=== PATIENT | female | born 1995 | race Caucasian/White ===

== ENCOUNTER 2024-07-27 10:43 | Emergency (ER) | payer OTHER, SELFPAY ==
[2024-07-27 10:53] VITALS: BP 129/71; PULSE 96; RESP 16; TEMP 37.1; O2SAT 100
[2024-07-27 11:09] LABS: EDUAAPPEAR Clear; EDUABILI Negative (Negative); EDUABLOOD Negative (Negative); EDUACOLOR1 Yellow; EDUAGLUCOSE Negative (Negative); EDUAKETONE Negative (Negative); EDUALEUKO Trace (Negative); EDUANITRATE Negative (Negative); EDUAPROTEIN 1+ (Negative); EDUASPGRAVITY 1.025; EDUAUROBILI 0.2
--- NOTE | 2024-07-27 11:26 | ED.GENADULT ---
HPI - General Adult General Chief complaint: Urogenital-Female Stated complaint: Pain/Abdominal Pain Source: patient Mode of arrival: ambulatory Limitations: no limitations History of Present Illness HPI narrative: Patient presents for evaluation of left-sided abdominal pain. Symptom onset last night. She indicates her dog jumped and hit her in the left side of her abdomen. She immediately experienced pain in that area. Since that time she continues to have intermittent discomfort. Pain is now radiating into the left flank. She is currently , approximately 26 weeks gestation. She is under the care of BERNADINE Wood. She states she is considered high risk during this , which is her first . She is having serial ultrasounds every 2-4 weeks. She denies any vaginal bleeding, discharge or urinary symptoms. Related Data Home Medications ?Medication ?Instructions ?Recorded ?Confirmed ?Last Taken ?Type calcium carbonate (Tums Ultra) 400 mg PO DAILY 05/10/24 06/09/24 Unknown History docosahexaenoic acid 200 mg mg PO 05/10/24 06/09/24 Unknown History capsule ( DHA) Allergies Allergy/AdvReac Type Severity Reaction Status Date / Time latex Allergy Intermediate Rash Verified 07/04/24 15:45 miconazole Allergy Intermediate Other Verified 07/04/24 15:45 Review of Systems Review of Systems: CONSTITUTIONAL: Denies fever, chills, or sweats. EYES: Denies visual changes, redness, or discharge. ENT: Denies rhinorrhea, congestion, sore throat, or otalgia. CARDIOVASCULAR: Denies chest pain, palpitations, or edema. RESPIRATORY: Denies cough or dyspnea. GASTROINTESTINAL: Reports left sided abdominal pain which radiates in the left flank. Denies any nausea, vomiting, or diarrhea. GENITOURINARY: Denies dysuria or hematuria. SKIN: Denies rash or itching. MUSCULOSKELETAL: Denies back pain, joint pain, or myalgia. NEUROLOGIC: Denies headache, numbness, dizziness, or weakness. PSYCHIATRIC: Denies anxiety or depression. [facility] Past Medical History Medical History Pelvic pain Allergies Surgical History Surgical History No pertinent past surgical history Family History Family History Mother Asthma Father Asthma Grandparent Diabetes mellitus Thyroid disorder maternal grandmother Alcoholism paternal grandfather Depression maternal and paternal grandfather/grandmother Social History Social History (Reviewed 07/27/24 @ 11:30 by Slim Merchant [facility], ) Smoking status: Never smoker Tobacco type: cigarettes Second hand tobacco smoke exposure: No Alcohol intake: never Substance use: never Substance use type: does not use Do You Feel Safe in your Home?: Yes Lack of Transportation: No Lack of Food: Never True Current Housing: I Have Housing Concerned About Future Housing: No Difficulty Paying Gas/Electric Bills: No Difficulty Paying for Meds: No Currently Unemployed: No Education: Master's Degree or Higher Difficulty w/ Childcare or Family Care: No Living arrangements: with family Additional living arrangements comments: Occupation/Education: 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 HEAD: Normocephalic, atraumatic. EYES: PERRLA and EOMI. ENT: Nares clear, no rhinorrhea or epistaxis. Mucous membranes moist. Oropharynx without tonsillar hypertrophy exudate or other lesions. Bilateral TMs pearly malone nonbulging NECK: Supple. No adenopathy or masses. No carotid bruits or JVD CHEST: Clear to auscultation. No respiratory distress. No wheezes rales or rhonchi HEART: Regular rate and rhythm. No murmur heard. Normal peripheral pulses. ABDOMEN: Soft, nondistended, normal active bowel sounds. Right side of the abdomen is tender to palpation and reproduces pain in left side of the abdomen when palpated on the right EXTREMITIES: Normal range of motion. No edema. SKIN: Warm, dry, no rash. NEURO: No focal deficits. Alert and oriented x3. PSYCH: Normal mood and affect. Course Course Emergency Course: This is a 29-year-old female who presented for evaluation of abdominal pain during after her dog bumped into her abdomen last night. She indicates she is considered high risk during this . Thankfully she is not experiencing vaginal bleeding. We discussed sending her to the ER for monitoring. She is agreeable with this plan. [facility] is her facility of choice. I contacted [facility] and spoke with Dr Shirley, who accepted pt for transfer there. Patient transferred via private vehicle Level of Care: Express Care Visit Vital Signs Vital signs: Vital Signs Temperature 37.1 C 07/27/24 10:53 Pulse Rate 96 07/27/24 10:53 Respiratory Rate 16 07/27/24 10:53 Blood Pressure 129/71 07/27/24 10:53 Pulse Oximetry 100 07/27/24 10:53 Oxygen Delivery Room Air 07/27/24 10:53 Temperature 37.1 C 07/27/24 10:53 Pulse Rate 96 07/27/24 10:53 Respiratory Rate 16 07/27/24 10:53 Blood Pressure 129/71 07/27/24 10:53 Pulse Oximetry 100 07/27/24 10:53 Oxygen Delivery Room Air 07/27/24 10:53 Medical Decision Making Vital Signs Vital Signs: Vital Signs Temperature 37.1 C 07/27/24 10:53 Pulse Rate 96 07/27/24 10:53 Respiratory Rate 16 07/27/24 10:53 Blood Pressure 129/71 07/27/24 10:53 Pulse Oximetry 100 07/27/24 10:53 Oxygen Delivery Room Air 07/27/24 10:53 Temperature 37.1 C 07/27/24 10:53 Pulse Rate 96 07/27/24 10:53 Respiratory Rate 16 07/27/24 10:53 Blood Pressure 129/71 07/27/24 10:53 Pulse Oximetry 100 07/27/24 10:53 Oxygen Delivery Room Air 07/27/24 10:53 Lab Data Labs: Lab Results 07/27/24 Range/Units 11:05 POC Urine Color Yellow POC Urine Clarity Clear POC Urine pH 7.0 POC Ur Specif [place] 1.025 POC Urine Protein 1+ (Negative) POC Ur Glucose (UA) Negative (Negative) POC Urine Ketones Negative (Negative) POC Urine Blood Negative (Negative) POC Urine Nitrite Negative (Negative) POC Urine Bilirubin Negative (Negative) POC Urine Urobilinogen 0.2 POC U Leukocyte Esteras Trace (Negative) Discharge Plan Discharge Clinical Impression: Abdominal pain during , UTI (urinary tract infection) Patient Disposition: Acute Care Hospital Condition: Stable Instructions: Abdominal Pain in (ED), Urinary Tract Infection in (ED) Patient Language: Greek Prescriptions: New cephalexin 500 mg capsule 500 mg PO Q12H Qty: 14 0RF No Action DHA 200 mg capsule PO calcium carbonate [Tums Ultra] 400 mg calcium (1,000 mg) tablet,chewable 400 mg PO DAILY Follow-up/Referrals: Tracy Perdomo MD [Physician] - Time of Disposition: 11:20
--- OUTSIDE RECORDS SUMMARY | 2024-08-03 05:42 | XMS_ITS | Referral Summary ---
Author Organization [facility] Address [address] [place] [address] Care Team Providers Care Country Manager Name Role Phone Rigo Mar MD Primary Care Provider [phone] Source Comments [facility],non-owned Affiliates and Associated Physician Practices is amultiple site organization consisting of ambulatory clinics and hospital sitesin [place], [place], [place] and [place]. This disclosure is being madepursuant to the Care Everywhere program and may not contain all information available regarding this patient. Last updated 18.[facility] Encounters Date Type Department Care Team Description 07/04/2024 7:30 AM CLINICAL ADMISSIONS MANAGER - 07/04/2024 11:59 PM CLINICAL ADMISSIONS MANAGER Hospital Encounter [facility] [address] [place] [address] Rosa Maria Carcamo MD Discharge Disposition: Home or Self Care 06/06/2024 8:04 AM CLINICAL ADMISSIONS MANAGER - 06/06/2024 11:59 PM CLINICAL ADMISSIONS MANAGER Hospital Encounter [facility] [address] [place] [address] Maame Stevenson MD Discharge Disposition: Home or Self Care 06/06/2024 8:03 AM CLINICAL ADMISSIONS MANAGER Hospital Encounter [facility] [address] [place] [address] Maame Stevenson MD Guinn, Debra A, MD Discharge Disposition: Home or Self Care from Last 3 Months Allergies Active Allergy Reactions Criticality Noted Date Comments Latex Rash Medium 05/30/2024 Miconazole Other Medium 05/30/2024 Unknown if intolerance, side effect or allergy. Medications Be aware that medications may not be up to date on this document. Always verify current medications with the patient. 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 06/09/2024 Estimated Date of Delivery Comme nts Yes 10/29/2024 Based on last me nstrual period of 01/23/2024 Social History Tobacco Use Types Packs/Day Years Used Date Smoking Tobacco: Never Smokeless Tobacco: Never Tobacco Cessation:Counseling Given: Not Answered Alcohol Use Standard Drinks/Week Comments Never 0 (1 standard drink = 0.6 oz pur e alcohol) Estimated Date of Delivery Comme nts Yes 10/29/2024 Based on last me nstrual period of 01/23/2024 Sex and Gender Information Value Date Recorded Sex Assigned at Not on file Gender Identity Not on file Sexual Orientation Not on file Last Filed Vital Signs Vital Sign Reading Time Taken Comments Blood Pressure 116/57 06/06/2024 8:08 AM CLINICAL ADMISSIONS MANAGER Pulse 86 06/06/2024 8:08 AM CLINICAL ADMISSIONS MANAGER Temperature 37.5 ??C (99.5 ??F) 03/29/2024 9:10 AM CD T Respiratory Rate - - Oxygen Saturation - - Inhaled Oxygen Concentration - - Weight 63 kg (138 lb 12.8 oz) 06/06/2024 8:08 AM CLINICAL ADMISSIONS MANAGER Height 167.6 cm (5' 6 ) 03/29/2024 9:10 AM CDT Body Mass Index 22.4 03/29/2024 9:10 AM CDT Plan of Treatment Upcoming Encounters Date Type Department Care Team (Late st Contact Info) Description 08/08/2024 3:15 PM CLINICAL ADMISSIONS MANAGER Hospital Encounter [facility] [address] [place] [address] 01/09/2025 3:00 PM CDT Office Visit [facility] - PUBLIC AID ELIGIBILITY ASSISTANT [address] [place] [address] Yolanda Kimbrough MD [address] [address] Procedures Procedure Name Priority Date/Time Associated Diagnosis Comments SONOGRAM - COMPLETE Routine 07/04/2024 7:40 AM CLINICAL ADMISSIONS MANAGER 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) Encounter for follow-up ultrasound of anatomy (HCC) 22 weeks gestation of (HCC) Abnormal chromosomal and genetic finding on screening mother Encounter for ultrasound to assess growth (HCC) SONOGRAM - COMPLETE Routine 06/06/2024 8:08 AM CLINICAL ADMISSIONS MANAGER Abnormal chromosomal and genetic finding on screening mother 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 Linked Results Indication ======== Anatomy Survey, Positive genetic testing for microcephaly and cystinuria (FOB not tested yet), Pt has a pelvic floor anomaly History ====== OB History ? 1. Para 0 Lab Tests Test ? Date ? Result NIPT ? Low risk, female Maternal Assessment Physical Exam ??Height 168 cm, 5 ft 6 in. Weight 65 kg, 143 lb. Initial weight 62 kg, 136 lb. BMI 23.08 kg/m?. Initial BMI 21.95 kg/m?. Weight gain 3 kg, 7 lb Method ====== Transabdominal ultrasound. View: Good view ========= Price . Number of fetuses: 1 Dating ====== ? Date ?Details ? Gest. age ? ALLYN LMP ?01/23/2024 ? 23 w + 2 d ?10/29/2024 Stated ALLYN ? 23 w + 2 d ?10/29/2024 U/S ?07/04/2024 ? based upon AC, BPD, Femur, HC ? 22 w + 3 d ?11/04/2024 Assigned dating based on the LMP, selected on 06/06/2024 ? 23 w + 2 d ?10/29/2024 General Evaluation Cardiac activity present. FHR 129 bpm. Presentation: breech Placenta: Placental site: anterior Amniotic fluid: Amount of AF: normal Biometry BPD ?52.3 ?mm ?21w 6d ??6% ?Hadlock HC ? 199.8 ?? mm ?22w 1d ??5% ?Hadlock AC ? 175.6 ?? mm ?22w 3d ??18% ? Hadlock Femur ?40.5 ?mm ?23w 1d ??32% ? Hadlock Humerus ?38.2 ?mm ?23w 4d ??45% ? Margarita HC / AC ?1.14 Weight Calculation: EFW ?523 ? g ? 17% ? Hadlock EFW (lb,oz) ?1 lb 2 ??oz EFW by ? Hadlock ([id number]) Head / Face / Neck Biometry: Cephalic index ? 0.73 ?5% ?Nicolaides appropriate Growth Overview Exam date ?GA ?BPD (mm) ?HC (mm) AC (mm) FL (mm) HL (mm) EFW (g) 06/06/2024 ? 19w 2d ??42.5 ?32% ? 157.7 ?? 16% ? 134.3 ?? 32% ? 27.8 ?17% ? 28.7 ?52% ? 254 ? 18% 07/04/2024 ?23w 2d ??52.3 ?6% ?199.8 ?? 5% ?175.6 ?? 18% ? 40.5 ?32% ? 38.2 ?45% ? 523 ? 17% Anatomy The following structures appear normal: Face ? Profile. Heart / Thorax 4-chamber view. LVOT view. 3-vessel view. Great vessels. ? Right lung. Left lung. Abdomen ?Cord insertion. Stomach. Kidneys. Bladder. Extremities / Skeleton Feet. sex: female. Impression ========= Single, live, intrauterine at 23w 2d size appears appropriate. The head size is small, but not microcephalic. Amniotic fluid volume: normal No major malformations were seen within the limitations of ultrasound Follow-up ======== Follow up ultrasound in 4 weeks for growth assessment is recommended Coding ====== Procedures ? 47636: US Preg Uterus Follow Up [facility] Design[employer] Material PACS Anatomical Region Laterality Modality Other 07/04/2024 7:40 AM CLINICAL ADMISSIONS MANAGER Tracy Perdomo MD [facility] ORDERABLES from Last 3 Months Care Teams Country Manager Relationship Specialty Start Date End Date Rigo Mar MD [address] [address] PCP - General Family Medicine 03/24/24
--- OUTSIDE RECORDS SUMMARY | 2024-08-03 05:42 | XMS_ITS | Clinical Summary ---
Author Organization [facility] Address [address] [place] [address] Care Team Providers Care Corporate Sales Trainer Name Role Phone Rigo Mar MD Primary Care Provider [phone] Source Comments [facility],non-owned Affiliates and Associated Physician Practices is amultiple site organization consisting of ambulatory clinics and hospital sitesin [place], [place], [place] and [place]. This disclosure is being madepursuant to the Care Everywhere program and may not contain all information available regarding this patient. Last updated 18.[facility] [employer] Allergies Active Allergy Reactions Criticality Noted Date [...] on last me nstrual period of 01/23/2024 Encounters Date Type Department Care Team Description 07/04/2024 7:30 AM VARNISH MIXER - 07/04/2024 11:59 PM VARNISH MIXER Hospital Encounter [facility] [address] [place] [address] Head, Rosa Maria Leger MD Discharge Disposition: Home or Self Care 06/06/2024 8:04 AM VARNISH MIXER - 06/06/2024 11:59 PM VARNISH MIXER Hospital Encounter [facility] [address] [place] [address] Maame Stevenson MD Discharge Disposition: Home or Self Care 06/06/2024 8:03 AM VARNISH MIXER Hospital Encounter [facility] [address] [place] [address] Maame Stevenson MD Guinn, Debra A, MD Discharge Disposition: Home or Self Care from Last 3 Months Family History Medical History Relation Name Comments Osteoporosis Father Autoimmune Disease Maternal Grandfather M yasthenia gravis (MG) Diabetes; unknown type Maternal Grandfather Cancer - Colon Maternal Uncle Relation Name Status Comments Father Maternal Grandfather Maternal Uncle Other 1 Fetus - In Utero Other 2 Maurice Alive Other 3 Alive Other 4 Alive Other 5 Alive Other 6 Alive Sister Alive Renal disorder Social History Tobacco Use Types Packs/Day Years [...] Comments Blood Pressure 116/57 06/06/2024 8:08 AM VARNISH MIXER Pulse 86 06/06/2024 8:08 AM VARNISH MIXER Temperature 37.5 ??C (99.5 ??F) 03/29/2024 9:10 AM CD T Respiratory Rate - - Oxygen Saturation - - Inhaled Oxygen Concentration - - Weight 63 kg (138 lb 12.8 oz) 06/06/2024 8:08 AM VARNISH MIXER Height 167.6 cm (5' 6 ) 03/29/2024 9:10 AM CDT Body Mass Index 22.4 03/29/2024 9:10 AM CDT Plan of Treatment Upcoming Encounters Date Type Department Care Team (Late st Contact Info) Description 08/08/2024 3:15 PM VARNISH MIXER Hospital Encounter [facility] [address] [place] [address] 01/09/2025 3:00 PM CDT Office Visit [facility] - RADIATION CONTROL HEALTH PHYSICIST [address] [place] [address] Yolanda Kimbrough MD [address] [facility] [address] [place] [address] Health Maintenance Due Date Last Done Comments PAP SMEAR 1997 HIV SCREENING 2012 HEPATITIS C SCREENING 05/09/2015 DTAP/TDAP/TD VACCINES (1 - Tdap) 2016 HEPATITIS B VACCINE (1 of 3 - 19+ 3-dose series) 2016 COVID-19 VACCINE (2023-2 5 season) 2024 08/07/2021, 02/23/2021, 01/26/2021 INFLUENZA VACCINE (#1) 2024 OB-ONE HOUR GLUCOSE 07/23/2024 DEPRESSION SCREENING 07/27/2024 OB-TDAP CURRENT 07/30/2024 OB-RHOGAM INJECTION 08/06/2024 ZOSTER VACCINE (1 of 2) 2047 HIB VACCINE Aged Out No longer eligi ble based on patient's age to complete this topic HPV VACCINE Aged Out No longer eligi ble based on patient's age to complete this topic MENINGOCOCCAL VACCINE Aged Out No vernon andrei eligible based on patient's age to complete this topic PNEUMOCOCCAL VACCINE Aged Out No long er eligible based on patient's age to complete this topic Respiratory Syncytial Virus (RSV) Vaccine Pt: or over 60 yrs (No Doses Required) Completed Procedures Procedure Name Priority Date/Time Associated Diagnosis Comments SONOGRAM - COMPLETE Routine 07/04/2024 7:40 AM VARNISH MIXER 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) Encounter for follow-up ultrasound of anatomy (HCC) 22 weeks gestation of (HCC) Abnormal chromosomal and genetic finding on screening mother Encounter for ultrasound to assess growth (HCC) SONOGRAM - COMPLETE Routine 06/06/2024 8:08 AM VARNISH MIXER Abnormal chromosomal and genetic finding on screening mother 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 Hadlock ([id number]) Head / Face / Neck Biometry: Cephalic [...] assessment is recommended Coding ====== Procedures ? 62180: US Preg Uterus Follow Up [facility] PACS Anatomical Region Laterality Modality Other 07/04/2024 7:40 AM VARNISH MIXER Tracy Perdomo MD [facility] ORDERABLES from Last 3 Months Care Teams Corporate Sales Trainer Relationship Specialty Start Date End Date Rigo Mar MD [address] [address] PCP - General Family Medicine 03/24/24
--- OUTSIDE RECORDS SUMMARY | 2024-08-03 05:43 | XMS_ITS | Encounter Summary ---
Author Organization [facility] Address [facility] [place] [address] Care Team Providers Care Plywood Layup Line Back Feeder Name Role Phone Rigo Mar MD Primary Care Provider [phone] Encounter Details Date Type Department Care Team (Latest Contact Info) Description 03/29/2024 Travel Social History Tobacco Use Types Packs/Day Years Used Date Smoking Tobacco: Never Smokeless Tobacco: Never Alcohol Use Standard Drinks/Week Comments Never 0 (1 standard drink = 0.6 oz pur e alcohol) Estimated Date of Delivery Comme nts Yes 10/29/2024 Based on last me nstrual period of 01/23/2024 Sex and Gender Information Value Date Recorded Sex Assigned at Not on file Gender Identity Not on file Sexual Orientation Not on file documented as of this encounter Plan of Treatment Upcoming Encounters Date Type Department Care Team (Late st Contact Info) Description 08/08/2024 3:15 PM INSTRUMENT PANEL ASSEMBLER Hospital Encounter [facility] [place] [address] 01/09/2025 3:00 PM CDT Office Visit [facility] - PHARMACEUTICAL PLANT OPERATOR [address] [place] [address] Yolanda Kimbrough MD [address] [address] documented as of this encounter Visit Diagnoses Not on filedocumented in this encounter Care Teams Plywood Layup Line Back Feeder Relationship Specialty Start Date End Date Rigo Mar MD [address] [address] PCP - General Family Medicine 03/24/24 documented as of this encounter
--- OUTSIDE RECORDS SUMMARY | 2024-08-03 05:43 | XMS_ITS | Encounter Summary ---
Author Organization [facility] Address [address] [place], [place] [address] [address] Care Team Providers Care Electric Organ Checker Name Role Phone Rigo Mar MD Primary Care Provider [phone] Reason for Visit * Reason Comments Vulvar Pain * Consult, Test & Treat (Routine) - Authorized Specialty Diagnoses / Procedures Referred By Contac t Referred To Contact Obstetrics and Gynecology Rigo Mar MD [address] [place] [phone] Yolanda Kimbrough MD [address] [facility] [address] [place] [address] Referral ID Status Reason Start Date Expiration Date V isits Requested Visits Authorized [id number] Authorized 03/24/2024 03/23/2025 [id number] Encounter Details Date Type Department Care Team (Late st Contact Info) Description 03/29/2024 8:50 AM CDT Office Visit [facility] - HYPERBARIC TECHNICIAN [address], [facility] [address] [place] [address] Yolanda Kimbrough MD [address] [facility] [address] [place] [address] Vulvar vestibulitis (Primary Dx); History of vaginitis Social History Tobacco Use Types Packs/Day Years [...] on file documented as of this encounter Last Filed Vital Signs Vital Sign Reading Time Taken Comments Blood Pressure 124/80 03/29/2024 9:10 AM CDT Pulse - - Temperature 37.5 ??C (99.5 ??F) 03/29/2024 9:10 AM CD T Respiratory Rate - - Oxygen Saturation - - Inhaled Oxygen Concentration - - Weight 59 kg (130 lb) 03/29/2024 9:10 AM CDT Height 167.6 cm (5' 6 ) 03/29/2024 9:10 AM CDT Body Mass Index 20.98 03/29/2024 9:10 AM CDT documented in this encounter Patient Instructions * Patient Instructions* Yolanda Kimbrough MD - 03/29/2024 8:53 AM CDT Follow the Vulvar Care Guidelines Free and clear laundry detergent No liquid fabric softeners, white vinegar is a natural fabric softener and can be use in the both whites and dark washes No dryer sheets, may use wool dryer balls Switch toilet paper to anything that is not ultra-soft or ultra-strong Dove sensitive skin bar soap, make sure you wash in between the labial folds. vegetable shortening/Cold press coconut oil/EVOO twice daily to the vestibule, at bedtime also use on all external vulvar tissues To have Bacterial vaginosis you need a vaginal pH of 5 or above. 4.5 and below are normal levels and you can not have BV with this pH. 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 Medication(s): See list Medical History: Past Medical History: Diagnosis Date GERD (gastroesophageal reflux disease) Surgical History: Past Surgical History: Procedure Laterality Date NEGATIVE SURGICAL HISTORY Review of Systems: Constitutional: Fever, Chills, Sweats, and Fatigue Eyes: Negative Ears, nose, mouth, throat, and face: Ear drainage, Nasal congestion, Sore mouth, and Sore throat Respiratory: Cough and Pleurisy Cardiovascular: Negative Gastrointestinal: Reflux, Nausea, and Change in bowel habits Genitourinary:Dysuria and Nocturia Integument/breast: Negative Hematologic/lymphatic: Negative Musculoskeletal: Negative Neurological: Negative Behavioral/Psych: Negative Endocrine: Negative Allergic/mmunologic: Negative Chief Complaint: About 5 years ago began having lots of vaginal, vulvar pain. Gets burning and itching and even pain down her legs. Has never been able to use tampons. Has been told she has had recurrent BV and given Flagyl, Metrogel and then gets yeast and given fluconazole. Was also tried on topical testosterone but this broke her out. Does have chemical sensitivities. [place] is painful. Patient is currently 9 weeks . Symptoms: (0=None; 10=Severe) Dyspareunia: Entry:4 Deep Pain:2 Burning after intercourse:6 until rinses off Vaginal discharge: 0 Vulvar burnin-8 Vulvar itchin-4 Clitoral pain: 0 Vulvar pain: 0 Urinary symptoms: 0 Duration of symptom(s): 6 years Association with any major life or gynecological event/illness? N o Previous diagnoses: no Previous biopsies: No Previous treatment(s): topical estrogen and testosterone, nystatin/triamcinolone ointment, fluconazole, Flagyl Current treatment(s): none Symptoms prevent activities? Yes sexual History of STI: No Partner with symptoms of irritation, itching, burning or discharge? No Hormone therapy or OCP use? no Psychosocial aspects: Fear of having to live with chronic pain? No Loss of previously satisfying sex life? Yes Relationship problems with partner? No Isolation due to private nature of problem?No Able to discuss the problem with family members or friends? Yes Fear of possible cancer? No Emotional, stephen, frustrated and/or angry? Yes Fear of haivng a disease that you may give to others? No Antidepressant/antianxiolytic use? No Instruction Vulvar Care Guidelines Vulvar Examination: See Photo Documentation/annotated image-if photo taken, verbal consent obtained External tissues red with increase in smegma in inner labial folds Some inflammation below clitoris Vestibule tender with scores of 6-8/10 pH: pH Vaginal Date Value Ref Range Status 03/29/2024 4.0 Final Wt mount results: pH Wet Prep Date/Time Value Ref Range Status 03/29/2024 10:13 AM 4.0 Final Yeast Wet Prep Date/Time Value Ref Range Status 03/29/2024 10:13 AM neg Final Trichomonas Wet Prep Date/Time Value Ref Range Status 03/29/2024 10:13 AM None Final Bacteria Wet Prep Date/Time Value Ref Range Status 03/29/2024 10:13 AM neg Final Whiff Test Date/Time Value Ref Range Status 03/29/2024 10:13 AM neg Final SAVANAH Prep: SAVANAH Prep Date Value Ref Range Status 03/29/2024 No Final Cultures: yeast Biopsy: Not done Impression/Plan: Vestibulodynia Implement Vulvar Care Guidelines vegetable shortening/Cold press coconut oil /EVOO twice daily Discussed that since she is can not use the oral neuropathics at this time Encouraged a vaginal delivery 2. History of vaginitis Check yeast culture Reviewed that she does not have BV, has normal pH, negative whiff test and negative wet mount. Informed that a vagina pH of 4.5 or below does not support a BV diagnosis. If this yeast culture is negative, then when she gets symptoms again to self swab and drop off at [facility]. 3. ? Early vulvar dystrophy May need biopsy after 3. F/U in 4 months Time - The total face to face encounter time was 45 minutes. A significant portion (>50%) time was spent face to face in counseling the patient about the Vulvar Care Guidelines, vestibulodynia, history of vaginitis, vulvar dystrophy and discussing the treatment plan as outlined in instructions. Her questions were answered to her satisfaction. Written instructions were provided. The patients medications, allergies, medical history, surgical history, family history, and social history were reviewed and changes are amended directly in the appropriate areas of the electronic medical record and electronically signed. I also spent 15 minutes of time on the day of the visit preparing to see the patient and completingthe visit documentation, including some or all of the following: ? obtaining and/or reviewing separately obtained history (as available from electronic record, careeverywhere, provided records from the patient if available) ? counseling and educating the patient/family/caregiver ? ordering medications, tests, or procedures as needed ? referring and communicating with other health health care coordinator via faxed communication ? documenting clinical information in the electronic health record ? independently interpreting results and communicating results to the patient/family/caregiver as needed ? care coordination as needed Total time 60 minutes New: 30 min (65425) 45 min (02692) 60 min (20658) Established 20 min (33892) 30 min (73113) 40 min (64148)' documented in this encounter Plan of Treatment Upcoming Encounters Date Type Department Care Team (Late st Contact Info) Description 08/08/2024 3:15 PM ALTERATION WORKER Hospital Encounter [facility] Maternal & Care [address] [place], [place] [id number] 01/09/2025 3:00 PM CDT Office Visit [facility] - HYPERBARIC TECHNICIAN [address] [place] [address] [address] [place] [address] Yolanda Kimbrough MD [address] [facility] [address] [place] [address] Scheduled Orders Name Type Priority Associated Diagnoses Orde r Schedule CULTURE YEAST WITH DIRECT FLUORESCENT SAVANAH Microbiology Routine History of vaginitis 1 Occurrences starting 03/29/2024 until 04/28/2025 documented as of this encounter Procedures Procedure Name Priority Date/Time Associated Diagnosis Comments PH FLUID - POCT (AMB) [facility] Routine 03/29/2024 10:13 AM CDT Vulvar vestibulitis WET PREP - POINT OF CARE (AMB) [facility] Routine 03/29/2024 10:13 AM CDT Vulvar vestibulitis FUNGUS SAVANAH - POINT OF CARE (AMB) [facility] Routine 03/29/2024 10:13 AM CDT Vulvar vestibulitis CULTURE YEAST WITH DIRECT FLUORESCENT SAVANAH Routine 03/29/2024 9:43 AM CDT Vulvar vestibulitis documented in this encounter Results * WET PREP - POINT OF CARE (AMB) [facility] (03/29/2024 10:13 AM CDT) pH Wet Prep 4.[address] [facility] [address] Yeast Wet Prep neg [facility] RE [address] Trichomonas Wet Prep None [facility] [address] Bacteria Wet Prep neg [facility] [address] Whiff Test neg [facility] [address] BODY FLUID SPECIMEN / Unknown 03/29/2024 10:13 AM CDT Yolanda Kimbrough MD LAB - POINT OF CAR E ORDERABLES Performing Organization Address City/[facility]/ZIP Co de Phone Number [facility] [address] [place] [address], [facility] [phone] * PH FLUID - POCT (AMB) [facility] (03/29/2024 10:13 AM CDT) pH Vaginal 4.0 [facility] [address] Fluid VAGINAL SWAB / Unknown 03/29/2024 10:13 AM CDT Yolanda Kimbrough MD LAB - POINT OF CAR E ORDERABLES Performing Organization Address City/[facility]/ZIP Co de Phone Number [facility] [address] [place] [address], [facility] [phone] * FUNGUS SAVANAH - POINT OF CARE (AMB) [facility] (03/29/2024 10:13 AM CDT) SAVANAH Prep No [facility] [address] Fluid BODY FLUID SPECIMEN / Unknown 03/29/2024 10:13 AM CDT Yolanda Kimbrough MD LAB - POINT OF CAR E ORDERABLES [facility] [address] [place] [address], [facility] [phone] * CULTURE YEAST WITH DIRECT FLUORESCENT SAVANAH (03/29/2024 9:43 AM CDT) [facility] Comment: ??CULTURE, YEAST, W/DIRECT FLUORESCENT SAVANAH ?Micro Number: ?[id number] ??Test Status: ? Final ??Specimen Source: ?? Genital ??Specimen Quality: ??Adequate ??Smear: ? No yeast seen ??Result: ?No yeast isolated Test Performed at: [employer] ??[id number] KWASI PATTERSON MD Microbiology SPECIMEN FROM GENITAL SYSTEM / Unknown 03/29/2024 9:43 AM CDT 03/30/2024 4:40 AM CDT Yolanda Kimbrough MD LAB - MICROBIOLOGY ORDERABLES Dr. 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
--- OUTSIDE RECORDS SUMMARY | 2024-08-03 05:43 | XMS_ITS | Patient Health Summary ---
Author Organization [facility] [employer] Address [address] [place] [address] Care Team Providers Care Canvas Cutter Machine Name Role Phone Rigo Mar MD Primary Care Provider [phone] Note from [facility] [place],non-owned Affiliates and Associated Physician Practices is amultiple site organization consisting of ambulatory clinics and hospital sitesin [place], [place], [place] and [place]. This disclosure is being madepursuant to the Care Everywhere program and may not contain all information available regarding this patient. Last updated 18.[facility] [employer] Allergies * Latex(Rash) -Medium Criticality * Miconazole(Other) -Medium Criticality Medications Be aware that medications may not be up to date on this document. Always verify current medications with the patient. 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 06/09/2024 Social History Tobacco Use Types Packs/Day Years [...] Comments Blood Pressure 116/57 06/06/2024 8:08 AM BIOPHYSICS PROFESSOR Pulse 86 06/06/2024 8:08 AM BIOPHYSICS PROFESSOR Temperature 37.5 ??C (99.5 ??F) 03/29/2024 9:10 AM CD T Respiratory Rate - - Oxygen Saturation - - Inhaled Oxygen Concentration - - Weight 63 kg (138 lb 12.8 oz) 06/06/2024 8:08 AM BIOPHYSICS PROFESSOR Height 167.6 cm (5' 6 ) 03/29/2024 9:10 AM CDT Body Mass Index 22.4 03/29/2024 9:10 AM CDT Procedures * SONOGRAM - COMPLETE(Performed 07/04/2024) 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), Autosomal recessive cystinuria (HCC),Encounter for follow-up ultrasound of anatomy ([facility]), 22 weeks gestation of ([facility]), Abnormal chromosomal and genetic finding on screening mother, Encounter for ultrasound to assess growth ([facility]) * SONOGRAM - COMPLETE(Performed 06/06/2024) Performed for Abnormal chromosomal and genetic finding on screening mother, Autosomal recessive primary microcephaly (HCC), Autosomal recessive cystinuria (HCC), 19 weeks gestation of ([facility]), Encounter for anatomic survey ([facility]) * WET PREP - POINT OF CARE (AMB) [facility](Performed 03/29/2024) Performed for Vulvar vestibulitis * PH FLUID - POCT (AMB) [facility](Performed 03/29/2024) Performed for Vulvar vestibulitis * FUNGUS SAVANAH - POINT OF CARE (AMB) [facility](Performed 03/29/2024) Performed for Vulvar vestibulitis * CULTURE YEAST WITH DIRECT FLUORESCENT SAVANAH(Performed 03/29/2024) Performed for Vulvar vestibulitis Results * SONOGRAM - COMPLETE (07/04/2024 7:40 AM BIOPHYSICS PROFESSOR) Only the most recent of2 resultswithin the [...] lb 2 ??oz EFW by ? Hadlock ([id number]) Head / Face / Neck Biometry: Cephalic [...] assessment is recommended Coding ====== Procedures ? 13736: US Preg Uterus Follow Up Free & Clear PACS Anatomical Region Laterality Modality Other 07/04/2024 7:40 AM BIOPHYSICS PROFESSOR Tracy Perdomo MD [facility] ORDERABLES * PH FLUID - POCT (AMB) [facility] (03/29/2024 10:13 AM CDT) pH Vaginal 4.0 [facility] [address] Fluid VAGINAL SWAB / Unknown 03/29/2024 10:13 AM CDT Yolanda Kimbrough MD LAB - POINT OF CAR E ORDERABLES Performing Organization Address [facility] Co de Phone Number [facility] [address], [facility] [phone] * WET PREP - POINT OF CARE [...] OF CAR E ORDERABLES Performing Organization Address [facility] Co de Phone Number [facility] [address] [place] [address], [facility] [phone] * FUNGUS SAVANAH - POINT OF CARE (AMB) [facility] (03/29/2024 10:13 AM CDT) SAVANAH Prep No [facility] [address] Fluid BODY FLUID SPECIMEN / Unknown 03/29/2024 10:13 AM CDT Yolanda Kimbrough MD LAB - POINT OF CAR E ORDERABLES Performing Organization Address [facility] Co de Phone Number [facility] [address] [place] [address], [facility] [phone] * CULTURE YEAST WITH DIRECT FLUORESCENT SAVANAH (03/29/2024 9:43 AM CDT) Smear [facility] Comment: ??CULTURE, YEAST, W/DIRECT FLUORESCENT SAVANAH ?Micro Number: ?[id number] ??Test Status: ? Final ??Specimen Source: ?? Genital ??Specimen Quality: ??Adequate ??Smear: ? No yeast seen ??Result: ?No yeast isolated Test Performed at: [email or web address] ??[id number] KWASI PATTERSON MD Microbiology SPECIMEN FROM GENITAL SYSTEM / Unknown 03/29/2024 9:43 AM CDT 03/30/2024 4:40 AM CDT Yolanda Kimbrough MD LAB - MICROBIOLOGY ORDERABLES [address] [address] Care Teams Canvas Cutter Machine Relationship Specialty Start Date End Date Rigo Mar MD [address] [address] PCP - General Family Medicine 03/24/24
--- OUTSIDE RECORDS SUMMARY | 2024-08-03 05:43 | XMS_ITS | Encounter Summary ---
Author Organization [facility] Address [address] [place], [place] [address] [address] Care Team Providers Care Hammer Smith Name Role Phone Rigo Mar MD Primary Care Provider [phone] Reason for Visit * Reason Onset Date Comments Med Question 04/20/2024 Encounter Details Date Type Department Care Team (Late st Contact Info) Description 04/20/2024 Telephone [facility] - REMOTE SENSING SCIENTIST [address] [place] [address] Yolanda Kimbrough MD [address] [facility] [address] [place] [address] Med Question Social History Tobacco Use Types Packs/Day Years [...] on file documented as of this encounter Miscellaneous Notes * Telephone Encounter - Yolanda Kimbrough MD - 04/21/2024 8:17 AM CDT Talked wit Fatou the PT. Reviewed Mami's diagnosis of vestibulodynia. I agree with her that further PT is not indicated at this time. * Telephone Encounter - Getachew Pepe RN - 04/20/2024 1:09 PM CDT Per Fatou, PT: Pt has been seen for pelvic pain for past year. Hasn't been able to help her with her pelvic pain -most consistently for last 3 months. Fatou was the one who suggested Mami see Dr Padilla. Wonders if Dr Padilla was able to find anything when she was seen? Fatou concerned PT isn't helpingher. Was hoping Dr Padilla could give her some insight or suggest anything further. Fatou has had discussions w/ the OB who ordered PT. OB thinks her issues are caused by ongoing BV. OB has also sent Mami to a sex therapist. Advised: Dr Padilla is a vaginal vulvar specialist, not pelvic pain. Will send her your question and see if she has any insight. No PT reports in chart. * Telephone Encounter - Dede Treviño - 04/20/2024 12:05 PM CDT Fatou Physical Therapist with the [facility] is calling regarding this PT. She has been seeing this PT for a while and is wondering what the PT's treatment plan is and what her next steps maybe. C/B [phone] documented in this encounter Plan of Treatment Upcoming Encounters Date Type Department Care Team (Late st Contact Info) Description 08/08/2024 3:15 PM MENTAL HEALTH NURSE PRACTITIONER Hospital Encounter [facility] Maternal & Care [address] [place] [address] 01/09/2025 3:00 PM CDT Office Visit [facility] - REMOTE SENSING SCIENTIST [address] [place] [phone] Yolanda Kimbrough MD [address] [address] documented as of this encounter Visit Diagnoses Not on filedocumented in this encounter Care Teams Hammer Smith Relationship Specialty Start Date End Date Rigo Mar MD [address] [phone] PCP - General Family Medicine 03/24/24 documented as of this encounter
--- OUTSIDE RECORDS SUMMARY | 2024-08-03 05:43 | XMS_ITS | Encounter Summary ---
Author Organization [facility] Address [address] [place], [place] [address] [address] Care Team Providers Care Marketing Outreach Coordinator Name Role Phone Rigo Mar MD Primary Care Provider [phone] Encounter Details Date Type Department Care Team (Latest Contact Info) Description 06/06/2024 8:04 AM MANUFACTURERS SERVICE REPRESENTATIVE - 06/06/2024 11:59 PM MANUFACTURERS SERVICE REPRESENTATIVE Hospital Encounter [facility] [address] [place], [place] [id number] Maame Stevenson MD 10[address] [facility] 4TH [place] [address] Discharge Disposition: Home or Self Care Social History Tobacco Use Types Packs/Day Years [...] on file documented as of this encounter Progress Notes * Tiesha Morrison GC - 06/06/2024 11:59 PM CST Images from the original note were not included. GENETICS CONSULTATION NOTE [facility]: [place] PATIENT: Mami Call DATE OF : 1995 DATE SEEN: 06/06/2024 SEEN BY: Tiesha Morrison MS, [facility] - Genetic Counselor Today's visit was conducted virtually. The patient has given verbal consent to have today's visit conducted virtually and understands the risks, benefits and alternatives associated with telemedicine. Patient location: Hospital This encounter was performed using: audio and video PATIENT PROFILE: Ms. Call is , 29-year-old. She was accompanied by her partner and fatherof the Maurice. A total of 40 minutes was spent counseling this couple. CURRENT : Ms. 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 FAMILY HISTORY: Family history is unremarkable. There is no reported family history of defects, cognitive disability or recurrent loss. IMPRESSION: Ms. Call received carrier screening ordered through her OB. 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 We reviewed that both conditions follow autosomal recessive inheritance patterns. She was educated on the fact that being a carrier does not mean an individual will be affected by Cystinuria Type I or Primary AR Microcephaly. We also reviewed the natural history of both disorders, autosomal recessive inheritance patterns, as well as carrier frequency in regards to her reproductive partner's potential carrier status. His risk to be a carrier for Cystinuria Type 1 is 1 in 50. We also reviewed current risk for Cystinuria Type I without partner testing, which is 1 in 200. We discussed that were unable to determine carrier frequency for Primary AR Microcephaly due to the incredibly low incidence in the general population. We reviewed possible genetic carrier testing options for him should they choose to pursue it, which would involve single gene testing for the two previously mentionedgenes of concern. Both Ms. Call and the FOB expressed their desire to move forward with carrier testing for the FOB. The two genes of interest are not on our routine carrier screening panel, therefore we will research the best next option for Maurice. We will follow up by phone to discuss lab selection, sample collection, and billing. PLAN: Following our discussion, the FOB and patient both agreed to pursue genetic carrier screening for the two genes Ms. Call was found to be a carrier for. The two genes of interest are not on our routine carrier screening panel, therefore we will research the best next option for Maurice. We will follow up by phone to discuss lab selection, sample collection, and billing. FOLLOW UP: Maurice Corea's 2 Gene Panel: KIF14 and SLC3A1; gene sequencing with deletion and duplication analysis: RESULTS: Negative (No clinically significant sequence or copy-number variants were identified inthe submitted specimen.) Results were disclosed via phone on 07/21/24. Tiesha Morrison MS, [facility] Lead Genetic Counselor [facility] cc: Tracy Perdomo MD FACTURERS SERVICE REPRESENTATIVE documented in this encounter Plan of Treatment Upcoming Encounters Date Type Department Care Team (Late st Contact Info) Description 08/08/2024 3:15 PM MANUFACTURERS SERVICE REPRESENTATIVE Hospital Encounter [facility] [address] [place] [address] 01/09/2025 3:00 PM CDT Office Visit [facility] - HEALTH PROMOTION EDUCATOR [address] [facility] [address] [place] [address] Yolanda Kmibrough MD 1031 [facility] [address] [place] [address] documented as of this encounter Visit Diagnoses Not on filedocumented in this encounter Care Teams Marketing Outreach Coordinator Relationship Specialty Start Date End Date Rigo Mar MD [address] [facility] 3 [place] [address] PCP - General Family Medicine 03/24/24 documented as of this encounter
--- OUTSIDE RECORDS SUMMARY | 2024-08-03 05:43 | XMS_ITS | Encounter Summary ---
Author Organization [facility] Address [facility] [place] [address] Care Team Providers Care Small Business Sales Representative Name Role Phone Unavailable Primary Care Provider Unavailabl e Encounter Details Date Type Department Care Team (Latest Contact Info) Description 12/18/2023 Travel Social History Tobacco Use Types Packs/Day Years Used Date Smoking Tobacco: Never Assessed Sex and Gender Information Value Date Recorded Sex Assigned at Not on file Gender Identity Not on file Sexual Orientation Not on file documented as of this encounter Plan of Treatment Upcoming Encounters Date Type Department Care Team (Late st Contact Info) Description 08/08/2024 3:15 PM PEOPLESOFT HCM DEVELOPER Hospital Encounter [facility] [address] [place], [place] [id number] 01/09/2025 3:00 PM CDT Office Visit [facility] - WEB PRESSMAN [address] [facility] [address] [place] [address] Yolanda Kimbrough MD [address] [address] documented as of this encounter Visit Diagnoses Not on filedocumented in this encounter
--- OUTSIDE RECORDS SUMMARY | 2024-08-03 05:43 | XMS_ITS | Encounter Summary ---
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 gestation of (HCC) Encounter for anatomic survey (HCC) Procedures SONOGRAM - COMPLETE Bar Acuña MD [address] [facility] [address] [place] [address] Referral ID Status Reason Start Date Expiration Date Visits Re quested Visits Authorized [id number] Open 05/30/2024 05/30/2025 1 1 S ASSISTANT DISPLAYS * (Routine) - Open Specialty Diagnoses / Procedures Referred By Contac bong Referred To Contact Diagnoses Abnormal chromosomal and genetic finding on screening mother 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 gestation of (HCC) Encounter for anatomic survey (HCC) Procedures SONOGRAM - COMPLETE Bar Acuña MD [address] [facility] [address] [place] [address] Referral ID Status Reason Start Date Expiration Date Visits Re quested Visits Authorized [id number] Open 05/30/2024 05/30/2025 1 1 S ASSISTANT DISPLAYS Reason for Visit * Reason Comments Ultrasound Genetic Counseling Encounter Details Date Type Department Care Team (Latest Contact Info) Description 06/06/2024 8:03 AM SALES ASSISTANT DISPLAYS Hospital Encounter [facility] [address] [place] [address] Maame Stevenson MD 1031 [facility] 4TH [place] [phone] Isa Hill MD [address] [facility] [address] [place] [address] Discharge Disposition: Home or Self Care Social [...] as of this encounter Progress Notes * Susan Barbour RN - 06/06/2024 8:09 AM CST Patient here with significant other, Maurice Corea today for anatomy ultrasound and genetic counseling visit. Denies cramping, contractions, leakage of fluid, vaginal bleeding. Denies RUQ pain, visual changes and headaches. Patient reports positive movement. Susan Barbour RN 06/06/2024 8:11 AM S ASSISTANT DISPLAYS documented in this encounter Plan of Treatment Upcoming Encounters Date Type Department Care Team (Late st Contact Info) Description 08/08/2024 3:15 PM SALES ASSISTANT DISPLAYS Hospital Encounter [facility] [address] [place] [address] 01/09/2025 3:00 PM CDT Office Visit [facility] - PRINCIPAL ACCOUNT CLERK [address] [facility] [address] [place] [address] Yolanda Kimbrough MD [address] [facility] [address] [place] [address] documented as of this encounter Procedures Procedure Name Priority Date/Time Associated Diagnosis Comments SONOGRAM - COMPLETE Routine 06/06/2024 8:08 AM SALES ASSISTANT DISPLAYS Abnormal chromosomal and genetic finding on screening mother 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 1. Para 0 Lab Tests Test ? Date ? Result NIPT ? Low risk, female Maternal Assessment Physical Exam ??Height 168 cm, 5 ft 6 in. Weight 63 kg, 138 lb. Initial weight 62 kg, 136 lb. BMI 22.27 kg/m?. Initial BMI 21.95 kg/m?. Weight gain 1 kg, 2 lb Method ====== Transabdominal and transvaginal ultrasound examination ========= Price . Number of fetuses: 1 Dating ====== ? Date ?Details ? Gest. age ? ALLYN LMP ?01/23/2024 ? 19 w + 2 d ?10/29/2024 U/S ?06/06/2024 ?based upon AC, BPD, Femur, HC ? 18 w + 5 d ?11/02/2024 Assigned dating based on the LMP, selected on 06/06/2024 ? 19 w + 2 d ?10/29/2024 General Evaluation Cardiac activity present. FHR 141 bpm. Presentation: cephalic Placenta: Placental site: posterior Umbilical cord: Cord vessels: 3 vessel cord. Insertion site: normal insertion Amniotic fluid: Amount of AF: appears normal. MVP 3.4 cm Biometry BPD ?42.5 ?mm ?18w 6d ??32% ? Hadlock HC ? 157.7 ?? mm ?18w 5d ??16% ? Hadlock Cerebellum tr ?20.4 ?mm ?86% ? [place] Nuchal fold ?3.6 ? mm AC ? 134.3 ?? mm ?18w 6d ??32% ? Hadlock Femur ?27.8 ?mm ?18w 4d ??17% ? Hadlock Humerus ?28.7 ?mm ?19w 2d ??52% ? Margarita HC / AC ?1.17 ?49% ? Hadlock Weight Calculation: EFW ?254 ? g ? 18% ? Hadlock EFW (lb,oz) ?0 lb 9 ??oz EFW by ? Hadlock (ICO-OJ-DS-FL) Head / Face / Neck Biometry: Cephalic index ? 0.76 ?21% ? Nicolaides [employer] Operator ? 6.3 ? mm CM ? 3.0 ? mm ?4% ?Nicolaides appropriate Growth Overview Exam date ?GA ?BPD (mm) ?HC (mm) AC (mm) FL (mm) HL (mm) EFW (g) 06/06/2024 ? 19w 2d ??42.5 ?32% ? 157.7 ?? 16% ? 134.3 ?? 32% ? 27.8 ?17% ? 28.7 ?52% ? 254 ? 18% Anatomy The following structures appear normal: Head / Neck ?Cranium. Lateral ventricles. Choroid plexus. Midline falx. Cavum septi pellucidi. Cerebellum. Cisterna magna. Thalami. ? Nuchal fold. Face ? Lips. Nose. Nasal bone. Orbits. Heart / Thorax RVOT view. 6-joiwkm-hyifhwe view. Situs. Aortic arch view. Bicaval view. Ductal arch view. ? Diaphragm. Abdomen ?Stomach. Kidneys. Bladder. Bowel. Genitals. Spine ?Cervical spine. Thoracic spine. Lumbar spine. Sacral spine. Extremities / Skeleton Arms. Hands. Legs. The following structures could not be adequately visualized: Face ? Profile. Heart / Thorax 4-chamber view. LVOT view. 3-vessel view. Great vessels. ? Right lung. Left lung. Abdomen ?Cord insertion. Extremities / Skeleton Feet. sex: female. Maternal Structures Cervix ? reassuring ? Approach - Transvaginal: Cervical length 4.40 cm Right Ovary ?Appears normal Left Ovary ? Appears normal Impression ========= Single live intrauterine at 19w 2d in cephalic presentation The ALLYN is 10/29/2024 size appears appropriate The amniotic fluid volume: normal Transvaginal cervical length appears reassuring measuring 4.4 cm No major malformations were seen within the limitations of ultrasound Genetic counseling to follow ultrasound today MFM: there are no stigmata of microcephaly on today's US. Will follow with monthly growth scans. cystinuria can be suggested by hyperechoic structures including colon and kidneys. There are no concerns on today's US. Will continue to follow. Genetics consultation being performed today. Follow-up ======== Follow up ultrasound in 4 weeks for growth and to complete anatomic survey and q 4 weeks to evaluate growth and further evaluation. Coding ====== Procedures ? 91652: US Preg Uterus Detailed ? 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
--- OUTSIDE RECORDS SUMMARY | 2024-08-03 05:43 | XMS_ITS | Encounter Summary ---
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) Encounter for follow-up ultrasound of anatomy (HCC) 22 weeks gestation of (HCC) Abnormal chromosomal and genetic finding on screening mother Encounter for ultrasound to assess growth (HCC) Procedures SONOGRAM - COMPLETE Tracy Perdomo MD [address] [place] [address] Referral ID Status Reason Start Date Expiration Date Visits Re quested Visits Authorized [id number] Open 06/20/2024 06/20/2025 1 1 ESS CONTROL SUPERVISOR * (Routine) - Open Specialty Diagnoses / Procedures Referred By Nino woody Referred To Contact Diagnoses 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) Encounter for follow-up ultrasound of anatomy (HCC) 22 weeks gestation of (HCC) Abnormal chromosomal and genetic finding on screening mother Encounter for ultrasound to assess growth (HCC) Procedures SONOGRAM - COMPLETE Tracy Perdomo MD [address] [place] [address] Referral ID Status Reason Start Date Expiration Date Visits Re quested Visits Authorized [id number] Open 06/20/2024 06/20/2025 1 1 ESS CONTROL SUPERVISOR Reason for Visit * Reason Comments Ultrasound Encounter Details Date Type Department Care Team (Latest Contact Info) Description 07/04/2024 7:30 AM PROCESS CONTROL SUPERVISOR - 07/04/2024 11:59 PM PROCESS CONTROL SUPERVISOR Hospital Encounter [facility] [address] [place] [address] Head, Rosa Maria Leger MD [address] [facility] [address] [place] [address] Discharge Disposition: Home or Self [...] st Contact Info) Description 08/08/2024 3:15 PM PROCESS CONTROL SUPERVISOR Hospital Encounter [facility] [address] [place] [address] 01/09/2025 3:00 PM CDT Office Visit [facility] - BENDER HELPER [address] [facility] [address] [place] [phone] Yolanda Kimbrough MD [address] [facility] [address] [place] [address] documented as of this encounter Procedures Procedure Name Priority Date/Time Associated Diagnosis Comments SONOGRAM - COMPLETE Routine 07/04/2024 7:40 AM PROCESS CONTROL SUPERVISOR 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 Hadlock ([id number]-EG-MX-[id number]) Head / Face / Neck Biometry: Cephalic [...] assessment is recommended Coding ====== Procedures ? 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
--- OUTSIDE RECORDS SUMMARY | 2024-08-03 05:46 | XMS_ITS | Continuity of Care Document ---
Author Organization [facility], [facility] ([place] Address [address] [place] [address] Care Team Providers Care Stud Driver Name Role Phone SASHA ARREOLA Primary Care Provider SHARONA MCKEON Cement Or Concrete Finishing Supervisor Assessment Encounter Date Assessment Date Assessment LastModified by Organization Details LastModified Time 06/28/2024 06/28/2024 1. Burning mouth syndrome 2. TMJ Detailed discussion was had with patient regarding today's clinical findings. Physical exam today was relatively unremarkable. Patient does have mild tenderness to palpation over bilateral TMJs. Patient seems to be following a successful course with conservative treatment, so encouraged her to continue with conservative management and avoiding products that irritate her burning mouth syndrome. For her TMJ recommend she talk with her dentist for possible mouthguard, but also encouraged conservative treatment. TMJ handout was provided and reviewed in detail. Recommend we follow as needed as patient seems to be improving. Patient verbalizes understanding and is agreeable to today's plan. She is welcome to contact the office anytime for any further questions or concerns. miguel angel Not available 06/28/2024 17:12:23 Plan of Treatment Reminders Order Date Submit Date Provider Last Modified By Organization Details Last Modified Time Details Appointments None record ed. Lab None record ed. Referral None record ed. Procedures None record ed. Surgeries None record ed. Imaging None record ed. Medication Orders None record ed. Patient TargetsNo targets recorded. Patient InstructionsNo instructions recorded. Reason for Referral None Reported. Results Created Date Observation Date Name Description Value Unit Range Abnormal Flag Note LastModifiedBy Organization Detail LastModifiedTime 03/24/20 24 03/24/2024 US, obste tric, 1st trime ster, singl e gesta tion [facility] [address] [place] [id number] [place] [address] [phone] Name: Mami Rodriguez [id number] Exam Date: 2023 Age: 28 Physic ernesto: MD Henry, Marilyn oh : 1994 Examin ation: US OB UNDER 14 WKS, SINGLE INDICA TION: First trimes ter ultras ound for dating and viabil ity. Last menstr ual period stated per patien t is 024. This provid es a clinic al age of 8 weeks 5 days and an EDC of 10/30/19 25. A transa bdomin al ultras ound is perfor med demons tratin g a single viable intrau terine pregna ncy. A pole and yolk sac are identi fied. cardia c activi ty is confir med at 161 bpm. Ortley- rump length measur es 1.61 cm, consis tent with 8 weeks, 0 days. This gives an estima wilbert date of confin ement of 025 based on today' s ultras ound. This is consis tent with last menstr ual period dating based on ACOG guidel yashira. There is a small subcho rionic hemorr roque noted in the lower uterin e segmen t measur ing 1.47 cm. No active bleedi ng is visual ized. The uterus is normal in shape and config uratio n. It is anteve rted in positi on. Cul-de -sac is unrema rkable . The right ovary measur es 3.21 x 2.29 x 2.39 cm and contai ns a small corpus luteum cyst. The left ovary measur es 2.48 x 2.19 x 1.37 cm. Dopple r confir ms good blood flow within both ovarie s. Impres nasrin: 1. Single viable intrau terine gestat ion at 8 weeks 5 days . 2. Final estima wilbert date of confin ement based on last menstr ual period is 10/30/19 25. Electr onical ly signed in Dale cribe by: MARILYN MCKEON MD on:02/25 5:00 PM cc: Page PAGE 1 of CARONG ES 1 INTERFACE Sc Only - Sc Radiology [address] [place] [address], [id number], 03/24/2024 18:02:52 Result Notes None recorded. Problems Name Problem SNOMED Code Status Onset Date Resolution Date Notes Provider Name and Address Organization Details Recorded Time Normal in primigrav [place] 715132746333 103 [facility] 2023 [facility] 4 10:54:40 41261409 Active 2023 [facility] [place] [facility] 4 10:53:49 Normal in primigrav osmani 492189644179 103 Active 2023 [facility] 4 10:54:40 Maternal exposure to radiation 515179699 Active 2023 Lives by substatio n and exposed to radiation MFM appointme nt pending Kim Lacy [facility] 4 10:59:18 Maternal exposure to radiation 085400155 Active 2023 Lives by substatio n and exposed to radiation MFM appointme nt pending Kim Lacy [facility] 4 10:59:18 Bacterial vaginosis 041524980 Active 2023 Soha Sanches [facility] 4 15:04:55 Gestation period, 12 weeks 56561173 Active 2023 [facility] 4 14:20:44 Scalding pain on urination 81081652 Active 2023 [facility] 4 11:24:54 Burning mouth syndrome 066523303 Active 2023 AUTUMN MORA PA-C [address] [place], [address] , [facility] 4 17:01:22 Temporoma ndibular joint disorder 93177086 Active 2023 AUTUMN MORA PA-C [address] [place] [address], [address], [facility] 4 17:01:44 Gynecolog ic examinati on Active 2023 Kim Mckeonnison [facility] 4 10:41:31 Pruritus of vagina 71868891 Active 2023 [facility] 4 15:36:59 Vulvar vestibuli tis 55221738 Active 2023 Sharona Mckeon MD [address] [place] [address], [address], [facility] 4 16:13:03 Vaginal irritatio n 804622386 Active 2023 Soha Sanches [facility] 4 16:13:53 Vaginal discharge 800748776 Active 2023 Lauren Sanders [facility] 4 16:56:25 Pain in pelvis 26131829 Active 2023 Fatou L Gonzales-Mat on, DPT [address] [place] [address], [address], [facility] 4 16:57:24 Pelvic floor dysfuncti on 129043888 Active 2023 Fatou L Gonzales-Mat on, DPT [address] [place] [address], [address], [facility] 4 16:57:29 Problem Notes None recorded. Procedures Surgical History Date Name Laterality Status Provider Name and Address Organization Details Recorded Time 12/30/2021 Date of Last Pap Smear completed Soha Sanches [facility] 12/10/2023 15:37:17 Imaging Results None recorded. Procedure Notes None recorded. Medical Equipment None Reported. Allergies Allergen ID Allergen Name Allergen Category Reaction Reaction Severity Criticality Documentation Date Start Date Code Code System Note Provider Name and Address Organization Details Recorded Time [id number] 4369667n3 2824e latex gloves medicatio n Not available Not available Not available 08/26/20232019 88698 UNK Not Available Not Available Not Available [id number] 196702613 1856844g5 2824e miconazol e medicatio n Not available Not available Not available 08/26/20232019 6932 RxNorm Not Available Not Available Not Available Medications Name Sig Start Date Stop Date Status Note LastModified by Organization Details LastModified Time fluconazole 150 mg tablet 12/09 completed Not Available Not Available Not Available metronidazo le 500 mg tablet Take one tablet twice a day as directed. 06/28 completed Not Available Not Available Not Available B Complex 03/24 completed Not Available Not Available Not Available active Not Available Not Avai lable Not Available lidocaine 5 % topical ointment APPLY TO AFFECTED AREA(S) BY TOPICAL ROUTE 1-4 TIMES DAILY NEEDED 03/24 completed Not Available Not Available Not Available Vitals Date Recorded Body height Body mass index (BMI) Body weight Body temperature Heart rate Systolic blood pressure Diastolic blood pressure Provider Name and Address Organization Details Last Updated DateTime 167.64 cm 22.9 kg/m2 23722.1 2 g 97.7 [degF] 90 /min 145 mm[Hg] 69 mm[Hg] Nakesha Scales [facility] 16:31:37 Social History Question Answer Notes LastModified by Organizat ion Details LastModified Time Tobacco Smoking Status Never Smoker Not Available Health Note 03/21/2024 10:22:35 Do You Have An Advance Directive? No [email or web address] Information not available 03/21/2024 What Is Your Level Of Alcohol Consumption? None [email or web address] Information not available 03/21/2024 What Is Your Level Of Caffeine Consumption? Occasional [email or web address] Information not available 03/21/2024 Are You Currently Employed? 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 Less Than 1 Time Per Week [email or web address] Information not available 03/21/2024 Do You Have A Medical Power Of Candy Maker Helper? No [email or web address] Information not available 03/21/2024 What Was The Date Of Your Most Recent Tobacco Screening? 03/24/2024 [email or web address] Information not available 03/21/2024 What Is Your Relationship Status? [email or web address] Information not available 03/21/2024 Are You Sexually Active? Yes [email or web address] Information not available 12/10/2023 Do You Use Any Illicit Or Recreational Drugs? No [email or web address] Information not available 03/21/2024 Sex: Unknown Functional Status Question Answer Note LastModified by Organizat ion Details LastModified Time What is your exercise level? Occasional [email or web address] Information not available 03/21/2024 Mental Status None recorded. Family History Relationship Description Onset Age of this Age Resolved Age Notes LastModified by Organization Details LastModified Time Mother Asthma [email or web address] Not availabl e 12/09/2023 10:48:03 Mother Seizure disorder [email or web address] Not available 11/24 10:49:03 Father Asthma [email or web address] Not availabl e 12/09/2023 10:48:03 Father Arthritis [email or web address] Not available 03/21/2024 10:22:34 Unspecified Relation CVA - cerebrovascu lar accident due to cerebral artery occlusion grandm other on unspec ified side [email or web address] Not available 12/09/2023 10:48:32 Unspecified Relation Diabetes mellitus grandf ather unspec ified side [email or web address] Not available 12/09/2023 10:49:32 Maternal Grandfather Myasthenia gravis [email or web address] Not available 15:38:11 Maternal Grandfather Diabetes mellitus [email or web address] Not available 2023 10:22:34 Paternal Grandfather Hypertensive disorder [email or web address] Not available 2023 10:22:34 Maternal Grandmother Disorder of thyroid gland [email or web address] Not available 2023 10:22:34 Notes:Maternal Grandfather h as diabetes Maternal Grandfather has myasthenia gravis Medical History Condition Response Coronary Artery Disease N Growth Hormone Deficiency (Pituitary Dwa rfism) N Hyperthyroidism N Blood Transfusion N MRSA N Emphysema N Depression N COPD N Pneumonia N Peripheral Arterial Disease N Prostate Problems N TIA N Paralysis N Anxiety Disorder N Obesity N Polyps N Infertility N Flat Foot N Acid Reflux (GERD) N Stroke N Varicosities N Neck Injury N Other Sleep Disorders N Rheumatoid Arthritis N Fibromyalgia N Kidney Disease N Pituitary Disorder N Enuresis N Brain Tumors N Acne N Carpel Tunnel N Eating Disorder N Skin Problems N Constipation N Meningitis N Brain Injury N Art (IVF or FET) N Undescended Testicle N Cerebral Palsy N Tuberculosis N Myocardial Infarction N Asthma N Amputation N Peripheral Vascular Disease N Trauma/Violence N Jaundice N Vertigo N Sleep Disorder N Pulmonary Embolism N Hematologic Disease N Thyroid Disease N Colon Cancer N Drug/Latex Allergies/Reactions N Glaucoma N Lung Disease N Defects or Inherited Disease N Pacemaker N Spine/Back Problems N Anesthesia Complications N Orthopedic Problems N Orthotics N Serious Illness or Injuries N Congenital Anomalies N History of abnormal pap N Endometriosis N Liver Disease N HIV N Parkinson's Disease N Thyroid Problems N GI Problems N Anemia N Transplant N Multiple Sclerosis N Colon Polyps N Heart Attack (FL) N Psychiatric Illness N Diabetes N Hypospadia N Cardiomyopathy N Pulmonary (TB, Asthma) N Heart Murmur N Congestive Heart Failure (CHF) N Inflammatory Bowel Disease N Valvular Heart Disease N Hyperlipidemia N Abuse/Domestic Violence N Lupus N Epilepsy/Seizures N Reflux/GERD N Depression/ depression N Aneurysm N Heart Disease N Pre-Eclampsia N Other N Gout N High Blood Pressure N Atrial Fibrillation N Kidney Stones N Enlarged Prostate N Head Trauma/Injury N Dermatologic Disorders N Congenital Heart Disease N Gestational Diabetes N Spine Problems N Obstructive Sleep Apnea N Muscle, Joint, or Bone Problems N Autoimmune disease N Vision or Eye Problems N Arthritis N Blood Clot N Cancer N Neurologic/Epilepsy N Crohn's Disease N Leg or Foot Ulcers N Aortic Aneurysm N Arrhythmia N Short Stature N Headaches N Heart Problems N Scoliosis N Migraines N Kidney or Bladder Problems N Type 1 Diabetes Mellitus N Joint Pain N Encephalitis N Neck Pain N PTSD N Urinary Problems N Ulcers N Hepatitis/Liver Disease N Bleeding Disorder N AIDS/HIV N Allergic Rhinitis N Back Problems N Atrial Flutter N Seizures N Thyroid Disorder N GERD/Reflux N Neuropathy N Restless leg syndrome N Thrombophilias N Stabismus N Breast Cancer N Hernia N Ostomy N Hypothyroidism N Breast Problem N Vascular Disease N Hematologic disorders N History of STI N Genitourinary Disease N Deep Vein Thrombosis N Polycystic ovary syndrome N Varicose Veins N Spasticity N Developmental Problems N Carotid Disease N History of Blood Thinners N Alcohol Overuse/Alcohol Abuse N High Cholesterol N Meniers N Valvular Abnormalities N Organ Transplant N Attention-deficit Hyperactivity Disorder N Sickle Cell Trait N Falls N Osteoporosis/Osteopenia N Back Pain N Chronic Ulcerative Colitis N Neurological Problems N Ovarian Cancer N Anticoagulation therapy N Alzheimer? s N Eczema N Diverticulitis N Dementia N Ankylosing Spondylitis N Sleep Apnea N Mental Problems N Warfarin Management N Osteoporosis N Gynecological History Statement/Question Response Abnormal Pap N Frequency of Cycle (Q days) 27 Date of LMP 01/23/2024 Sexually Active? Y Menses Monthly N HPV Vaccine N Date of Last Pap Smear 12/30/2021 Current Control Method LMP Definite Hormone Replacement Therapy N Obstetrics History GPAL:G 1 P 0 0 0 0 Immunizations Vaccine Type Date Status Note Provider Nam e and Address Organization Details Recorded Time HPV9 9 completed Kim Lacy [facility] 03/23/2024 10:54:24 HPV9 9 completed Kim Lacy [facility] 03/23/2024 10:54:24 COVID-19, mRNA, LNP-S, PF, 30 mcg/0.3 mL dose 2 completed Kim Baronon [facility] 03/23/2024 10:54:24 COVID-19, mRNA, LNP-S, PF, 30 mcg/0.3 mL dose 1 completed Kim Baronon [facility] 03/23/2024 10:54:24 COVID-19, mRNA, LNP-S, PF, 30 mcg/0.3 mL dose 1 completed Kim Mckeonnison [facility] 03/23/2024 10:54:24 Tdap 5 completed Kim Lacy [facility] 03/23/2024 10:54:24 varicella 8 completed Kim Lacy [facility] 03/23/2024 10:54:24 HPV, quadrivalent 6 completed Kim Lacy [facility] 03/23/2024 10:54:24 Hep B, adolescent or pediatric 8 [facility]24 10:54:24 Hep B, adolescent or pediatric 8 [facility] 03/23/2024 10:54:24 meningococcal MCV4P 5 completed Kim montanez, [facility] 03/23/2024 10:54:24 Past Encounters Encounter ID Performer Location Encounter Start Date Encounter Closed Date Diagnosis/Indication Diagnosis SNOMED-CT Code Diagnosis ICD10 Code Diagnosis Note [id number] Fatou dawn, DPT [address] [facility] ([place]) [address] [place] [address] 06/15/2024 11:54:35 06/15/2024 12:56:03 Pain in pelvis 89817038 R10.2 Pelvic jewel or dysfunction 091394448 M62.9 [id number] Talita Brooks MD [facility] [address] [place] [address] 06/28/2024 16:16:58 06/28/2024 17:02:43 Burning mouth syndrome 320221059 K14.6 Temporoman dibular joint disorder 36545986 M26.609 Health Concerns Section Related Observation LastModified by Organization Detai ls LastModified Time None Recorded Concern Status LastModified by Organization Details LastModified Time None Recorded Payers Encounter Date Sequence Insurance Name Policy Number Policy Anaya Covered Member ID Anaya Member ID Guarantor Name 06/28/2024 1 [employer] ([facility] [id number] Mami Milligan [id number] Mami Call Notes Date Note Type Note Provider Name and Address Organization Details Recorded Time 06/28/2024 text/html Mami is a 29-year-old female presenting to the ENT clinic today for 1 year follow-up of burning mouth syndrome and TMJ disorder. She was last seen by ENT 05/28/2023 by Quita Rider PA-C for the same issues and was recommended to continue with good oral hygiene routine and toothpaste products without sodium lauryl sulfate and continue with conservative management for her TMJ disorder. Today she reports she is doing well since last visit and has no new concerns. She reports she is doing much better since switching her toothpaste and states she has been brushing her teeth less and that has also helped. She also reports she does not use any commercial mouth rinses. She reports she follows regularly with her dentist and they are not worried about her oral hygiene routine. She does report her jaw still pops and clicks, but it is overall not worse. She also reports occasional discomfort in her jaw bilaterally, but she denies any lockjaw or difficulty eating. She denies any frequent sore throat, dysphagia, odynophagia, or hoarseness. She denies any fever, chills, fatigue, weakness, recent illness. AUTUMN MORA PA-C [address] [place] [address], [phone], [facility] 06/28/2024 17:12:55 OBGyn Episode Ob Episode Information Episode Created Date Number of Fetuses Patient Bloodtype Patient rh Status Prepregnancy Weight lbs Domestic Partner Domestic Partner Phone Father Name Preschool Assistant Status 03/24/20 24 1 A Positive Maurice Root [id number] Maurice Root OPEN Fetus Data First Name Last Name Admitted to NICU Weight (g) Sex Living Outcome Pediatric Complications Fetus ID Race Codes Race Delivery Type [id number] Problems Problem Notes Problem Name Start Date End Date Resolution Snomed Code Not e Normal in primigravida 03/24/2024 649488055190372 Maternal exposure to radiation 03/24/2024 383573751 [facility] Calculation Initial Junior Date Initial Exam Date Initial Exam Provider Initial Ultrasound Date Last Menstrual Period Date Ultra Sound Weeks Gestation 10/29/2024 03/24/2024 [email or web address] 03/24/2024 01/23/2024 8 Eighteen To Twenty Week Junior Update Ultra Sound Date Fundal Height At Umbil Quickening Date Ultra Sound Latest Weeks Gestation Final Junior Confirmed By Final Junior Confirmed Date Final Junior Date Ultra Sound Latest Days Gestation 0 03/24/2024 10/30/19 25 0 Pre-yesenia Flowsheet Flowsheet Date 03/24/2024 Morgan Score Blood Edema Fundus Height Fundus Units Glucose Ketones Leukocytes Nitrite Labor Signs Protein Cervic Dilation Cervic Effacement Cervic Station none Type Weight in lbs Pre/Post Dialysis Refused Weight 131.166355022555 BP Diastolic BP Location Tested BP Systolic BP Type 64 120 Fetus Heart Rate Present A 161 Present Fetus Movement A Yes Comments VISIT #1. New OB intake. Sin gle live IUP. HIV consent obtained. EPDS administered with a score of 8. Patient declines any vaginal bleeding or pelvic pain. She did have one episode of spotting at 6 weeks GA. Ultrasound today shows small subchorionic hemorrhage noted at GUDELIA 1.47cm. She [place] and is concerned with radiation exposure. [facility] to [facility] for this and genetic counseling. She is concerned about OB care due to her living 2 hours away. She does not want to transfer care and is wanting to discuss options. (Kim Lacy, LISA)New OB intake and exam performed. Discussed plan of care. She is going to establish with an OB in the [place]. Unsure about the risks of the substation. Can check with [facility] to see if they have any information. Flowsheet Date 04/20/2024 Morgan Score Blood Edema Fundus Height Fundus Units Glucose Ketones Leukocytes Nitrite Labor Signs Protein Cervic Dilation Cervic Effacement Cervic Station none none neg Type Weight in lbs Pre/Post Dialysis Refused 135.119778523551 BP Diastolic BP Location Tested BP Systolic BP Type 72 120 Fetus Heart Rate Present A 156 Fetus Movement Comments Visit #2Patient denies leaki ng of fluid and bleedingPatient states she is really fatigued and is having nausea.She wants to complete genetics even though not covered with insurance. She is having bunring with urination and UA will be obtained and sent to the lab. NABILA GONZALEZ.PAtient has called insurance and desires to have the Genome and Inheritest 500+ drawn today. Possible UTI - CCUA today.Has not yet established with provider in [place]. Flowsheet Date 04/20/2024 Morgan Score Blood Edema Fundus Height Fundus Units Glucose Ketones Leukocytes Nitrite Labor Signs Protein Cervic Dilation Cervic Effacement Cervic Station Type Weight in lbs Pre/Post Dialysis Refused BP Diastolic BP Location Tested BP Systolic BP Type Fetus Heart Rate Present Fetus Movement Comments Flowsheet Date 06/15/2024 Morgan Score Blood Edema Fundus Height Fundus Units Glucose Ketones Leukocytes Nitrite Labor Signs Protein Cervic Dilation Cervic Effacement Cervic Station Type Weight in lbs Pre/Post Dialysis Refused BP Diastolic BP Location Tested BP Systolic BP Type Fetus Heart Rate Present Fetus Movement Comments Flowsheet Date 06/28/2024 Morgan Score Blood Edema Fundus Height Fundus Units Glucose Ketones Leukocytes Nitrite Labor Signs Protein Cervic Dilation Cervic Effacement Cervic Station Type Weight in lbs Pre/Post Dialysis Refused Weight 142.627867894834 BP Diastolic BP Location Tested BP Systolic BP Type 69 R wrist 145 sitting Fetus Heart Rate Present Fetus Movement Comments Menstrual History Last Menstrual Date Menses Monthly On Bcp Conception Prior Menses Frequency Hcg Plus Date Menarche Onset Age 0601/23/2024 true false 29 Genetic Screening And Infection History Question Response Note Patient's Age Will Be 35 Years Or Older At Estim ated Date of Delivery false Thalassemia (Indonesian, Wolof, Mediterranean, Or Background): MCV < 80 false Neural Tube Defect (Meningomyelocele, Spina Bifi da, Or Anencephaly) false Congenital Heart Defect false Down Syndrome false Harley-Sachs (eg, Adventist, Cajun, Amharic-Griggs) f alse Lenka Disease false Sickle Cell Disease Or Trait () false Hemophilia Or Other Blood Disorders false Muscular Dystrophy false Cystic Fibrosis false Melissa's Chorea false Intellectual Disability/Autism false If Yes, Was Person Tested For Fragile X? false Other Inherited Genetic Or Chromosomal Disorder false Maternal Metabolic Disorder (eg, Type 1 Diabetes , PKU) false Patient Or Baby's Father Had A Child With Defects Not Listed Above false Recurrent Loss, Or A Stillbirth false Medications (including Suppl ements, Vitamins, Herbs, OTC Drugs), Illicit/Recreational Drugs, Alcohol false If Yes, Agent(s) And Strength/Dosage false Any Other Genetic History false Live With Someone With TB Or Exposed To TB false Patient Or Partner Has History Of Genital Herpes false Rash Or Viral Illness Since Last Menstrual Perio d false History Of STD, Gonorrhea, Chlamydia, HPV, Syphi lis false Other Infection History false Prior GBS-infected child false History of HIV false History of Hepatitis false Hemoglobinopathy Or Carrier false Other Structural Defect false Recent Travel History Outside of Country false Autism false Developmental Delay false Plans and Education First Trimester Discussed Date Discussion Item Discussion Note Discuss ed By 03/24/2024 Avoidance of saunas or hot tubs [email or web address] 03/24/2024 Screening for aneuploidy dde 03/24/2024 Intimate partner violence dd [email or web address] 03/24/2024 HIV and other routine tests 03/24/2024 Weight gain counseling [email or web address] 03/24/2024 Environmental/work hazards d [email or web address] 03/24/2024 Illicit/recreational drugs d 03/24/2024 Indications for ultrasonography [email or web address] 03/24/2024 Travel [email or web address] 03/24/2024 Tobacco/smoking cess ation counseling (ask, advise, assess, assist, and arrange) [id number] 03/24/2024 nvkiojwum89 03/24/2024 Use of any medicatio ns (including supplements, vitamins, herbs, or OTC drugs) cbpiztnxu41 03/24/2024 Seat belt use qleuuhgmz98 03/24/2024 Risk factors identif ied by history 03/24/2024 Anticipated course of care lyhahnmud24 03/24/2024 Sexual activity mmogzpifn87 03/24/2024 Dental care jmhmsufum33 03/24/2024 Nutrition counseling ; special diet; dietary precautions (mercury, listeriosis) dfmkjeyaf95 03/24/2024 Toxoplasmosis precautions (cats/raw meat) ikshodlyz94 03/24/2024 Exercise nmuriuxik26 03/24/2024 Teratogens lntsslamb96 03/24/2024 Alcohol rfstnuhnn79 03/24/2024 Childbirth classes/hospital facilities Second Trimester Discussed Date Discussion Item Discussion Note Discuss ed By Third Trimester Discussed Date Discussion Item Discussion Note Discuss ed By Delivery Information Delivery Date Delivery Type Labor Anesthesia Weeks Gestation Incision Type Labor Labor Length Hrs Delivered By Post Complications Tubal Sterilization Discharge Date Comments Discharge Information Feeding Method Contraceptive Method Maternal HG B and HCT Levels
--- OUTSIDE RECORDS SUMMARY | 2024-08-03 05:46 | XMS_ITS | Continuity of Care Document ---
Author Organization [facility], [address] PT ([place]) Address [address] [place] [address] Care Team Providers Care Cbx Operator Name Role Phone RIGO MAR Primary Care Provider SHARONA MCKEON Learning Specialist Assessment Encounter Date Assessment Date Assessment LastModified by Organization Details LastModified Time 06/15/2024 06/15/2024 Upon reassessment this date, patient exhibits deficits with lateral hip stability, deep core activation, and overall functional mobility. PT provided patient with exercises to address lateral hip stability where patient has lacking manual muscle test scoring. PT also provided patient with exercises to work on core stability as patient is having more low back pain with progressing. PT provided patient with education on different supporters and tools to use to decrease pain and improve stability during . Considering patient's continued deficits with deep core activation, lateral hip stability, and ever-changing circumstances of , patient would continue to benefit from skilled physical therapy to further address patient deficits, prepare patient for , and reach patient goals. Plan: Patient will return to PFPT 1 time every 3 to 4 weeks for the next 5 months (5 more visits) to improve patient deficits, improve outcomes, and improve functional mobility throughout . Short Term Goals: To Be Met in 6 Visits: 1. Patient will complete 5 BMs/week with minimal straining to improve patient's bowel function and QOL. Met 2. Patient will void 5-7x/day with 1-3 leakage episodes per day with mild urgency complaints to improve patient's bladder function and QOL. Met 3. Patient will be able to complete single-leg squat with 50% decrease in knee adduction bilaterally to improve the patient's stability during single-leg activities. Met 4. Patient will complete squats with proper pelvic floor, core, and diaphragmatic breath coordination to improve urinary and bowel control during functional movements. Progressing 5.patient will improve hip abduction strength from 4/5-4+/5 bilaterally to improve pelvic girdle muscle balance ? Longterm Goals: To Be Met in 12 Visits: 1. Patient will complete 7 BMs/week with no straining to improve patient's bowel function and QOL. Met 2. Patient will void 5-7x/day with 0-1 leakage episodes per day and no heightened urinary urgency to improve bladder function and QOL not met 3. Patient will reduce knee adduction with single-leg squat by 75% to improve the patient's stability during single-leg activities. Progressing 4. Patient will complete jump squats with proper pelvic floor, core, and diaphragmatic breath coordination to improve urinary and bowel control during functional movements. Progressing 5. Patient will report 1/10 pain with sexual penetration to improve patient's ability to complete sexual activity without discomfort or pain. Progressing 6.patient will improve hip abduction strength from 4/5 to 5/5 bilaterally to improve pelvic girdle muscle balance ? dn komcwo42 Not available 06/15/2024 12:55:33 Plan of Treatment Reminders Order Date Submit [...] 1st trime ster, singl [place] [address] Teleph erd [phone] Name: Mami Rodriguez [id number] Exam Date: 2023 Age: 28 Physic ernesto: [...] ty is confir med at 161 bpm. [place]- rump length measur es 1.61 cm, consis [...] 5:00 PM cc: Page PAGE 1 of NUMPAG ES 1 INTERFACE Sc Only - Sc Radiology [address] [place] [address], [id number], 03/24/2024 18:02:52 Result Notes None recorded. Problems Name Problem SNOMED Code Status Onset Date Resolution Date Notes Provider Name and Address Organization Details Recorded Time Normal in primigrav osmani 975744656198 103 [facility] 10:54:40 17719557 Active 2023 [facility] 4 10:53:49 Normal in primigrav osmani 978782123289 103 Active 2023 [facility] 4 10:54:40 Maternal exposure to radiation 441071287 Active 2023 Lives by substatio n and exposed to radiation [facility] appoint[facility] 4 10:59:18 Maternal exposure to radiation 049431171 Active 2023 Lives by substatio n and exposed to radiation [facility] nt [facility] 10:59:18 Bacterial vaginosis 569702397 Active 2023 [facility] 4 15:04:55 Gestation period, 12 weeks 04508993 Active 2023 [facility] 4 14:20:44 Scalding pain on urination 72643824 Active 2023 [facility] 4 11:24:54 Burning mouth syndrome 146964763 Active 2023 AUTUMN MORA PA-C [address] [place] [address], [phone], [facility] 4 17:01:22 Temporoma ndibular joint disorder 22549739 Active 2023 AUTUMN MORA PA-C [address] [place] [address], [address], [facility] 4 17:01:44 Gynecolog ic examinati on Active 2023 [facility] 4 10:41:31 Pruritus of vagina 86021842 Active 2023 Soha Myron null, [facility] 4 15:36:59 Vulvar vestibuli tis 22503815 Active 2023 Sharona Mckeon MD [address] [place] [address], [address], [facility] 4 16:13:03 Vaginal irritatio n 397677522 Active 2023 Soha Sanches null, [facility] 4 16:13:53 Vaginal discharge 460794032 Active 2023 Lauren Garciaham null, [facility] 4 16:56:25 Pain in pelvis 13988752 Active 2023 Sabrina Isbell on, DPT [address] [place] [address], [address], [facility] 4 16:57:24 Pelvic floor dysfuncti on 984535729 Active 2023 Sabrina Isbell on, DPT [address] [place] [address], [phone], [facility] 4 16:57:29 Problem Notes Documentation Provider Name and Address Organization Details Recorded Time [facility] ? [address] [address]ZYGXLDI, Lydia J (id #[id number], : 1995) Date: 4RE: Mami Call, : 1995, PT ID #[id number] Zamora DO was seen in our office today 06/15/2024, and a copy of that evaluation is enclosed. Thank you for allowing us to participate in the care of your patient. Please contact us with any questions. Sincerely, Electronically Signed by: SABRINA CANCINO DPT Encounter Reason/DateNone recorded 06/15/2024 - 11:00AM - [address] 2[address] PT ([place]) Assessment/PlanUpon reassessment this date, patient exhibits deficits with lateral hip stability, deep core activation, and overall functional mobility. PT provided patient with exercises to address lateral hip stability where patient has lacking manual muscle test scoring. PT also provided patient with exercises to work on core stability as patient is having more low back pain with progressing. PT provided patient with education on different supporters and tools to use to decrease pain and improve stability during . Considering patient's continued deficits with deep core activation, lateral hip stability, and ever-changing circumstances of , patient would continue to benefit from skilled physical therapy to further address patient deficits, prepare patient for , and reach patient goals. Plan: Patient will return to PFPT 1 time every 3 to 4 weeks for the next 5 months (5 more visits) to improve patient deficits, improve outcomes, and improve functional mobility throughout . Short Term Goals:To Be Met in 6 Visits:1. Patient will complete 5 BMs/week with minimal straining to improve patient's bowel function and QOL. Met2. Patient will void 5-7x/day with 1-3 leakage episodes per day with mild urgency complaints to improve patient's bladder function and QOL. Met3. Patient will be able to complete single-leg squat with 50% decrease in knee adduction bilaterally to improve the patient's stability during single-leg activities. Met4. Patient will complete squats with proper pelvic floor, core, and diaphragmatic breath coordination to improve urinary and bowel control during functional movements. Progressing5.patient will improve hip abduction strength from 4/5-4+/5 bilaterally to improve pelvic girdle muscle balance?Longterm Goals:To Be Met in 12 Visits:1. Patient will complete 7 BMs/week with no straining to improve patient's bowel function and QOL. Met2. Patient will void 5-7x/day with 0-1 leakage episodes per day and no heightened urinary urgency to improve bladder function and QOL not met3. Patient will reduce knee adduction with single-leg squat by 75% to improve the patient's stability during single-leg activities. Progressing4. Patient will complete jump squats with proper pelvic floor, core, and diaphragmatic breath coordination to improve urinary and bowel control during functional movements. Progressing5. Patient will report 1/10 pain with sexual penetration to improve patient's ability to complete sexual activity without discomfort or pain. Progressing6.patient will improve hip abduction strength from 4/5 to 5/5 bilaterally to improve pelvic girdle muscle balance?dn 1. Pain in wronnoB82.2: Pelvic and perineal pain 2. Pelvic floor jekauclbiqjA51.9: Disorder of muscle, unspecified Return to Office AUTUMN MORA PA-C for Established Patient 15.EST at [facility] ([place]) on 06/20/2024 at 01:45 PM Sabrina Cancino DPT for PT Return Visit 60.EST at [address] 2[address] PT ([place]) on 07/14/2024 at 11:00 AM Rigo Mar, DO [address] [place] [address], [phone], [facility] 06/15/2024 13:59:51 Procedures Surgical History Date Name Laterality Status Provider Name and Address Organization Details Recorded Time 12/30/2021 Date of Last Pap Smear completed Soha Sanches [facility] 12/10/2023 15:37:17 Imaging Results None recorded. Procedure Notes None recorded. Medical Equipment None Reported. Allergies Allergen ID Allergen Name Allergen Category Reaction Reaction Severity Criticality Documentation Date Start Date Code Code System Note Provider Name and Address Organization Details Recorded Time [id number] 4354366y6 2824e latex gloves medicatio n Not available Not available Not available 08/26/20232019 55112 UNK Not Available Not Available Not Available [id number] 5613060a0 2824e miconazol e medicatio n Not available [...] Not Available Not Available Not Available Vitals None Recorded Social History Question Answer Notes LastModified by [...] not available 03/21/2024 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 Less Than 1 Time Per Week [email or web address] Information not available 03/21/2024 Do You Have A Medical Power Of Artificial Fly Tier? No [email or web address] Information not available 03/21/2024 What Was The Date Of Your Most Recent Tobacco Screening? 03/24/2024 [email or web address] Information not available 03/21/2024 What Is Your Relationship Status? [email or web address] Information not available 03/21/2024 Are You Sexually Active? Yes [email or web address] Information not available 12/10/2023 Do You Use [...] by Organization Details LastModified Time Mother Asthma [id number] Not availabl e 12/09/2023 10:48:03 Mother Seizure disorder rzfuvtezi28 Not available 11/24 10:49:03 Father Asthma ikbizqgab48 Not availabl e 12/09/2023 10:48:03 Father Arthritis [email or web address] Not available 03/21/2024 10:22:34 Unspecified Relation CVA - cerebrovascu lar accident due to cerebral artery occlusion grandm other on unspec ified side [email or web address] Not available 12/09/2023 10:48:32 Unspecified Relation Diabetes mellitus grandf ather unspec ified side [email or web address] Not available 12/09/2023 10:49:32 Maternal Grandfather Myasthenia gravis [email or web address] Not available 15:38:11 Maternal Grandfather Diabetes mellitus [...] Blood Transfusion N MRSA N Emphysema N COPD N Depression N Pneumonia N Peripheral Arterial Disease N Prostate Problems N TIA N Paralysis N Anxiety Disorder N Obesity N Infertility N Polyps N Acid Reflux (GERD) N Flat Foot N Varicosities N Stroke N Neck Injury N Other Sleep Disorders [...] Sclerosis N Colon Polyps N Heart Attack ([place]) N Psychiatric Illness N Diabetes N Hypospadia [...] therapy N Alzheimer? s N Eczema N Dementia N Diverticulitis N Ankylosing Spondylitis N Sleep Apnea N [...] Recorded Time HPV9 9 completed Kim Lacy [facility] 03/23/2024 10:54:24 HPV9 9 completed Kim Lacy [facility] 03/23/2024 10:54:24 COVID-19, mRNA, LNP-S, PF, 30 mcg/0.3 mL dose 2 [facility]2024 10:54:24 COVID-19, mRNA, LNP-S, PF, 30 mcg/0.3 mL dose 1 completed Kim Mckeonnison null, [facility] 03/23/2024 10:54:24 COVID-19, mRNA, LNP-S, PF, 30 mcg/0.3 mL dose 1 completed Kim Bambi null, [facility] 03/23/2024 10:54:24 Tdap 5 completed Kim [place] null, [facility] 03/23/2024 10:54:24 varicella 8 completed [facility] [place] [facility] 03/23/2024 10:54:24 HPV, quadrivalent 6 completed Kim [place] [facility] 03/23/2024 10:54:24 Hep B, adolescent or pediatric 8 completed Kim Bambi [facility] 03/23/2024 10:54:24 Hep B, adolescent or pediatric 8 completed Kim Bambi [facility], [facility] 03/23/2024 10:54:24 meningococcal MCV4P 5 completed Kim [place] [facility] 03/23/2024 10:54:24 Past Encounters Encounter ID Performer Location Encounter Start Date Encounter Closed Date Diagnosis/Indication Diagnosis SNOMED-CT Code Diagnosis ICD10 Code Diagnosis Note [id number] Sabrina dawn, [place] [address] ([place]) [address] [place] [phone] 06/15/2024 11:54:35 06/15/2024 12:56:03 Pain in pelvis 74345187 R10.2 Pelvic jewel or dysfunction 853594469 M62.9 Health Concerns Section Related Observation LastModified by Organization Detai ls LastModified Time None Recorded Concern Status LastModified by Organization Details LastModified Time None Recorded Payers Encounter Date Sequence Insurance Name Policy Number Policy Anaya Covered Member ID Anaya Member ID Guarantor Name 06/15/2024 1 [employer] ([facility] [id number] Mami Call [id number] Mami Call Notes Date Note Type Note Provider Name and Address Organization Details Recorded Time 06/15/2024 text/html Referred by ANA BREWER to Christian_Sabrina Valid 03/02/2024 - 06/30/2024 20 visits approved 15 visits left Patient reports she had intravaginal US done and she had pain, but it was not super bad. She reports she has had a little bit of sciatica in her L side. She reports external tissues still flare. She reports she has not had sex has much with being so nauseous. Was having trouble emptying her bladder. She reports she does not know if she was constipated or what. She reports hemorrhoids have improved. She reports she is feeling much better. She reports she feels like she is not letting it consume her every. Sabrina Cancino, DPT [address] [place] [address], [phone], [place] [facility] 06/15/2024 12:55:54 OBGyn Episode Ob Episode Information Episode Created Date Number of Fetuses Patient Bloodtype Patient rh Status Prepregnancy Weight lbs Domestic Partner Domestic Partner Phone Father Name Assembler Wire Mesh Gate Status 03/24/20 24 1 A Positive Maurice Root [id number] Maurice Root OPEN Fetus Data First Name Last Name Admitted to NICU Weight (g) Sex Living Outcome Pediatric Complications Fetus ID Race Codes Race Delivery Type [id number] Problems Problem Notes Problem Name Start Date End Date Resolution Snomed Code Not e Normal in primigravida 03/24/2024 [id number] Maternal exposure to radiation 03/24/2024 686111506 [facility] Junior Calculation Initial Junior Date [...] Date Ultra Sound Latest Days Gestation 0 [id number] 03/24/2024 10/30/19 25 0 Pre- Flowsheet Flowsheet Date 03/24/2024 Morgan Score Blood Edema Fundus Height Fundus Units Glucose Ketones Leukocytes Nitrite Labor Signs Protein Cervic Dilation Cervic Effacement Cervic Station none Type Weight in lbs Pre/Post Dialysis Refused Weight 131.696366061867 BP Diastolic BP Location Tested BP Systolic [...] with radiation exposure. She was referred to [facility] for this and genetic counseling. She is concerned about OB care due to her living 2 hours away. She does not want to transfer care and is wanting to discuss options. (Kim Lacy, LISA)New OB intake and exam performed. Discussed plan of care. She is going to establish with an OB in the [place] area. Unsure about the risks of the substation. Can check with [facility] to see if they have any information. Flowsheet Date 04/20/2024 Morgan Score Blood Edema Fundus Height Fundus Units Glucose Ketones Leukocytes Nitrite Labor Signs Protein Cervic Dilation Cervic Effacement Cervic Station none none neg Type Weight in lbs Pre/Post Dialysis Refused 135.024382929785 BP Diastolic BP Location Tested BP Systolic [...] today.Has not yet established with provider in [place]. Flowsheet Date 04/20/2024 Morgan Score Blood Edema [...] Weight in lbs Pre/Post Dialysis Refused Weight 142.540424074975 BP Diastolic BP Location Tested BP Systolic [...] Estim ated Date of Delivery false Thalassemia (Serbian, Egyptian, Mediterranean, Or Background): MCV < 80 false Neural Tube Defect (Meningomyelocele, Spina Bifi da, Or Anencephaly) false Congenital Heart Defect false Down Syndrome false Harley-Sachs (eg, Restorationism, Cajun, Micronesian-Portuguese) f alse Lenka Disease false Sickle Cell Disease Or Trait () false Hemophilia Or Other Blood Disorders false Muscular Dystrophy false Cystic Fibrosis false [place]'s Chorea false Intellectual Disability/Autism false If Yes, [...] 03/24/2024 Avoidance of saunas or hot tubs vlrbxzkbi64 03/24/2024 Screening for aneuploidy dde wsyzin65 03/24/2024 Intimate partner violence dd 03/24/2024 HIV and other routine tests tnwkyiiys46 03/24/2024 Weight gain counseling ddenn ison16 03/24/2024 Environmental/work hazards d oqrheqst72 03/24/2024 Illicit/recreational drugs d 03/24/2024 Indications for ultrasonography xjxchwtyn22 03/24/2024 Travel npimgkmtx85 03/24/2024 Tobacco/smoking cess ation counseling (ask, advise, assess, assist, and arrange) buewhpptm77 03/24/2024 caekmbutz89 03/24/2024 Use of any medicatio ns (including supplements, vitamins, herbs, or OTC drugs) azbgisqjp96 03/24/2024 Seat belt use wmfzwdurc71 03/24/2024 Risk factors identif ied by history czicymnyz75 03/24/2024 Anticipated course of care laeqdcfmu84 03/24/2024 Sexual activity xvounotam61 03/24/2024 Dental care ruavacwpv01 03/24/2024 Nutrition counseling ; special diet; dietary precautions (mercury, listeriosis) gjtxubkvs68 03/24/2024 Toxoplasmosis precautions (cats/raw meat) iaaqyaydu80 03/24/2024 Exercise swmpvtilk88 03/24/2024 Teratogens thdvaewac00 03/24/2024 Alcohol fvbptkvai17 03/24/2024 Childbirth classes/hospital facilities lxowxhnsp60 Second Trimester Discussed Date Discussion Item Discussion [...]
--- OUTSIDE RECORDS SUMMARY | 2024-08-03 05:46 | XMS_ITS | Data Portability ---
Author Organization [facility], [address] [place] [address] [place] ([place]) Address [address] [address] Care Team Providers Care Retail Receiving Clerk Name Role Phone RIGO MAR Primary Care Provider SHARONA MCKEON Director [employer] Assessment Encounter Date Assessment Date Assessment LastModified by Organization Details LastModified Time 04/20/2024 04/20/2024 Patient continues to struggle with severe vulvar pain. Trying to determine if pain is dermatological, vestibular Nuha that is congenital, or vestibular delay other that is caused by pelvic floor muscle tension. It is appearing that pelvic floor muscle tension is not the main garbage collector driver for patient's symptoms at this time. Plan to follow-up with patient in 1 month to see if continuation of home exercise program is helpful for her pain and determine a plan for further follow-up with vulvar specialist. Short Term Goals: To Be Met in [...] urinary and bowel control during functional movements. Not met ? Care Home Goals: To Be Met in 12 Visits: [...] single-leg activities. Met 4. Patient will complete jump squats with proper pelvic floor, core, and diaphragmatic breath coordination to improve urinary and bowel control during functional movements. Not met 5. Patient will report 1/10 pain with sexual penetration to improve patient's ability to complete sexual activity without discomfort or pain. ? dn [email or web address] Not available 04/20/2024 13:08:02 06/15/2024 06/15/2024 Upon reassessment this date, patient [...] to improve pelvic girdle muscle balance ? Loan Specialist Goals: To Be Met in 12 Visits: [...] improve pelvic girdle muscle balance ? dn [email or web address] Not available 06/15/2024 12:55:33 06/28/2024 06/28/2024 1. Burning mouth syndrome 2. [...] Details Last Modified Time Details Appointments None recorded. Lab urinalysis, dipstick 2023 024 [facility] [address], [address] [place] [address], [place], [id number], 11:40:39 urinalysis complete, reflex culture 2023 024 [facility], [address] [place] [address], [id number], 4 14:47:12 genetic screen, unspecified specimen 2023 024 [facility], [address] [place] [address], [id number], 4 10:22:13 CT + NG DNA, PCR, unspecified specimen 2023 024 [facility], [address] [place] [address], [id number], 4 09:14:28 obstetric screen + HIV, serum or blood 2023 024 [facility], [address] [place] [address], [id number], 4 15:00:03 hepatitis C Ab, serum 2023 024 [facility], [address] [place] [address], 79580, 4 15:46:09 culture + sensitivity , urine 2023 [email or web address] [facility], [address] [place] [address], [id number], 4 09:32:45 wet mount, vaginal 2023 024 [facility], [address] [place] [address], 75597, 4 14:17:30 Referral None recorded. Procedures None recorded. Surgeries None recorded. Imaging None recorded. Medication Orders None recorded. Patient TargetsNo targets recorded. Patient InstructionsNo instructions recorded. Reason for Referral None Reported. Results Created Date Observation Date Name Description Value Unit Range Abnormal Flag Note LastModifiedBy Organization Detail LastModifiedTime 03/24/20 24 03/24/2024 wet mount elaine wet prep Not Available [facility] [address] [place] [address], [id number], 03/24/2024 13:04:04 03/24/20 24 03/24/2024 wet mount , vagin al yeast NONE SEEN none seen Not Available [facility] [address] [place] [address], [id number], 03/24/2024 13:04:04 03/24/20 24 03/24/2024 wet mount , vagin al WBC FEW none seen abnormal Not Available [facility] [address] [place] [address], [id number], 03/24/2024 13:04:04 03/24/20 24 03/24/2024 wet mount , vagin al clue cells POSITI VE negati ve abnormal Clue Cell Inter preta tion: Posit ryan Resul t = >20% Clue Cells Seen Negat ryan Resul t = <20% Clue Cells Seen Not Available [facility] [address] [place] [address], [id number], 03/24/2024 13:04:04 03/24/20 24 03/24/2024 wet mount , vagin al trichomonas NONE SEEN none seen Not Available [facility] [address] [place] [address], [id number], 03/24/2024 13:04:04 03/24/20 24 03/24/2024 wet mount , elaine al source VAG Not Available [facility] [address] [place] [address], [id number], 03/24/2024 13:04:04 03/24/20 24 03/24/2024 hepat itis C Ab, serum hepatitis C Ab NONREA CTIVE nonrea ctive Not Available [facility] [address] [place] [address], [id number], 03/24/2024 15:46:09 03/24/20 24 03/25/2024 CT + NG DNA, PCR, unspe cifie d speci men GC/CT/TV DNA probe Not Available [facility] [address] [place] [address], [id number], 03/25/2024 09:14:28 03/24/20 24 03/25/2024 CT + NG DNA, PCR, unspe cifie d speci men GC-DNA probe NEGATI VE negati ve Not Available [facility] [address] [place] [address], [id number], 03/25/2024 09:14:28 03/24/20 24 03/25/2024 CT + NG DNA, PCR, unspe cifie d speci men chlamydia-DN A probe NEGATI VE negati ve This is a PCR assay that detec ts DNA from Chlam ydia trach omati s, Neiss eria gonor rhoea e, and Trich omona s vagin melissa. A posit ryan resul t does not neces saril y indic ate the prese nce of viabl e organ isms and there fore can not be used to asses s thera peuti c succe ss. This assay is only appro bob for femal e vagin al and male and femal e urine speci mens. This assay shoul d not be used for evalu ation of suspe cted sexua l abuse or for medic o-leg al indic ation s. Not Available [facility] [address] [place] [address], [id number], 03/25/2024 09:14:28 03/24/20 24 03/25/2024 CT + NG DNA, PCR, unspe cifie d speci men trichomonas NEGATI VE negati ve Not Available [facility] [address] [place] [address], 71214, 03/25/2024 09:14:28 03/24/20 24 03/24/2024 obste tric scree n + HIV, serum or blood rubella virus IgG Ab 82.1 IU/mL <5 IU/mL = Absen ce of immun ity 5 - <10 IU/mL = Equiv ocal >10 IU/mL = Presu med immun e Not Available [facility] [address] [place] [address], [id number], 03/25/2024 10:38:47 03/24/20 24 03/24/2024 obste tric scree n + HIV, serum or blood hepatitis B surface Ag NONREA CTIVE nonrea ctive Not Available [facility] [address] [place] [address], 40629, 03/25/2024 10:38:47 03/24/20 24 03/24/2024 obste tric scree n + HIV, serum or blood WBC 9.2 K/uL 3.8-11 .2 Not Available [facility] [address] [place] [address], [id number], 03/25/2024 10:38:47 03/24/20 24 03/24/2024 obste tric scree n + HIV, serum or blood RBC 4.77 M/uL 3.92-5 .10 Not Available [facility] [address] [place] [address], 64125, 03/25/2024 10:38:47 03/24/20 24 03/24/2024 obste tric scree n + HIV, serum or blood HGB 13.9 g/dL 11.8-1 5.3 Not Available [facility] [address] [place] [address], 15145, 03/25/2024 10:38:47 03/24/20 24 03/24/2024 obste tric scree n + HIV, serum or blood HCT 41.6 % 36.5-4 4.8 Not Available [facility] [address] [place] [address], 88231, 03/25/2024 10:38:47 03/24/20 24 03/24/2024 obste tric scree n + HIV, serum or blood MCV 87.2 fL 80.0-9 9.0 Not Available [facility] [address] [place] [address], 55755, 03/25/2024 10:38:47 03/24/20 24 03/24/2024 obste tric scree n + HIV, serum or blood MCH 29.1 pg 25.5-3 3.6 Not Available [facility] [address] [place] [address], 21241, 03/25/2024 10:38:47 03/24/20 24 03/24/2024 obste tric scree n + HIV, serum or blood MCHC 33.4 g/dL 32.0-3 6.0 Not Available [facility] [address] [place] [address], 23889, 03/25/2024 10:38:47 03/24/20 24 03/24/2024 obste tric scree n + HIV, serum or blood RDW-SD 45.3 fL 35.1 - 46.3 Not Available [facility] [address] [place] [address], 69298, 03/25/2024 10:38:47 03/24/20 24 03/24/2024 obste tric scree n + HIV, serum or blood plt 231 K/uL 130-40 0 Not Available [facility] [address] [place] [address], 01228, 03/25/2024 10:38:47 03/24/20 24 03/24/2024 obste tric scree n + HIV, serum or blood MPV 9.8 fL 9.3-12 .8 Not Available [facility] [address] [place] [address], 85567, 03/25/2024 10:38:47 03/24/20 24 03/24/2024 obste tric scree n + HIV, serum or blood HIV Ag/Ab 1-2 combo NONREA CTIVE nonrea ctive Not Available [facility] [address] [place] [address], 24296, 03/25/2024 10:38:47 03/24/20 24 03/25/2024 obste tric scree n + HIV, serum or blood OB panel plus HIV 1-2 cmb Not Available [facility] [address] [place] [address], 73045, 03/25/2024 10:38:47 03/24/20 24 03/25/2024 obste tric scree n + HIV, serum or blood ABO group A Not Available [facility] [address] [place] [address], 32571, 03/25/2024 10:38:47 03/24/20 24 03/25/2024 obste tric scree n + HIV, serum or blood Rh factor POSITI VE Pleas e note: Prior recor ds for this patie nt's ABO / Rh type are not avail able for addit ional verif icati on. Not Available [facility] [address] [place] [address], 90238, 03/25/2024 10:38:47 03/24/20 24 03/25/2024 obste tric scree n + HIV, serum or blood Ab screen NEGATI VE negati ve Not Available [facility] [address] [place] [address], [id number], 03/25/2024 10:38:47 03/24/20 24 03/25/2024 obste tric scree n + HIV, serum or blood RPR with reflex NONREA CTIVE nonrea ctive Not Available [facility] [address] [place] [address], 60253, 03/25/2024 10:38:47 03/24/20 24 03/24/2024 obste tric scree n + HIV, serum or blood rubella virus IgG Ab 82.1 IU/mL <5 IU/mL = Absen ce of immun ity 5 - <10 IU/mL = Equiv ocal >10 IU/mL = Presu med immun e Not Available [facility] [address] [place] [address], 32624, 03/25/2024 07:41:57 03/24/20 24 03/24/2024 obste tric scree n + HIV, serum or blood hepatitis B surface Ag Nonrea ctive nonrea ctive Not Available [facility] [address] [place] [address], 22064, 03/25/2024 07:41:57 03/24/20 24 03/24/2024 obste tric scree n + HIV, serum or blood WBC 9.2 K/uL 3.8-11 .2 Not Available [facility] [address] [place] [address], 95190, 03/25/2024 07:41:57 03/24/20 24 03/24/2024 obste tric scree n + HIV, serum or blood RBC 4.77 M/uL 3.92-5 .10 Not Available [facility] [address] [place] [address], 33076, 03/25/2024 07:41:57 03/24/20 24 03/24/2024 obste tric scree n + HIV, serum or blood HGB 13.9 g/dL 11.8-1 5.3 Not Available [facility] [address] [place] [address], 05814, 03/25/2024 07:41:57 03/24/20 24 03/24/2024 obste tric scree n + HIV, serum or blood HCT 41.6 % 36.5-4 4.8 Not Available [facility] [address] [place] [address], 27935, 03/25/2024 07:41:57 03/24/20 24 03/24/2024 obste tric scree n + HIV, serum or blood MCV 87.2 fL 80.0-9 9.0 Not Available [facility] [address] [place] [address], 49955, 03/25/2024 07:41:57 03/24/20 24 03/24/2024 obste tric scree n + HIV, serum or blood MCH 29.1 pg 25.5-3 3.6 Not Available [facility] [address] [place] [address], 18359, 03/25/2024 07:41:57 03/24/20 24 03/24/2024 obste tric scree n + HIV, serum or blood MCHC 33.4 g/dL 32.0-3 6.0 Not Available [facility] [address] [place] [address], 70155, 03/25/2024 07:41:57 03/24/20 24 03/24/2024 obste tric scree n + HIV, serum or blood RDW-SD 45.3 fL 35.1 - 46.3 Not Available [facility] [address] [place] [address], 73968, 03/25/2024 07:41:57 03/24/20 24 03/24/2024 obste tric scree n + HIV, serum or blood plt 231 K/uL 130-40 0 Not Available [facility] [address] [place] [address], 17130, 03/25/2024 07:41:57 03/24/20 24 03/24/2024 obste tric scree n + HIV, serum or blood MPV 9.8 fL 9.3-12 .8 Not Available [facility] [address] [place] [address], 50622, 03/25/2024 07:41:57 03/24/20 24 03/24/2024 obste tric scree n + HIV, serum or blood HIV Ag/Ab 1-2 combo Nonrea ctive nonrea ctive Not Available [facility] [address] [place] [address], 69905, 03/25/2024 07:41:57 03/24/20 24 03/25/2024 obste tric scree n + HIV, serum or blood OB panel plus HIV 1-2 cmb Not Available [facility] [address] [place] [address], 24772, 03/25/2024 07:41:57 03/24/20 24 03/25/2024 obste tric scree n + HIV, serum or blood ABO group PENDIN G Not Available [facility] [address] [place] [address], 49921, 03/25/2024 07:41:57 03/24/20 24 03/25/2024 obste tric scree n + HIV, serum or blood Rh factor PENDIN G Not Available [facility] [address] [place] [address], 88062, 03/25/2024 07:41:57 03/24/20 24 03/25/2024 obste tric scree n + HIV, serum or blood Ab screen PENDIN G Not Available [facility] [address] [place] [address], 50913, 03/25/2024 07:41:57 03/24/20 24 03/25/2024 obste tric scree n + HIV, serum or blood RPR with reflex Nonrea ctive nonrea ctive Not Available [facility] [address] [place] [address], 32432, 03/25/2024 07:41:57 03/24/20 24 03/24/2024 obste tric scree n + HIV, serum or blood OB panel plus HIV 1-2 cmb Not Available [facility] [address] [place] [address], 04015, 03/24/2024 15:36:46 03/24/20 24 03/24/2024 obste tric scree n + HIV, serum or blood ABO group PENDIN G Not Available [facility] [address] [place] [address], 71705, 03/24/2024 15:36:46 03/24/20 24 03/24/2024 obste tric scree n + HIV, serum or blood Rh factor PENDIN G Not Available [facility] [address] [place] [address], 60052, 03/24/2024 15:36:46 03/24/20 24 03/24/2024 obste tric scree n + HIV, serum or blood Ab screen PENDIN G Not Available [facility] [address] [place] [address], 70478, 03/24/2024 15:36:46 03/24/20 24 03/24/2024 obste tric scree n + HIV, serum or blood rubella virus IgG Ab 82.1 IU/mL <5 IU/mL = Absen ce of immun ity 5 - <10 IU/mL = Equiv ocal >10 IU/mL = Presu med immun e Not Available [facility] [address] [place] [address], 12346, 03/24/2024 15:36:46 03/24/20 24 03/24/2024 obste tric scree n + HIV, serum or blood hepatitis B surface Ag Nonrea ctive nonrea ctive Not Available [facility] [address] [place] [address], 66557, 03/24/2024 15:36:46 03/24/20 24 03/24/2024 obste tric scree n + HIV, serum or blood RPR with reflex PENDIN G Not Available [facility] [address] [place] [address], 58564, 03/24/2024 15:36:46 03/24/20 24 03/24/2024 obste tric scree n + HIV, serum or blood WBC 9.2 K/uL 3.8-11 .2 Not Available [facility] [address] [place] [address], 05134, 03/24/2024 15:36:46 03/24/20 24 03/24/2024 obste tric scree n + HIV, serum or blood RBC 4.77 M/uL 3.92-5 .10 Not Available [facility] [address] [place] [address], 64314, 03/24/2024 15:36:46 03/24/20 24 03/24/2024 obste tric scree n + HIV, serum or blood HGB 13.9 g/dL 11.8-1 5.3 Not Available [facility] [address] [place] [address], 04858, 03/24/2024 15:36:46 03/24/20 24 03/24/2024 obste tric scree n + HIV, serum or blood HCT 41.6 % 36.5-4 4.8 Not Available [facility] [address] [place] [address], 25524, 03/24/2024 15:36:46 03/24/20 24 03/24/2024 obste tric scree n + HIV, serum or blood MCV 87.2 fL 80.0-9 9.0 Not Available [facility] [address] [place] [address], 53712, 03/24/2024 15:36:46 03/24/20 24 03/24/2024 obste tric scree n + HIV, serum or blood MCH 29.1 pg 25.5-3 3.6 Not Available [facility] [address] [place] [address], 62572, 03/24/2024 15:36:46 03/24/20 24 03/24/2024 obste tric scree n + HIV, serum or blood MCHC 33.4 g/dL 32.0-3 6.0 Not Available [facility] [address] [place] [address], 83250, 03/24/2024 15:36:46 03/24/20 24 03/24/2024 obste tric scree n + HIV, serum or blood RDW-SD 45.3 fL 35.1 - 46.3 Not Available [facility] [address] [place] [address], 40884, 03/24/2024 15:36:46 03/24/20 24 03/24/2024 obste tric scree n + HIV, serum or blood plt 231 K/uL 130-40 0 Not Available [facility] [address] [place] [address], 55729, 03/24/2024 15:36:46 03/24/20 24 03/24/2024 obste tric scree n + HIV, serum or blood MPV 9.8 fL 9.3-12 .8 Not Available [facility] [address] [place] [address], 67826, 03/24/2024 15:36:46 03/24/20 24 03/24/2024 obste tric scree n + HIV, serum or blood HIV Ag/Ab 1-2 combo Nonrea ctive nonrea ctive Not Available [facility] [address] [place] [address], 04350, 03/24/2024 15:36:46 03/24/20 24 03/24/2024 obste tric scree n + HIV, serum or blood OB panel plus HIV 1-2 cmb Not Available [facility] [address] [place] [address], 61659, 03/24/2024 15:24:26 03/24/20 24 03/24/2024 obste tric scree n + HIV, serum or blood ABO group PENDIN G Not Available [facility] [address] [place] [address], 38464, 03/24/2024 15:24:26 03/24/20 24 03/24/2024 obste tric scree n + HIV, serum or blood Rh factor PENDIN G Not Available [facility] [address] [place] [address], 33133, 03/24/2024 15:24:26 03/24/20 24 03/24/2024 obste tric scree n + HIV, serum or blood Ab screen PENDIN G Not Available [facility] [address] [place] [address], 29186, 03/24/2024 15:24:26 03/24/20 24 03/24/2024 obste tric scree n + HIV, serum or blood rubella virus IgG Ab 82.1 IU/mL <5 IU/mL = Absen ce of immun ity 5 - <10 IU/mL = Equiv ocal >10 IU/mL = Presu med immun e Not Available [facility] [address] [place] [address], 87334, 03/24/2024 15:24:26 03/24/20 24 03/24/2024 obste tric scree n + HIV, serum or blood hepatitis B surface Ag Nonrea ctive nonrea ctive Not Available [facility] [address] [place] [address], 82175, 03/24/2024 15:24:26 03/24/20 24 03/24/2024 obste tric scree n + HIV, serum or blood RPR with reflex PENDIN G Not Available [facility] [address] [place] [address], 67984, 03/24/2024 15:24:26 03/24/20 24 03/24/2024 obste tric scree n + HIV, serum or blood WBC 9.2 K/uL 3.8-11 .2 Not Available [facility] [address] [place] [address], 93535, 03/24/2024 15:24:26 03/24/20 24 03/24/2024 obste tric scree n + HIV, serum or blood RBC 4.77 M/uL 3.92-5 .10 Not Available [facility] [address] [place] [address], 76290, 03/24/2024 15:24:26 03/24/20 24 03/24/2024 obste tric scree n + HIV, serum or blood HGB 13.9 g/dL 11.8-1 5.3 Not Available [facility] [address] [place] [address], 50071, 03/24/2024 15:24:26 03/24/20 24 03/24/2024 obste tric scree n + HIV, serum or blood HCT 41.6 % 36.5-4 4.8 Not Available [facility] [address] [place] [address], 41668, 03/24/2024 15:24:26 03/24/20 24 03/24/2024 obste tric scree n + HIV, serum or blood MCV 87.2 fL 80.0-9 9.0 Not Available [facility] [address] [place] [address], 43192, 03/24/2024 15:24:26 03/24/20 24 03/24/2024 obste tric scree n + HIV, serum or blood MCH 29.1 pg 25.5-3 3.6 Not Available [facility] [address] [place] [address], 95933, 03/24/2024 15:24:26 03/24/20 24 03/24/2024 obste tric scree n + HIV, serum or blood MCHC 33.4 g/dL 32.0-3 6.0 Not Available [facility] [address] [place] [address], 45615, 03/24/2024 15:24:26 03/24/20 24 03/24/2024 obste tric scree n + HIV, serum or blood RDW-SD 45.3 fL 35.1 - 46.3 Not Available [facility] [address] [place] [address], 11427, 03/24/2024 15:24:26 03/24/20 24 03/24/2024 obste tric scree n + HIV, serum or blood plt 231 K/uL 130-40 0 Not Available [facility] [address] [place] [address], 45457, 03/24/2024 15:24:26 03/24/20 24 03/24/2024 obste tric scree n + HIV, serum or blood MPV 9.8 fL 9.3-12 .8 Not Available [facility] [address] [place] [address], 71781, 03/24/2024 15:24:26 03/24/20 24 03/24/2024 obste tric scree n + HIV, serum or blood HIV Ag/Ab 1-2 combo PENDIN G Not Available [facility] [address] [place] [address], 66098, 03/24/2024 15:24:26 03/24/20 24 03/24/2024 obste tric scree n + HIV, serum or blood OB panel plus HIV 1-2 cmb Not Available [facility] [address] [place] [address], 70331, 03/24/2024 15:18:01 03/24/20 24 03/24/2024 obste tric scree n + HIV, serum or blood ABO group PENDIN G Not Available [facility] [address] [place] [address], 86416, 03/24/2024 15:18:01 03/24/20 24 03/24/2024 obste tric scree n + HIV, serum or blood Rh factor PENDIN G Not Available [facility] [address] [place] [address], 85507, 03/24/2024 15:18:01 03/24/20 24 03/24/2024 obste tric scree n + HIV, serum or blood Ab screen PENDIN G Not Available [facility] [address] [place] [address], 22613, 03/24/2024 15:18:01 03/24/20 24 03/24/2024 obste tric scree n + HIV, serum or blood rubella virus IgG Ab 82.1 IU/mL <5 IU/mL = Absen ce of immun ity 5 - <10 IU/mL = Equiv ocal >10 IU/mL = Presu med immun e Not Available [facility] [address] [place] [address], 40189, 03/24/2024 15:18:01 03/24/20 24 03/24/2024 obste tric scree n + HIV, serum or blood hepatitis B surface Ag PENDIN G Not Available [facility] [address] [place] [address], 77950, 03/24/2024 15:18:01 03/24/20 24 03/24/2024 obste tric scree n + HIV, serum or blood RPR with reflex PENDIN G Not Available [facility] [address] [place] [address], 39636, 03/24/2024 15:18:01 03/24/20 24 03/24/2024 obste tric scree n + HIV, serum or blood WBC 9.2 K/uL 3.8-11 .2 Not Available [facility] [address] [place] [address], 18268, 03/24/2024 15:18:01 03/24/20 24 03/24/2024 obste tric scree n + HIV, serum or blood RBC 4.77 M/uL 3.92-5 .10 Not Available [facility] [address] [place] [address], 44005, 03/24/2024 15:18:01 03/24/20 24 03/24/2024 obste tric scree n + HIV, serum or blood HGB 13.9 g/dL 11.8-1 5.3 Not Available [facility] [address] [place] [address], 53335, 03/24/2024 15:18:01 03/24/20 24 03/24/2024 obste tric scree n + HIV, serum or blood HCT 41.6 % 36.5-4 4.8 Not Available [facility] [address] [place] [address], 17784, 03/24/2024 15:18:01 03/24/20 24 03/24/2024 obste tric scree n + HIV, serum or blood MCV 87.2 fL 80.0-9 9.0 Not Available [facility] [address] [place] [address], 38465, 03/24/2024 15:18:01 03/24/20 24 03/24/2024 obste tric scree n + HIV, serum or blood MCH 29.1 pg 25.5-3 3.6 Not Available [facility] [address] [place] [address], 35505, 03/24/2024 15:18:01 03/24/20 24 03/24/2024 obste tric scree n + HIV, serum or blood MCHC 33.4 g/dL 32.0-3 6.0 Not Available [facility] [address] [place] [address], 43442, 03/24/2024 15:18:01 03/24/20 24 03/24/2024 obste tric scree n + HIV, serum or blood RDW-SD 45.3 fL 35.1 - 46.3 Not Available [facility] [address] [place] [address], 32397, 03/24/2024 15:18:01 03/24/20 24 03/24/2024 obste tric scree n + HIV, serum or blood plt 231 K/uL 130-40 0 Not Available [facility] [address] [place] [address], 61390, 03/24/2024 15:18:01 03/24/20 24 03/24/2024 obste tric scree n + HIV, serum or blood MPV 9.8 fL 9.3-12 .8 Not Available [facility] [address] [place] [address], 22453, 03/24/2024 15:18:01 03/24/20 24 03/24/2024 obste tric scree n + HIV, serum or blood HIV Ag/Ab 1-2 combo PENDIN G Not Available [facility] [address] [place] [address], [id number], 03/24/2024 15:18:01 03/24/20 24 03/24/2024 obste tric scree n + HIV, serum or blood OB panel plus HIV 1-2 cmb Not Available [facility] [address] [place] [address], [id number], 03/24/2024 15:00:03 03/24/20 24 03/24/2024 obste tric scree n + HIV, serum or blood ABO group PENDIN G Not Available Ri Only - S c [facility] [address] [place] [address], [id number], 03/24/2024 15:00:03 03/24/20 24 03/24/2024 obste tric scree n + HIV, serum or blood Rh factor PENDIN G Not Available [facility] Only [facility] [address] [place] [address], [id number], 03/24/2024 15:00:03 03/24/20 24 03/24/2024 obste tric scree n + HIV, serum or blood Ab screen PENDIN G Not Available [facility] Only [facility] [address] [place] [address], [id number], 03/24/2024 15:00:03 03/24/20 24 03/24/2024 obste tric scree n + HIV, serum or blood rubella virus IgG Ab PENDIN G Not Available [facility] Only [facility] [address] [place] [address], [id number], 03/24/2024 15:00:03 03/24/20 24 03/24/2024 obste tric scree n + HIV, serum or blood hepatitis B surface Ag PENDIN G Not Available Ri Only - c [facility] [address] [place] [address], [id number], 03/24/2024 15:00:03 03/24/20 24 03/24/2024 obste tric scree n + HIV, serum or blood RPR with reflex PENDIN G Not Available [facility] Only [facility] [address] [place] [address], [id number], 03/24/2024 15:00:03 03/24/20 24 03/24/2024 obste tric scree n + HIV, serum or blood WBC 9.2 K/uL 3.8-11 .2 Not Available [facility] Only - [facility] [address] [place] [address], [id number], 03/24/2024 15:00:03 03/24/20 24 03/24/2024 obste tric scree n + HIV, serum or blood RBC 4.77 M/uL 3.92-5 .10 Not Available [facility] Only - [facility] [address] [place] [address], [id number], 03/24/2024 15:00:03 03/24/20 24 03/24/2024 obste tric scree n + HIV, serum or blood HGB 13.9 g/dL 11.8-1 5.3 Not Available [facility] Only - [facility] [address] [place] [address], [id number], 03/24/2024 15:00:03 03/24/20 24 03/24/2024 obste tric scree n + HIV, serum or blood HCT 41.6 % 36.5-4 4.8 Not Available [facility] [address] [place] [address], [id number], 03/24/2024 15:00:03 03/24/20 24 03/24/2024 obste tric scree n + HIV, serum or blood MCV 87.2 fL 80.0-9 9.0 Not Available [facility] - [facility] [address] [place] [address], [id number], 03/24/2024 15:00:03 03/24/20 24 03/24/2024 obste tric scree n + HIV, serum or blood MCH 29.1 pg 25.5-3 3.6 Not Available [facility] - [facility] [address] [place] [address], [id number], 03/24/2024 15:00:03 03/24/20 24 03/24/2024 obste tric scree n + HIV, serum or blood MCHC 33.4 g/dL 32.0-3 6.0 Not Available [facility] - [facility] [address] [place] [address], [id number], 03/24/2024 15:00:03 03/24/20 24 03/24/2024 obste tric scree n + HIV, serum or blood RDW-SD 45.3 fL 35.1 - 46.3 Not Available [facility] Only - [facility] [address] [place] [address], 43615, 03/24/2024 15:00:03 03/24/20 24 03/24/2024 obste tric scree n + HIV, serum or blood plt 231 K/uL 130-40 0 Not Available [facility] - [facility] [address] [place] [address], [id number], 03/24/2024 15:00:03 03/24/20 24 03/24/2024 obste tric scree n + HIV, serum or blood MPV 9.8 fL 9.3-12 .8 Not Available [facility] - [facility] [address] [place] [address], [id number], 03/24/2024 15:00:03 03/24/20 24 03/24/2024 obste tric scree n + HIV, serum or blood HIV Ag/Ab 1-2 combo PENDIN G Not Available [facility] Only [facility] [address] [place] [address], [id number], 03/24/2024 15:00:03 04/20/20 24 04/20/2024 urina lysis compl ete, refle x cultu re urinalysis w/reflex cult LOW LEVEL S OF HEMOG LOBIN IN ABSEN CE OF HEMAT URIA MAY NOT BE CLINI ANGELICA SIGNI PHIL T. Not Available [facility] Only - [facility] [address] [place] [address], [id number], 04/20/2024 14:47:12 04/20/20 24 04/20/2024 urina lysis compl ete, refle x cultu re color YELLOW Not Available [facility] Only - [facility] [address] [place] [address], [id number], 04/20/2024 14:47:12 04/20/20 24 04/20/2024 urina lysis compl ete, refle x cultu re clarity CLEAR Not Available [facility] [address] [place] [address], [id number], 04/20/2024 14:47:12 04/20/20 24 04/20/2024 urina lysis compl ete, refle x cultu re pH 5.5 5.0-7. 5 Not Available [facility] - [facility] [address] [place] [address], 88413, 04/20/2024 14:47:12 04/20/20 24 04/20/2024 urina lysis compl ete, refle x cultu re specific gravity 1.027 1.000- 1.030 Not Available [facility] - [facility] [address] [place] [address], 31515, 04/20/2024 14:47:12 04/20/20 24 04/20/2024 urina lysis compl ete, refle x cultu re blood NEGATI VE negati ve Not Available [facility] [address] [place] [address], 18190, 04/20/2024 14:47:12 04/20/20 24 04/20/2024 urina lysis compl ete, refle x cultu re bilirubin NEGATI VE negati ve Not Available [facility] [address] [place] [address], [id number], 04/20/2024 14:47:12 04/20/20 24 04/20/2024 urina lysis compl ete, refle x cultu re urobilinogen 0.2 0.2-1. 0 Not Available [facility] [address] [place] [address], 68330, 04/20/2024 14:47:12 04/20/20 24 04/20/2024 urina lysis compl ete, refle x cultu re ketone TRACE negati ve abnormal Not Available [facility] [address] [place] [address], 39631, 04/20/2024 14:47:12 04/20/20 24 04/20/2024 urina lysis compl ete, refle x cultu re glucose NEGATI VE negati ve Not Available [facility] [address] [place] [address], 83540, 04/20/2024 14:47:12 04/20/20 24 04/20/2024 urina lysis compl ete, refle x cultu re protein TRACE negati ve abnormal Not Available [facility] [address] [place] [address], 78743, 04/20/2024 14:47:12 04/20/20 24 04/20/2024 urina lysis compl ete, refle x cultu re nitrite NEGATI VE negati ve Not Available [facility] [address] [place] [address], 78818, 04/20/2024 14:47:12 04/20/20 24 04/20/2024 urina lysis compl ete, refle x cultu re leukocytes NEGATI VE negati ve Not Available [facility] [address] [place] [address], 90975, 04/20/2024 14:47:12 04/20/20 24 04/20/2024 urina lysis compl ete, refle x cultu re RBC 0-2 0-2/hp f Not Available [facility] - [facility] [address] [place] [address], 64891, 04/20/2024 14:47:12 04/20/20 24 04/20/2024 urina lysis compl ete, refle x cultu re WBC 0-5 0-5/hp f Not Available [facility] [address] [place] [address], 83827, 04/20/2024 14:47:12 04/20/20 24 04/20/2024 urina lysis compl ete, refle x cultu re squamous epithelial 3-5 0-10/h pf Not Available [facility] - [facility] [address] [place] [address], 01387, 04/20/2024 14:47:12 04/20/20 24 04/20/2024 urina lysis compl ete, refle x cultu re bacteria NONE SEEN none Not Available [facility] Only - [facility] [address] [place] [address], 34892, 04/20/2024 14:47:12 04/20/20 24 04/20/2024 urina lysis compl ete, refle x cultu re hyaline cast 0-2 0-2/lp f Not Available [facility] [address] [place] [address], 08399, 04/20/2024 14:47:12 04/20/20 24 04/29/2024 nancy ic scree n, unspe cifie d speci men CF/sma panel Not Available Ri On ly - [facility] [address] [place] [address], 16365, 04/29/2024 10:48:47 04/20/2004/29/2024 nancy ic scree n, unspe cifie d speci men results * Speci men colle cted and sent out for testi ng by [facility]. Resul ts will flow into the elect lul fuchsr danelle and the provi dioni will recei ve a 'Revi ew Docum ent' task at that time. Not Available [facility] Only - [facility] [address] [place] [address], [id number], 04/29/2024 10:48:47 04/20/20 24 04/20/2024 urina lysis , dipst ick Protein Negati ve Not Available [address] [facility] (Ri) [address] [place] [address], [id number], 04/20/2024 11:18:28 04/20/20 24 04/20/2024 urina lysis , dipst ick Glucose Negati ve Not Available [address] [facility] [facility] (Ri) [address] [place] [address], [id number], 04/20/2024 11:18:28 03/24/20 24 03/24/2024 US, obste tric, 1st trime ster, singl e gesta tion [facility] [address] [place] [address] Teleph one [phone] Name: Mami Rodriguez [id number] Exam Date: 2023 Age: 28 Physic ernesto: MD Henry, Marilyn oh : 1994 Examin ation: US OB UNDER 14 WKS, SINGLE INDICA TION: First trimes ter ultras ound for dating and viabil ity. Last menstr ual period stated per augusto t is 024. This provid es a clinic al age of 8 weeks 5 days and an EDC of 10/30/19 25. A transa bdomin al ultras ound is perfor med demons tratin g a single viable intrau terine pregna ncy. A pole and yolk sac are identi fied. cardia c activi ty is confir med at 161 bpm. [place]- rump length measur es 1.61 cm, consis [...] Sc Only - [facility] [address] [place] [address], [id number], 03/24/2024 18:02:52 Result Notes None recorded. Problems Name Problem SNOMED Code Status Onset Date Resolution Date Notes Provider Name and Address Organization Details Recorded Time Normal in primigrav laramie 559925477806 103 Active 2023 Kim montanez, [facility] 4 10:54:40 36538820 Active 2023 Kim montanez, [facility] 4 10:53:49 Normal in primigrav osmani 698538591841 103 Active 2023 Kim montanez, [facility] 4 10:54:40 Maternal exposure to radiation 101424103 Active 2023 Lives by substatio n and exposed to radiation MFM appointme nt pending Kim Lacy [facility] 4 10:59:18 Maternal exposure to radiation 036059371 Active 2023 Lives by substatio n and exposed to radiation MFM appointme nt pending Kim Lacy [facility] 4 10:59:18 Bacterial vaginosis 812077856 [facility] 2023 [facility] 15:04:55 Gestation period, 12 weeks 54223363 Active 2023 [facility] 4 14:20:44 Scalding pain on urination 91314381 Active 2023 Soha Sanches [facility] 4 11:24:54 Burning mouth syndrome 378597225 Active 2023 AUTUMN MORA PA-C [address] [place] [address], [phone], [facility] 4 17:01:22 Temporoma ndibular joint disorder 24145818 Active 2023 AUTUMN MORA PA-C [address] [place] [address], [address], [facility] 4 17:01:44 Gynecolog ic examinati on Active 2023 Kim Lacy [facility] 4 10:41:31 Pruritus of vagina 45977898 Active 2023 Soha Sanches [facility] 4 15:36:59 Vulvar vestibuli tis 50714821 Active 2023 Sharona Mckeon MD [address] [place] [address], 92092[address], [facility] 4 16:13:03 Vaginal irritatio n 199229318 Active 2023 Soha montanez, [facility] 4 16:13:53 Vaginal discharge 251319673 Active 2023 Lauren Sanders null, [facility] 4 16:56:25 Pain in pelvis 11995044 Active 2023 Sabrina Medrano Gonzales-Mat on, DPT [address], [place], [address], [facility] 4 16:57:24 Pelvic floor dysfuncti on 351180648 Active 2023 Sabrina Medrano Gonzales-Mat on, DPT [address], [place], [address], [facility] 4 16:57:29 Problem Notes Documentation Provider Name and Address Organization Details Recorded Time [facility] ? [address] [place] [address] ? [place] [address] Mami Call 28yo F ? 1995 ? #[id number] __RESTYLEDFOOTER__ 03/24/2024 Jonny Mar DO, I would like to thank you for referring Mami Call to our practice on 03/24/2024. I have enclosed a copy of the office evaluation for your records. Once again, thank you for allowing me to participate in the care of this patient. Sincerely,Electronically Signed by: SHARONA MCKEON MD Encounter Reason/Date New OB, ultrasound 03/24/2024 - 10:00AM - [facility] [place])ProblemsReviewed Problems Maternal exposure to radiation - Onset: 03/24/2024 - [place] and exposed to radiation MFM appointment pending Vaginal irritation - Onset: 12/10/2023 Vaginal discharge - Onset: 12/22/2023 Pain in pelvis - Onset: 02/17/2024 Vulvar vestibulitis - Onset: 12/10/2023 Pruritus of vagina - Onset: 12/10/2023 Normal in primigravida - Onset: 03/24/2024 Pelvic floor dysfunction - Onset: 02/17/2024 - Onset: 03/24/2024 Gynecologic examination - Onset: 12/09/2023 Allergies Reviewed Allergies LATEX GLOVES MICONAZOLE No Known Drug Allergy (InActive) OnsetDate: 10/21/2006; Medications Reviewed Medications NameDate Source Cgjoozad51/29/24?entered Kim Lacy Family HistoryReviewed Family History Mother - Asthma ? ? ? - Seizure disorder Father - Asthma ? ? ? - Arthritis Unspecified Relation - CVA - cerebrovascular accident due to cerebral artery occlusion - grandmother on unspecified side ? ? ? - Diabetes mellitus - grandfather unspecified side Maternal Grandfather - Myasthenia gravis ? ? ? - Diabetes mellitus Paternal Grandfather - Hypertensive disorder Maternal Grandmother - Disorder of thyroid gland Maternal Grandfather has diabetes Maternal Grandfather has myasthenia gravis Social HistoryReviewed Social History Substance UseDo you or have you ever smoked tobacco?: Never a smokerWhat is your level of alcohol consumption?: NoneDo you use any illicit or recreational drugs?: NoWhat is your level of caffeine consumption?: OccasionalWhat was the date of your most recent tobacco screening?: 4Do you or have you ever smoked tobacco?: Never smokerDiet and ExerciseHow many times per week do you exercise?: Less than 1 time per weekMarriage and SexualityWhat is your relationship status?: MarriedEducation and OccupationAre you currently employed?: YesWhat 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?: 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 DirectiveDo you have a medical power of environmental attorney?: NoAlcohol use, Last Assessed: 09 Jan 2022 3:31PM Type: Chronic Last Edited: 10 Jan 2022 9:17AM ICD9 Code: V49.89 Last Reviewed Date: 20220110 SnomedCode: 928434 ICD10 Code: Z78.9 LastAssessedBy: STACI WOLFF Caffeine use, Last Assessed: 09 Jan 2022 3:31PM Type: Chronic Last Edited: 10 Jan 2022 9:17AM ICD9 Code: V49.89 Last Reviewed Date: 20220110 SnomedCode: [id number] ICD10 Code: Z78.9 LastAssessedBy: STACI WOLFF Currently attends college, Last Assessed: 29 Nov 2019 9:09AM Type: Chronic Identified By: BALJINDER ([facility])CHIQUITA Last Edited: 29 Nov 2019 9:10AM Last Reviewed Date: 20191129 SnomedCode: [id number] LastAssessedBy: BALJINDER ([facility])CHIQUITA ([facility]) 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, Last Assessed: 29 Nov 2019 9:10AM Type: Chronic Identified By: BALJINDER ([facility])CHIQUITA Last Edited: 29 Nov 2019 9:10AM Last Reviewed Date: 20191129 SnomedCode: [id number] LastAssessedBy: BALJINDER ([facility])CHIQUITA ([facility]) History of Exercises occasionally: Denied, Last Assessed: 09 Jan 2022 3:31PM Type: Chronic Identified By: BALJINDER ([facility])CHIQUITA Last Edited: 09 Jan 2022 3:31PM ICD9 Code: V49.89 Last Reviewed Date: 20220109 SnomedCode: [id number] Category: History of ICD10 Code: Z78.9 LastAssessedBy: STACI WOLFF Never a smoker, Last Assessed: 31 May 2020 9:35AM Type: Chronic Last Edited: 31 May 2020 9:36AM Last Reviewed Date: 20200531 SnomedCode: [id number] LastAssessedBy: DIMAS SONI Surgical HistoryReviewed Surgical History Additional HistoryNone recordedHistory of Present IllnessVISIT #1. New OB intake. Single live IUP. HIV consent obtained. EPDS administered with a score of 5. Patient declines any vaginal bleeding or pelvic pain. She did have one episode of spotting at 6 weeks GA. Ultrasound today shows small subchorionic hemorrhage noted at GUDELIA 1.47cm. [place] and is concerned with radiation exposure. She was referred to [facility] for this and genetic counseling. She is concerned about OB care due to her living 2 hours away. She does not want to transfer care and is wanting to discuss options. (Kim Lacy RN)Review of SystemsROS as noted in the HPIPhysical ExamConstitutional:General Appearance: healthy-appearing, well-nourished, and well-developed. Psychiatric:Orientation: to person, place, time. Mood and Affect: normal mood and affect and active and alert. Skin:Appearance: no rashes or lesions. Neck:Neck: supple, trachea midline, no masses, full range of motion, and nontender lymph nodes. Thyroid: no enlargement or nodules and non-tender. Lungs:Respiratory Effort: no intercostal retractions or accessory muscle usage. Auscultation: no wheezing, rales/crackles, or rhonchi and clear to auscultation. Cardiovascular:Auscultation: RRR and no murmur. Peripheral Vascular: no varicosities, LLE edema, RLE edema, or calf tenderness. Abdomen:Auscultation/Inspection/P alpation: no tenderness, masses, or CVA tenderness and soft, non-distended, and normal bowel sounds. Hernia: none palpated. Breast:Inspection/Palpation: no tenderness, skin changes, abnormal secretions, or distinct masses and nipple appearance normal. Female Genitalia:Vulva: no evidence of infection or trauma and no masses or lesions. Vagina: no erythema or vesicles or ulcers andtendernessandabnormal vaginal discharge;PAtient with vaginismis and tenderness. Exam limited due to tenderness. Cervix: no discharge or cervical motion tenderness and grossly normal. Uterus: midline, mobile, and non-tender;8wk gravid. Bladder/Urethra: no urethral discharge or mass and normal meatus and nondistended bladder. Adnexa/Parametria: no adnexal tenderness or ovarian mass.Procedure DocumentationNone recordedAssessment/Plan1. Normal in primigravida-Normal IUP at 1tq1cUvug of care reviewed.Patient will be transferring care. Will continue follow up until she gets established Additional diagnosis detail: Encounter for supervision of normal first in first lpxmmgnkgU23.01: Encounter for supervision of normal first , first trimester GC/CT/TV DNA PROBE (SC ONLY) OB PANEL WITH HIV (SC ONLY) HEPATITIS C AB (SC ONLY) URINE CULTURE AND SENSI ([facility] ONLY) WET PREP ([facility] ONLY) Return to Office [facility] for Lab.[place] at [facility] ([place] on 03/24/2024 at 12:01 PM Sabrina Cancino DPT for PT Return Visit 60.EST at [facility] ([place] on 04/12/2024 at 03:30 PM Sharona Mckeon MD for OB Check 15.EST at [facility] [place] on 04/21/2024 at 12:45 PM Talita Brooks MD for Established Patient 15.EST at [facility] [place] on 06/15/2024 at 11:00 AM Sharona Mckeon MD for Annual Well Woman Visit 15.EST at [facility] [place] on 12/15/2024 at 01:15 PM Rigo Mar DO [facility], [address], [facility] 03/24/2024 18:55:06 [facility] ? [address] [address]EZGMTFP, Lydia J (id #[id number], : 1995) Date: 4RE: Mami Call, : 1995, PT ID #[id number] Mar DO, Mami Call was seen in our office today 06/15/2024, and a copy of that evaluation is enclosed. Thank you for allowing us to participate in the care of your patient. Please contact us with any questions. Sincerely, Electronically Signed by: SABRINA CANCINO DPT Encounter Reason/DateNone recorded 06/15/2024 - 11:00AM - [facility] ([place]) Assessment/PlanUpon reassessment this date, patient exhibits deficits [...] 4/5-4+/5 bilaterally to improve pelvic girdle muscle balance?Loan Specialist Goals:To Be Met in 12 Visits:1. Patient [...] pelvic girdle muscle balance?dn 1. Pain in wcgrsbR94.2: Pelvic and perineal pain 2. Pelvic floor bwmwkcitzbwX42.9: Disorder of muscle, unspecified Return to Office AUTUMN MORA PA-C for Established Patient 15.EST at [facility] [place] on 06/20/2024 at 01:45 PM Sabrina Cancino DPT for PT Return Visit 60.EST at [facility] [place] on 07/14/2024 at 11:00 AM Rigo Mar, DO [address] [place] [address], [phone], [facility] 06/15/2024 13:59:51 Procedures Surgical History Date Name Laterality Status Provider Name and Address Organization Details Recorded Time 12/30/2021 Date of Last Pap Smear completed Soha Myron [facility] 12/10/2023 15:37:17 Imaging Results Imaging Date Name Status LastModified by Organiz ation Details LastModified Time 03/24/2024 US, obstetric, 1st trimester, single gestation completed INTERFACE [facility] [address] [place] [address], [address], 03/24/2024 18:02:52 Procedure Notes None recorded. Medical Equipment None Reported. Allergies Allergen ID Allergen Name Allergen Category Reaction Reaction Severity Criticality Documentation Date Start Date Code Code System Note Provider Name and Address Organization Details Recorded Time [id number] 5503030e1 2824e latex gloves medicatio n Not available Not available Not available 08/26/20232019 62909 UNK Not Available Not Available Not Available [id number] 2824e miconazol e medicatio n Not available [...] height Body mass index (BMI) Body weight Systolic blood pressure Diastolic blood pressure Provider Name and Address Organization Details Last Updated DateTime 03/24/2024 167.64 cm 21.3 kg/m2 52908.47 g 120 mm[Hg] 64 mm[Hg] Kim Lacy [facility] 11:30:51 Date Recorded Body weight Systolic blood pressure Diastolic blood pressure Provider Name and Address Organization Details Last Updated DateTime 04/20/2024 68910.6884 24 g 120 mm[Hg] 72 mm[Hg] Soha Sanches [facility] 04/20/2024 11:17:25 Date Recorded Body height Body mass index (BMI) Body weight Body temperature Heart rate Systolic blood pressure Diastolic blood pressure Provider Name and Address Organization Details Last Updated DateTime 167.64 cm 22.9 kg/m2 99028.1 2 g 97.7 [degF] 90 /min 145 mm[Hg] 69 mm[Hg] Terry Trujillo [facility] 16:31:37 Social History Question Answer Notes LastModified by Shahab P. 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 Less Than 1 Time Per Week [email or web address] Information not available 03/21/2024 Do You Have A Medical Power Of Plate Washer? No [email or web address] Information not available 03/21/2024 What Was The Date Of Your Most Recent Tobacco Screening? 03/24/2024 [email or web address] Information not available 03/21/2024 What Is Your Relationship Status? [email or web address] Information not available 03/21/2024 Are You Sexually Active? Yes [email or web address] Information not available 12/10/2023 Do You Use Any Illicit Or Recreational Drugs? No [email or web address] Information not available 03/21/2024 Sex: Unknown Functional Status Question Answer Note LastModified by Shahab P. Tabatabai, Brokerizat ion Details LastModified Time What is your exercise level? Occasional [email or web address] Information not available 03/21/2024 Mental Status None recorded. Family History Relationship Description Onset Age of this Age Resolved Age Notes LastModified by Organization Details LastModified Time Mother Asthma [email or web address] Not availabl e 12/09/2023 10:48:03 Mother Seizure disorder [email or web address] Not available 11/24 10:49:03 Father Asthma [email or web address] Not availabl e 12/09/2023 10:48:03 Father Arthritis [email or web address] Not available 03/21/2024 10:22:34 Unspecified Relation CVA - cerebrovascu lar accident due to cerebral artery occlusion grandm other on unspec ified side Not available 12/09/2023 10:48:32 Unspecified Relation Diabetes mellitus grandf ather unspec ified side Not available 12/09/2023 10:49:32 Maternal Grandfather Myasthenia gravis [email or web address] Not available 15:38:11 Maternal Grandfather Diabetes mellitus [email or web address] Not available 2023 10:22:34 Paternal Grandfather Hypertensive disorder [email or web address] Not available 2023 10:22:34 Maternal Grandmother Disorder of thyroid gland [email or web address] Not available 2023 10:22:34 Notes:Maternal Grandfather h as diabetes Maternal Grandfather has myasthenia gravis Medical History Condition Response Coronary Artery Disease N Growth Hormone Deficiency (Pituitary Dwa rfism) N Hyperthyroidism N MRSA N Blood Transfusion N Emphysema N Depression N COPD N Pneumonia N Peripheral Arterial Disease N Prostate Problems N TIA N Paralysis N Anxiety Disorder N Obesity N Polyps N Infertility N Flat Foot N Acid Reflux (GERD) N Varicosities N Stroke N Neck Injury N Other Sleep Disorders N Rheumatoid Arthritis N Fibromyalgia N Kidney Disease N Pituitary Disorder N Enuresis N Brain Tumors N Acne N Carpel Tunnel N Skin Problems N Eating Disorder N Meningitis N Constipation N Brain Injury N Art (IVF or FET) N Undescended Testicle N Tuberculosis N Cerebral Palsy N Myocardial Infarction N Asthma N Amputation N Trauma/Violence N Peripheral Vascular Disease N Jaundice N Vertigo N Sleep Disorder N Pulmonary Embolism N Hematologic Disease N Thyroid Disease N Colon Cancer N Drug/Latex Allergies/Reactions N Lung Disease N Glaucoma N Defects or Inherited Disease N Pacemaker N Spine/Back Problems N Orthopedic Problems N Anesthesia Complications N Orthotics N Serious Illness or Injuries N Congenital Anomalies N History of abnormal pap N Endometriosis N Liver Disease N HIV N Parkinson's Disease N Thyroid Problems N GI Problems N Transplant N Anemia N Multiple Sclerosis N Colon Polyps N Heart Attack ([place]) N Psychiatric Illness N Hypospadia N Diabetes N Pulmonary (TB, Asthma) N Cardiomyopathy N Heart Murmur N Inflammatory Bowel Disease N Congestive Heart Failure (CHF) N Valvular Heart Disease N Hyperlipidemia N [...] Recorded Time HPV9 9 completed Kim Lacy [facility] 03/23/2024 10:54:24 HPV9 9 completed Kim [place] null, [facility] 03/23/2024 10:54:24 COVID-19, mRNA, LNP-S, PF, 30 mcg/0.3 mL dose 2 completed Kim Bambi null, [facility] 03/23/2024 10:54:24 COVID-19, mRNA, LNP-S, PF, 30 mcg/0.3 mL dose 1 completed Kim Bambi null, [facility] 03/23/2024 10:54:24 COVID-19, mRNA, LNP-S, PF, 30 mcg/0.3 mL dose 1 completed Kim [place] null, [facility] 03/23/2024 10:54:24 Tdap 5 completed Kim [place] null, [facility] 03/23/2024 10:54:24 varicella 8 completed Kim Bambi null, [facility] 03/23/2024 10:54:24 HPV, quadrivalent 6 completed Kim Bambi null, [facility] 03/23/2024 10:54:24 Hep B, adolescent or pediatric 8 completed Kim Bambi [facility] 03/23/2024 10:54:24 Hep B, adolescent or pediatric 8 completed Kim Bambi null, [facility] 03/23/2024 10:54:24 meningococcal MCV4P 5 [facility] [place] [facility] 10:54:24 Past Encounters Encounter ID Performer Location Encounter Start Date Encounter Closed Date Diagnosis/Indication Diagnosis SNOMED-CT Code Diagnosis ICD10 Code Diagnosis Note [id number] Sharona Mckeon MD [address] [place] [address] ([place] [address] [place] [address],[address] [place] [address] 12/10/2023 15:24:43 12/10/2023 16:24:22 Gynecologic examination 29587406 Z01.419 --Annual OPTIMIZATION MANAGER exam performed. --Family and personal medical history and risk factors reviewed with patient. --ACOG Pap guidelines reviewed. -- Breast care: Clinical breast exam performed. Discussion of self breast awareness. Annual screening recommenda tions reviewed. -- Diet and exercise were encouraged to obtain and maintain healthy weight. -- Importance of colon cancer screening counseled. -- Contracept ion: TTC -- Sexually transmitte d infection screening declines. -- Partners and prevention sheet provided. -- The patient was encouraged to continue care with her primary care provider for the management of general medical comorbidit ies and other health maintenanc e screening. -- Breast and ovarian cancer syndrome screening questionna lian: up to date Vulvar vestibulitis 3083 3006 N94.810 Patient has been having some success with pelvic floor therapy. Still having pain with insertion at the vulva. Findings of vestibulit is on exam. Patient requests referral to vulvar specialist in [place]. Will send to Dr. Padilla. Prescripti on for lidocaine ointment also provided to be used prior to intercours e. Instructio ns provided. Vaginal irritation 75208 6004 N89.8 [id number] Sharona Mckeon MD [address] [facility] ([place]) [address] [place] [address] 12/22/2023 16:44:31 12/22/2023 18:53:42 Vaginal discharge 127332423 N89.8 [id number] Sabrina dawn, DPT [address] [facility] ([place]) [address] [place] [address],[address] [place] [address] 02/17/2024 15:59:30 02/17/2024 16:58:00 Pain in pelvis 93731814 R10.2 Pelvic jewel or dysfunction 780690563 M62.9 [id number] Sabrina dawn, DPT [address] [facility] ([place]) [address] [place] [address] 02/24/2024 14:55:33 02/24/2024 16:02:16 Pain in pelvis 52001839 R10.2 Pelvic jewel or dysfunction 787663328 M62.9 [id number] Sabrina Isbello n, DPT [address] [facility] ([place]) [address] [place] [address] 03/02/2024 15:59:13 03/02/2024 16:55:35 Pain in pelvis 83810783 R10.2 Pelvic jewel or dysfunction 293638546 M62.9 [id number] Sabrina Isbello n, DPT [address] [facility] [facility] ([place]) [address] [place] [address] 03/16/2024 14:56:21 03/16/2024 16:06:24 Pain in pelvis 38273977 R10.2 Pelvic jewel or dysfunction 902662799 M62.9 [id number] Sharona Mckeon MD [address] [facility] ([place] [address] [place] [address] 03/24/2024 10:20:59 03/24/2024 14:19:25 Normal in primigravida [id number] 57913 Z34.01 Normal IUP at 2ub5rJaki of care reviewed.P atient will be transferri ng care. Will continue follow up until she gets establishe d Additional diagnosis detail: Encounter for supervisio n of normal first in first trimester [id number] Soha Sanches [facility] ([place]) [address] [place] [address] 04/20/2024 10:55:54 04/20/2024 12:35:28 Gestation period, 12 weeks 12476202 Z3A.12 Additional diagnosis detail: 12 weeks gestation of Normal pre gnancy in primigravida 5768855205 83112 Z34.01 Normal IUP at 7ki0aKkgv of care reviewed.P atient will be transferri ng care. Will continue follow up until she gets establishe d Additional diagnosis detail: Encounter for supervisio n of normal first in first trimester Maternal e xposure to radiation 294108456 Z84.89 screening 2437 59486 Z36.89 Additional diagnosis detail: Encounter for other specified screening Scalding p ain on urination 18627125 R30.0 Additional diagnosis detail: Burning with urination [id number] Sabrina Isbello n, DPT [address] [facility] [facility] ([place]) [address] [place] [address] 04/20/2024 11:53:03 04/20/2024 13:08:26 Pain in pelvis 41810054 R10.2 Pelvic jewel or dysfunction 061347054 M62.9 [id number] Sabrina Ruiz n, DPT [address] [facility] [facility] ([place]) [address] [place] [address] 06/15/2024 11:54:35 06/15/2024 12:56:03 Pain in pelvis 55102005 R10.2 Pelvic jewel or dysfunction 559304159 M62.9 [id number] Talita Brooks MD [facility] ([place]) [address] [place] [address] 06/28/2024 16:16:58 06/28/2024 17:02:43 Burning mouth syndrome 924009865 K14.6 Temporoman dibular joint disorder 19040463 M26.609 Health Concerns Section Related Observation LastModified by Organization Detai ls LastModified Time None Recorded Concern Status LastModified by Organization Details LastModified Time None Recorded Advance Directives Directive N: Payers Encounter Date Sequence Insurance Name Policy Number Policy Anaya Covered Member ID Anaya Member ID Guarantor Name 03/24/2024 1 [employer] [place] [id number] Mami J Cernich [id number] Mami J Cernich 04/20/2024 1 [employer] [place] Mami J Cernich [id number] Mami J Cernich 04/20/2024 1 [employer] [place] [id number] Mami J Cernich [id number] Mmai J Cernich 06/15/2024 1 [employer] [place] [id number] Mami J Cernich [id number] Mami J Cernich 06/28/2024 1 [employer] [place] [id number] Mami J Cernich [id number] Mami J Cernich Notes Date Note Type Note Provider Name and Address Organization Details Recorded Time 03/24/2024 text/html VISIT #1. New OB intake. Single live IUP. HIV consent obtained. EPDS administered with a score of 5. Patient declines any vaginal bleeding or pelvic pain. She did have one episode of spotting at 6 weeks GA. Ultrasound today shows small subchorionic hemorrhage noted at GUDELIA 1.47cm. [place] and is concerned with radiation exposure. She was referred to [facility] for this and genetic counseling. She is concerned about OB care due to her living 2 hours away. She does not want to transfer care and is wanting to discuss options. (Kim Lacy, LISA) Sharona Mckeon MD [facility] [place] [address], [phone], [facility] 03/24/2024 14:17:21 04/20/2024 text/html Visit #2 Patient denies leaking of fluid and bleeding Patient states she is really fatigued and is having nausea. She wants to complete MAT 21 with gender (even though not approved through insurance) and CF/SMA. She is having burning with urination and a UA will be sent to the lab. Sharona Mckeon MD [facility] [place] [address], [phone], [facility] 04/20/2024 11:28:41 04/20/2024 text/html Patient reports she has been wearing bands to help with nausea. She reports fatigue is bad.She reports she is being tested for a UTI. She reports her tendons in the front of her hips are flared up some. She reports she is doing some of the stuff for ab strengthening. She reports she has not had sex. She reports she feels bad all the time and it hurts [place] the doctor [place] - she said that sometimes hospitals and clinics are limited in testing for BV. She reports she tested positive for BV about 4 weeks ago. She reports the doctor could possible be prescribing her meds for BV and she did not have BV. She reports she does not even think she has had BV this entire time. She reports she is following up [place] Dr[place] Padilla [place]. 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 She reports they cannot treat until baby is born either. She reports she has not had issues with bowel movements, she reports she has had issues with some abdominal pain when doing core exercises.She has had burning with urination, she reports flare ups are less frequent though. She reports being tested for UTI.She reports sex is still painful just the same. She reports Dr. Padilla told her that her nerves are flared up and should not be having pain. Sabrina Cancino DPT [address] [place] [address], [phone], [facility] 04/20/2024 13:08:19 06/15/2024 text/html Referred by ANA BREWER to [...] letting it consume her every. Sabrina Cancino, [place] [address] [place] [address], [phone], [facility] 06/15/2024 12:55:54 06/28/2024 text/html Mami is a 29-year-old female [...] recent illness. AUTUMN MORA PA-C [address] [place] [address], [phone], [facility] 06/28/2024 17:12:55 OBGyn Episode Ob Episode Information Episode Created Date Number of Fetuses Patient Bloodtype Patient rh Status Prepregnancy Weight lbs Domestic Partner Domestic Partner Phone Father Name Castables Worker Status 03/24/20 24 1 A Positive Maurice Root [id number] Maurice Root OPEN Fetus Data First Name Last Name Admitted to NICU Weight (g) Sex Living Outcome Pediatric Complications Fetus ID Race Codes Race Delivery Type [id number] Problems Problem Notes Problem Name Start Date End Date Resolution Snomed Code Not e Normal in primigravida 03/24/2024 [id number] Maternal exposure to radiation 03/24/2024 528611096 [facility] [place] [facility] [facility] Calculation Initial Junior [...] Date Ultra Sound Latest Days Gestation 0 [id number] 03/24/2024 10/30/19 25 0 Pre-yesenia Flowsheet Flowsheet Date 03/24/2024 Morgan Score Blood Edema Fundus Height Fundus Units Glucose Ketones Leukocytes Nitrite Labor Signs Protein Cervic Dilation Cervic Effacement Cervic Station none Type Weight in lbs Pre/Post Dialysis Refused Weight 131.968259150098 BP Diastolic BP Location Tested BP Systolic [...] with radiation exposure. She was referred to [facility] for this and genetic counseling. She is concerned about OB care due to her living 2 hours away. She does not want to transfer care and is wanting to discuss options. (Kim Lacy, LISA)New OB intake and exam performed. Discussed plan of care. [place] Unsure about the risks of the substation. Can check with [facility] to see if they have any information. Flowsheet Date 04/20/2024 Morgan Score Blood Edema Fundus Height Fundus Units Glucose Ketones Leukocytes Nitrite Labor Signs Protein Cervic Dilation Cervic Effacement Cervic Station none none neg Type Weight in lbs Pre/Post Dialysis Refused 135.603466235747 BP Diastolic BP Location Tested BP Systolic [...] today.Has not yet established with provider in [place]. Flowsheet Date 04/20/2024 Morgan Score Blood Edema [...] Weight in lbs Pre/Post Dialysis Refused Weight 142.889171386770 BP Diastolic BP Location Tested BP Systolic [...] Estim ated Date of Delivery false Thalassemia (Irish, Kuwaiti, Mediterranean, Or Background): MCV < 80 false Neural Tube Defect (Meningomyelocele, Spina Bifi da, Or Anencephaly) false Congenital Heart Defect false Down Syndrome false Harley-Sachs (eg, Orthodoxy, Cajun, Estonian-Maldivian) f alse Lenka Disease false Sickle Cell Disease Or Trait () false Hemophilia Or Other Blood Disorders false Muscular Dystrophy false Cystic Fibrosis false Wichita's Chorea false Intellectual Disability/Autism false If Yes, [...] 03/24/2024 Avoidance of saunas or hot tubs [id number] 03/24/2024 Screening for aneuploidy dde lrzodq99 03/24/2024 Intimate partner violence dd nqogdii05 03/24/2024 HIV and other routine tests tqvuwqacv56 03/24/2024 Weight gain counseling ddenn ison16 03/24/2024 Environmental/work hazards d hdtaglsw45 03/24/2024 Illicit/recreational drugs d znhbttom75 03/24/2024 Indications for ultrasonography 03/24/2024 Travel tydwfvzhp01 03/24/2024 Tobacco/smoking cess ation counseling (ask, advise, assess, assist, and arrange) czurjiirb40 03/24/2024 cucfsqlgp42 03/24/2024 Use of any medicatio ns (including supplements, vitamins, herbs, or OTC drugs) bkoifztzv42 03/24/2024 Seat belt use btdojiarj30 03/24/2024 Risk factors identif ied by history hlwllpfzu77 03/24/2024 Anticipated course of care povnnjggw71 03/24/2024 Sexual activity rjdbutuew32 03/24/2024 Dental care rkkkewyiq95 03/24/2024 Nutrition counseling ; special diet; dietary precautions (mercury, listeriosis) lbsakcnof27 03/24/2024 Toxoplasmosis precautions (cats/raw meat) pjixnetlg98 03/24/2024 Exercise mwhelclpt49 03/24/2024 Teratogens gcuuujobq19 03/24/2024 Alcohol mvqmdazwh46 03/24/2024 Childbirth classes/hospital facilities Second Trimester Discussed [...]
== END 2024-07-27 11:15 | disposition short-term general hospital (02) ==
PROVIDERS: Emergency Provider Nurse Practitioner
DX: O26.892 Other specified pregnancy related conditions, second trimester (principal); R10.9 Unspecified abdominal pain; O23.92 Unspecified genitourinary tract infection in pregnancy, second trimester; N39.0 Urinary tract infection, site not specified; Z3A.26 26 weeks gestation of pregnancy
CPT/HCPCS: 81003; 87086; 99213; G0463

== ENCOUNTER 2024-07-27 12:45 | Observation (INO) | payer OTHER, SELFPAY ==
--- NOTE | 2024-07-27 11:52 | OBADM ---
This patient, Mami Call, admitted to the OB room OB Post 116 for observation. Patient/family oriented to hospital policies and general routines including ID bracelet, bed and alarms, visiting hours, pain management, procedures, bathroom and other care routines, personal items, smoking policy, room service/diet, and visiting hours. Patient/Family are encouraged to report perceived risks to care and to ask questions if they do not understand what they are told or what they should do.
[2024-07-27 12:15] VITALS: BMI 23.3
[2024-07-27 13:20] LABS: Add Urine Microscopic? YES; Appearance Urine Clear (Clear); Bacteria Urine None Seen /hpf; Bilirubin Urine Negative (Negative); Blood Urine Negative (Negative); Color Urine Yellow (Yellow); Glucose Urine UA Negative (Negative); Ketones Urine Negative (Negative); Leukocyte Esterase Ur Negative LEU/UL (Negative); Nitrate Urine Negative (Negative); Non Pathogenic Casts 0-2; Protein Urine Trace mg/dL (Negative); RBC Urine 0-2 /hpf (0-2); Specific Grav Ur 1.019 (1.001-1.035); Squamous Epithelial Cell Urine Few /hpf (Few); Urobilinogen Urine 0.2 mg/dL (<2.0); WBC Urine 0-5 /hpf (0-3); pH Urine 6.5 (5.0-9.0)
[2024-07-27] MEDS: ACETAMINOPHEN 500 MG TABLET 1000 MG PO (14:14)
[2024-07-27 14:52] VITALS: TEMP 36.6
[2024-07-27] MEDS: TERBUTALINE SULFATE 1 MG/ML VIAL 0.25 MG SUB-Q (17:04)
[2024-07-27 17:32] LABS: Fetal Fibronectin Negative
--- NOTE | 2024-07-28 08:18 | PM.OBTRLD ---
OB - Triage/Final Diagnosis Visit Information Comments/Additional reasons for admission: I have assessed the risk for this patient, Mami Call, and determined that she would benefit from observation care. Evaluation Laboratory results: Laboratory Tests 07/27/24 07/27/24 13:01 16:51 Urine Color Yellow Urine Appearance Clear Urine pH 6.5 Ur Specific [place] 1.019 Urine Protein Trace Urine Glucose (UA) Negative Urine Ketones Negative Ur Blood (Man) Negative Urine Nitrate Negative Urine Bilirubin Negative Urine Urobilinogen 0.2 Ur Leukocyte Esterase Negative Urine RBC 0-2 Urine WBC 0-5 Ur Squamous Epith Cells Few Urine Bacteria None seen Urine Casts 0-2 Fibronectin Negative Vital signs: Vital Signs - 24 hr 07/27/24 12:15 07/27/24 14:52 Temperature 97.8 F Oxygen Delivery Room Air Final Diagnosis (1) Abdominal pain affecting : Code(s): O26.899 - Other specified related conditions, unspecified trimester; R10.9 - Unspecified abdominal pain Status: Acute
== END 2024-07-27 18:00 | disposition home or self-care (01) ==
PROVIDERS: Admitting Provider Obstetrics & Gynecology; Visit Provider Obstetrics & Gynecology
DX: O26.892 Other specified pregnancy related conditions, second trimester (principal); R10.9 Unspecified abdominal pain; Z3A.26 26 weeks gestation of pregnancy
CPT/HCPCS: 81001; 82731; 87086; 96372; A9270; G0378; G0379; J3105

== ENCOUNTER 2024-07-28 12:54 | Observation (INO) | payer OTHER, SELFPAY ==
[2024-07-28] VITALS (24 sets, daily range): BP systolic 110–137; BP diastolic 56–71; PULSE 82–109; O2SAT 99–100
--- NOTE | ~2024-07-28 | US_ITS ---
EXAMINATION: US OB limited DATE: 07/28/2024 15:31 POOL ATTENDANT INDICATION: Evaluate cervical length TECHNIQUE: Real-time transabdominal obstetric ultrasound. FINDINGS: There is a single intrauterine gestation in vertex presentation. The placenta is primarily anterior and low-lying (on the submitted images), measuring between 3-4 cm from the internal cervical os. The cervix measures 3.9 cm in length. cardiac activity and movement is noted with a heart rate of 148 beats per minute. Amniotic fluid index measures 17.4 cm (normal range is 9.7 to 22.3 cm). IMPRESSION: Single intrauterine gestation in vertex presentation with a low-lying placenta. Requested parameters are as detailed above. Reviewed, dictated and finalized at location A. ATTENDANT
--- NOTE | 2024-07-28 13:03 | OBADM ---
This patient, Mami Call, admitted to the OB room OB Post 112 for observation. Patient/family oriented to hospital policies and general routines including ID bracelet, bed and alarms, visiting hours, pain management, procedures, bathroom and other care routines, personal items, smoking policy, room service/diet, and visiting hours. Patient/Family are encouraged to report perceived risks to care and to ask questions if they do not understand what they are told or what they should do.
[2024-07-28] MEDS: NIFEdipine 10 MG CAPSULE PO (15:38)
== END 2024-07-28 16:32 | disposition home or self-care (01) ==
LOC: ANHOBPP 13:00
PROVIDERS: Admitting Provider Obstetrics & Gynecology; Visit Provider Obstetrics & Gynecology
DX: O26.892 Other specified pregnancy related conditions, second trimester (principal); R10.9 Unspecified abdominal pain; Z3A.26 26 weeks gestation of pregnancy
CPT/HCPCS: 76815; A9270; G0378; G0379

== ENCOUNTER 2024-09-18 16:20 | Observation (INO) | payer OTHER, SELFPAY ==
--- NOTE | 2024-09-18 16:20 | OBADM ---
This patient, Mami Corea, admitted to the OB room OB Post 117 for observation. Patient/family oriented to hospital policies and general routines including ID bracelet, bed and alarms, visiting hours, pain management, procedures, bathroom and other care routines, personal items, smoking policy, room service/diet, and visiting hours. Patient/Family are encouraged to report perceived risks to care and to ask questions if they do not understand what they are told or what they should do.
--- OUTSIDE RECORDS SUMMARY | 2024-09-18 16:29 | XMS_ITS | Referral Summary ---
Author Organization [facility] Address [address] [place] [address] Care Team Providers Care Enchilada Maker Name Role Phone Rigo Mar MD Primary Care Provider [phone] [facility],non-[place] Affiliates and Associated Physician Practices is amultiple site organization consisting of ambulatory clinics and hospital sitesin [place], [place], [place] and [place]. This disclosure is being madepursuant to the Care Everywhere program and may not contain all information available regarding this patient. Last updated 18.[facility] Encounters Date Type Department Care Team Description 09/05/2024 1:00 PM POWER TRUCK DRIVER - 09/05/2024 11:59 PM POWER TRUCK DRIVER Hospital Encounter [facility] [address] [place], [place] [phone] Rosa Maria Carcamo MD Discharge Disposition: Home or Self Care 08/08/2024 3:15 PM POWER TRUCK DRIVER - 08/08/2024 11:59 PM POWER TRUCK DRIVER Hospital Encounter [facility] [address] [place] [phone] Ara Royal MD [employer] Discharge Disposition: Home or Self Care 07/04/2024 7:30 AM POWER TRUCK DRIVER - 07/04/2024 11:59 PM POWER TRUCK DRIVER Hospital Encounter [facility] [address] [place] [phone] Rosa Maria Carcamo MD Discharge Disposition: Home [...] Comments Blood Pressure 116/57 06/06/2024 8:08 AM POWER TRUCK DRIVER Pulse 86 06/06/2024 8:08 AM POWER TRUCK DRIVER Temperature 37.5 C (99.5 F) 03/29/2024 9:10 AM CDT Respiratory Rate - - Oxygen Saturation - - Inhaled Oxygen Concentration - - Weight 63 kg (138 lb 12.8 oz) 06/06/2024 8:08 AM POWER TRUCK DRIVER Height 167.6 cm (5' 6 ) 03/29/2024 9:10 AM CDT Body Mass Index 22.4 03/29/2024 9:10 AM CDT Plan of Treatment Upcoming Encounters Date Type Department Care Team (Late st Contact Info) Description 10/03/2024 8:[address] 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) Abnormal chromosomal and genetic finding on screening mother Encounter for ultrasound to assess growth (HCC) 32 weeks gestation of (HCC) SONOGRAM - COMPLETE Routine 08/08/2024 3:22 PM POWER TRUCK DRIVER 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) Abnormal chromosomal and genetic finding on screening mother Encounter for ultrasound to assess growth (HCC) 27 weeks gestation of (HCC) SONOGRAM - COMPLETE Routine 07/04/2024 7:40 AM POWER TRUCK DRIVER 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 Linked Results Indication ======== Anatomy Survey, Positive genetic testing for microcephaly and cystinuria (FOB's genetic testing was negative), Pt has a pelvic floor anomaly History ====== OB History 1. Para 0 Lab Tests Test Date Result NIPT Low risk, female Maternal Assessment Physical Exam Height 168 cm, 5 ft 6 in. Weight 71 kg, 156 lb. Initial weight 62 kg, 136 lb. BMI 25.18 kg/m . Initial BMI 21.95 kg/m . Weight gain 9 kg, 20 lb Method ====== Transabdominal ultrasound. View: Sufficient ========= Price . Number of fetuses: 1 Dating ====== Date Details Gest. age ALLYN LMP 01/23/2024 32 w + 2 d 10/29/2024 Stated ALLNY 32 w + 2 d 10/29/2024 U/S 09/05/2024 based upon AC, BPD, Femur, HC 32 w + 2 d 10/29/2024 Assigned dating based on the LMP, selected on 06/06/2024 32 w + 2 d 10/29/2024 General Evaluation Cardiac activity present. FHR 128 bpm. Presentation: cephalic Placenta: Placental site: anterior Amniotic fluid: Amount of AF: normal. MVP 7.0 cm. TAMMY 18.7 cm. Q1 3.4 cm, Q2 5.2 cm, Q3 7.0 cm, Q4 3.1 cm Biometry BPD 81.1 mm 32w 4d 51% Hadlock HC 299.1 mm 33w 1d 34% Hadlock AC 275.1 mm 31w 4d 28% Hadlock Femur 61.3 mm 31w 6d 25% Hadlock Humerus 52.9 mm 30w 6d 16% Margarita HC / AC 1.09 Weight Calculation: EFW 1,859 g 28% Hadlock EFW (lb,oz) 4 lb 2 oz EFW by Hadlock ([id number]-IC-TP-FL) appropriate Growth Overview Exam date GA BPD (mm) HC (mm) AC (mm) FL (mm) HL (mm) EFW (g) 06/06/2024 19w 2d 42.5 32% 157.7 16% 134.3 32% 27.8 17% 28.7 52% 254 18% 07/04/2024 23w 2d 52.3 6% 199.8 5% 175.6 18% 40.5 32% 38.2 45% 523 17% 08/08/2024 28w 2d 67.3 9% 252.4 5% 233.4 25% 53.6 38% 46.9 25% 1138 24% 09/05/2024 32w 2d 81.1 51% 299.1 34% 275.1 28% 61.3 25% 52.9 16% 1859 28% Anatomy The following structures appear normal: Abdomen Stomach. Kidneys. Bladder. sex: female. Impression ========= Single, live, intrauterine at 32w 2d size is appropriate Amniotic fluid volume: normal No major malformations were seen within the limits of ultrasound Follow-up ======== Follow up ultrasound in 4 weeks for serial growth assessment is recommended Coding ====== Procedures 50922: US Preg Uterus Follow Up [facility] Twist PACS Anatomical Region Laterality Modality Other 09/05/2024 1:03 PM POWER TRUCK DRIVER Tracy Perdomo MD [facility] ORDERABLES from Last 3 Months Care Teams Enchilada Maker Relationship Specialty Start Date End Date Rigo Mar MD [address] [phone] PCP - General Family Medicine 03/24/24
--- OUTSIDE RECORDS SUMMARY | 2024-09-18 16:29 | XMS_ITS | Clinical Summary ---
Author Organization [facility] Address [address] [place] [address] Care Team Providers Care Shutdown Planner Name Role Phone Riog Mar MD Primary Care Provider [phone] Source Comments [facility],non-owned Affiliates and Associated Physician Practices is amultiple site organization consisting of ambulatory clinics and hospital sitesin [place], [place]. This disclosure is being madepursuant to the Care Everywhere program and may not contain all information available regarding this patient. Last updated 18.[facility] Allergies Active Allergy Reactions Criticality Noted Date [...] Department Care Team Description 09/05/2024 1:00 PM CHANNEL DEVELOPMENT MANAGER - 09/05/2024 11:59 PM CHANNEL DEVELOPMENT MANAGER Hospital Encounter [facility] [address] [place] [id number] Head, Rosa Maria Leger MD Discharge Disposition: Home or Self Care 08/08/2024 3:15 PM CHANNEL DEVELOPMENT MANAGER - 08/08/2024 11:59 PM CHANNEL DEVELOPMENT MANAGER Hospital Encounter [facility] [address] [place] [address] Ara Royal MD [employer] Discharge Disposition: Home or Self Care 07/04/2024 7:30 AM CHANNEL DEVELOPMENT MANAGER - 07/04/2024 11:59 PM CHANNEL DEVELOPMENT MANAGER Hospital Encounter [facility] [address] [place] [address] Head, Rosa Maria Leger MD Discharge Disposition: [...] Comments Blood Pressure 116/57 06/06/2024 8:08 AM CHANNEL DEVELOPMENT MANAGER Pulse 86 06/06/2024 8:08 AM CHANNEL DEVELOPMENT MANAGER Temperature 37.5 C (99.5 F) 03/29/2024 9:10 AM CDT Respiratory Rate - - Oxygen Saturation - - Inhaled Oxygen Concentration - - Weight 63 kg (138 lb 12.8 oz) 06/06/2024 8:08 AM CHANNEL DEVELOPMENT MANAGER Height 167.6 cm (5' 6 ) 03/29/2024 9:10 AM CDT Body Mass Index 22.4 03/29/2024 9:10 AM CDT Plan of Treatment Upcoming Encounters Date Type Department Care Team (Late st Contact Info) Description 10/03/2024 8:15 AM CDT Appointment [facility] [address] [place] [id number] 01/09/2025 3:00 PM CDT Office Visit [facility] - [employer] [address] [place] [address] Yolanda Kimbrough MD [address] [facility] [address] [place] [address] Health Maintenance Due Date Last Done Comments PAP SMEAR 1997 HIV SCREENING 2012 HEPATITIS C SCREENING 05/09/2015 DTAP/TDAP/TD VACCINES (1 - Tdap) 2016 HEPATITIS B VACCINE (1 of 3 - 19+ 3-dose series) 2016 COVID-19 VACCINE (4 - 2023-2 5 season) 2024 08/07/2021, 02/23/2021, 01/26/2021 INFLUENZA VACCINE (#1) 2024 OB-ONE HOUR GLUCOSE 07/23/2024 DEPRESSION SCREENING 07/27/2024 OB-TDAP CURRENT 07/30/2024 OB-RHOGAM INJECTION 08/06/2024 OB-GROUP B STREP SCREEN 09/24/2024 ZOSTER VACCINE (1 of 2) 2047 HIB VACCINE Aged Out No longer eligi ble based on patient's age to complete this topic HPV VACCINE Aged Out No longer eligi ble based on patient's age to complete this topic MENINGOCOCCAL (Group B) VACCINE Aged Out No longer eligible b ased on patient's age to complete this topic [...] SONOGRAM - COMPLETE Routine 09/05/2024 1:03 PM CHANNEL DEVELOPMENT MANAGER 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) Abnormal chromosomal and genetic finding on screening mother Encounter for ultrasound to assess growth (HCC) 32 weeks gestation of (HCC) SONOGRAM - COMPLETE Routine 08/08/2024 3:22 PM CHANNEL DEVELOPMENT MANAGER 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) Abnormal chromosomal and genetic finding on screening mother Encounter for ultrasound to assess growth (HCC) 27 weeks gestation of (HCC) SONOGRAM - COMPLETE Routine 07/04/2024 7:40 AM CHANNEL DEVELOPMENT MANAGER 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) Encounter for follow-up ultrasound of anatomy (HCC) 22 weeks gestation of (HCC) Abnormal chromosomal and genetic finding on screening mother Encounter for ultrasound to assess growth (HCC) from Last 3 Months Results * SONOGRAM - COMPLETE (09/05/2024 1:03 PM CHANNEL DEVELOPMENT MANAGER) Only the most recent of3 resultswithin the [...] 32 w + 2 d 10/29/2024 Stated ALLYN 32 w + 2 d 10/29/2024 U/S [...] 4 lb 2 oz EFW by [facility]lock ([id number]) appropriate Growth Overview Exam date GA BPD [...] growth assessment is recommended Coding ====== Procedures 94335: [place] Preg Uterus Follow Up [place] [facility] Anatomical Region Laterality Modality Other 09/05/2024 1:03 PM CHANNEL DEVELOPMENT MANAGER Tracy Perdomo MD [facility] ORDERABLES from Last 3 Months Care Teams Shutdown Planner Relationship Specialty Start Date End Date Rigo Mar MD [address] [address] PCP - General Family Medicine 03/24/24
--- OUTSIDE RECORDS SUMMARY | 2024-09-18 16:30 | XMS_ITS | Data Portability ---
Author Organization [facility], [address] [place] [address] [place]rology ([place]) Address [address] [address] Care Team Providers Care Chinese Instructor Name Role Phone RIGO MAR Primary Care Provider [phone] SHARONA MCKEON Scada Technician Assessment Encounter Date Assessment Date Assessment LastModified by Organization Details LastModified Time 04/20/2024 04/20/2024 Patient continues to struggle with severe vulvar pain. Trying to determine if pain is dermatological, vestibular Nuha that is congenital, or vestibular delay other that is caused by pelvic floor muscle tension. It is appearing that pelvic floor muscle tension is not the main route cdl driver for patient's symptoms at this time. [...] bowel control during functional movements. Not met Shank Archer Goals: To Be Met in 12 Visits: [...] complete sexual activity without discomfort or pain. dn Not available 04/20/2024 13:08:02 06/15/2024 06/15/2024 Upon [...] bilaterally to improve pelvic girdle muscle balance Assisted Goals: To Be Met in 12 Visits: [...] bilaterally to improve pelvic girdle muscle balance dn [email or web address] Not available 06/15/2024 12:55:33 06/28/2024 06/28/2024 1. [...] None recorded. Lab urinalysis, dipstick 2023 024 [facility] [address], [place], [address], 11:40:39 urinalysis complete, reflex culture 2023 024 [facility], [facility] [address], [address], 09/25/202 4 14:47:12 genetic screen, unspecified specimen 2023 024 [facility] Only - [facility], [address] [place] [address], [id number], 4 10:22:13 CT + NG DNA, PCR, unspecified specimen 2023 024 [facility] Only - [facility], [address] [place] [address], 11036, 4 09:14:28 obstetric screen + HIV, serum or blood 2023 024 [facility] - [facility], [address] [place] [address], [id number], 4 15:00:03 hepatitis C Ab, serum 2023 [facility] Only - [facility], [address] [place] [address], [id number], 4 15:46:09 culture + sensitivity , urine 2023 [email or web address] [facility] - [facility], [address] [place] [address], [id number], 4 09:32:45 wet mount, vaginal 2023 024 [facility] Only - [facility], [address] [place] [address], [id number], 4 14:17:30 Referral None recorded. Procedures None recorded. Surgeries None recorded. Imaging None recorded. Medication Orders None recorded. Patient TargetsNo targets recorded. Patient InstructionsNo instructions recorded. Reason for Referral None Reported. Results Created Date Observation Date Name Description Value Unit Range Abnormal Flag Note LastModifiedBy Organization Detail LastModifiedTime 03/24/20 24 03/24/2024 wet mount elaine wet prep Not Available [facility] [address] [place] [address], [id number], 03/24/2024 13:04:04 03/24/20 24 03/24/2024 wet mount , vagin al yeast NONE SEEN none seen Not Available [facility] [address] [place] [address], [id number], 03/24/2024 13:04:04 03/24/20 24 03/24/2024 wet mount , vagin al WBC FEW none seen abnormal Not Available [facility] [address] [place] [address], [id number], 03/24/2024 13:04:04 03/24/20 24 03/24/2024 wet mount , vagin al clue cells POSITI VE negati ve abnormal Clue Cell Inter preta tion: Posit ryan Resul t = >20% Clue Cells Seen Negat ryan Resul t = <20% Clue Cells Seen Not Available [facility] [address] [place] [address], [id number], 03/24/2024 13:04:04 03/24/20 24 03/24/2024 wet mount , vagin al trichomonas NONE SEEN none seen Not Available [facility] [address] [place] [address], [id number], 03/24/2024 13:04:04 03/24/20 24 03/24/2024 wet mount , vagin al source VAG Not Available [facility] [address] [place] [address], [id number], 03/24/2024 13:04:04 03/24/20 24 03/24/2024 hepat itis C Ab, serum hepatitis C Ab NONREA CTIVE nonrea ctive Not Available [facility] [address] [place] [address], [id number], 03/24/2024 15:46:09 03/24/20 24 03/25/2024 CT + NG DNA, PCR, unspe cifie d speci men GC/CT/TV DNA probe Not Available [facility] [address] [place] [address], [id number], 03/25/2024 09:14:28 03/24/20 24 03/25/2024 CT + NG DNA, PCR, unspe cifie d speci men GC-DNA probe NEGATI VE negati ve Not Available [facility] [address] [place] [address], [id number], 03/25/2024 09:14:28 03/24/20 24 03/25/2024 CT + [...] o-leg al indic ation s. Not Available [facility] [address] [place] [address], [id number], 03/25/2024 09:14:28 03/24/20 24 03/25/2024 CT + NG DNA, PCR, unspe cifie d speci men trichomonas NEGATI VE negati ve Not Available [facility] [address] [place] [address], [id number], 03/25/2024 09:14:28 03/24/20 24 03/24/2024 obste tric scree n + HIV, serum or blood rubella virus IgG Ab 82.1 IU/mL <5 IU/mL = Absen ce of immun ity 5 - <10 IU/mL = Equiv ocal >10 IU/mL = Presu med immun e Not Available [facility] [address] [place] [address], [id number], 03/25/2024 10:38:47 03/24/20 24 03/24/2024 obste tric scree n + HIV, serum or blood hepatitis B surface Ag NONREA CTIVE nonrea ctive Not Available [facility] [address] [place] [address], [id number], 03/25/2024 10:38:47 03/24/20 24 03/24/2024 obste tric scree n + HIV, serum or blood WBC 9.2 K/uL 3.8-11 .2 Not Available [facility] [address] [place] [address], 49435, 03/25/2024 10:38:47 03/24/20 24 03/24/2024 obste tric scree n + HIV, serum or blood RBC 4.77 M/uL 3.92-5 .10 Not Available [facility] [address] [place] [address], 12623, 03/25/2024 10:38:47 03/24/20 24 03/24/2024 obste tric scree n + HIV, serum or blood HGB 13.9 g/dL 11.8-1 5.3 Not Available [facility] [address] [place] [address], [id number], 03/25/2024 10:38:47 03/24/20 24 03/24/2024 obste tric scree n + HIV, serum or blood HCT 41.6 % 36.5-4 4.8 Not Available [facility] [address] [place] [address], 63277, 03/25/2024 10:38:47 03/24/20 24 03/24/2024 obste tric scree n + HIV, serum or blood MCV 87.2 fL 80.0-9 9.0 Not Available [facility] [address] [place] [address], 16415, 03/25/2024 10:38:47 03/24/20 24 03/24/2024 obste tric scree n + HIV, serum or blood MCH 29.1 pg 25.5-3 3.6 Not Available [facility] [address] [place] [address], 53154, 03/25/2024 10:38:47 03/24/20 24 03/24/2024 obste tric scree n + HIV, serum or blood MCHC 33.4 g/dL 32.0-3 6.0 Not Available [facility] [address] [place] [address], 43104, 03/25/2024 10:38:47 03/24/20 24 03/24/2024 obste tric scree n + HIV, serum or blood RDW-SD 45.3 fL 35.1 - 46.3 Not Available [facility] [address] [place] [address], 63274, 03/25/2024 10:38:47 03/24/20 24 03/24/2024 obste tric scree n + HIV, serum or blood plt 231 K/uL 130-40 0 Not Available [facility] [address] [place] [address], 49041, 03/25/2024 10:38:47 03/24/20 24 03/24/2024 obste tric scree n + HIV, serum or blood MPV 9.8 fL 9.3-12 .8 Not Available [facility] [address] [place] [address], 67803, 03/25/2024 10:38:47 03/24/20 24 03/24/2024 obste tric scree n + HIV, serum or blood HIV Ag/Ab 1-2 combo NONREA CTIVE nonrea ctive Not Available [facility] [address] [place] [address], 21647, 03/25/2024 10:38:47 03/24/20 24 03/25/2024 obste tric scree n + HIV, serum or blood OB panel plus HIV 1-2 cmb Not Available [facility] [address] [place] [address], 85603, 03/25/2024 10:38:47 03/24/20 24 03/25/2024 obste tric scree n + HIV, serum or blood ABO group A Not Available [facility] [address] [place] [address], 52417, 03/25/2024 10:38:47 03/24/20 24 03/25/2024 obste tric scree n + HIV, serum or blood Rh factor POSITI VE Pleas e note: Prior recor ds for this patie nt's ABO / Rh type are not avail able for addit ional verif icati on. Not Available [facility] [address] [place] [address], 69145, 03/25/2024 10:38:47 03/24/20 24 03/25/2024 obste tric scree n + HIV, serum or blood Ab screen NEGATI VE negati ve Not Available [facility] [address] [place] [address], [id number], 03/25/2024 10:38:47 03/24/20 24 03/25/2024 obste tric scree n + HIV, serum or blood RPR with reflex NONREA CTIVE nonrea ctive Not Available [facility] [address] [place] [address], 55187, 03/25/2024 10:38:47 03/24/20 24 03/24/2024 obste tric scree n + HIV, serum or blood rubella virus IgG Ab 82.1 IU/mL <5 IU/mL = Absen ce of immun ity 5 - <10 IU/mL = Equiv ocal >10 IU/mL = Presu med immun e Not Available [facility] [address] [place] [address], 72519, 03/25/2024 07:41:57 03/24/20 24 03/24/2024 obste tric scree n + HIV, serum or blood hepatitis B surface Ag Nonrea ctive nonrea ctive Not Available [facility] [address] [place] [address], 47686, 03/25/2024 07:41:57 03/24/20 24 03/24/2024 obste tric scree n + HIV, serum or blood WBC 9.2 K/uL 3.8-11 .2 Not Available [facility] [address] [place] [address], 44826, 03/25/2024 07:41:57 03/24/20 24 03/24/2024 obste tric scree n + HIV, serum or blood RBC 4.77 M/uL 3.92-5 .10 Not Available [facility] [address] [place] [address], 79801, 03/25/2024 07:41:57 03/24/20 24 03/24/2024 obste tric scree n + HIV, serum or blood HGB 13.9 g/dL 11.8-1 5.3 Not Available [facility] [address] [place] [address], 72643, 03/25/2024 07:41:57 03/24/20 24 03/24/2024 obste tric scree n + HIV, serum or blood HCT 41.6 % 36.5-4 4.8 Not Available [facility] [address] [place] [address], 87030, 03/25/2024 07:41:57 03/24/20 24 03/24/2024 obste tric scree n + HIV, serum or blood MCV 87.2 fL 80.0-9 9.0 Not Available [facility] [address] [place] [address], 24791, 03/25/2024 07:41:57 03/24/20 24 03/24/2024 obste tric scree n + HIV, serum or blood MCH 29.1 pg 25.5-3 3.6 Not Available [facility] [address] [place] [address], 34557, 03/25/2024 07:41:57 03/24/20 24 03/24/2024 obste tric scree n + HIV, serum or blood MCHC 33.4 g/dL 32.0-3 6.0 Not Available [facility] [address] [place] [address], 54645, 03/25/2024 07:41:57 03/24/20 24 03/24/2024 obste tric scree n + HIV, serum or blood RDW-SD 45.3 fL 35.1 - 46.3 Not Available [facility] [address] [place] [address], 79020, 03/25/2024 07:41:57 03/24/20 24 03/24/2024 obste tric scree n + HIV, serum or blood plt 231 K/uL 130-40 0 Not Available [facility] [address] [place] [address], 60547, 03/25/2024 07:41:57 03/24/20 24 03/24/2024 obste tric scree n + HIV, serum or blood MPV 9.8 fL 9.3-12 .8 Not Available [facility] [address] [place] [address], 08865, 03/25/2024 07:41:57 03/24/20 24 03/24/2024 obste tric scree n + HIV, serum or blood HIV Ag/Ab 1-2 combo Nonrea ctive nonrea ctive Not Available [facility] [address] [place] [address], 75908, 03/25/2024 07:41:57 03/24/20 24 03/25/2024 obste tric scree n + HIV, serum or blood OB panel plus HIV 1-2 cmb Not Available [facility] [address] [place] [address], 74471, 03/25/2024 07:41:57 03/24/20 24 03/25/2024 obste tric scree n + HIV, serum or blood ABO group PENDIN G Not Available [facility] [address] [place] [address], 56915, 03/25/2024 07:41:57 03/24/20 24 03/25/2024 obste tric scree n + HIV, serum or blood Rh factor PENDIN G Not Available [facility] [address] [place] [address], 22774, 03/25/2024 07:41:57 03/24/20 24 03/25/2024 obste tric scree n + HIV, serum or blood Ab screen PENDIN G Not Available [facility] - [facility] [address] [place] [address], 60181, 03/25/2024 07:41:57 03/24/20 24 03/25/2024 obste tric scree n + HIV, serum or blood RPR with reflex Nonrea ctive nonrea ctive Not Available [facility] [address] [place] [address], 86993, 03/25/2024 07:41:57 03/24/20 24 03/24/2024 obste tric scree n + HIV, serum or blood OB panel plus HIV 1-2 cmb Not Available [facility] [address] [place] [address], 18786, 03/24/2024 15:36:46 03/24/20 24 03/24/2024 obste tric scree n + HIV, serum or blood ABO group PENDIN G Not Available [facility] - [facility] [address] [place] [address], 06193, 03/24/2024 15:36:46 03/24/20 24 03/24/2024 obste tric scree n + HIV, serum or blood Rh factor PENDIN G Not Available [facility] [address] [place] [address], 38481, 03/24/2024 15:36:46 03/24/20 24 03/24/2024 obste tric scree n + HIV, serum or blood Ab screen PENDIN G Not Available [facility] [address] [place] [address], 41407, 03/24/2024 15:36:46 03/24/20 24 03/24/2024 obste tric scree n + HIV, serum or blood rubella virus IgG Ab 82.1 IU/mL <5 IU/mL = Absen ce of immun ity 5 - <10 IU/mL = Equiv ocal >10 IU/mL = Presu med immun e Not Available [facility] [address] [place] [address], 76545, 03/24/2024 15:36:46 03/24/20 24 03/24/2024 obste tric scree n + HIV, serum or blood hepatitis B surface Ag Nonrea ctive nonrea ctive Not Available [facility] [address] [place] [address], 77752, 03/24/2024 15:36:46 03/24/20 24 03/24/2024 obste tric scree n + HIV, serum or blood RPR with reflex PENDIN G Not Available [facility] [address] [place] [address], 14941, 03/24/2024 15:36:46 03/24/20 24 03/24/2024 obste tric scree n + HIV, serum or blood WBC 9.2 K/uL 3.8-11 .2 Not Available [facility] [address] [place] [address], 62188, 03/24/2024 15:36:46 03/24/20 24 03/24/2024 obste tric scree n + HIV, serum or blood RBC 4.77 M/uL 3.92-5 .10 Not Available [facility] [address] [place] [address], 55070, 03/24/2024 15:36:46 03/24/20 24 03/24/2024 obste tric scree n + HIV, serum or blood HGB 13.9 g/dL 11.8-1 5.3 Not Available [facility] [address] [place] [address], 56676, 03/24/2024 15:36:46 03/24/20 24 03/24/2024 obste tric scree n + HIV, serum or blood HCT 41.6 % 36.5-4 4.8 Not Available [facility] [address] [place] [address], 28369, 03/24/2024 15:36:46 03/24/20 24 03/24/2024 obste tric scree n + HIV, serum or blood MCV 87.2 fL 80.0-9 9.0 Not Available [facility] [address] [place] [address], 06623, 03/24/2024 15:36:46 03/24/20 24 03/24/2024 obste tric scree n + HIV, serum or blood MCH 29.1 pg 25.5-3 3.6 Not Available [facility] [address] [place] [address], 89792, 03/24/2024 15:36:46 03/24/20 24 03/24/2024 obste tric scree n + HIV, serum or blood MCHC 33.4 g/dL 32.0-3 6.0 Not Available [facility] [address] [place] [address], 61819, 03/24/2024 15:36:46 03/24/20 24 03/24/2024 obste tric scree n + HIV, serum or blood RDW-SD 45.3 fL 35.1 - 46.3 Not Available [facility] [address] [place] [address], 04646, 03/24/2024 15:36:46 03/24/20 24 03/24/2024 obste tric scree n + HIV, serum or blood plt 231 K/uL 130-40 0 Not Available [facility] [address] [place] [address], 12541, 03/24/2024 15:36:46 03/24/20 24 03/24/2024 obste tric scree n + HIV, serum or blood MPV 9.8 fL 9.3-12 .8 Not Available [facility] [address] [place] [address], 08739, 03/24/2024 15:36:46 03/24/20 24 03/24/2024 obste tric scree n + HIV, serum or blood HIV Ag/Ab 1-2 combo Nonrea ctive nonrea ctive Not Available [facility] [address] [place] [address], 64876, 03/24/2024 15:36:46 03/24/20 24 03/24/2024 obste tric scree n + HIV, serum or blood OB panel plus HIV 1-2 cmb Not Available [facility] [address] [place] [address], 27245, 03/24/2024 15:24:26 03/24/20 24 03/24/2024 obste tric scree n + HIV, serum or blood ABO group PENDIN G Not Available [facility] [address] [place] [address], 63291, 03/24/2024 15:24:26 03/24/20 24 03/24/2024 obste tric scree n + HIV, serum or blood Rh factor PENDIN G Not Available [facility] [address] [place] [address], 05228, 03/24/2024 15:24:26 03/24/20 24 03/24/2024 obste tric scree n + HIV, serum or blood Ab screen PENDIN G Not Available [facility] [address] [place] [address], 11586, 03/24/2024 15:24:26 03/24/20 24 03/24/2024 obste tric scree n + HIV, serum or blood rubella virus IgG Ab 82.1 IU/mL <5 IU/mL = Absen ce of immun ity 5 - <10 IU/mL = Equiv ocal >10 IU/mL = Presu med immun e Not Available [facility] [address] [place] [address], 78360, 03/24/2024 15:24:26 03/24/20 24 03/24/2024 obste tric scree n + HIV, serum or blood hepatitis B surface Ag Nonrea ctive nonrea ctive Not Available [facility] [address] [place] [address], 15803, 03/24/2024 15:24:26 03/24/20 24 03/24/2024 obste tric scree n + HIV, serum or blood RPR with reflex PENDIN G Not Available [facility] [address] [place] [address], 88890, 03/24/2024 15:24:26 03/24/20 24 03/24/2024 obste tric scree n + HIV, serum or blood WBC 9.2 K/uL 3.8-11 .2 Not Available [facility] [address] [place] [address], 11233, 03/24/2024 15:24:26 03/24/20 24 03/24/2024 obste tric scree n + HIV, serum or blood RBC 4.77 M/uL 3.92-5 .10 Not Available [facility] [address] [place] [address], 37867, 03/24/2024 15:24:26 03/24/20 24 03/24/2024 obste tric scree n + HIV, serum or blood HGB 13.9 g/dL 11.8-1 5.3 Not Available [facility] [address] [place] [address], 31630, 03/24/2024 15:24:26 03/24/20 24 03/24/2024 obste tric scree n + HIV, serum or blood HCT 41.6 % 36.5-4 4.8 Not Available [facility] [address] [place] [address], 47133, 03/24/2024 15:24:26 03/24/20 24 03/24/2024 obste tric scree n + HIV, serum or blood MCV 87.2 fL 80.0-9 9.0 Not Available [facility] [address] [place] [address], 92643, 03/24/2024 15:24:26 03/24/20 24 03/24/2024 obste tric scree n + HIV, serum or blood MCH 29.1 pg 25.5-3 3.6 Not Available [facility] [address] [place] [address], 72289, 03/24/2024 15:24:26 03/24/20 24 03/24/2024 obste tric scree n + HIV, serum or blood MCHC 33.4 g/dL 32.0-3 6.0 Not Available [facility] [address] [place] [address], 52613, 03/24/2024 15:24:26 03/24/20 24 03/24/2024 obste tric scree n + HIV, serum or blood RDW-SD 45.3 fL 35.1 - 46.3 Not Available [facility] [address] [place] [address], 89452, 03/24/2024 15:24:26 03/24/20 24 03/24/2024 obste tric scree n + HIV, serum or blood plt 231 K/uL 130-40 0 Not Available [facility] [address] [place] [address], 77334, 03/24/2024 15:24:26 03/24/20 24 03/24/2024 obste tric scree n + HIV, serum or blood MPV 9.8 fL 9.3-12 .8 Not Available [facility] [address] [place] [address], 50300, 03/24/2024 15:24:26 03/24/20 24 03/24/2024 obste tric scree n + HIV, serum or blood HIV Ag/Ab 1-2 combo PENDIN G Not Available [facility] [address] [place] [address], 76288, 03/24/2024 15:24:26 03/24/20 24 03/24/2024 obste tric scree n + HIV, serum or blood OB panel plus HIV 1-2 cmb Not Available [facility] [address] [place] [address], 06101, 03/24/2024 15:18:01 03/24/20 24 03/24/2024 obste tric scree n + HIV, serum or blood ABO group PENDIN G Not Available [facility] [address] [place] [address], 15916, 03/24/2024 15:18:01 03/24/20 24 03/24/2024 obste tric scree n + HIV, serum or blood Rh factor PENDIN G Not Available [facility] [address] [place] [address], 71884, 03/24/2024 15:18:01 03/24/20 24 03/24/2024 obste tric scree n + HIV, serum or blood Ab screen PENDIN G Not Available [facility] [address] [place] [address], [id number], 03/24/2024 15:18:01 03/24/20 24 03/24/2024 obste tric scree n + HIV, serum or blood rubella virus IgG Ab 82.1 IU/mL <5 IU/mL = Absen ce of immun ity 5 - <10 IU/mL = Equiv ocal >10 IU/mL = Presu med immun e Not Available [facility] [address] [place] [address], 06302, 03/24/2024 15:18:01 03/24/20 24 03/24/2024 obste tric scree n + HIV, serum or blood hepatitis B surface Ag PENDIN G Not Available [facility] - [facility] [address] [place] [address], 30609, 03/24/2024 15:18:01 03/24/20 24 03/24/2024 obste tric scree n + HIV, serum or blood RPR with reflex PENDIN G Not Available [facility] - [facility] [address] [place] [address], 69242, 03/24/2024 15:18:01 03/24/20 24 03/24/2024 obste tric scree n + HIV, serum or blood WBC 9.2 K/uL 3.8-11 .2 Not Available [facility] [address] [place] [address], 78644, 03/24/2024 15:18:01 03/24/20 24 03/24/2024 obste tric scree n + HIV, serum or blood RBC 4.77 M/uL 3.92-5 .10 Not Available [facility] [address] [place] [address], [id number], 03/24/2024 15:18:01 03/24/20 24 03/24/2024 obste tric scree n + HIV, serum or blood HGB 13.9 g/dL 11.8-1 5.3 Not Available [facility] [address] [place] [address], 75461, 03/24/2024 15:18:01 03/24/20 24 03/24/2024 obste tric scree n + HIV, serum or blood HCT 41.6 % 36.5-4 4.8 Not Available [facility] [address] [place] [address], 76940, 03/24/2024 15:18:01 03/24/20 24 03/24/2024 obste tric scree n + HIV, serum or blood MCV 87.2 fL 80.0-9 9.0 Not Available [facility] [address] [place] [address], 10805, 03/24/2024 15:18:01 03/24/20 24 03/24/2024 obste tric scree n + HIV, serum or blood MCH 29.1 pg 25.5-3 3.6 Not Available [facility] [address] [place] [address], 98026, 03/24/2024 15:18:01 03/24/20 24 03/24/2024 obste tric scree n + HIV, serum or blood MCHC 33.4 g/dL 32.0-3 6.0 Not Available [facility] [address] [place] [address], 11788, 03/24/2024 15:18:01 03/24/20 24 03/24/2024 obste tric scree n + HIV, serum or blood RDW-SD 45.3 fL 35.1 - 46.3 Not Available [facility] [address] [place] [address], [id number], 03/24/2024 15:18:01 03/24/20 24 03/24/2024 obste tric scree n + HIV, serum or blood plt 231 K/uL 130-40 0 Not Available [facility] [address] [place] [address], 99297, 03/24/2024 15:18:01 03/24/20 24 03/24/2024 obste tric scree n + HIV, serum or blood MPV 9.8 fL 9.3-12 .8 Not Available [facility] [address] [place] [address], 36586, 03/24/2024 15:18:01 03/24/20 24 03/24/2024 obste tric scree n + HIV, serum or blood HIV Ag/Ab 1-2 combo PENDIN G Not Available [facility] [address] [place] [address], 10040, 03/24/2024 15:18:01 03/24/20 24 03/24/2024 obste tric scree n + HIV, serum or blood OB panel plus HIV 1-2 cmb Not Available [facility] [address] [place] [address], 47070, 03/24/2024 15:00:03 03/24/20 24 03/24/2024 obste tric scree n + HIV, serum or blood ABO group PENDIN G Not Available [facility] [address] [place] [address], 46866, 03/24/2024 15:00:03 03/24/20 24 03/24/2024 obste tric scree n + HIV, serum or blood Rh factor PENDIN G Not Available [facility] [address] [place] [address], [id number], 03/24/2024 15:00:03 03/24/20 24 03/24/2024 obste tric scree n + HIV, serum or blood Ab screen PENDIN G Not Available [facility] [address] [place] [address], [id number], 03/24/2024 15:00:03 03/24/20 24 03/24/2024 obste tric scree n + HIV, serum or blood rubella virus IgG Ab PENDIN G Not Available [facility] [address] [place] [address], [id number], 03/24/2024 15:00:03 03/24/20 24 03/24/2024 obste tric scree n + HIV, serum or blood hepatitis B surface Ag PENDIN G Not Available [facility] [address] [place] [address], [id number], 03/24/2024 15:00:03 03/24/20 24 03/24/2024 obste tric scree n + HIV, serum or blood RPR with reflex PENDIN G Not Available [facility] [address] [place] [address], [id number], 03/24/2024 15:00:03 03/24/20 24 03/24/2024 obste tric scree n + HIV, serum or blood WBC 9.2 K/uL 3.8-11 .2 Not Available [facility] [address] [place] [address], [id number], 03/24/2024 15:00:03 03/24/20 24 03/24/2024 obste tric scree n + HIV, serum or blood RBC 4.77 M/uL 3.92-5 .10 Not Available [facility] [address] [place] [address], [id number], 03/24/2024 15:00:03 03/24/20 24 03/24/2024 obste tric scree n + HIV, serum or blood HGB 13.9 g/dL 11.8-1 5.3 Not Available [facility] [address] [place] [address], [id number], 03/24/2024 15:00:03 03/24/20 24 03/24/2024 obste tric scree n + HIV, serum or blood HCT 41.6 % 36.5-4 4.8 Not Available [facility] [address] [place] [address], [id number], 03/24/2024 15:00:03 03/24/20 24 03/24/2024 obste tric scree n + HIV, serum or blood MCV 87.2 fL 80.0-9 9.0 Not Available [facility] [address] [place] [address], [id number], 03/24/2024 15:00:03 03/24/20 24 03/24/2024 obste tric scree n + HIV, serum or blood MCH 29.1 pg 25.5-3 3.6 Not Available [facility] [address] [place] [address], [id number], 03/24/2024 15:00:03 03/24/20 24 03/24/2024 obste tric scree n + HIV, serum or blood MCHC 33.4 g/dL 32.0-3 6.0 Not Available [facility] [address] [place] [address], [id number], 03/24/2024 15:00:03 03/24/20 24 03/24/2024 obste tric scree n + HIV, serum or blood RDW-SD 45.3 fL 35.1 - 46.3 Not Available [facility] [address] [place] [address], [id number], 03/24/2024 15:00:03 03/24/20 24 03/24/2024 obste tric scree n + HIV, serum or blood plt 231 K/uL 130-40 0 Not Available [facility] [address] [place] [address], 12493, 03/24/2024 15:00:03 03/24/20 24 03/24/2024 obste tric scree n + HIV, serum or blood MPV 9.8 fL 9.3-12 .8 Not Available [facility] [address] [place] [address], [id number], 03/24/2024 15:00:03 03/24/20 24 03/24/2024 obste tric scree n + HIV, serum or blood HIV Ag/Ab 1-2 combo PENDIN G Not Available [facility] [address] [place] [address], [id number], 03/24/2024 15:00:03 04/20/20 24 04/20/2024 urina lysis compl ete, refle x cultu re urinalysis w/reflex cult LOW LEVEL S OF HEMOG LOBIN IN ABSEN CE OF HEMAT URIA MAY NOT BE CLINI ANGELICA GABRIEL [place] Not Available [facility] [address] [place] [address], [id number], 04/20/2024 14:47:12 04/20/20 24 04/20/2024 urina lysis compl ete, refle x cultu re color YELLOW Not Available [facility] [address] [place] [address], [id number], 04/20/2024 14:47:12 04/20/20 24 04/20/2024 urina lysis compl ete, refle x cultu re clarity CLEAR Not Available [facility] [address] [place] [address], 70587, 04/20/2024 14:47:12 04/20/20 24 04/20/2024 urina lysis compl ete, refle x cultu re pH 5.5 5.0-7. 5 Not Available [facility] [address] [place] [address], 65789, 04/20/2024 14:47:12 04/20/20 24 04/20/2024 urina lysis compl ete, refle x cultu re specific gravity 1.027 1.000- 1.030 Not Available [facility] [address] [place] [address], 51481, 04/20/2024 14:47:12 04/20/20 24 04/20/2024 urina lysis compl ete, refle x cultu re blood NEGATI VE negati ve Not Available [facility] [address] [place] [address], 44089, 04/20/2024 14:47:12 04/20/20 24 04/20/2024 urina lysis compl ete, refle x cultu re bilirubin NEGATI VE negati ve Not Available [facility] [address] [place] [address], 24774, 04/20/2024 14:47:12 04/20/20 24 04/20/2024 urina lysis compl ete, refle x cultu re urobilinogen 0.2 0.2-1. 0 Not Available [facility] [address] [place] [address], 11779, 04/20/2024 14:47:12 04/20/20 24 04/20/2024 urina lysis compl ete, refle x cultu re ketone TRACE negati ve abnormal Not Available [facility] [address] [place] [address], 64990, 04/20/2024 14:47:12 04/20/20 24 04/20/2024 urina lysis compl ete, refle x cultu re glucose NEGATI VE negati ve Not Available [facility] [address] [place] [address], 13188, 04/20/2024 14:47:12 04/20/20 24 04/20/2024 urina lysis compl ete, refle x cultu re protein TRACE negati ve abnormal Not Available [facility] [address] [place] [address], 30439, 04/20/2024 14:47:12 04/20/20 24 04/20/2024 urina lysis compl ete, refle x cultu re nitrite NEGATI VE negati ve Not Available [facility] [address] [place] [address], 28103, 04/20/2024 14:47:12 04/20/20 24 04/20/2024 urina lysis compl ete, refle x cultu re leukocytes NEGATI VE negati ve Not Available [facility] [address] [place] [address], 57833, 04/20/2024 14:47:12 04/20/20 24 04/20/2024 urina lysis compl ete, refle x cultu re RBC 0-2 0-2/hp f Not Available [facility] [address] [place] [address], 50388, 04/20/2024 14:47:12 04/20/20 24 04/20/2024 urina lysis compl ete, refle x cultu re WBC 0-5 0-5/hp f Not Available [facility] [address] [place] [address], 24469, 04/20/2024 14:47:12 04/20/20 24 04/20/2024 urina lysis compl ete, refle x cultu re squamous epithelial 3-5 0-10/h pf Not Available [facility] [address] [place] [address], 94229, 04/20/2024 14:47:12 04/20/20 24 04/20/2024 urina lysis compl ete, refle x cultu re bacteria NONE SEEN none Not Available [facility] [address] [place] [address], 35665, 04/20/2024 14:47:12 04/20/20 24 04/20/2024 urina lysis compl ete, refle x cultu re hyaline cast 0-2 0-2/lp f Not Available [facility] [address] [place] [address], 41930, 04/20/2024 14:47:12 04/20/20 24 04/29/2024 nancy ic scree n, unspe cifie d speci men CF/sma panel Not Available [facility] [address] [place] [address], 28567, 04/29/2024 10:48:47 04/20/2004/29/2024 nancy ic scree n, unspe cifie d speci men results * Speci men colle cted and sent out for testi ng by [facility]. Resul ts will flow into the elect ronic recor d and the provi dioni will recei ve a 'Revi ew Docum ent' task at that time. Not Available [facility] [address] [place] [address], 96981, 04/29/2024 10:48:47 04/20/20 24 04/20/2024 urina lysis , dipst ick Protein Negati ve Not Available [address] ([place]) [address], [address], 04/20/2024 11:18:28 04/20/20 24 04/20/2024 urina lysis , dipst ick Glucose Negati ve Not Available [address] ([place]) [address] [place] [address], [address], 04/20/2024 11:18:28 03/24/20 24 03/24/2024 US, obste tric, 1st trime ster, singl e gesta tion [facility] [address] [place] [address] Teleph one [phone] Name: Mami Rodriguez [id number] Exam Date: 2023 Age: 28 Physic ernesto: [...] ty is confir med at 161 bpm. Hilger- rump length measur es 1.61 cm, consis [...] 5:00 PM cc: Page PAGE 1 of NUMBANNER ES 1 INTERFACE [facility] - [facility] [address] [place], [address], 03/24/2024 18:02:52 Result Notes None recorded. Problems Name Problem SNOMED Code Status Onset Date Resolution Date Notes Provider Name and Address Organization Details Recorded Time Normal in primigrav parker 451263388208 103 [facility] 10:54:40 10892787 Active 2023 [facility] 10:53:49 Normal in primigrav osmani 767676946269 103 Active 2023 [facility] 10:54:40 Maternal exposure to radiation 947238102 Active 2023 Lives by substatio n and exposed to radiation [facility] 10:59:18 Maternal exposure to radiation 734107119 Active 2023 Lives by substatio n and exposed to radiation [facility] appointme nt pending [facility] 4 10:59:18 Bacterial vaginosis 252245304 Active 2023 [facility] 15:04:55 Gestation period, 12 weeks 75052484 Active 2023 [facility] 14:20:44 Scalding pain on urination 32023943 Active 2023 Soha Sanches [facility] 4 11:24:54 Burning mouth syndrome 657644357 Active 2023 AUTUMN MORA PA-C [address] , [place], [address], [facility] 4 17:01:22 Temporoma ndibular joint disorder 71423508 Active 2023 AUTUMN MORA PA-C [address] , [place], [address], [facility] 4 17:01:44 Gynecolog ic examinati on Active 2023 [facility] 4 10:41:31 Pruritus of vagina 22120070 Active 2023 Sohacatracho Sanches [facility] 4 15:36:59 Vulvar vestibuli tis 81638992 Active 2023 Sharona Mckeon MD [address] , [place], [address], [facility] 4 16:13:03 Vaginal irritatio n 877512722 Active 2023 Soha Sanches [facility] 4 16:13:53 Vaginal discharge 850232640 Active 2023 Lauren Sanders null, [facility] 4 16:56:25 Pain in pelvis 15280544 Active 2023 Sabrina Gonzales-Mat on, DPT [address] [place] [address], [address], [facility] 4 16:57:24 Pelvic floor dysfuncti on 990185248 Active 2023 Sabrina Gonzales-Mat on, DPT [address] [place] [address], [address], [facility] 4 16:57:29 Problem Notes Documentation Provider Name and Address Organization Details Recorded Time [address] [address] Mami Call 28yo F 1995 #[id number] __RESTYLEDFOOTER__ 03/24/2024 Jonny Mar DO, I would like to thank you for referring Mami Call to our practice on 03/24/2024. I have enclosed a copy of the office evaluation for your records. Once again, thank you for allowing me to participate in the care of this patient. Sincerely,Electronically Signed by: SHARONA MCKEON MD Encounter Reason/Date New OB, ultrasound 03/24/2024 - 10:00AM - [facility] ([place])ProblemsReviewed Problems Maternal exposure to radiation - Onset: [...] OnsetDate: 10/21/2006; Medications Reviewed Medications NameDate Source Gvnmspoc10/29/24 entered Kim Lacy Family HistoryReviewed Family History Mother - Asthma - Seizure disorder Father - Asthma - Arthritis Unspecified Relation - CVA - cerebrovascular accident due to cerebral artery occlusion - grandmother on unspecified side - Diabetes mellitus - grandfather unspecified side Maternal Grandfather - Myasthenia gravis - Diabetes mellitus Paternal Grandfather - Hypertensive [...] DirectiveDo you have a medical power of tax attorney?: NoAlcohol use, Last Assessed: 09 Jan 2022 3:31PM Type: Chronic Last Edited: 10 Jan 2022 9:17AM ICD9 Code: V49.89 Last Reviewed Date: 20220110 SnomedCode: 128363 ICD10 Code: Z78.9 LastAssessedBy: STACI WOLFF Caffeine use, Last Assessed: 09 Jan 2022 3:31PM Type: Chronic Last Edited: 10 Jan 2022 9:17AM ICD9 Code: V49.89 Last Reviewed Date: 20220110 SnomedCode: [id number] ICD10 Code: Z78.9 LastAssessedBy: STACI WOLFF Currently attends college, Last Assessed: 29 Nov 2019 9:09AM Type: Chronic Identified By: BALJINDER (FAMILY PRACTICE)CHIQUITA Last Edited: 29 Nov 2019 9:10AM Last Reviewed Date: 20191129 SnomedCode: 300183764 LastAssessedBy: BALJINDER (FAMILY PRACTICE)CHIQUITA (Family Medicine) 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, Last Assessed: 29 Nov 2019 9:10AM Type: Chronic Identified By: BALJINDER (FAMILY PRACTICE)CHIQUITA Last Edited: 29 Nov 2019 9:10AM Last Reviewed Date: 20191129 SnomedCode: [id number] LastAssessedBy: BALJINDER ([facility])CHIQUITA ([facility]) History of Exercises occasionally: Denied, Last Assessed: 09 Jan 2022 3:31PM Type: Chronic Identified By: BALJINDER ([facility])CHIQUITA Last Edited: 09 Jan 2022 3:31PM ICD9 Code: V49.89 Last Reviewed Date: 20220109 SnomedCode: 447151170 Category: History of ICD10 Code: Z78.9 LastAssessedBy: STACI WOLFF Never a smoker, Last Assessed: 31 May 2020 9:35AM Type: Chronic Last Edited: 31 May 2020 9:36AM Last Reviewed Date: 20200531 SnomedCode: 766531171 LastAssessedBy: DIMAS SONI Surgical HistoryReviewed Surgical History [...] with radiation exposure. She was referred to [facility] for this and genetic counseling. She [...] DocumentationNone recordedAssessment/Plan1. Normal in primigravida-Normal IUP at 8lp2xDwdr of care reviewed.Patient will be transferring care. Will continue follow up until she gets established Additional diagnosis detail: Encounter for supervision of normal first in first slzqninivT80.01: Encounter for supervision of normal first , first trimester GC/CT/TV DNA PROBE ([place] ONLY) OB PANEL WITH HIV ([place] ONLY) HEPATITIS C AB ([place] ONLY) URINE CULTURE AND SENSI ([place] ONLY) WET PREP ([place] ONLY) Return to Office [facility] for Lab.[place] at [facility] Lab ([place]) on 03/24/2024 at 12:01 PM Sabrina Cancino DPT for PT Return Visit 60.EST at [address] [facility] ([place]) on 04/12/2024 at 03:30 PM Sharona Mckeon MD for OB Check 15.EST at [facility] ([place]) on 04/21/2024 at 12:45 PM Talita Brooks MD for Established Patient 15.EST at [facility] ([place]) on 06/15/2024 at 11:00 AM Sharona Mckeon MD for Annual Well Woman Visit 15.EST at [facility] ([place]) on 12/15/2024 at 01:15 PM Rigo Mar DO [address] [place] [address], [address], [place] [facility] 03/24/2024 18:55:06 [facility] [address] [address]FIATQZF, Lydia J (id #[id number], : 1995) Date: 4RE: Mami Call, : 1995, PT ID #[id number] Mar DO, Mami Call was seen in [...] bilaterally to improve pelvic girdle muscle balance Shank Archer Goals:To Be Met in 12 Visits:1. Patient [...] bilaterally to improve pelvic girdle muscle balance dn 1. Pain in ftawpkD98.2: Pelvic and perineal pain 2. Pelvic floor ssqqakuzgxtC61.9: Disorder of muscle, unspecified Return to Office AUTUMN MORA PA-C for Established Patient 15.EST at [facility] ([place] on 06/20/2024 at 01:45 PM Sabrina Cancino DPT for PT Return Visit 60.EST at [address] 2[facility] PT ([place]) on 07/14/2024 at 11:00 AM Rigo Mar, [address] [place] [address], [address], [place] [facility] 06/15/2024 13:59:51 Procedures Surgical History Date Name Laterality Status Provider Name and Address Organization Details Recorded Time 12/30/2021 Date of Last Pap Smear completed Soha Sanches [facility] 12/10/2023 15:37:17 Imaging Results Imaging Date Name Status LastModified by Organiz ation Details LastModified Time 03/24/2024 US, obstetric, 1st trimester, single gestation completed INTERFACE [facility] [address] [place] [address], [address], 03/24/2024 18:02:52 Procedure Notes None recorded. Medical Equipment None Reported. Allergies Allergen ID Allergen Name Allergen Category Reaction Reaction Severity Criticality Documentation Date Start Date Code Code System Note Provider Name and Address Organization Details Recorded Time 4079263 latex gloves medicatio n Not available Not available Not available 08/26/20232019 21598 UNK Not Available Not Available Not Available 9168216 miconazol e medicatio n Not available Not [...] Updated DateTime 03/24/2024 167.64 cm 21.3 kg/m2 93748.47 g 120 mm[Hg] 64 mm[Hg] Kim Lacy [facility] 4 11:30:51 Date Recorded Body weight Systolic blood pressure Diastolic blood pressure Provider Name and Address Organization Details Last Updated DateTime 04/20/2024 75427.6884 24 g 120 mm[Hg] 72 mm[Hg] Soha Sanches [facility] 04/20/2024 11:17:25 Date Recorded Body height Body mass index (BMI) Body weight Body temperature Heart rate Systolic blood pressure Diastolic blood pressure Provider Name and Address Organization Details Last Updated DateTime 167.64 cm 22.9 kg/m2 00982.1 2 g 97.7 [degF] 90 /min 145 mm[Hg] 69 mm[Hg] Terry Scales [facility] 16:31:37 Social History Question Answer Notes [...] not available 03/21/2024 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 Less Than 1 Time Per Week [email or web address] Information not available 03/21/2024 Do You Have A Medical Power Of International Recruiter? No [email or web address] Information not available 03/21/2024 What Was The Date Of Your Most Recent Tobacco Screening? 03/24/2024 [email or web address] Information not available 03/21/2024 What Is Your Relationship Status? [email or web address] Information not available 03/21/2024 Are You Sexually Active? Yes Information not available 12/10/2023 Do You Use [...] by Organization Details LastModified Time Mother Asthma [email or web address] Not availabl e 12/09/2023 10:48:03 Mother Seizure disorder [email or web address] Not available 11/24 10:49:03 Father Asthma [email or web address] Not availabl e 12/09/2023 10:48:03 Father Arthritis [email or web address] Not available 03/21/2024 10:22:34 Unspecified Relation CVA - cerebrovascu lar accident due to cerebral artery occlusion grandm other on unspec ified side [email or web address] Not available 12/09/2023 10:48:32 Unspecified Relation Diabetes mellitus grandf ather unspec ified side [email or web address] Not available 12/09/2023 10:49:32 Maternal Grandfather Myasthenia gravis [email or web address] Not available 15:38:11 Maternal Grandfather Diabetes mellitus [...] Sclerosis N Colon Polyps N Heart Attack ([place]) N Psychiatric Illness N Hypospadia N Diabetes [...] N Ovarian Cancer N Anticoagulation therapy N Alzheimer s N Eczema N Diverticulitis N Dementia [...] Details Recorded Time HPV9 9 [facility] 03/[facility]2024 10:54:24 HPV9 9 [facility] 03/23/2024 10:54:24 COVID-19, mRNA, LNP-S, PF, 30 mcg/0.3 mL dose 2 completed [facility] 03/23/2024 10:54:24 COVID-19, mRNA, LNP-S, PF, 30 mcg/0.3 mL dose 1 completed Kim Bambi [facility] 03/23/2024 10:54:24 COVID-19, mRNA, LNP-S, PF, 30 mcg/0.3 mL dose 1 [facility] 03/23/2024 10:54:24 Tdap 5 completed Kim Baronon [facility] 03/23/2024 10:54:24 varicella 8 completed Kim Baronon [facility] 03/23/2024 10:54:24 HPV, quadrivalent 6 completed Kim Baronon [facility] 03/23/2024 10:54:24 Hep B, adolescent or pediatric 8 completed Kim Baronon [facility] 03/23/2024 10:54:24 Hep B, adolescent or pediatric 8 completed Kim Lacy [facility] 03/23/2024 10:54:24 meningococcal MCV4P 5 completed Kim Mckeonnison [facility] 03/23/2024 10:54:24 Past Encounters Encounter ID Performer Location Encounter Start Date Encounter Closed Date Diagnosis/Indication Diagnosis SNOMED-CT Code Diagnosis ICD10 Code Diagnosis Note [id number] Sharona Mckeon MD [address] [place] [address] OBN ([address] [address] 12/10/2023 15:24:43 12/10/2023 16:24:22 Gynecologic examination 60675385 Z01.419 --Annual ACCOUNT SPECIALIST exam performed. --Family and personal medical history [...] Patient requests referral to vulvar specialist in [place]. Will send to Dr. Padilla. Prescripti on for lidocaine ointment also provided to be used prior to intercours e. Instructio ns provided. Vaginal irritation 40371 6004 N89.8 [id number] Sharona Mckeon MD [address] [facility] ([place]) [address] [place] [id number] 12/22/2023 16:44:31 12/22/2023 18:53:42 Vaginal discharge 189191194 N89.8 [id number] Sabrina Gonzales-Markie n, DPT [address] [facility] [facility] ([place]) [address] [place] [id number] 02/17/2024 15:59:30 02/17/2024 16:58:00 Pain in pelvis 81901444 R10.2 Pelvic jewel or dysfunction 856856165 M62.9 [id number] Sabrina Gonzales-Markie n, DPT [address] [facility] [facility] ([place]) [address] [place] [address] 02/24/2024 14:55:33 02/24/2024 16:02:16 Pain in pelvis 49832161 R10.2 Pelvic jewel or dysfunction 482786241 M62.9 [id number] Sabrina Medrano Gonzales-Markie n, DPT [address] [facility] [facility] ([place]) [address] [place] [address] 03/02/2024 15:59:13 03/02/2024 16:55:35 Pain in pelvis 50705175 R10.2 Pelvic jewel or dysfunction 238991753 M62.9 [id number] Sabrina Gonzales-Markie n, DPT [address] [facility] ([place]) [address] [place] [id number] 03/16/2024 14:56:21 03/16/2024 16:06:24 Pain in pelvis 93185282 R10.2 Pelvic jewel or dysfunction 345832578 M62.9 [id number] Sharona Mckeon MD [address] [facility] ([place]) [address] [place] [id number] 03/24/2024 10:20:59 03/24/2024 14:19:25 Normal in primigravida 3814161870 92854 Z34.01 Normal IUP at 0ua3fZwpp of care reviewed.Shira saenz will be transferri care. Will continue follow up until she gets establishe d Additional diagnosis detail: Encounter for supervisio n of normal first in first trimester [id number] Soha Sanches [address] [facility] ([place]) [address] [place] [id number] 04/20/2024 10:55:54 04/20/2024 12:35:28 Gestation period, 12 weeks 91846815 Z3A.12 Additional diagnosis detail: 12 weeks gestation of Normal pre gnancy in primigravida 0290645831 78380 Z34.01 Normal IUP at 4dm9rWxkb of care reviewed.Shira saenz will be transferri care. Will continue follow up until she gets establishe d Additional diagnosis detail: Encounter for supervisio n of normal first in first trimester Maternal e xposure to radiation 211050771 Z84.89 screening 2437 22141 Z36.89 Additional diagnosis detail: Encounter for other specified screening Scalding p ain on urination 29686951 R30.0 Additional diagnosis detail: Burning with urination [id number] Sabrina L Gonzales-Markie n, DPT [address] [facility] ([place]) [address] [place] [id number] 04/20/2024 11:53:03 04/20/2024 13:08:26 Pain in pelvis 92731545 R10.2 Pelvic jewel or dysfunction 043746372 M62.9 [id number] Sabrina L Gonzales-Markie n, DPT [address] PT ([place]) [address] [place] [id number] 06/15/2024 11:54:35 06/15/2024 12:56:03 Pain in pelvis 56297842 R10.2 Pelvic jewel or dysfunction 562260140 M62.9 [id number] Talita Brooks MD [facility] ([place]) [address] [place] [address] 06/28/2024 16:16:58 06/28/2024 17:02:43 Burning mouth syndrome 209425751 K14.6 Temporoman dibular joint disorder 35456775 M26.609 Health Concerns Section Related Observation LastModified by Organization Detai ls LastModified Time None Recorded Concern Status LastModified by Organization Details LastModified Time None Recorded Advance Directives Directive N: Payers Encounter Date Sequence Insurance Name Policy Number Policy Anaya Covered Member ID Anaya Member ID Guarantor Name 03/24/2024 1 [employer] ([facility] [id number] Mami J Cernich [id number] Mami J Cernich 04/20/2024 1 [employer] ([facility] [id number] Mami J Cernich [id number] Mami J Cernich 04/20/2024 1 [employer] ([facility]) [id number] Mami J Cernich [id number] Mami J Cernich 06/15/2024 1 [employer] ([facility] [id number] Mami J Cernich [id number] Mami J Cernich 06/28/2024 1 [employer] ([facility] [id number] Maim J Cernich [id number] Mami J Cernich Notes Date Note Type [...] with radiation exposure. She was referred to [facility] for this and genetic counseling. She is concerned about OB care due to her living 2 hours away. She does not want to transfer care and is wanting to discuss options. (Kim Lacy, LISA) Sharona Mckeon MD [address] [place] [address], [address], [facility] 03/24/2024 14:17:21 04/20/2024 text/html Visit #2 Patient denies leaking of fluid and bleeding Patient states she is really fatigued and is having nausea. She wants to complete MAT 21 with gender (even though not approved through insurance) and CF/SMA. She is having burning with urination and a UA will be sent to the lab. Sharona Mckeon MD [address] [place] [address], [phone], [employer] 04/20/2024 11:28:41 04/20/2024 text/html Patient reports she [...] and should not be having pain. Sabrina Cancino, EAGLE [address] [place] [address], [phone], [employer] 04/20/2024 13:08:19 06/15/2024 text/html Referred by ANA BREWER to [facility] Valid 03/02/2024 - 06/30/2024 20 visits approved [...] her every. Sabrina Cancino, EAGLE [address] [place] [address], [phone], [employer] 06/15/2024 12:55:54 06/28/2024 text/html Mami is a [...] recent illness. AUTUMN MORA PA-C [address] [place] [address], [phone], [facility] 06/28/2024 17:12:55 OBGyn Episode Ob Episode Information Episode Created Date Number of Fetuses Patient Bloodtype Patient rh Status Prepregnancy Weight lbs Domestic Partner Domestic Partner Phone Father Name Campground Caretaker Status 03/24/20 24 1 A Positive Maurice Root [id number] Maurice Root OPEN Fetus Data First Name Last Name Admitted to NICU Weight (g) Sex Living Outcome Pediatric Complications Fetus ID Race Codes Race Delivery Type [id number] Problems Problem Notes Problem Name Start Date End Date Resolution Snomed Code Not e Normal in primigravida 03/24/2024 [id number] Maternal exposure to radiation 03/24/2024 [id number] Lives by substa tion and exposed to radiationMFM appointment pending Junior Calculation Initial Junior Date [...] Date Ultra Sound Latest Days Gestation 0 [email or web address] 03/24/2024 10/30/19 25 0 Pre- Flowsheet Flowsheet Date 03/24/2024 Morgan Score Blood Edema Fundus Height Fundus Units Glucose Ketones Leukocytes Nitrite Labor Signs Protein Cervic Dilation Cervic Effacement Cervic Station none Type Weight in lbs Pre/Post Dialysis Refused Weight 131.497568960974 BP Diastolic BP Location Tested BP Systolic [...] with radiation exposure. She was referred to [facility] for this and genetic counseling. She is concerned about OB care due to her living 2 hours away. She does not want to transfer care and is wanting to discuss options. (Kim Lacy, LISA)New OB intake and exam performed. Discussed plan of care. She is going to establish with an OB in the [place] area. Unsure about the risks of the substation. Can check with [facility] to see if they have any information. Flowsheet Date 04/20/2024 Morgan Score Blood Edema Fundus Height Fundus Units Glucose Ketones Leukocytes Nitrite Labor Signs Protein Cervic Dilation Cervic Effacement Cervic Station none none neg Type Weight in lbs Pre/Post Dialysis Refused 135.263565770096 BP Diastolic BP Location Tested BP Systolic [...] today.Has not yet established with provider in [place]. Flowsheet Date 04/20/2024 Morgan Score Blood Edema [...] Weight in lbs Pre/Post Dialysis Refused Weight 142.604932159006 BP Diastolic BP Location Tested BP Systolic [...] Estim ated Date of Delivery false Thalassemia (Tamazight, Slovak, Mediterranean, Or Background): MCV < 80 false Neural Tube Defect (Meningomyelocele, Spina Bifi da, Or Anencephaly) false Congenital Heart Defect false Down Syndrome false Harley-Sachs (eg, Adventism, Cajun, Yakut-Burmese) f alse Lenka Disease false Sickle Cell Disease Or Trait () false Hemophilia Or Other Blood Disorders false Muscular Dystrophy false Cystic Fibrosis false Mccook's Chorea false Intellectual Disability/Autism false If Yes, [...] 03/24/2024 Avoidance of saunas or hot tubs [id number] 03/24/2024 Screening for aneuploidy dde [id number] 03/24/2024 Intimate partner violence dd [id number] 03/24/2024 HIV and other routine tests [id number] 03/24/2024 Weight gain counseling ddenn ison16 03/24/2024 Environmental/work hazards d [id number] 03/24/2024 Illicit/recreational drugs d [id number] 03/24/2024 Indications for ultrasonography [id number] 03/24/2024 Travel [id number] 03/24/2024 Tobacco/smoking cess ation counseling (ask, advise, assess, assist, and arrange) [id number] 03/24/2024 03/24/2024 Use of any medicatio ns (including supplements, vitamins, herbs, or OTC drugs) 03/24/2024 Seat belt use 03/24/2024 Risk factors identif ied by history 03/24/2024 Anticipated course of care 03/24/2024 Sexual activity 03/24/2024 Dental care 03/24/2024 Nutrition counseling ; special diet; dietary precautions (mercury, listeriosis) 03/24/2024 Toxoplasmosis precautions (cats/raw meat) 03/24/2024 Exercise 03/24/2024 Teratogens 03/24/2024 Alcohol 03/24/2024 Childbirth classes/hospital facilities Second Trimester Discussed [...]
--- OUTSIDE RECORDS SUMMARY | 2024-09-18 16:30 | XMS_ITS | Patient Health Summary ---
Author Organization [facility] [email or web address] Address [address] [place] [address] Care Team Providers Care Research Physicist Name Role Phone Rigo Mar MD Primary Care Provider [phone] Note from [facility],non-owned Affiliates and Associated Physician Practices is amultiple site organization consisting of ambulatory clinics and hospital sitesin [place], [place], [place] and [place]. This disclosure is being madepursuant to the Care Everywhere program and may not contain all information available regarding this patient. Last updated 18.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), Autosomal recessive cystinuria (HCC),Abnormal chromosomal and genetic finding on screening mother, Encounter for ultrasound toassess growth ([facility]), 32 weeks gestation of ([facility]) * SONOGRAM - COMPLETE(Performed 08/08/2024) 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), Autosomal recessive cystinuria (HCC),Abnormal chromosomal and genetic finding on screening mother, Encounter for ultrasound toassess growth ([facility]), 27 weeks gestation of ([facility]) * SONOGRAM - COMPLETE(Performed 07/04/2024) 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), Autosomal recessive cystinuria (HCC),Encounter for follow-up ultrasound of anatomy ([facility]), 22 weeks gestation of ([facility]), Abnormal chromosomal and genetic finding on screening mother, Encounter for ultrasound to assess growth ([facility]) * SONOGRAM - COMPLETE(Performed 06/06/2024) Performed for Abnormal chromosomal and genetic finding on screening mother, Autosomal recessive primary microcephaly (HCC), Autosomal recessive cystinuria (HCC), 19 weeks gestation of ([facility]), Encounter for anatomic survey ([facility]) * WET PREP - POINT OF CARE (AMB) [facility](Performed 03/29/2024) Performed for Vulvar vestibulitis * PH FLUID - POCT (AMB) [facility](Performed 03/29/2024) Performed for Vulvar vestibulitis * FUNGUS SAVANAH - POINT OF CARE (AMB) [facility](Performed 03/29/2024) Performed for Vulvar vestibulitis * CULTURE YEAST WITH DIRECT FLUORESCENT SAVANAH(Performed 03/29/2024) Performed for Vulvar vestibulitis Results * SONOGRAM - COMPLETE (09/05/2024 1:03 PM HEAD OF BUSINESS DEVELOPMENT) Only the most recent of4 resultswithin the time period is included. Linked [...] 4 lb 2 oz EFW by Hadlock ([id number]-[id number]-FL) appropriate Growth Overview Exam date GA BPD [...] growth assessment is recommended Coding ====== Procedures 45633: US Preg Uterus Follow Up . [facility] [employer] PACS Anatomical Region Laterality Modality Other 09/05/2024 1:03 PM HEAD OF BUSINESS DEVELOPMENT Tracy Perdomo MD [facility] ORDERABLES * PH FLUID - POCT (AMB) [facility] (03/29/2024 10:13 AM CDT) pH Vaginal 4.[address] [facility] [address] Fluid VAGINAL SWAB / Unknown 03/29/2024 10:13 AM CDT Yolanda Kimbrough MD LAB - POINT OF CAR E ORDERABLES Performing Organization Address City/[facility]/ZIP Co de Phone Number [facility] [address] [place] [address], [facility] [phone] * WET PREP - POINT OF CARE [...] OF CAR E ORDERABLES Performing Organization Address City/[facility] Co de Phone Number [facility] [address] [place] [address], [facility] [phone] * FUNGUS SAVANAH - POINT OF CARE (AMB) [facility] (03/29/2024 10:13 AM CDT) SAVANAH Prep No [facility] [address] Fluid BODY FLUID SPECIMEN / Unknown 03/29/2024 10:13 AM CDT Yolanda Kimbrough MD LAB - POINT OF CAR E ORDERABLES Performing Organization Address City/[facility]/ZIP Co de Phone Number [facility] [address] [place] [address], [facility] [phone] * CULTURE YEAST WITH DIRECT FLUORESCENT SAVANAH (03/29/2024 9:43 AM CDT) Smear [facility] Comment: CULTURE, YEAST, W/DIRECT FLUORESCENT SAVANAH Micro Number: [id number] Test Status: Final Specimen Source: Genital Specimen Quality: Adequate Smear: No yeast seen Result: No yeast isolated Test Performed at: [facility] [address] [place] [address] KWASI PATTERSON MD Microbiology SPECIMEN FROM GENITAL SYSTEM / Unknown 03/29/2024 9:43 AM CDT 03/30/2024 4:40 AM CDT Yolanda Kimbrough MD LAB - MICROBIOLOGY ORDERABLES Performing Organization Address City/State/[facility] Co de Phone Number [address] [address] Care Teams Research Physicist Relationship Specialty Start Date End Date Rigo Mar MD [address] [phone] PCP - General Family Medicine 03/24/24
[2024-09-18 16:46] VITALS: BP 118/77; PULSE 96
[2024-09-18 17:01] VITALS: BP 106/64; PULSE 86
[2024-09-18 17:13] LABS: Add Urine Microscopic? YES; Appearance Urine Clear (Clear); Bacteria Urine None Seen /hpf; Bilirubin Urine Negative (Negative); Blood Urine Negative (Negative); Color Urine Yellow (Yellow); Glucose Urine UA Negative (Negative); Ketones Urine Trace mg/dL (Negative); Leukocyte Esterase Ur Negative LEU/UL (Negative); Nitrate Urine Negative (Negative); Non Pathogenic Casts 0-2; Protein Urine 1+ mg/dL (Negative); RBC Urine 0-2 /hpf (0-2); Specific Grav Ur 1.026 (1.001-1.035); Squamous Epithelial Cell Urine None Seen /hpf (Few); Urobilinogen Urine 0.2 mg/dL (<2.0); WBC Urine 0-5 /hpf (0-3)
[2024-09-18 17:16] VITALS: BP 103/64; PULSE 86
[2024-09-18 17:31] VITALS: BP 103/62; PULSE 83
[2024-09-18 17:46] VITALS: BP 103/63; PULSE 86
--- NOTE | 2024-09-20 00:42 | PM.OBTRLD ---
OB - Triage/Final Diagnosis Visit Information Comments/Additional reasons for admission: I have assessed the risk for this patient, Mami Corea, and determined that she would benefit from observation care. Evaluation Laboratory results: Laboratory Tests 09/18/24 16:50 Urine Color Yellow Urine Appearance Clear Urine pH 6.0 Ur Specific [place] 1.026 Urine Protein 1+ H Urine Glucose (UA) Negative Urine Ketones Trace H Ur Blood (Man) Negative Urine Nitrate Negative Urine Bilirubin Negative Urine Urobilinogen 0.2 Ur Leukocyte Esterase Negative Urine RBC 0-2 Urine WBC 0-5 Ur Squamous Epith Cells None seen Urine Bacteria None seen Urine Casts 0-2 Final Diagnosis (1) contractions: Code(s): O47.00 - False labor before 37 completed weeks of gestation, unspecified trimester Status: Acute
== END 2024-09-18 18:18 | disposition home or self-care (01) ==
PROVIDERS: Admitting Provider Obstetrics & Gynecology; Visit Provider Obstetrics & Gynecology
DX: O47.03 False labor before 37 completed weeks of gestation, third trimester (principal); Z3A.34 34 weeks gestation of pregnancy
CPT/HCPCS: 81001; G0378; G0379

== ENCOUNTER 2024-10-27 22:40 | Inpatient (IN) | payer OTHER, SELFPAY ==
[2024-10-27] VITALS (19 sets, daily range): BP systolic 101–122; BP diastolic 51–81; PULSE 75–108; O2SAT 97–100; BMI 25.7
--- NOTE | ~2024-10-27 | US_ITS ---
EXAMINATION: US OB BPP wo non-stress DATE: 10/28/2024 8:06 CDT INDICATION: Evaluate amniotic fluid index and biophysical profile. decelerations. TECHNIQUE: Real-time transabdominal obstetric ultrasound. FINDINGS: Ultrasound dated 07/28/2024 There is a single living fetus in vertex presentation. The placenta is anterior without placenta pre via. cardiac activity and movement is noted with a heart rate of 116 beats per minute. Biophysical profile: breathin of 2 movement: 2 of 2 tone: 2 of 2 Amniotic flud pocket: 2 of 2 Total score: 8 of 8 Amniotic fluid index is normal measuring 20.1 cm (normal range for gestational age is 7.2-22.6 cm). IMPRESSION: 1. Single living intrauterine in vertex presentation. 2: Total biophysical profile score of 8/8. 3: Normal TAMMY measures 20.1 cm. Reviewed, dictated and finalized at location A.
--- OUTSIDE RECORDS SUMMARY | 2024-10-27 22:48 | XMS_ITS | Clinical Summary ---
Author Organization [facility] Address [address] [place] [address] Care Team Providers Care Recruitment Manager Name Role Phone Rigo Mar MD Primary Care Provider [phone] Source Comments [facility],non-owned Affiliates and Associated Physician Practices is amultiple site organization consisting of ambulatory clinics and hospital sitesin [place], [place], [place] and [place]. This disclosure is being madepursuant to the Care Everywhere program and may not contain all information available regarding this patient. Last updated 18.[facility] Allergies Active Allergy Reactions Criticality Noted [...] Encounters Date Type Department Care Team Description 10/03/2024 8:15 AM CDT - 10/03/2024 11:59 PM CDT Hospital Encounter [facility] [address] [place] [address] Ankit Scott MD Discharge Disposition: Home or Self Care 09/05/2024 1:00 PM CLEANING ATTENDANT - 09/05/2024 11:59 PM CLEANING ATTENDANT Hospital Encounter [facility] [address] [place] [address] Head, Rosa Maria Leger MD Discharge Disposition: Home or Self Care 08/08/2024 3:15 PM CLEANING ATTENDANT - 08/08/2024 11:59 PM CLEANING ATTENDANT Hospital Encounter [facility] [address] [place] [address] Ara Royal MD DRY MILL WORKER Discharge Disposition: Home or Self Care from [...] Comments Blood Pressure 116/57 06/06/2024 8:08 AM CLEANING ATTENDANT Pulse 86 06/06/2024 8:08 AM CLEANING ATTENDANT Temperature 37.5 C (99.5 F) 03/29/2024 9:10 AM CDT Respiratory Rate - - Oxygen Saturation - - Inhaled Oxygen Concentration - - Weight 63 kg (138 lb 12.8 oz) 06/06/2024 8:08 AM CLEANING ATTENDANT Height 167.6 cm (5' 6 ) 03/29/2024 9:10 AM CDT Body Mass Index 22.4 03/29/2024 9:10 AM CDT Plan of Treatment Health Maintenance Due Date Last Done Comments [...] complete this topic MENINGOCOCCAL (Group B) VACCINE SHARED DECISION-MAKING Aged Out No longer eligible based on patient's age to complete this topic MENINGOCOCCAL GROUPS A/C/Y/W VACCINE Aged Out No longer eligible b ased on patient's age to complete this topic PNEUMOCOCCAL VACCINE Aged Out No long er eligible based on patient's age to complete this topic Respiratory Syncytial Virus (RSV) Vaccine Pt: or over 60 yrs (No Doses Required) Completed Procedures Procedure Name Priority Date/Time Associated Diagnosis Comments SONOGRAM - COMPLETE Routine 10/03/2024 8 :17 AM CDT 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 Abnormal chromosomal and genetic finding on screening mother Encounter for ultrasound to assess growth 32 weeks gestation of SONOGRAM - COMPLETE Routine 09/05/2024 1 :03 PM CLEANING ATTENDANT 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 Linked Results Indication ======== Anatomy Survey, Positive genetic testing for microcephaly and cystinuria (FOB's genetic testing was negative), Pt has a pelvic floor anomaly History ====== OB History 1. Para 0 Lab Tests Test Date Result NIPT Low risk, female Maternal Assessment Physical Exam Height 168 cm, 5 ft 6 in. Weight 73 kg, 160 lb. Initial weight 62 kg, 136 lb. BMI 25.82 kg/m . Initial BMI 21.95 kg/m . Weight gain 11 kg, 24 lb Method ====== Transabdominal ultrasound. View: Sufficient ========= Price . Number of fetuses: 1 Dating ====== Date Details Gest. age ALLYN LMP 01/23/2024 36 w + 2 d 10/29/2024 Stated ALLYN 36 w + 2 d 10/29/2024 U/S 10/03/2024 based upon AC, BPD, Femur, HC 35 w + 4 d 11/03/2024 Assigned dating based on the LMP, selected on 06/06/2024 36 w + 2 d 10/29/2024 General Evaluation Cardiac activity present. FHR 145 bpm. Presentation: breech Placenta: Placental site: anterior Amniotic fluid: Amount of AF: normal. MVP 4.6 cm. TAMMY 14.6 cm. Q1 4.6 cm, Q2 3.7 cm, Q3 2.4 cm, Q4 4.0 cm Biometry BPD 88.8 mm 35w 6d 50% Hadlock HC 324.9 mm 36w 6d 32% Hadlock AC 311.2 mm 35w 0d 26% Hadlock Femur 66.6 mm 34w 2d 7% Hadlock Humerus 59.6 mm 34w 4d 28% Margarita HC / AC 1.04 Weight Calculation: EFW 2,597 g 23% Hadlock EFW (lb,oz) 5 lb 12 oz EFW by Hadlock ([id number]) appropriate Growth Overview Exam date GA BPD [...] 28% 61.3 25% 52.9 16% 1859 28% 10/03/2024 36w 2d 88.8 50% 324.9 32% 311.2 26% 66.6 7% 59.6 28% 2597 23% Anatomy The following structures appear normal: Abdomen Stomach. Kidneys. Bladder. sex: female. Impression ========= Single, live, intrauterine at 36w 2d Fetus is in the BREECH position size is appropriate Amniotic fluid volume: normal No major malformations were seen within the limits of ultrasound Follow-up ======== Follow up as clinically indicated Coding ====== Procedures [id number]: US Preg Uterus Follow Up [facility] [employer] PACS Anatomical Region Laterality Modality Other 10/03/2024 8:17 AM CDT Tracy Perdomo MD [facility] ORDERABLES from Last 3 Months Care Teams Recruitment Manager Relationship Specialty Start Date End Date Rigo Mar MD [address] [phone] PCP - General Family Medicine 03/24/24
--- OUTSIDE RECORDS SUMMARY | 2024-10-27 22:48 | XMS_ITS | Data Portability ---
Author Organization [facility], [address] [place] [address] [place]rology ([place]) Address [address] [address] Care Team Providers Care Director [employer] Name Role Phone RIGO MAR Primary Care Provider SHARONA MCKEON Director Diversity Assessment Encounter Date Assessment Date Assessment LastModified by Organization Details LastModified Time 04/20/2024 04/20/2024 Patient continues to struggle with severe vulvar pain. Trying to determine if pain is dermatological, vestibular Nuha that is congenital, or vestibular delay other that is caused by pelvic floor muscle tension. 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 Plan [...] bowel control during functional movements. Not met Aircraft Riveter Goals: To Be Met in 12 Visits: [...] bilaterally to improve pelvic girdle muscle balance Aircraft Riveter Goals: To Be Met in 12 Visits: [...] to improve pelvic girdle muscle balance [id number] Not available 06/15/2024 12:55:33 06/28/2024 06/28/2024 1. [...] None recorded. Lab urinalysis, dipstick 2023 024 [facility] ([facility]), [address], [place], [address], 11:40:39 urinalysis complete, reflex culture 2023 024 [facility] - [facility] Laboratory, [facility] [address], [id number], 09/25/202 4 14:47:12 genetic screen, unspecified specimen 2023 024 [facility] Only - Ut Laboratory, [address] [place] [address], [id number], 4 10:22:13 CT + NG DNA, PCR, unspecified specimen 2023 024 [facility] Only - Ut Laboratory, [address] [place] [address], [id number], 4 09:14:28 obstetric screen + HIV, serum or blood 2023 024 [facility] Only - Ut Laboratory, [address] [place] [address], [id number], 4 15:00:03 hepatitis C Ab, serum 2023 [facility] Only - Ut Laboratory, [address] [place] [address], [id number], 4 15:46:09 culture + sensitivity , urine 2023 [email or web address] [facility] Only - Ut Laboratory, [address] [place] [address], [id number], 4 09:32:45 wet mount, vaginal 2023 024 [facility] Only - Sc Laboratory, [address] [place] [address], [id number], 4 14:17:30 Referral None recorded. Procedures None recorded. Surgeries None recorded. Imaging None recorded. Medication Orders None recorded. Patient TargetsNo targets recorded. Patient InstructionsNo instructions recorded. Reason for Referral None Reported. Results Created Date Observation Date Name Description Value Unit Range Abnormal Flag Note LastModifiedBy Organization Detail LastModifiedTime 03/24/20 24 03/24/2024 wet mount elaine wet prep Not Available [facility] Only - [facility] [address] [place] [address], [id number], 03/24/2024 13:04:04 03/24/20 24 03/24/2024 wet mount , vagin al yeast NONE SEEN none seen Not Available [facility] Only - [facility] [address] [place] [address], 53914, 03/24/2024 13:04:04 03/24/20 24 03/24/2024 wet mount , vagin al WBC FEW none seen abnormal Not Available [facility] Only - [facility] [address] [place] [address], [id number], 03/24/2024 13:04:04 03/24/20 24 03/24/2024 wet mount , vagin al clue cells POSITI VE negati ve abnormal Clue Cell Inter preta tion: Posit ryan Resul t = >20% Clue Cells Seen Negat ryan Resul t = <20% Clue Cells Seen Not Available [facility] Only - [facility] [address] [place] [address], [id number], 03/24/2024 13:04:04 03/24/20 24 03/24/2024 wet mount , vagin al trichomonas NONE SEEN none seen Not Available [facility] Only - [facility] [address] [place] [address], [id number], 03/24/2024 13:04:04 03/24/20 24 03/24/2024 wet mount , vagin al source VAG Not Available [facility] - [facility] Laboratory [address] [place] [address], [id number], 03/24/2024 13:04:04 03/24/20 24 03/24/2024 hepat itis C Ab, serum hepatitis C Ab NONREA CTIVE nonrea ctive Not Available [facility] Only - [facility] [address] [place] [address], [id number], 03/24/2024 15:46:09 03/24/20 24 03/25/2024 CT + NG DNA, PCR, unspe cifie d speci men GC/CT/TV DNA probe Not Available [facility] [address] [place] [address], [id number], 03/25/2024 09:14:28 03/24/20 24 03/25/2024 CT + NG DNA, PCR, unspe cifie d speci men GC-DNA probe NEGATI VE negati ve Not Available [facility] - [facility] Laboratory [address] [place] [address], [id number], 03/25/2024 09:14:28 03/24/20 24 03/25/2024 CT + [...] o-leg al indic ation s. Not Available [facility] Only - [facility] [address] [place] [address], [id number], 03/25/2024 09:14:28 03/24/20 24 03/25/2024 CT + NG DNA, PCR, unspe cifie d speci men trichomonas NEGATI VE negati ve Not Available [facility] Only - [facility] [address] [place] [address], [id number], 03/25/2024 09:14:28 03/24/20 24 03/24/2024 obste tric scree n + HIV, serum or blood rubella virus IgG Ab 82.1 IU/mL <5 IU/mL = Absen ce of immun ity 5 - <10 IU/mL = Equiv ocal >10 IU/mL = Presu med immun e Not Available [facility] Only - [facility] [address] [place] [address], [id number], 03/25/2024 10:38:47 03/24/20 24 03/24/2024 obste tric scree n + HIV, serum or blood hepatitis B surface Ag NONREA CTIVE nonrea ctive Not Available [facility] Only - [facility] [address] [place] [address], [id number], 03/25/2024 10:38:47 03/24/20 24 03/24/2024 obste tric scree n + HIV, serum or blood WBC 9.2 K/uL 3.8-11 .2 Not Available [facility] Only - [facility] [address] [place] [address], [id number], 03/25/2024 10:38:47 03/24/20 24 03/24/2024 obste tric scree n + HIV, serum or blood RBC 4.77 M/uL 3.92-5 .10 Not Available [facility] Only - [facility] [address] [place] [address], [id number], 03/25/2024 10:38:47 03/24/20 24 03/24/2024 obste tric scree n + HIV, serum or blood HGB 13.9 g/dL 11.8-1 5.3 Not Available [facility] Only - [facility] [address] [place] [address], [id number], 03/25/2024 10:38:47 03/24/20 24 03/24/2024 obste tric scree n + HIV, serum or blood HCT 41.6 % 36.5-4 4.8 Not Available [facility] Only - [facility] [address] [place] [address], [id number], 03/25/2024 10:38:47 03/24/20 24 03/24/2024 obste tric scree n + HIV, serum or blood MCV 87.2 fL 80.0-9 9.0 Not Available [facility] Only - [facility] [address] [place] [address], [id number], 03/25/2024 10:38:47 03/24/20 24 03/24/2024 obste tric scree n + HIV, serum or blood MCH 29.1 pg 25.5-3 3.6 Not Available [facility] Only - [facility] [address] [place] [address], [id number], 03/25/2024 10:38:47 03/24/20 24 03/24/2024 obste tric scree n + HIV, serum or blood MCHC 33.4 g/dL 32.0-3 6.0 Not Available [facility] Only - [facility] [address] [place] [address], [id number], 03/25/2024 10:38:47 03/24/20 24 03/24/2024 obste tric scree n + HIV, serum or blood RDW-SD 45.3 fL 35.1 - 46.3 Not Available [facility] Only - [facility] [address] [place] [address], [id number], 03/25/2024 10:38:47 03/24/20 24 03/24/2024 obste tric scree n + HIV, serum or blood plt 231 K/uL 130-40 0 Not Available [facility] Only - [facility] [address] [place] [address], 83297, 03/25/2024 10:38:47 03/24/20 24 03/24/2024 obste tric scree n + HIV, serum or blood MPV 9.8 fL 9.3-12 .8 Not Available [facility] Only - [facility] [address] [place] [address], [id number], 03/25/2024 10:38:47 03/24/20 24 03/24/2024 obste tric scree n + HIV, serum or blood HIV Ag/Ab 1-2 combo NONREA CTIVE nonrea ctive Not Available [facility] Only - [facility] [address] [place] [address], 84532, 03/25/2024 10:38:47 03/24/20 24 03/25/2024 obste tric scree n + HIV, serum or blood OB panel plus HIV 1-2 cmb Not Available [facility] - [facility] [address] [place] [address], [id number], 03/25/2024 10:38:47 03/24/20 24 03/25/2024 obste tric scree n + HIV, serum or blood ABO group A Not Available [facility] Only - [facility] [address] [place] [address], [id number], 03/25/2024 10:38:47 03/24/20 24 03/25/2024 obste tric scree n + HIV, serum or blood Rh factor POSITI VE Pleas e note: Prior recor ds for this patie nt's ABO / Rh type are not avail able for addit ional verif icati on. Not Available [facility] Only - [facility] [address] [place] [address], [id number], 03/25/2024 10:38:47 03/24/20 24 03/25/2024 obste tric scree n + HIV, serum or blood Ab screen NEGATI VE negati ve Not Available [facility] Only - [facility] [address] [place] [address], [id number], 03/25/2024 10:38:47 03/24/20 24 03/25/2024 obste tric scree n + HIV, serum or blood RPR with reflex NONREA CTIVE nonrea ctive Not Available [facility] Only - [facility] [address] [place] [address], 43618, 03/25/2024 10:38:47 03/24/20 24 03/24/2024 obste tric scree n + HIV, serum or blood rubella virus IgG Ab 82.1 IU/mL <5 IU/mL = Absen ce of immun ity 5 - <10 IU/mL = Equiv ocal >10 IU/mL = Presu med immun e Not Available [facility] Only - [facility] [address] [place] [address], 37032, 03/25/2024 07:41:57 03/24/20 24 03/24/2024 obste tric scree n + HIV, serum or blood hepatitis B surface Ag Nonrea ctive nonrea ctive Not Available [facility] Only - [facility] [address] [place] [address], [id number], 03/25/2024 07:41:57 03/24/20 24 03/24/2024 obste tric scree n + HIV, serum or blood WBC 9.2 K/uL 3.8-11 .2 Not Available [facility] Only - [facility] [address] [place] [address], 25122, 03/25/2024 07:41:57 03/24/20 24 03/24/2024 obste tric scree n + HIV, serum or blood RBC 4.77 M/uL 3.92-5 .10 Not Available [facility] Only - [facility] [address] [place] [address], [id number], 03/25/2024 07:41:57 03/24/20 24 03/24/2024 obste tric scree n + HIV, serum or blood HGB 13.9 g/dL 11.8-1 5.3 Not Available [facility] Only - [facility] [address] [place] [address], [id number], 03/25/2024 07:41:57 03/24/20 24 03/24/2024 obste tric scree n + HIV, serum or blood HCT 41.6 % 36.5-4 4.8 Not Available [facility] Only - [facility] [address] [place] [address], [id number], 03/25/2024 07:41:57 03/24/20 24 03/24/2024 obste tric scree n + HIV, serum or blood MCV 87.2 fL 80.0-9 9.0 Not Available [facility] Only - [facility] [address] [place] [address], 62456, 03/25/2024 07:41:57 03/24/20 24 03/24/2024 obste tric scree n + HIV, serum or blood MCH 29.1 pg 25.5-3 3.6 Not Available [facility] Only - [facility] [address] [place] [address], 27710, 03/25/2024 07:41:57 03/24/20 24 03/24/2024 obste tric scree n + HIV, serum or blood MCHC 33.4 g/dL 32.0-3 6.0 Not Available [facility] Only - [facility] [address] [place] [address], 52883, 03/25/2024 07:41:57 03/24/20 24 03/24/2024 obste tric scree n + HIV, serum or blood RDW-SD 45.3 fL 35.1 - 46.3 Not Available [facility] Only - [facility] [address] [place] [address], 84901, 03/25/2024 07:41:57 03/24/20 24 03/24/2024 obste tric scree n + HIV, serum or blood plt 231 K/uL 130-40 0 Not Available [facility] Only - [facility] [address] [place] [address], [id number], 03/25/2024 07:41:57 03/24/20 24 03/24/2024 obste tric scree n + HIV, serum or blood MPV 9.8 fL 9.3-12 .8 Not Available [facility] Only - [facility] [address] [place] [address], [id number], 03/25/2024 07:41:57 03/24/20 24 03/24/2024 obste tric scree n + HIV, serum or blood HIV Ag/Ab 1-2 combo Nonrea ctive nonrea ctive Not Available [facility] Only - [facility] [address] [place] [address], [id number], 03/25/2024 07:41:57 03/24/20 24 03/25/2024 obste tric scree n + HIV, serum or blood OB panel plus HIV 1-2 cmb Not Available [facility] - [facility] [address] [place] [address], 61665, 03/25/2024 07:41:57 03/24/20 24 03/25/2024 obste tric scree n + HIV, serum or blood ABO group PENDIN G Not Available Ut Only - S c Laboratory [address] [place] [address], [id number], 03/25/2024 07:41:57 03/24/20 24 03/25/2024 obste tric scree n + HIV, serum or blood Rh factor PENDIN G Not Available Ut Only - c Laboratory [address] [place] [address], 72702, 03/25/2024 07:41:57 03/24/20 24 03/25/2024 obste tric scree n + HIV, serum or blood Ab screen PENDIN G Not Available Ut Only - [facility] [address] [place] [address], 11571, 03/25/2024 07:41:57 03/24/20 24 03/25/2024 obste tric scree n + HIV, serum or blood RPR with reflex Nonrea ctive nonrea ctive Not Available [facility] Only - [facility] [address] [place] [address], 71883, 03/25/2024 07:41:57 03/24/20 24 03/24/2024 obste tric scree n + HIV, serum or blood OB panel plus HIV 1-2 cmb Not Available [facility] - [facility] [address] [place] [address], [id number], 03/24/2024 15:36:46 03/24/20 24 03/24/2024 obste tric scree n + HIV, serum or blood ABO group PENDIN G Not Available Ut Only - [facility] [address] [place] [address], [id number], 03/24/2024 15:36:46 03/24/20 24 03/24/2024 obste tric scree n + HIV, serum or blood Rh factor PENDIN G Not Available Ut Only - c Laboratory [address] [place] [address], 84278, 03/24/2024 15:36:46 03/24/20 24 03/24/2024 obste tric scree n + HIV, serum or blood Ab screen PENDIN G Not Available Ut Only - c Laboratory [address] [place] [address], 31831, 03/24/2024 15:36:46 03/24/20 24 03/24/2024 obste tric scree n + HIV, serum or blood rubella virus IgG Ab 82.1 IU/mL <5 IU/mL = Absen ce of immun ity 5 - <10 IU/mL = Equiv ocal >10 IU/mL = Presu med immun e Not Available [facility] Only - [facility] [address] [place] [address], 46966, 03/24/2024 15:36:46 03/24/20 24 03/24/2024 obste tric scree n + HIV, serum or blood hepatitis B surface Ag Nonrea ctive nonrea ctive Not Available [facility] Only - [facility] [address] [place] [address], 52711, 03/24/2024 15:36:46 03/24/20 24 03/24/2024 obste tric scree n + HIV, serum or blood RPR with reflex PENDIN G Not Available Ut Only - c Laboratory [address] [place] [address], 12525, 03/24/2024 15:36:46 03/24/20 24 03/24/2024 obste tric scree n + HIV, serum or blood WBC 9.2 K/uL 3.8-11 .2 Not Available [facility] Only - [facility] [address] [place] [address], 51428, 03/24/2024 15:36:46 03/24/20 24 03/24/2024 obste tric scree n + HIV, serum or blood RBC 4.77 M/uL 3.92-5 .10 Not Available [facility] Only - [facility] [address] [place] [address], 50455, 03/24/2024 15:36:46 03/24/20 24 03/24/2024 obste tric scree n + HIV, serum or blood HGB 13.9 g/dL 11.8-1 5.3 Not Available [facility] Only - [facility] [address] [place] [address], 37626, 03/24/2024 15:36:46 03/24/20 24 03/24/2024 obste tric scree n + HIV, serum or blood HCT 41.6 % 36.5-4 4.8 Not Available [facility] Only - [facility] [address] [place] [address], 60676, 03/24/2024 15:36:46 03/24/20 24 03/24/2024 obste tric scree n + HIV, serum or blood MCV 87.2 fL 80.0-9 9.0 Not Available [facility] Only - [facility] [address] [place] [address], 52592, 03/24/2024 15:36:46 03/24/20 24 03/24/2024 obste tric scree n + HIV, serum or blood MCH 29.1 pg 25.5-3 3.6 Not Available [facility] Only - [facility] [address] [place] [address], 84888, 03/24/2024 15:36:46 03/24/20 24 03/24/2024 obste tric scree n + HIV, serum or blood MCHC 33.4 g/dL 32.0-3 6.0 Not Available [facility] Only - [facility] [address] [place] [address], [id number], 03/24/2024 15:36:46 03/24/20 24 03/24/2024 obste tric scree n + HIV, serum or blood RDW-SD 45.3 fL 35.1 - 46.3 Not Available [facility] Only - [facility] [address] [place] [address], [id number], 03/24/2024 15:36:46 03/24/20 24 03/24/2024 obste tric scree n + HIV, serum or blood plt 231 K/uL 130-40 0 Not Available [facility] Only - [facility] [address] [place] [address], 85800, 03/24/2024 15:36:46 03/24/20 24 03/24/2024 obste tric scree n + HIV, serum or blood MPV 9.8 fL 9.3-12 .8 Not Available [facility] Only - [facility] [address] [place] [address], 23815, 03/24/2024 15:36:46 03/24/20 24 03/24/2024 obste tric scree n + HIV, serum or blood HIV Ag/Ab 1-2 combo Nonrea ctive nonrea ctive Not Available [facility] Only - [facility] [address] [place] [address], 32814, 03/24/2024 15:36:46 03/24/20 24 03/24/2024 obste tric scree n + HIV, serum or blood OB panel plus HIV 1-2 cmb Not Available [facility] - [facility] [address] [place] [address], [id number], 03/24/2024 15:24:26 03/24/20 24 03/24/2024 obste tric scree n + HIV, serum or blood ABO group PENDIN G Not Available Ut Only - [facility] [address] [place] [address], [id number], 03/24/2024 15:24:26 03/24/20 24 03/24/2024 obste tric scree n + HIV, serum or blood Rh factor PENDIN G Not Available [facility] Only - [facility] [address] [place] [address], [id number], 03/24/2024 15:24:26 03/24/20 24 03/24/2024 obste tric scree n + HIV, serum or blood Ab screen PENDIN G Not Available [facility] Only - [facility] [address] [place] [address], [id number], 03/24/2024 15:24:26 03/24/20 24 03/24/2024 obste tric scree n + HIV, serum or blood rubella virus IgG Ab 82.1 IU/mL <5 IU/mL = Absen ce of immun ity 5 - <10 IU/mL = Equiv ocal >10 IU/mL = Presu med immun e Not Available Ut Only - [facility] [address] [place] [address], [id number], 03/24/2024 15:24:26 03/24/20 24 03/24/2024 obste tric scree n + HIV, serum or blood hepatitis B surface Ag Nonrea ctive nonrea ctive Not Available [facility] Only - [facility] [address] [place] [address], [id number], 03/24/2024 15:24:26 03/24/20 24 03/24/2024 obste tric scree n + HIV, serum or blood RPR with reflex PENDIN G Not Available Ut Only - c Laboratory [address] [place] [address], 36876, 03/24/2024 15:24:26 03/24/20 24 03/24/2024 obste tric scree n + HIV, serum or blood WBC 9.2 K/uL 3.8-11 .2 Not Available [facility] Only - [facility] [address] [place] [address], [id number], 03/24/2024 15:24:26 03/24/20 24 03/24/2024 obste tric scree n + HIV, serum or blood RBC 4.77 M/uL 3.92-5 .10 Not Available [facility] Only - [facility] [address] [place] [address], [id number], 03/24/2024 15:24:26 03/24/20 24 03/24/2024 obste tric scree n + HIV, serum or blood HGB 13.9 g/dL 11.8-1 5.3 Not Available [facility] Only - [facility] [address] [place] [address], 12916, 03/24/2024 15:24:26 03/24/20 24 03/24/2024 obste tric scree n + HIV, serum or blood HCT 41.6 % 36.5-4 4.8 Not Available [facility] Only - [facility] [address] [place] [address], [id number], 03/24/2024 15:24:26 03/24/20 24 03/24/2024 obste tric scree n + HIV, serum or blood MCV 87.2 fL 80.0-9 9.0 Not Available [facility] Only - [facility] [address] [place] [address], [id number], 03/24/2024 15:24:26 03/24/20 24 03/24/2024 obste tric scree n + HIV, serum or blood MCH 29.1 pg 25.5-3 3.6 Not Available [facility] Only - [facility] [address] [place] [address], [id number], 03/24/2024 15:24:26 03/24/20 24 03/24/2024 obste tric scree n + HIV, serum or blood MCHC 33.4 g/dL 32.0-3 6.0 Not Available Ut Only - [facility] [address] [place] [address], [id number], 03/24/2024 15:24:26 03/24/20 24 03/24/2024 obste tric scree n + HIV, serum or blood RDW-SD 45.3 fL 35.1 - 46.3 Not Available Ut Only - [facility] [address] [place] [address], [id number], 03/24/2024 15:24:26 03/24/20 24 03/24/2024 obste tric scree n + HIV, serum or blood plt 231 K/uL 130-40 0 Not Available Ut Only - [facility] [address] [place] [address], [id number], 03/24/2024 15:24:26 03/24/20 24 03/24/2024 obste tric scree n + HIV, serum or blood MPV 9.8 fL 9.3-12 .8 Not Available Ut Only - [facility] [address] [place] [address], [id number], 03/24/2024 15:24:26 03/24/20 24 03/24/2024 obste tric scree n + HIV, serum or blood HIV Ag/Ab 1-2 combo PENDIN G Not Available Ut Only - S [facility] Laboratory [address] [place] [address], [id number], 03/24/2024 15:24:26 03/24/20 24 03/24/2024 obste tric scree n + HIV, serum or blood OB panel plus HIV 1-2 cmb Not Available [facility] - [facility] [address] [place] [address], 11049, 03/24/2024 15:18:01 03/24/20 24 03/24/2024 obste tric scree n + HIV, serum or blood ABO group PENDIN G Not Available Ut Only - [facility] [address] [place] [address], [id number], 03/24/2024 15:18:01 03/24/20 24 03/24/2024 obste tric scree n + HIV, serum or blood Rh factor PENDIN G Not Available Ut Only - c Laboratory [address] [place] [address], 95543, 03/24/2024 15:18:01 03/24/20 24 03/24/2024 obste tric scree n + HIV, serum or blood Ab screen PENDIN G Not Available Ut Only - [facility] [address] [place] [address], [id number], 03/24/2024 15:18:01 03/24/20 24 03/24/2024 obste tric scree n + HIV, serum or blood rubella virus IgG Ab 82.1 IU/mL <5 IU/mL = Absen ce of immun ity 5 - <10 IU/mL = Equiv ocal >10 IU/mL = Presu med immun e Not Available Ut Only - [facility] [address] [place] [address], [id number], 03/24/2024 15:18:01 03/24/20 24 03/24/2024 obste tric scree n + HIV, serum or blood hepatitis B surface Ag PENDIN G Not Available Ut Only - [facility] [address] [place] [address], [id number], 03/24/2024 15:18:01 03/24/20 24 03/24/2024 obste tric scree n + HIV, serum or blood RPR with reflex PENDIN G Not Available Ut Only - [facility] [address] [place] [address], [id number], 03/24/2024 15:18:01 03/24/20 24 03/24/2024 obste tric scree n + HIV, serum or blood WBC 9.2 K/uL 3.8-11 .2 Not Available Ut Only - [facility] [address] [place] [address], 19697, 03/24/2024 15:18:01 03/24/20 24 03/24/2024 obste tric scree n + HIV, serum or blood RBC 4.77 M/uL 3.92-5 .10 Not Available Ut Only - [facility] [address] [place] [address], [id number], 03/24/2024 15:18:01 03/24/20 24 03/24/2024 obste tric scree n + HIV, serum or blood HGB 13.9 g/dL 11.8-1 5.3 Not Available Ut Only - [facility] [address] [place] [address], [id number], 03/24/2024 15:18:01 03/24/20 24 03/24/2024 obste tric scree n + HIV, serum or blood HCT 41.6 % 36.5-4 4.8 Not Available Ut Only - [facility] [address] [place] [address], [id number], 03/24/2024 15:18:01 03/24/20 24 03/24/2024 obste tric scree n + HIV, serum or blood MCV 87.2 fL 80.0-9 9.0 Not Available Ut Only - [facility] [address] [place] [address], 76060, 03/24/2024 15:18:01 03/24/20 24 03/24/2024 obste tric scree n + HIV, serum or blood MCH 29.1 pg 25.5-3 3.6 Not Available [facility] Only - [facility] [address] [place] [address], [id number], 03/24/2024 15:18:01 03/24/20 24 03/24/2024 obste tric scree n + HIV, serum or blood MCHC 33.4 g/dL 32.0-3 6.0 Not Available Ut Only - [facility] [address] [place] [address], [id number], 03/24/2024 15:18:01 03/24/20 24 03/24/2024 obste tric scree n + HIV, serum or blood RDW-SD 45.3 fL 35.1 - 46.3 Not Available Ut Only - [facility] [address] [place] [address], [id number], 03/24/2024 15:18:01 03/24/20 24 03/24/2024 obste tric scree n + HIV, serum or blood plt 231 K/uL 130-40 0 Not Available Ut Only - [facility] [address] [place] [address], [id number], 03/24/2024 15:18:01 03/24/20 24 03/24/2024 obste tric scree n + HIV, serum or blood MPV 9.8 fL 9.3-12 .8 Not Available Ut Only - [facility] [address] [place] [address], [id number], 03/24/2024 15:18:01 03/24/20 24 03/24/2024 obste tric scree n + HIV, serum or blood HIV Ag/Ab 1-2 combo PENDIN G Not Available Ut Only - [facility] [address] [place] [address], [id number], 03/24/2024 15:18:01 03/24/20 24 03/24/2024 obste tric scree n + HIV, serum or blood OB panel plus HIV 1-2 cmb Not Available [facility] - [facility] [address] [place] [address], [id number], 03/24/2024 15:00:03 03/24/20 24 03/24/2024 obste tric scree n + HIV, serum or blood ABO group PENDIN G Not Available Ut Only - [facility] [address] [place] [address], 71350, 03/24/2024 15:00:03 03/24/20 24 03/24/2024 obste tric scree n + HIV, serum or blood Rh factor PENDIN G Not Available [facility] [address] [place] [address], [id number], 03/24/2024 15:00:03 03/24/20 24 03/24/2024 obste tric scree n + HIV, serum or blood Ab screen PENDIN G Not Available [facility] [address] [place] [address], [id number], 03/24/2024 15:00:03 03/24/20 24 03/24/2024 obste tric scree n + HIV, serum or blood rubella virus IgG Ab PENDIN G Not Available [facility] [address] [place] [address], [id number], 03/24/2024 15:00:03 03/24/20 24 03/24/2024 obste tric scree n + HIV, serum or blood hepatitis B surface Ag PENDIN G Not Available [facility] [address] [place] [address], [id number], 03/24/2024 15:00:03 03/24/20 24 03/24/2024 obste tric scree n + HIV, serum or blood RPR with reflex PENDIN G Not Available [facility] Only - [facility] [address] [place] [address], [id number], 03/24/2024 15:00:03 03/24/20 24 03/24/2024 obste tric scree n + HIV, serum or blood WBC 9.2 K/uL 3.8-11 .2 Not Available [facility] [address] [place] [address], [id number], 03/24/2024 15:00:03 03/24/20 24 03/24/2024 obste tric scree n + HIV, serum or blood RBC 4.77 M/uL 3.92-5 .10 Not Available [facility] [address] [place] [address], [id number], 03/24/2024 15:00:03 03/24/20 24 03/24/2024 obste tric scree n + HIV, serum or blood HGB 13.9 g/dL 11.8-1 5.3 Not Available [facility] [address] [place] [address], [id number], 03/24/2024 15:00:03 03/24/20 24 03/24/2024 obste tric scree n + HIV, serum or blood HCT 41.6 % 36.5-4 4.8 Not Available [facility] [address] [place] [address], [id number], 03/24/2024 15:00:03 03/24/20 24 03/24/2024 obste tric scree n + HIV, serum or blood MCV 87.2 fL 80.0-9 9.0 Not Available [facility] [address] [place] [address], [id number], 03/24/2024 15:00:03 03/24/20 24 03/24/2024 obste tric scree n + HIV, serum or blood MCH 29.1 pg 25.5-3 3.6 Not Available [facility] [address] [place] [address], [id number], 03/24/2024 15:00:03 03/24/20 24 03/24/2024 obste tric scree n + HIV, serum or blood MCHC 33.4 g/dL 32.0-3 6.0 Not Available [facility] [address] [place] [address], [id number], 03/24/2024 15:00:03 03/24/20 24 03/24/2024 obste tric scree n + HIV, serum or blood RDW-SD 45.3 fL 35.1 - 46.3 Not Available [facility] [address] [place] [address], [id number], 03/24/2024 15:00:03 03/24/20 24 03/24/2024 obste tric scree n + HIV, serum or blood plt 231 K/uL 130-40 0 Not Available [facility] [address] [place] [address], [id number], 03/24/2024 15:00:03 03/24/20 24 03/24/2024 obste tric scree n + HIV, serum or blood MPV 9.8 fL 9.3-12 .8 Not Available [facility] [address] [place] [address], [id number], 03/24/2024 15:00:03 03/24/20 24 03/24/2024 obste tric scree n + HIV, serum or blood HIV Ag/Ab 1-2 combo PENDIN G Not Available [facility] - [facility] [address] [place] [address], [id number], 03/24/2024 15:00:03 04/20/20 24 04/20/2024 urina lysis compl ete, refle x cultu re urinalysis w/reflex cult LOW LEVEL S OF HEMOG LOBIN IN ABSEN CE OF HEMAT URIA MAY NOT BE CLINI ANGELICA GABRIEL [place] Not Available [facility] [address] [place] [address], [id number], 04/20/2024 14:47:12 04/20/20 24 04/20/2024 urina lysis compl ete, refle x cultu re color YELLOW Not Available [facility] [address] [place] [address], [id number], 04/20/2024 14:47:12 04/20/20 24 04/20/2024 urina lysis compl ete, refle x cultu re clarity CLEAR Not Available [facility] [address] [place] [address], [id number], 04/20/2024 14:47:12 04/20/20 24 04/20/2024 urina lysis compl ete, refle x cultu re pH 5.5 5.0-7. 5 Not Available [facility] [address] [place] [address], [id number], 04/20/2024 14:47:12 04/20/20 24 04/20/2024 urina lysis compl ete, refle x cultu re specific gravity 1.027 1.000- 1.030 Not Available [facility] [address] [place] [address], 00488, 04/20/2024 14:47:12 04/20/20 24 04/20/2024 urina lysis compl ete, refle x cultu re blood NEGATI VE negati ve Not Available [facility] [address] [place] [address], 65137, 04/20/2024 14:47:12 04/20/20 24 04/20/2024 urina lysis compl ete, refle x cultu re bilirubin NEGATI VE negati ve Not Available [facility] [address] [place] [address], 81487, 04/20/2024 14:47:12 04/20/20 24 04/20/2024 urina lysis compl ete, refle x cultu re urobilinogen 0.2 0.2-1. 0 Not Available [facility] [address] [place] [address], 61443, 04/20/2024 14:47:12 04/20/20 24 04/20/2024 urina lysis compl ete, refle x cultu re ketone TRACE negati ve abnormal Not Available [facility] [address] [place] [address], 67231, 04/20/2024 14:47:12 04/20/20 24 04/20/2024 urina lysis compl ete, refle x cultu re glucose NEGATI VE negati ve Not Available [facility] [address] [place] [address], 60700, 04/20/2024 14:47:12 04/20/20 24 04/20/2024 urina lysis compl ete, refle x cultu re protein TRACE negati ve abnormal Not Available [facility] [address] [place] [address], 45280, 04/20/2024 14:47:12 04/20/20 24 04/20/2024 urina lysis compl ete, refle x cultu re nitrite NEGATI VE negati ve Not Available [facility] [address] [place] [address], 31817, 04/20/2024 14:47:12 04/20/20 24 04/20/2024 urina lysis compl ete, refle x cultu re leukocytes NEGATI VE negati ve Not Available [facility] [address] [place] [address], 61523, 04/20/2024 14:47:12 04/20/20 24 04/20/2024 urina lysis compl ete, refle x cultu re RBC 0-2 0-2/hp f Not Available [facility] [address] [place] [address], 63191, 04/20/2024 14:47:12 04/20/20 24 04/20/2024 urina lysis compl ete, refle x cultu re WBC 0-5 0-5/hp f Not Available [facility] [address] [place] [address], 04226, 04/20/2024 14:47:12 04/20/20 24 04/20/2024 urina lysis compl ete, refle x cultu re squamous epithelial 3-5 0-10/h pf Not Available [facility] [address] [place] [address], 30373, 04/20/2024 14:47:12 04/20/20 24 04/20/2024 urina lysis compl ete, refle x cultu re bacteria NONE SEEN none Not Available [facility] - S c [facility] [address] [place] [address], 66157, 04/20/2024 14:47:12 04/20/20 24 04/20/2024 urina lysis compl ete, refle x cultu re hyaline cast 0-2 0-2/lp f Not Available [facility] [address] [place] [address], 35794, 04/20/2024 14:47:12 04/20/20 24 04/29/2024 nancy ic scree n, unspe cifie d speci men CF/sma panel Not Available [facility] - [facility] [address] [place] [address], 94005, 04/29/2024 10:48:47 04/20/2004/29/2024 nancy ic scree n, unspe cifie d speci men results * Speci men colle cted and sent out for testi ng by [facility]. Resul ts will flow into the elect ronic recor d and the provi dioni will recei ve a 'Revi ew Docum ent' task at that time. Not Available [facility] - [facility] [address] [place] [address], 08015, 04/29/2024 10:48:47 04/20/20 24 04/20/2024 urina lysis , dipst ick Protein Negati ve Not Available 900 1[address] Obg yn (Ut) [address], [address], 04/20/2024 11:18:28 04/20/20 24 04/20/2024 urina lysis , dipst ick Glucose Negati ve Not Available 900 1[address] Obg yn (Ut) [address] [place] [address], [address], 04/20/2024 11:18:28 03/24/20 24 03/24/2024 US, obste tric, 1st trime ster, singl e gesta tion [facility] [address] [place] [address] Teleph one [phone] Name: Mami Rodriguez [id number] Exam Date: 2023 Age: 28 Physic ernesto: [...] ty is confir med at 161 bpm. [place]- rump length measur es 1.61 cm, consis [...] blood flow within both ovarie s. Impres narsin: 1. Single viable intrau terine gestat ion at 8 weeks 5 days . 2. Final estima wilbert date of confin ement based on last menstr ual period is 10/30/19 25. Electr onical ly signed in Dale cribe by: MARILYN MCKEON MD on:02/25 5:00 PM cc: [facility] INTERFACE Sc Only - [facility] [address] [place], [address], 03/24/2024 18:02:52 Result Notes None recorded. Problems Name Problem SNOMED Code Status Onset Date Resolution Date Notes Provider Name and Address Organization Details Recorded Time Normal in primigrav [place]iamston 473641023126 103 [facility] 2023 [facility] 4 10:54:40 87595674 Active 2023 [facility] 4 10:53:49 Normal in primigrav osmani 370181834845 103 Active 2023 [facility] 4 10:54:40 Maternal exposure to radiation 522657484 Active 2023 Lives by substatio n and exposed to radiation [facility] appointme nt pending [facility] 4 10:59:18 Maternal exposure to radiation 888890206 Active 2023 Lives by substatio n and exposed to radiation [facility] appointme nt pending Kim Lacy [facility] 4 10:59:18 Bacterial vaginosis 437882747 Active 2023 [facility] 4 15:04:55 Gestation period, 12 weeks 19935077 Active 2023 [facility] 14:20:44 Scalding pain on urination 41051800 Active 2023 Soha Sanches [facility] 4 11:24:54 Burning mouth syndrome 448647839 Active 2023 AUTUMN MORA PA-C [address] , [place], [address], [facility] 4 17:01:22 Temporoma ndibular joint disorder 63388836 Active 2023 AUTUMN MORA PA-C [address] , [place], [address], [facility] 4 17:01:44 Gynecolog ic examinati on Active 2023 [facility] 4 10:41:31 Pruritus of vagina 37691061 Active 2023 Sohacatracho Sanches [facility] 4 15:36:59 Vulvar vestibuli tis 99857990 Active 2023 Sharona Mckeon MD [address] , [place], [address], [facility] 4 16:13:03 Vaginal irritatio n 940214003 Active 2023 Soha Sanches [facility] 4 16:13:53 Vaginal discharge 801630854 Active 2023 Lauren Sanders null, [facility] 4 16:56:25 Pain in pelvis 84385368 Active 2023 Sabrina Gonzales-Mat on, DPT [address] [place], [address], [facility] 4 16:57:24 Pelvic floor dysfuncti on 634957148 Active 2023 Sabrina Gonzales-Mat on, DPT [address] [place], [address], [facility] 4 16:57:29 Problem Notes Documentation Provider Name and Address Organization Details Recorded Time Pickup Driver And Gynecologis t Consult Note : [facility] [address] [address] Mami Call 28yo F 1995 #[id number] __RESTYLEDFOOTER__ 03/24/2024 Jonny Mar DO, I would like to thank you for referring Mami Call to our practice on 03/24/2024. I have enclosed a copy of the office evaluation for your records. Once again, thank you for allowing me to participate in the care of this patient. Sincerely,Electronically Signed by: SHARONA MCKEON MD Encounter Reason/Date New OB, ultrasound 03/24/2024 - 10:00AM - 900 [facility] [place] ([place])ProblemsReviewed Problems Maternal exposure to radiation - Onset: 03/24/2024 - [place] and exposed to radiation [facility] appointment pending Vaginal irritation - Onset: 12/10/2023 [...] OnsetDate: 10/21/2006; Medications Reviewed Medications NameDate Source Vcrpntum28/29/24 entered Kim Lacy Family HistoryReviewed Family History [...] DirectiveDo you have a medical power of finance attorney?: NoAlcohol use, Last Assessed: 09 Jan 2022 3:31PM Type: Chronic Last Edited: 10 Jan 2022 9:17AM ICD9 Code: V49.89 Last Reviewed Date: 20220110 SnomedCode: 423008 ICD10 Code: Z78.9 LastAssessedBy: STACI WOLFF Caffeine use, Last Assessed: 09 Jan 2022 3:31PM Type: Chronic Last Edited: 10 Jan 2022 9:17AM ICD9 Code: V49.89 Last Reviewed Date: 20220110 SnomedCode: [id number] ICD10 Code: Z78.9 LastAssessedBy: STACI WOLFF Currently attends college, Last Assessed: 29 Nov 2019 9:09AM Type: Chronic Identified By: BALJINDER (FAMILY PRACTICE)CHIQUITA Last Edited: 29 Nov 2019 9:10AM Last Reviewed Date: 20191129 SnomedCode: 114431195 LastAssessedBy: BALJINDER (FAMILY PRACTICE)CHIQUITA (Family Medicine) 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, Last Assessed: 29 Nov 2019 9:10AM Type: Chronic Identified By: BALJINDER ([facility])CHIQUITA Last Edited: 29 Nov 2019 9:10AM Last Reviewed Date: 20191129 SnomedCode: 078951834 LastAssessedBy: BALJINDER ([facility])CHIQUITA ([facility]) History of Exercises occasionally: Denied, Last Assessed: 09 Jan 2022 3:31PM Type: Chronic Identified By: BALJINDER ([facility])CHIQUITA Last Edited: 09 Jan 2022 3:31PM ICD9 Code: V49.89 Last Reviewed Date: 20220109 SnomedCode: [id number] Category: History of ICD10 Code: Z78.9 LastAssessedBy: STACI WOLFF Never a smoker, Last Assessed: 31 May 2020 9:35AM Type: Chronic Last Edited: 31 May 2020 9:36AM Last Reviewed Date: 20200531 SnomedCode: 992453087 LastAssessedBy: DIMAS SONI Surgical HistoryReviewed Surgical History [...] with radiation exposure. She was referred to [facility] for this and genetic counseling. She [...] DocumentationNone recordedAssessment/Plan1. Normal in primigravida-Normal IUP at 9if3sZbzn of care reviewed.Patient will be transferring care. Will continue follow up until she gets established Additional diagnosis detail: Encounter for supervision of normal first in first quhwizeugS69.01: Encounter for supervision of normal first , first trimester GC/CT/TV DNA PROBE ([place] ONLY) OB PANEL WITH HIV (AK ONLY) HEPATITIS C AB ([place] ONLY) URINE CULTURE AND SENSI ([place] ONLY) WET PREP ([place] ONLY) Return to [facility] for Lab.[place] at 900 1st Lab ([place]) on 03/24/2024 at 12:01 PM Sabrina Cancino DPT for PT Return Visit 60.EST at 800 2nd PT ([place]) on 04/12/2024 at 03:30 PM Sharona Mckeon MD for OB Check 15.EST at 900 1st OBGYN ([place]) on 04/21/2024 at 12:45 PM Talita Brooks MD for Established Patient 15.EST at [facility] 4[facility] [place] ([place] on 06/15/2024 at 11:00 AM Sharona Mckeon MD for Annual Well Woman Visit 15.EST at 900 1st OBGYN ([place]) on 12/15/2024 at 01:15 PM Rosalina Moffett [place], [place] - [facility] 10/05/2024 16:16:08 [facility] [address] [address]TMASPBT, Lydia J (id #[id number], : 1995) Date: 4RE: Mami Call, : 1995, PT ID #[id number] Mar DO, Mami Call was seen in our office today 06/15/2024, and a copy of that evaluation is enclosed. Thank you for allowing us to participate in the care of your patient. Please contact us with any questions. Sincerely, Electronically Signed by: SABRINA CANCINO DPT Encounter Reason/DateNone recorded 06/15/2024 - 11:00AM - 800 2nd PT ([place]) Assessment/PlanUpon reassessment this date, patient exhibits deficits [...] bilaterally to improve pelvic girdle muscle balance Aircraft Riveter Goals:To Be Met in 12 Visits:1. Patient [...] girdle muscle balance dn 1. Pain in cdoxxcP58.2: Pelvic and perineal pain 2. Pelvic floor xmvxckkolsrX29.9: Disorder of muscle, unspecified Return to Office AUTUMN MORA PA-C for Established Patient 15.EST at [facility] 4th ENT ([place]) on 06/20/2024 at 01:45 PM Sabrina Cancino DPT for PT Return Visit 60.EST at 800 2nd PT ([place]) on 07/14/2024 at 11:00 AM Rigo Mar, DO [address] [place] [address], [address], [place] [facility] 06/15/2024 13:59:51 Procedures Surgical History Date Name Laterality Status Provider Name and Address Organization Details Recorded Time 12/30/2021 Date of Last Pap Smear completed Soha Sanches [facility] 12/10/2023 15:37:17 Imaging Results Imaging Date Name Status LastModified by Organiz [facility] Details LastModified Time 03/24/2024 US, obstetric, 1st trimester, single gestation completed INTERFACE [facility] - [facility] [address] [place] [address], [address], 03/24/2024 18:02:52 Procedure Notes None recorded. Medical Equipment None Reported. Allergies Allergen ID Allergen Name Allergen Category Reaction Reaction Severity Criticality Documentation Date Start Date Code Code System Note Provider Name and Address Organization Details Recorded Time 0384723 latex gloves medicatio n Not available Not available Not available 08/26/20232019 90869 UNK Not Available Not Available Not Available 8635106 miconazol e medicatio n Not available Not [...] Updated DateTime 03/24/2024 167.64 cm 21.3 kg/m2 15269.47 g 120 mm[Hg] 64 mm[Hg] Kim Lacy [facility] 4 11:30:51 Date Recorded Body weight Systolic blood pressure Diastolic blood pressure Provider Name and Address Organization Details Last Updated DateTime 04/20/2024 91726.6884 24 g 120 mm[Hg] 72 mm[Hg] Soha Sanches [facility] 04/20/2024 11:17:25 Date Recorded Body height Body mass index (BMI) Body weight Body temperature Heart rate Systolic blood pressure Diastolic blood pressure Provider Name and Address Organization Details Last Updated DateTime 167.64 cm 22.9 kg/m2 88293.1 2 g 97.7 [degF] 90 /min 145 mm[Hg] 69 mm[Hg] Josefinaa Scales [facility] 4 16:31:37 Social History Question Answer Notes LastModified by Organizat Arrively Details LastModified Time Tobacco Smoking Status Never [...] not available 03/21/2024 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 Less Than 1 Time Per Week [email or web address] Information not available 03/21/2024 Do You Have A Medical Power Of Financial Intern? No [email or web address] Information not available 03/21/2024 What [...] Status Question Answer Note LastModified by Organizat [employer] Details LastModified Time What is your exercise level? Occasional [email or web address] Information not available 03/21/2024 Mental Status None recorded. Family History Relationship Description Onset Age of this Age Resolved Age Notes LastModified by Organization Details LastModified Time Mother Asthma [email or web address] Not availabl e 12/09/2023 10:48:03 Mother Seizure disorder [email or web address] Not available 11/24 10:49:03 Father Asthma [email or web address] Not availabl e 12/09/2023 10:48:03 Father Arthritis [email or web address] Not available 03/21/2024 10:22:34 Unspecified Relation CVA - cerebrovascu lar accident due to cerebral artery occlusion grandm other on unspec ified side Not available 12/09/2023 10:48:32 Unspecified Relation Diabetes mellitus grandf ather unspec ified side [email or web address] Not available 12/09/2023 10:49:32 Maternal Grandfather Myasthenia gravis [email or web address] Not available 15:38:11 Maternal Grandfather Diabetes mellitus [...] Sclerosis N Colon Polyps N Heart Attack ([place]) N Psychiatric Illness N Diabetes N Hypospadia [...] therapy N Alzheimer s N Eczema N Dementia N Diverticulitis [...] Recorded Time HPV9 9 completed Kim Lacy [facility] 03/23/2024 10:54:24 HPV9 9 completed Kim Lacy [facility] 03/23/2024 10:54:24 COVID-19, mRNA, LNP-S, PF, 30 mcg/0.3 mL dose 2 [facility] 03/23/2024 10:54:24 COVID-19, mRNA, LNP-S, PF, 30 mcg/0.3 mL dose 1 asad Lacy [facility] 03/23/2024 10:54:24 COVID-19, mRNA, LNP-S, PF, 30 mcg/0.3 mL dose 1 completed Kim Lacy [facility] 03/23/2024 10:54:24 Tdap 5 completed Kim Lacy [facility] 03/23/2024 10:54:24 varicella 8 completed Kim Baronon [facility] 03/23/2024 10:54:24 HPV, quadrivalent 6 completed Kim Baronon [facility] 03/23/2024 10:54:24 Hep B, adolescent or pediatric 8 completed Kim Lacy [facility] 03/23/2024 10:54:24 Hep B, adolescent or pediatric 8 completed Kim Lacy [facility] 03/23/2024 10:54:24 meningococcal MCV4P 5 completed Kim Lacy [facility] 03/23/2024 10:54:24 Past Encounters Encounter ID Performer Location Encounter Start Date Encounter Closed Date Diagnosis/Indication Diagnosis SNOMED-CT Code Diagnosis ICD10 Code Diagnosis Note [id number] Sharona Mckeon MD [address] [place] [address] OBN ([place]) [address] [place] [address] 12/10/2023 15:24:43 12/10/2023 16:24:22 Gynecologic examination 86184902 Z01.419 --Annual IMPLEMENTATION ADVISOR exam performed. --Family and personal medical history [...] Patient requests referral to vulvar specialist in [place]. Will send to Dr. Padilla. Prescripti on for lidocaine ointment also provided to be used prior to intercours e. Instructio ns provided. Vaginal irritation 59009 6004 N89.8 [id number] Sharona Mckeon MD 900 1[facility] OBGYN ([place]) [address] [place] [address] 12/22/2023 16:44:31 12/22/2023 18:53:42 Vaginal discharge 961768164 N89.8 [id number] Sabrina Gonzales-Markie n, DPT 800 2nd PT ([place]) [address] [place] [address] 02/17/2024 15:59:30 02/17/2024 16:58:00 Pain in pelvis 02469832 R10.2 Pelvic jewel or dysfunction 233622869 M62.9 [id number] Sabrina Marcela Gonzales-Markie n, DPT 800 2nd PT ([place]) [address] [place] [address] 02/24/2024 14:55:33 02/24/2024 16:02:16 Pain in pelvis 12388646 R10.2 Pelvic jewel or dysfunction 010172324 M62.9 [id number] Sabrina Medrano Gonzales-Markie n, DPT 800 2nd PT ([place]) [address] [place] [address] 03/02/2024 15:59:13 03/02/2024 16:55:35 Pain in pelvis 75609405 R10.2 Pelvic jewel or dysfunction 016167138 M62.9 [id number] Sabrina Gonzales-Markie n, DPT 800 2nd PT ([place]) [address] [place] [address] 03/16/2024 14:56:21 03/16/2024 16:06:24 Pain in pelvis 24930033 R10.2 Pelvic jewel or dysfunction 310523038 M62.9 [id number] Sharona Mckeon MD 900 1st OBGYN ([place]) [address] [place] [address] 03/24/2024 10:20:59 03/24/2024 14:19:25 Normal in primigravida 7064395870 32376 Z34.01 Normal IUP at 0xi8pRddp of care reviewed.Shira saenz will be transferri care. Will continue follow up until she gets establishe d Additional diagnosis detail: Encounter for supervisio n of normal first in first trimester [id number] Soha Sanches 900 1st OBGYN ([place]) [address] [place] [address] 04/20/2024 10:55:54 04/20/2024 12:35:28 Gestation period, 12 weeks 29349124 Z3A.12 Additional diagnosis detail: 12 weeks gestation of Normal pre gnancy in primigravida 8652784411 16087 Z34.01 Normal IUP at 9hl1qBgme of care reviewed.Shira saenz will be transferri care. Will continue follow up until she gets establishe d Additional diagnosis detail: Encounter for supervisio n of normal first in first trimester Maternal e xposure to radiation 630421158 Z84.89 screening 2437 61813 Z36.89 Additional diagnosis detail: Encounter for other specified screening Scalding p ain on urination 86793839 R30.0 Additional diagnosis detail: Burning with urination [id number] Sabrina Medrano Gonzales-Markie n, DPT 800 2nd PT ([place]) [address] [place] [address] 04/20/2024 11:53:03 04/20/2024 13:08:26 Pain in pelvis 54964941 R10.2 Pelvic jewel or dysfunction 597420271 M62.9 [id number] Sabrina Gonzales-Markie n, DPT 800 2nd PT ([place]) [address] [place] [address] 06/15/2024 11:54:35 06/15/2024 12:56:03 Pain in pelvis 16112420 R10.2 Pelvic jewel or dysfunction 859832049 M62.9 [id number] Talita Brooks MD [facility] 4th ENT ([place]) [address] [facility] [place] [address] 06/28/2024 16:16:58 06/28/2024 17:02:43 Burning mouth syndrome 356585595 K14.6 Temporoman dibular joint disorder 62227710 M26.609 Health Concerns Section Related Observation LastModified by Organization Detai ls LastModified Time None Recorded Concern Status LastModified by Organization Details LastModified Time None Recorded Advance Directives Directive N: Payers Encounter Date Sequence Insurance Name Policy Number Policy Anaya Covered Member ID Anaya Member ID Guarantor Name 03/24/2024 1 [employer] ([facility] [id number] Mami J Cernich [id number] Mami J Cernich 04/20/2024 1 [employer] ([facility] [id number] Mami J Cernich [id number] Mami J Cernich 04/20/2024 1 [employer] ([facility] [id number] Mami J Cernich [id number] Mami J Cernich 06/15/2024 1 [employer] ([facility] [id number] Mami J Cernich [id number] Mami J Cernich 06/28/2024 1 [employer] ([facility] [id number] Mami J Cernich [id number] Mami J Cernich Notes Date Note Type [...] with radiation exposure. She was referred to [facility] for this and genetic counseling. She is concerned about OB care due to her living 2 hours away. She does not want to transfer care and is wanting to discuss options. (Kim Lacy RN) Sharona Mckeon MD [address] [place] [address], [phone], [facility] 03/24/2024 14:17:21 04/20/2024 text/html Visit #2 Patient denies leaking of fluid and bleeding Patient states she is really fatigued and is having nausea. She wants to complete MAT 21 with gender (even though not approved through insurance) and CF/SMA. She is having burning with urination and a UA will be sent to the lab. Sharona Mckeon MD [address] [place] [address], [phone], [facility] 04/20/2024 11:28:41 04/20/2024 text/html Patient [...] and it hurts Saw the doctor in [facility] - she said that sometimes hospitals and [...] should not be having pain. Sabrina Cancino, [place] [address] [place] [address], [phone], [facility] 04/20/2024 13:08:19 06/15/2024 text/html Referred by ANA BREWER to [facility] 03/02/2024 - 06/30/2024 20 visits approved [...] her every. Sabrina Cancino, [place] [address] [place] [address], [phone], [facility] 06/15/2024 12:55:54 06/28/2024 text/html Mami [...] recent illness. AUTUMN MORA PA-C [address] [place] [address], [phone], [place] [facility] 06/28/2024 17:12:55 OBGyn Episode Ob Episode Information Episode Created Date Number of Fetuses Patient Bloodtype Patient rh Status Prepregnancy Weight lbs Domestic Partner Domestic Partner Phone Father Name Director Biostatistics Status 03/24/20 24 1 A Positive Maurice Root [id number] Maurice Root OPEN Fetus Data First Name Last Name Admitted to NICU Weight (g) Sex Living Outcome Pediatric Complications Fetus ID Race Codes Race Delivery Type [id number] Problems Problem Notes Problem Name Start Date End Date Resolution Snomed Code Not e Normal in primigravida 03/24/2024 [id number] Maternal exposure to radiation 03/24/2024 [id number] Lives by substa tion and exposed to [...] Date Ultra Sound Latest Days Gestation 0 [id number] 03/24/2024 10/30/19 25 0 Pre-yesenia Flowsheet Flowsheet Date 03/24/2024 Morgan Score Blood Edema Fundus Height Fundus Units Glucose Ketones Leukocytes Nitrite Labor Signs Protein Cervic Dilation Cervic Effacement Cervic Station none Type Weight in lbs Pre/Post Dialysis Refused Weight [id number] BP Diastolic BP Location Tested BP Systolic [...] with radiation exposure. She was referred to [facility] for this and genetic counseling. She is concerned about OB care due to her living 2 hours away. She does not want to transfer care and is wanting to discuss options. (Kim Lacy, LISA)New OB intake and exam performed. Discussed plan of care. She is going [place] establish with an OB in [place]. Unsure about the risks of the substation. Can check with [facility] to see if they have any information. Flowsheet Date 04/20/2024 Morgan Score Blood Edema Fundus Height Fundus Units Glucose Ketones Leukocytes Nitrite Labor Signs Protein Cervic Dilation Cervic Effacement Cervic Station none none neg Type Weight in lbs Pre/Post Dialysis Refused [id number] BP Diastolic BP Location Tested BP Systolic [...] today.Has not yet established with provider in [place]. Flowsheet Date 04/20/2024 Morgan Score Blood Edema [...] Weight in lbs Pre/Post Dialysis Refused Weight 142.271067147643 BP Diastolic BP Location Tested BP Systolic [...] Estim ated Date of Delivery false Thalassemia (Occitan, Sammarinese, Mediterranean, Or Background): MCV < 80 false Neural Tube Defect (Meningomyelocele, Spina Bifi da, Or Anencephaly) false Congenital Heart Defect false Down Syndrome false Harley-Sachs (eg, Moravian, Cajun, Pashto-[place]) f alse Lenka Disease false Sickle Cell [...] Recent Travel History Outside of Country false Developmental Delay false Autism false Plans and Education First Trimester Discussed Date Discussion Item Discussion Note Discuss ed By 03/24/2024 Avoidance of saunas or hot tubs [id number] 03/24/2024 Screening for aneuploidy dde [id number] 03/24/2024 Intimate partner violence dd [id number] 03/24/2024 HIV and other routine tests [id number] 03/24/2024 Weight gain counseling ddenn [email or web address] 03/24/2024 Environmental/work hazards d [email or web address] 03/24/2024 Illicit/recreational drugs d [id number] 03/24/2024 Indications for ultrasonography [id number] 03/24/2024 Travel [id number] 03/24/2024 Tobacco/smoking cess ation counseling (ask, advise, assess, assist, and arrange) 03/24/2024 [id number] 03/24/2024 Use of any medicatio ns (including [...]
--- NOTE | 2024-10-27 23:01 | OBADM ---
This patient, Mami Corea, admitted to the OB room Labor/Delivery/Recovery 106 for observation. Patient/family oriented to hospital policies and general routines including ID bracelet, bed and alarms, visiting hours, pain management, procedures, bathroom and other care routines, personal items, smoking policy, room service/diet, and visiting hours. Patient/Family are encouraged to report perceived risks to care and to ask questions if they do not understand what they are told or what they should do.
[2024-10-28] VITALS (314 sets, daily range): BP systolic 89–137; BP diastolic 43–85; PULSE 62–132; RESP 18; TEMP 36.5–37.1; O2SAT 96–100
[2024-10-28 09:16] LABS: Basophils Percent Auto 0.3 % (0.2-1.2); Eosinophils Absolute Auto 0.1 K/mm3 (0-0.3); Hematocrit 38.1 % (37.0-47.0); Hemoglobin 12.4 g/dL (12.0-15.0); Immature Granulocyte Absolute 0.08 K/mm3 (0.00-0.031); Immature Granulocyte Percent A 0.8 % (0-0.5); Lymphocytes Absolute Auto 1.56 K/mm3 (0.9-3.2); Lymphocytes Percent Auto 15.7 % (18.3-44.2); Mean Corpuscular HGB Conc 32.5 g/dl (32-36); Mean Corpuscular Hemoglobin 30.5 pg (26-34); Mean Corpuscular Volume 93.8 fl (80-100); Mean Platelet Volume 10.6 fl (7.4-10.4); Neutrophils Absolute Auto 7.2 K/mm3 (1.3-6.7); Neutrophils Percent Auto 72.2 % (45.5-73.1); Platelet Count Result 181 k/mm3 (150-375); Red Blood Count 4.06 M/mm3 (4.2-5.4); Red Cell Distribution Width 13.1 % (11.5-14.5); White Blood Count 9.9 K/mm3 (4.5-10.0)
--- NOTE | 2024-10-28 09:19 | PM.IMHP ---
H&P: HPI History of Present Illness Date/Time: 10/28/24 09:19 Chief Complaint: vaginal discharge Narrative: Mami is a 29yo @ 39.6wks who presented overnight due to concerns for leakage of fluid. ROM+ was performed twice and were negative. On heart rate tracing, occasional late deceleration/variable were noted. She was kept overnight for monitoring, and occasional decelerations have continued; but overall reassuring with good variability. US showed TAMMY 20, cephalic, BPP 8/8-- but due to gestational age, decelerations, we recommend delivery Her is complicated by: - Carrier for microcephaly; mfm referral to possibly test ( has tested negative)/anatomy US - Significant vulvar/vaginal issues; recurrent BV, possible lichen - Vulvodynia; seeing pelvic floor PT - BREECH --> CEPHALIC at 38wks Review of Systems Constitutional: Constitutional: Denies chills, Denies fever(s) and Denies headache(s) Eyes: Eyes: Denies change in vision ENT: Denies headache(s) Cardiovascular: Cardiovascular: Denies chest pain and Denies dyspnea Respiratory: Respiratory: Denies dyspnea Genitourinary: Genitourinary: Denies abnormal vaginal bleeding and Denies vaginal discharge Neurologic: Denies headache(s) Psychiatric: Psychiatric: Denies anxiety and Denies depression PMFSH Past Medical History Medical History Pelvic pain Allergies Surgical History Surgical History No pertinent past surgical history Family History Family History Mother Asthma Polymyalgia rheumatica Father Asthma Grandparent Diabetes mellitus Alcoholism paternal grandfather Depression maternal and paternal grandfather/grandmother Thyroid disorder maternal grandmother Myasthenia gravis Social History Social History (Updated 10/25/24 @ 15:05 by Omar Matute MA) Smoking status: Never smoker Second hand tobacco smoke exposure: No Alcohol intake: never Substance use: never Substance use type: does not use Do You Feel Safe in your Home?: Yes Lack of Transportation: No Lack of Food: Never True Current Housing: I Have Housing Concerned About Future Housing: No Difficulty Paying Gas/Electric Bills: No Difficulty Paying for Meds: No Currently Unemployed: No Education: Master's Degree or Higher Difficulty w/ Childcare or Family Care: No Living arrangements: with family Additional living arrangements comments: Occupation/Education: occupation 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 Gender identity (if verbalized by the patient): Female Sexual Orientation (if Verbalized by the Patient): Straight or Heterosexual Spiritual care concerns: No Meds Home Medications and Allergies Home Medications ?Medication ?Instructions ?Recorded ?Confirmed ?Type calcium carbonate (Tums Ultra) 400 mg PO DAILY 05/10/24 10/27/24 History docosahexaenoic acid 200 mg See Rx Instructions .Route .COMPLEX 05/10/24 10/27/24 History capsule ( DHA) Allergies Allergy/AdvReac Type Severity Reaction Status Date / Time latex Allergy Intermediate Rash Verified 10/27/24 23:23 miconazole Allergy Intermediate Other Verified 10/27/24 23:23 Vital Signs Vital Signs - 24 hr 10/27/24 22:53 10/27/24 22:55 10/27/24 22:58 Temperature Pulse Rate 108 H Blood Pressure 122/81 Pulse Oximetry 100 100 Oxygen Delivery 10/27/24 23:00 10/27/24 23:01 10/27/24 23:03 Temperature Pulse Rate 102 H Blood Pressure 110/71 Pulse Oximetry 98 Oxygen Delivery Room Air 10/27/24 23:08 10/27/24 23:13 10/27/24 23:15 Temperature Pulse Rate 85 Blood Pressure 107/64 Pulse Oximetry 98 98 Oxygen Delivery 10/27/24 23:18 10/27/24 23:23 10/27/24 23:28 Temperature Pulse Rate Blood Pressure Pulse Oximetry 98 99 97 Oxygen Delivery 10/27/24 23:30 10/27/24 23:33 10/27/24 23:38 Temperature Pulse Rate 79 Blood Pressure 107/57 L Pulse Oximetry 98 99 Oxygen Delivery 10/27/24 23:43 10/27/24 23:45 10/27/24 23:48 Temperature Pulse Rate 77 Blood Pressure 101/51 L Pulse Oximetry 98 98 Oxygen Delivery 10/27/24 23:53 10/27/24 23:58 10/28/24 00:00 Temperature Pulse Rate 71 Blood Pressure 93/45 L Pulse Oximetry 98 98 Oxygen Delivery 10/28/24 00:03 10/28/24 00:08 10/28/24 00:13 Temperature Pulse Rate Blood Pressure Pulse Oximetry 98 98 98 Oxygen Delivery 10/28/24 00:15 10/28/24 00:18 10/28/24 00:23 Temperature Pulse Rate 88 Blood Pressure 102/59 L Pulse Oximetry 98 99 Oxygen Delivery 10/28/24 00:28 10/28/24 00:30 10/28/24 00:33 Temperature Pulse Rate 70 Blood Pressure 102/51 L Pulse Oximetry 98 99 Oxygen Delivery 10/28/24 00:38 10/28/24 00:43 10/28/24 00:45 Temperature Pulse Rate 78 Blood Pressure 107/60 Pulse Oximetry 98 99 Oxygen Delivery 10/28/24 00:48 10/28/24 00:53 10/28/24 00:58 Temperature Pulse Rate Blood Pressure Pulse Oximetry 100 100 99 Oxygen Delivery 10/28/24 01:00 10/28/24 01:03 10/28/24 01:08 Temperature Pulse Rate 72 Blood Pressure 100/53 L Pulse Oximetry 99 98 Oxygen Delivery 10/28/24 01:13 10/28/24 01:15 10/28/24 01:18 Temperature Pulse Rate 76 Blood Pressure 100/54 L Pulse Oximetry 98 98 Oxygen Delivery 10/28/24 01:23 10/28/24 01:28 10/28/24 01:30 Temperature Pulse Rate 74 Blood Pressure 110/68 Pulse Oximetry 98 99 Oxygen Delivery 10/28/24 01:33 10/28/24 01:38 10/28/24 01:43 Temperature Pulse Rate Blood Pressure Pulse Oximetry 97 97 97 Oxygen Delivery 10/28/24 01:45 10/28/24 01:48 10/28/24 01:53 Temperature Pulse Rate 83 Blood Pressure 109/58 L Pulse Oximetry 98 97 Oxygen Delivery 10/28/24 01:58 10/28/24 02:00 10/28/24 02:03 Temperature Pulse Rate 73 Blood Pressure 115/69 Pulse Oximetry 98 99 Oxygen Delivery 10/28/24 02:08 10/28/24 02:13 10/28/24 02:15 Temperature Pulse Rate 75 Blood Pressure 106/71 Pulse Oximetry 98 98 Oxygen Delivery 10/28/24 02:18 10/28/24 02:23 10/28/24 02:28 Temperature Pulse Rate Blood Pressure Pulse Oximetry 99 97 99 Oxygen Delivery 10/28/24 02:30 10/28/24 02:33 10/28/24 02:38 Temperature Pulse Rate 69 Blood Pressure 98/47 L Pulse Oximetry 100 100 Oxygen Delivery 10/28/24 02:43 10/28/24 02:45 10/28/24 02:48 Temperature Pulse Rate 68 Blood Pressure 95/43 L Pulse Oximetry 99 99 Oxygen Delivery 10/28/24 02:53 10/28/24 02:58 10/28/24 03:00 Temperature Pulse Rate 65 Blood Pressure 95/50 L Pulse Oximetry 100 100 Oxygen Delivery 10/28/24 03:10 10/28/24 03:15 10/28/24 03:20 Temperature Pulse Rate 70 Blood Pressure 97/47 L Pulse Oximetry 100 99 99 Oxygen Delivery 10/28/24 03:25 10/28/24 03:30 10/28/24 03:35 Temperature Pulse Rate 70 Blood Pressure 93/47 L Pulse Oximetry 99 99 99 Oxygen Delivery 10/28/24 03:40 10/28/24 03:45 10/28/24 03:50 Temperature Pulse Rate 79 Blood Pressure 89/48 L Pulse Oximetry 99 98 99 Oxygen Delivery 10/28/24 03:55 10/28/24 04:00 10/28/24 04:05 Temperature 98.2 F Pulse Rate 74 Blood Pressure 89/46 L Pulse Oximetry 98 97 98 Oxygen Delivery 10/28/24 04:10 10/28/24 04:15 10/28/24 04:20 Temperature Pulse Rate Blood Pressure Pulse Oximetry 98 98 98 Oxygen Delivery 10/28/24 04:25 10/28/24 04:30 10/28/24 04:35 Temperature Pulse Rate Blood Pressure Pulse Oximetry 99 98 98 Oxygen Delivery 10/28/24 04:40 10/28/24 04:45 10/28/24 04:50 Temperature Pulse Rate Blood Pressure Pulse Oximetry 98 99 98 Oxygen Delivery 10/28/24 04:55 10/28/24 05:00 10/28/24 05:05 Temperature Pulse Rate 65 Blood Pressure 92/45 L Pulse Oximetry 99 98 98 Oxygen Delivery 10/28/24 05:10 10/28/24 05:15 10/28/24 05:20 Temperature Pulse Rate Blood Pressure Pulse Oximetry 99 99 98 Oxygen Delivery 10/28/24 05:25 10/28/24 05:30 10/28/24 05:35 Temperature Pulse Rate Blood Pressure Pulse Oximetry 98 98 98 Oxygen Delivery 10/28/24 05:40 10/28/24 05:45 10/28/24 05:50 Temperature Pulse Rate Blood Pressure Pulse Oximetry 99 100 100 Oxygen Delivery 10/28/24 05:55 10/28/24 06:00 10/28/24 06:05 Temperature Pulse Rate 68 Blood Pressure 97/52 L Pulse Oximetry 100 100 100 Oxygen Delivery 10/28/24 06:10 10/28/24 06:15 10/28/24 06:20 Temperature Pulse Rate Blood Pressure Pulse Oximetry 100 100 100 Oxygen Delivery 10/28/24 06:25 10/28/24 06:30 10/28/24 06:35 Temperature Pulse Rate Blood Pressure Pulse Oximetry 100 100 100 Oxygen Delivery 10/28/24 06:40 10/28/24 06:45 10/28/24 06:50 Temperature Pulse Rate Blood Pressure Pulse Oximetry 100 99 100 Oxygen Delivery 10/28/24 06:55 10/28/24 07:00 10/28/24 07:17 Temperature Pulse Rate 80 Blood Pressure 102/60 Pulse Oximetry 100 100 99 Oxygen Delivery 10/28/24 07:22 10/28/24 07:27 10/28/24 07:32 Temperature Pulse Rate Blood Pressure Pulse Oximetry 99 100 100 Oxygen Delivery 10/28/24 07:37 10/28/24 07:42 10/28/24 07:47 Temperature Pulse Rate Blood Pressure Pulse Oximetry 100 100 98 Oxygen Delivery 10/28/24 07:52 10/28/24 07:57 10/28/24 08:00 Temperature Pulse Rate 85 Blood Pressure 118/71 Pulse Oximetry 100 99 Oxygen Delivery 10/28/24 08:02 10/28/24 08:07 10/28/24 08:12 Temperature Pulse Rate Blood Pressure Pulse Oximetry 99 99 100 Oxygen Delivery 10/28/24 08:17 10/28/24 08:22 10/28/24 08:27 Temperature Pulse Rate Blood Pressure Pulse Oximetry 100 99 99 Oxygen Delivery 10/28/24 08:32 10/28/24 08:37 10/28/24 08:42 Temperature Pulse Rate Blood Pressure Pulse Oximetry 99 99 99 Oxygen Delivery 10/28/24 08:47 10/28/24 08:52 10/28/24 09:05 Temperature Pulse Rate Blood Pressure Pulse Oximetry 100 99 98 Oxygen Delivery 10/28/24 09:10 10/28/24 09:15 Temperature Pulse Rate Blood Pressure Pulse Oximetry 99 99 Oxygen Delivery Exam Const: General: cooperative, healthy appearing, comfortable and no acute distress Orientation/consciousness: patient oriented x3 Resp: Effort & Inspection: normal respiratory effort Cardio: Rate: regular rate GI: GI Palp: No abdominal tenderness : Other: FHT's: 120's/ mod katya/ + accels/ no decels in last 2 hours (previously occasional late/variable)- cat 1 TOCO: irregular ctxs Cervix: FT/50/-3 Membranes: intact Presentation: cephalic Skin: General skin exam: normal color Neuro: General: patient oriented x3 Extrem: General: normal to inspection Psych: Appearance: grossly normal Affect: normal affect Attitude: cooperative Assessment and Plan Assessment and plan (1) heart deceleration: Status: Acute Plan - overall heart tracing reassuring, but recommend proceeding with IOL (was scheduled for 10/30/24) - Cervidil - Continuous monitoring - gbs neg - anesthesia consult PRN pain
[2024-10-28 09:54] LABS: Syphilis IgG/IgM Antibody Negative (Negative)
[2024-10-28 10:08] LABS: HIV 1/2 Ab P24 Ag Result Negative (Negative)
[2024-10-28] MEDS: DINOPROSTONE 10 MG VAG INSERT VAGINAL (11:01)
--- NOTE | 2024-10-28 14:11 | P.PNAN_ITS ---
Anes - Eval Pre Procedure Procedure: Labor epidural Date/Time: 10/28/24 14:11 Surgeon: Vishal Preop Diagnosis: Abdominal pain with contractions Pre Op Diagnosis: Leaking and contractions Patient Data Age: 29 Gender: F Height: 1.7 m Weight: 74.5 kg Last Vital Signs Temp 97.7 F 10/28/24 12:53 Pulse 74 10/28/24 14:00 BP 110/65 10/28/24 14:00 Pulse Ox 98 10/28/24 14:06 O2 Del Method Room Air 10/27/24 23:01 Allergies Allergy/AdvReac Type Severity Reaction Status Date / Time latex Allergy Intermediate Rash Verified 10/27/24 23:23 miconazole Allergy Intermediate Other Verified 10/27/24 23:23 Home Medications ?Medication ?Instructions ?Recorded ?Confirmed ?Type calcium carbonate (Tums Ultra) 400 mg PO DAILY 05/10/24 10/27/24 History docosahexaenoic acid 200 mg See Rx Instructions .Route .COMPLEX 05/10/24 10/27/24 History capsule ( DHA) Laboratory Tests 10/28/24 09:07 WBC 9.9 K/mm3 (4.5-10.0) RBC 4.06 L M/mm3 (4.2-5.4) Hgb 12.4 g/dL (12.0-15.0) Hct 38.1 % (37.0-47.0) MCV 93.8 fl (80-100) MCH 30.5 pg (26-34) MCHC 32.5 g/dl (32-36) RDW 13.1 % (11.5-14.5) Plt Count 181 k/mm3 (150-375) MPV 10.6 H fl (7.4-10.4) Immature Gran % (Auto) 0.8 H % (0-0.5) Neut % (Auto) 72.2 % (45.5-73.1) Lymph % (Auto) 15.7 L % (18.3-44.2) Hawkins % (Auto) 10.0 H % (2.6-8.5) Eos % (Auto) 1.0 % (0-4.4) Baso % (Auto) 0.3 % (0.2-1.2) Lymph # (Auto) 1.56 K/mm3 (0.9-3.2) Hawkins # (Auto) 1.0 H K/mm3 (0.1-0.6) Eos # (Auto) 0.1 K/mm3 (0-0.3) Baso # (Auto) 0.0 K/mm3 (0.0-0.1) Abs Immat Gran (auto) 0.08 H K/mm3 (0.00-0.031) Absolute Neuts (auto) 7.2 H K/mm3 (1.3-6.7) Absolute Nucleated RBC 0.000 K/mm3 (0.0-0.012) Nucleated RBC % 0.0 % (0.0-0.2) Syphilis IgG/IgM Ab Negative (Negative) HIV 1&2 Ab/P24 Ag 4thGn Negative (Negative) Blood Type A Positive Antibody Screen Negative : gestational age HCG: positive Patient hx anesthesia problems: none Family hx anesthesia problems: none Results Review: All pre-operative results and documents have been reviewed as part of the pre-operative evaluation. [facility] Past Medical History Medical History Overweight (BMI 25.0-29.9) Palpitations and not yet delivered Pelvic pain Allergies Surgical History Surgical History No pertinent past surgical history Family History Family History Mother Asthma Polymyalgia rheumatica Father Asthma Grandparent Diabetes mellitus Alcoholism paternal grandfather Depression maternal and paternal grandfather/grandmother Thyroid disorder maternal grandmother Myasthenia gravis Social History Social History Smoking status: Former smoker Second hand tobacco smoke exposure: No Alcohol intake: never Substance use: never Substance use type: does not use Do You Feel Safe in your Home?: Yes Lack of Transportation: No Lack of Food: Never True Current Housing: I Have Housing Concerned About Future Housing: No Difficulty Paying Gas/Electric Bills: No Difficulty Paying for Meds: No Currently Unemployed: No Education: Master's Degree or Higher Difficulty w/ Childcare or Family Care: No Living arrangements: with family Additional living arrangements comments: Occupation/Education: occupation 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
[2024-10-28] MEDS: LACTATED RINGERS 1,000 ML 125 ML IV CONT ×2 (21:00→22:01)
--- NOTE | 2024-10-28 23:10 | WPDANESEPPF ---
Anes - Initial Pre Proc Eval Procedure: labor epidural Date/Time: 10/28/24 23:10 Surgeon: Tracy Perdomo MD Pre Op Diagnosis: labor pain Pre Op Diagnosis: Leaking and contractions Patient Data Age: 29 Gender: F Height: 1.7 m Weight: 74.5 kg Last Vital Signs Temp 36.6 C 10/28/24 21:00 Pulse 89 10/28/24 23:07 Resp 18 10/28/24 18:00 BP 114/68 10/28/24 23:07 Pulse Ox 98 10/28/24 23:09 O2 Del Method Room Air 10/27/24 23:01 Allergies Allergy/AdvReac Type Severity Reaction Status Date / Time latex Allergy Intermediate Rash Verified 10/27/24 23:23 miconazole Allergy Intermediate Other Verified 10/27/24 23:23 Home Medications ?Medication ?Instructions ?Recorded ?Confirmed ?Type calcium carbonate (Tums Ultra) 400 mg PO DAILY 05/10/24 10/27/24 History docosahexaenoic acid 200 mg See Rx Instructions .Route .COMPLEX 05/10/24 10/27/24 History capsule ( DHA) Laboratory Tests 10/28/24 09:07 WBC 9.9 K/mm3 (4.5-10.0) RBC 4.06 L M/mm3 (4.2-5.4) Hgb 12.4 g/dL (12.0-15.0) Hct 38.1 % (37.0-47.0) MCV 93.8 fl (80-100) MCH 30.5 pg (26-34) MCHC 32.5 g/dl (32-36) RDW 13.1 % (11.5-14.5) Plt Count 181 k/mm3 (150-375) MPV 10.6 H fl (7.4-10.4) Immature Gran % (Auto) 0.8 H % (0-0.5) Neut % (Auto) 72.2 % (45.5-73.1) Lymph % (Auto) 15.7 L % (18.3-44.2) Howell % (Auto) 10.0 H % (2.6-8.5) Eos % (Auto) 1.0 % (0-4.4) Baso % (Auto) 0.3 % (0.2-1.2) Lymph # (Auto) 1.56 K/mm3 (0.9-3.2) Howell # (Auto) 1.0 H K/mm3 (0.1-0.6) Eos # (Auto) 0.1 K/mm3 (0-0.3) Baso # (Auto) 0.0 K/mm3 (0.0-0.1) Abs Immat Gran (auto) 0.08 H K/mm3 (0.00-0.031) Absolute Neuts (auto) 7.2 H K/mm3 (1.3-6.7) Absolute Nucleated RBC 0.000 K/mm3 (0.0-0.012) Nucleated RBC % 0.0 % (0.0-0.2) Syphilis IgG/IgM Ab Negative (Negative) HIV 1&2 Ab/P24 Ag 4thGn Negative (Negative) Blood Type A Positive Antibody Screen Negative : gestational age HCG: positive Patient hx anesthesia problems: none Family hx anesthesia problems: none Results Review: All pre-operative results and documents have been reviewed as part of the pre-operative evaluation. FOR[facility], [facility] Past Medical History Medical History Overweight (BMI 25.0-29.9) Palpitations and not yet delivered Pelvic pain Allergies Surgical History Surgical History No pertinent past surgical history Family History Family History Mother Asthma Polymyalgia rheumatica Father Asthma Grandparent Diabetes mellitus Alcoholism paternal grandfather Depression maternal and paternal grandfather/grandmother Thyroid disorder maternal grandmother Myasthenia gravis Social History Social History Smoking status: Former smoker Second hand tobacco smoke exposure: No Alcohol intake: never Substance use: never Substance use type: does not use Do You Feel Safe in your Home?: Yes Lack of Transportation: No Lack of Food: Never True Current Housing: I Have Housing Concerned About Future Housing: No Difficulty Paying Gas/Electric Bills: No Difficulty Paying for Meds: No Currently Unemployed: No Education: Master's Degree or Higher Difficulty w/ Childcare or Family Care: No Living arrangements: with family Additional living arrangements comments: Occupation/Education: occupation 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 Gender identity (if verbalized by the patient): Female Sexual Orientation (if Verbalized by the Patient): Straight or Heterosexual Spiritual care concerns: Yes (Roman Catholic as soon as possible if complications.) Anes - Eval Final PreProcedure Day of Procedure 10/28/24 23:10 Heart: regular rate and rhythm Lungs: clear to auscultation and normal air movement Airway: Mallampati scale class 1 Neurological: alert and oriented ASA classification: II Anesthetic plan: proceed Anesthesia type and monitoring: regional epidural and standard monitoring Results Review: All pre-operative results and documents have been reviewed as part of the pre-operative evaluation. Informed Consent: The patient's anesthetic plan and its attendant risks and benefits were discussed with the patient/family/POA. Questions were solicited and answers provided to the satisfaction of the patient/family/POA.
[2024-10-29] VITALS (159 sets, daily range): BP systolic 80–145; BP diastolic 38–106; PULSE 57–227; RESP 16; TEMP 36–37.5; O2SAT 95–100
[2024-10-29] MEDS: PHENYLEPHRINE 1,000 MCG/10 ML SYRINGE 100 MCG IV PUSH (02:19)
[2024-10-29] MEDS: OXYTOCIN 30 UNITS/NS 500 ML 30 UNITS/500 ML BAG IV CONT (05:04)
[2024-10-29] MEDS: OXYTOCIN 30 UNITS/NS 500 ML 30 UNITS/500 ML BAG 125 UNITS IV CONT (11:30)
--- NOTE | 2024-10-29 11:34 | WPDHPUPDATE1 ---
History and Physical Update Update Date/Time: 10/29/24 11:34 History and Physical has been reviewed, including an updated exam of the patient. There are NO changes in the patient's condition. Risks, benefits, and alternatives have been discussed and questions answered. Patient agrees to proceed with procedure.
--- NOTE | 2024-10-29 11:34 | PM.OBPRVD ---
OB - Vaginal Delivery Note Procedure Delivery date: 10/29/24 Events: Other (poOr surveillance with decelerations) Induction method: Per Cervidil Protocol Delivery augmentation: Rupture of Membranes and Pitocin Delivery monitor: External FHT and Internal Uterine Route of delivery: Episiotomy description: None Laceration Description: Other (Partial third-degree) Delivery repair: vicryl and chromic Specimen: No Quantitative Blood Loss (ml): 400 Anesthesia type: Epidural Disposition: Floor Complications: No immediate complications Narrative: Patient prepped draped usual manner this procedure. Maternal expulsive efforts readily delivered vertex over intact perineum. Nuchal cord was noted and reduced. Rest of baby was delivered without difficulty, cord was clamped and cut placenta delivered spontaneously and intact. Use was well contracted with minimal bleeding. Cervix vagina vulva were inspected with bilateral sulcus tears as well as partial third-degree laceration. Using chromic in a running interlocking manner both sulcus tears repaired without difficulty. 0 Vicryl was then used to approximate the sphincter capsule, no muscle damage had occurred. The midline vaginal mucosa was then approximated using 0 chromic in a running interlocking manner, deep tissue approximated and subcuticular layer as well. Small amount of oozing was noted from the vaginal mccullough and a packing was left in place for 20minutes and will be removed at that time. Patient tolerated the procedure well and immediate postoperative condition of mother and baby were both excellent. Baby Gestational Age by Date: 39 gender: Female presentation: vertex position: Right Occiput Anterior Placenta delivery description: Spontaneous Cord Vessel Description: 3 Vessels, Nuchal Cord and Reduced
[2024-10-29] MEDS: IBUPROFEN 600 MG TABLET PO ×2 (13:26→19:12)
[2024-10-29] MEDS: BENZOCAINE 20% AER SPR (*SP) 56 GM CAN 1 SPRAY TOPICAL (13:27)
[2024-10-29] MEDS: WITCH HAZEL 40 PADS 1 PAD TOPICAL (13:27)
--- NOTE | 2024-10-29 15:55 | PC.NURSE ---
Patient called out for assistance. Baby was skin to skin and awake. Mom was supported to hold baby in a cross cradle position with appropriate alignment. elicited a wide gape when her upper lip was stroked with mother's nipple. It took 3 tries to get a good sustained latch. Mom works very well with baby and needs general assistance and reinforcement as a primip. We were able to observe and listen for swallows which were frequent. Infant was able to maintain consistent latch and long bursts of suckling with only brief pauses. Mom is very encouraged that baby fed so well and latched without difficulty. Father present for education and supportive. RN updated.
[2024-10-29] MEDS: SENNA/DOCUSATE SODIUM TABLET 2 TAB PO (21:33)
[2024-10-30] MEDS: IBUPROFEN 600 MG TABLET PO ×4 (03:05→23:30)
[2024-10-30 05:56] LABS: Hematocrit 31.4 % (37.0-47.0)
[2024-10-30 07:55] VITALS: BP 116/68; PULSE 81; RESP 16; TEMP 36.1
[2024-10-30] MEDS: ACETAMINOPHEN 325 MG TABLET 650 MG PO ×2 (08:45→20:35)
[2024-10-30] MEDS: MULTIVIT/MIN/PREN/FOL AC/IRON TABLET 1 TAB PO (08:45)
[2024-10-30] MEDS: DOCUSATE SODIUM 100 MG CAPSULE PO (08:45)
--- NOTE | 2024-10-30 09:53 | PM.OBPNVD ---
OB - PN: Subj Subjective Date/time seen: 10/30/24 09:53 Overall doing well this morning. Pressure in vaginal area but no significant bleeding or pain. is going well without issue. Discharge home tomorrow morning with routine follow-up. Precautions and issues for which she should call our discussed. OB - PN: Obj Data Labs 10/30/24 04:52 Labs: Laboratory Results - last 24 hr 10/30/24 04:52 Hgb 10.0 L Hct 31.4 L OB - PN A/P Time Spent With Patient Time: Total time spent is greater than 50% in coordination of care (as documented) at patient's floor/unit and/or counseling patient:
--- NOTE | 2024-10-30 09:54 | P.DS_ITS ---
DS: Admitting Diagnosis Discharge Date 10/31/2024 Admitting Diagnosis DS: Discharge Diagnosis Discharge Diagnosis (1) , delivered: Code(s): O80 - Encounter for full-term uncomplicated delivery Status: Acute OB - DS: Summary OB Procedures : None OB Procedures Intrapartum: Spontaneous Vag Delivery OB Procedures: : None Peripartum Data Laceration Description: Other (Partial third-degree) Episiotomy description: None Time Spent with Patient Time attestation: Total time spent providing and/or coordinating discharge services: DS: Data Data Completed and Pending Labs on day of discharge: Labs from last 24 hours 10/30/24 04:52 Hgb 10.0 L Hct 31.4 L Discharge Plan Discharge Discharging Clinician: Tod Fulton Patient Disposition: Home, Self-Care Activity: no driving, follow weight bearing status and pelvic rest Diet: as tolerated Patient Instructions: Antibiotic Form Patient Language: Libyan Stand Alone Forms: General Discharge Information Follow-up/Referrals: Tracy Perdomo MD [Primary Care Provider] - 4 Weeks Discharge Medications: New ibuprofen 600 mg Tablet 600 mg PO Q6H PRN (Reason: Cramping) Qty: 30 0RF Continued DHA 200 mg capsule See Rx Instructions .ROUTE .COMPLEX Rx Instructions: 1 tab daily calcium carbonate [Tums Ultra] 400 mg calcium (1,000 mg) tablet,chewable 400 mg PO DAILY Date of admission: 10/28/24 08:17 Primary Care Provider: Tracy Perdomo Admitting Provider: Tracy Perdomo Attending physician on admission: Tracy Perdomo Condition: Stable
[2024-10-30 19:00] VITALS: BP 112/67; PULSE 90; RESP 18; TEMP 36.7; O2SAT 100
[2024-10-30] MEDS: SENNA/DOCUSATE SODIUM TABLET 2 TAB PO (20:35)
[2024-10-31] MEDS: ACETAMINOPHEN 325 MG TABLET 650 MG PO (04:35)
[2024-10-31 07:45] VITALS: BP 110/58; PULSE 73; RESP 16; TEMP 36.5; O2SAT 98
--- NOTE | 2024-10-31 08:00 | PC.NURSE ---
0800: Mom called for assistance. She is struggling to latch baby this morning. She said that her breast do feel hassan and we discussed how this can make latching more challenging. Baby is able to latch in cross cradle on the right breast. She is eager and mom states that she was crying and frustrated when they tried a few minutes ago. We reviewed ways to calm baby prior to latching. Baby has been cluster feeding all night and only eats for about 10 minutes at a time. Encouraged mom to keep baby awake longer at the breast to increase the time between feedings if possible. 0825: Mom called out for help with switching sides. We are going to try football hold so mom knows how to use this hold at home. Mom likes football and baby latched easily after just a few tries. Mom's nipples are a little sore but the skin is intact. The left nipple has some bruising on the upper left quadrant. Mom and dad both work great with baby and are attentive listeners. Mom would like help reviewing her Omayra breast pump before discharge today. She is instructed to call out when she is ready to review the pump and additional discharge teaching. RN updated.
[2024-10-31] MEDS: IBUPROFEN 600 MG TABLET PO (10:01)
[2024-10-31] MEDS: MULTIVIT/MIN/PREN/FOL AC/IRON TABLET 1 TAB PO (10:03)
--- NOTE | 2024-10-31 10:07 | PC.NURSE ---
Patient viewed the discharge video Mother & Baby Care, The First Two Weeks . Patient was given the opportunity and encouraged to ask questions. Patient verbalized understanding of information shared and has been given the mother/baby guide for home reference.
--- NOTE | 2024-10-31 11:30 | PC.NURSE ---
Mother is feeding appropriately for growth of and understands stimulating infant to eat if needed. has had appropriate feedings in the last 24 hours meets the outcomes for weight, output, blood sugar and jaundice at this time. Reinforced understanding of milk production, transition of milk, signs of adequate intake, transition of stool, prevention/relief of engorgement, plugged ducts, mastitis, responsive watching for feeding cues, the different methods of stimulating to breastfeed 1-3 hours after the start of the last feeding, community resources, and when to call a provider using the resource of the feeding sheet along with the mom and baby guide. We reviewed the use of her Spectra pump in detail. She had a lot of questions and dad was present and engaged while we were talking. Mom says she feels more comfortable going home now that we have reviewed feeding. She has the number and is encouraged to call with any concerns or questions. Mother voiced understanding of the information shared, is confident to continue effectively her at home, when to call for assistance, denies any additional assistance or education at this time. Reported to the Primary RN.
[2024-11-01 10:28] VITALS: BP 115/59; PULSE 78; RESP 18; TEMP 36.6; O2SAT 100
== END 2024-10-31 13:05 | disposition home or self-care (01) | DRG 807 ==
LOC: ANHLDR 22:49 → ANHOB2 10-30 09:55 → ANHLDR 11-01 14:04
PROVIDERS: Admitting Provider Obstetrics & Gynecology; PCP Obstetrics & Gynecology; Visit Provider Obstetrics & Gynecology
DX: O76 Abnormality in fetal heart rate and rhythm complicating labor and delivery (principal); Z37.0 Single live birth; O70.1 Second degree perineal laceration during delivery; O69.81X0 Labor and delivery complicated by cord around neck, without compression, not applicable or unspecified; Z3A.39 39 weeks gestation of pregnancy
CPT/HCPCS: 36415; 76819; 84112; 85014; 85018; 85025; 86593; 86703; 86850; 86900; 86901; A9270; G0378; G0379; G0432; J2371; J2590; J2795; J7120

== ENCOUNTER 2024-12-30 12:35 | Outpatient (CLI) | payer OTHER, SELFPAY ==
--- OUTSIDE RECORDS SUMMARY | 2024-12-30 12:39 | XMS_ITS | Clinical Summary ---
Author Organization [facility] Address [address] [place] [address] Care Team Providers Care Splicer Operator Name Role Phone Rigo Mar MD Primary Care Provider [phone] Source Comments [facility],non-owned Affiliates and Associated Physician Practices is amultiple site organization consisting of ambulatory clinics and hospital sitesin [place], [place], [place] and [place]. This disclosure is being madepursuant to the Care Everywhere program and may not contain all information available regarding this patient. Last updated 18.[facility] Allergies Active Allergy Reactions Criticality Noted Date Comments Latex Rash Medium 05/30/2024 Miconazole Other Medium 05/30/2024 Unknown if intolerance, side effect or allergy. Medications * Be aware that medications may not be up to date on this document. Alwaysverify current medications with the patient. No known [...] - 10/03/2024 11:59 PM CDT Hospital Encounter [facility] [address] [place] [id number] Ankit Scott MD Discharge Disposition: Home [...] Recorded Sex Assigned at Not on file Legal Sex Female 1:13 PM CDT Gender Identity Not on file Sexual Orientation Not on file Last Filed Vital Signs Vital Sign Reading Time Taken Comments Blood Pressure 116/57 06/06/2024 8:08 AM SWEAT BAND SEWER Pulse 86 06/06/2024 8:08 AM SWE[employer] BAND SEWER Temperature 37.5 C (99.5 F) 03/29/2024 9:10 AM CDT Respiratory Rate - - Oxygen Saturation - - Inhaled Oxygen Concentration - - Weight 63 kg (138 lb 12.8 oz) 06/06/2024 8:08 AM SWE[employer]AND SEW[employer] Height 167.6 cm (5' 6) 03/29/2024 9:10 AM CDT Body Mass Index 22.4 03/29/2024 9:10 AM CDT Plan of Treatment Health Maintenance Due Date Last Done Comments PAP SMEAR 1997 HIV SCREENING 2012 HEPATITIS C SCREENING 05/09/2015 DTAP/TDAP/TD VACCINES (1 - Tdap) 2016 HEPATITIS B VACCINE (1 of 3 - 19+ 3-dose series) 2016 COVID-19 VACCINE ( - 2023-2 5 season) 2024 08/07/2021, 02/23/2021, 01/26/2021 OB-ONE HOUR GLUCOSE 07/23/2024 DEPRESSION SCREENING 07/27/2024 OB-TDAP CURRENT 07/30/2024 01/15/2015 OB-RHOGAM INJECTION 08/06/2024 OB-GROUP B STREP SCREEN 09/24/2024 INFLUENZA VACCINE (Season Ended) 2025 ZOSTER VACCINE (1 of 2) 2047 HIB [...] to assess growth 32 weeks gestation of from Last 3 Months Results * SONOGRAM - COMPLETE (10/03/2024 8:17 AM CDT) Linked Results Indication ======== Anatomy Survey, Positive [...] 5 lb 12 oz EFW by Hadlock ([id number]) appropriate Growth Overview Exam date [place] BPD [...] up as clinically indicated Coding ====== Procedures [id number]: US [facility] Anatomical Region Laterality Modality Other 10/03/2024 8:17 AM CDT Tracy Perdomo MD [facility] ORDERABLES Edited Result - Final from Last 3 Months Insurance [facility] Care Teams Splicer Operator Relationship Specialty Start Date End Date Rigo Mar MD [address] [facility] [address] [place] [id number] PCP - General Family Medicine 03/24/24
--- OUTSIDE RECORDS SUMMARY | 2024-12-30 12:39 | XMS_ITS | Data Portability ---
Author Organization [facility], [address] [place] [address] Neurology ([place]) Address [address] [address] Care Team Providers Care Hot Press Operator Name Role Phone RIGO MAR Primary Care Provider SHARONA MCKEON Manager Council Assessment Encounter Date Assessment Date Assessment LastModified by Organization Details LastModified Time 04/20/2024 04/20/2024 Patient continues to struggle with severe vulvar pain. Trying to determine if pain is dermatological, vestibular Nuha that is congenital, or vestibular delay other that is caused by pelvic floor muscle tension. It is appearing that pelvic floor muscle tension is not the main haul driver for patient's symptoms at this time. [...] bowel control during functional movements. Not met Measurement Advisor Goals: To Be Met in 12 Visits: [...] sexual activity without discomfort or pain. [email or web address] [email or web address] Not available 04/20/2024 13:08:02 06/15/2024 06/15/2024 Upon [...] bilaterally to improve pelvic girdle muscle balance Measurement Advisor Goals: To Be Met in 12 Visits: [...] to improve pelvic girdle muscle balance [email or web address] [email or web address] Not available 06/15/2024 12:55:33 06/28/2024 06/28/2024 1. [...] None recorded. Lab urinalysis, dipstick 2023 024 [facility] [address] [place] [address], [place], [address], 4 11:40:39 urinalysis complete, reflex culture 2023 024 [facility] [place] [facility], [facility] [address], [address], 09/25/202 4 14:47:12 genetic screen, unspecified specimen 2023 024 [facility] Only - [place] [facility], [address] [place] [address], [address], 4 10:22:13 CT + NG DNA, PCR, unspecified specimen 2023 024 [facility] Only - [place] [facility], [address] [place] [address], [address], 4 09:14:28 obstetric screen + HIV, serum or blood 2023 [facility] Only - [place] [facility], [address] [place] [address], 6[address], 4 15:00:03 hepatitis C Ab, serum 2023 [facility] Only - [place] [facility], [address] [place] [address], 867[address], 4 15:46:09 culture + sensitivity , urine 2023 [email or web address] [place] [facility] [place], [address] [place] [address], [address], 4 09:32:45 wet mount, vaginal 2023 Count includes the [facility] Only - [facility], [address] [place] [address], [address], 4 14:17:30 Referral None recorded. Procedures None recorded. Surgeries None recorded. Imaging None recorded. Medication Orders None recorded. Patient TargetsNo targets recorded. Patient InstructionsNo instructions recorded. Reason for Referral None Reported. Results Created Date Observation Date Name Description Value Unit Range Abnormal Flag Note LastModifiedBy Organization Detail LastModifiedTime 03/24/20 24 03/24/2024 wet mount elaine wet prep Not Available [facility] [address] [place] [address], [id number], 03/24/2024 13:04:04 03/24/20 24 03/24/2024 wet mount , vagin al yeast NONE SEEN none seen Not Available [facility] [address] [place] [address], 774[address], 03/24/2024 13:04:04 03/24/20 24 03/24/2024 wet mount , vagin al WBC FEW none seen abnormal Not Available [facility] [address] [place] [address], 50736, 03/24/2024 13:04:04 03/24/20 24 03/24/2024 wet mount , vagin al clue cells POSITI VE negati ve abnormal Clue Cell Inter preta tion: Posit ryan Resul t = >20% Clue Cells Seen Negat ryan Resul t = <20% Clue Cells Seen Not Available [facility] [address] [place] [address], 567[address], 03/24/2024 13:04:04 03/24/20 24 03/24/2024 wet mount , vagin al trichomonas NONE SEEN none seen Not Available [facility] [address] [place] [address], 53720, 03/24/2024 13:04:04 03/24/20 24 03/24/2024 wet mount , vagin al source VAG Not Available [facility] [address] [place] [address], [id number], 03/24/2024 13:04:04 03/24/20 24 03/24/2024 hepat itis C Ab, serum hepatitis C Ab NONREA CTIVE nonrea ctive Not Available [facility] [address] [place] [address], [id number], 03/24/2024 15:46:09 03/24/20 24 03/25/2024 CT + NG DNA, PCR, unspe cifie d speci men GC/CT/TV DNA probe Not Available [facility] [address] [place] [address], [id number], 03/25/2024 09:14:28 03/24/20 24 03/25/2024 CT + NG DNA, PCR, unspe cifie d speci men GC-DNA probe NEGATI VE negati ve Not Available [facility] [address] [place] [address], 317[address], 03/25/2024 09:14:28 03/24/20 24 03/25/2024 CT + [...] o-leg al indic ation s. Not Available [facility] [address] [place] [address], 32156, 03/25/2024 09:14:28 03/24/20 24 03/25/2024 CT + NG DNA, PCR, unspe cifie d speci men trichomonas NEGATI VE negati ve Not Available [facility] [address] [place] [address], 81941, 03/25/2024 09:14:28 03/24/20 24 03/24/2024 obste tric scree n + HIV, serum or blood rubella virus IgG Ab 82.1 IU/mL <5 IU/mL = Absen ce of immun ity 5 - <10 IU/mL = Equiv ocal >10 IU/mL = Presu med immun e Not Available [facility] [address] [place] [address], 08419, 03/25/2024 10:38:47 03/24/20 24 03/24/2024 obste tric scree n + HIV, serum or blood hepatitis B surface Ag NONREA CTIVE nonrea ctive Not Available [facility] [address] [place] [address], 68604, 03/25/2024 10:38:47 03/24/20 24 03/24/2024 obste tric scree n + HIV, serum or blood WBC 9.2 K/uL 3.8-11 .2 Not Available [facility] [address] [place] [address], 08277, 03/25/2024 10:38:47 03/24/20 24 03/24/2024 obste tric scree n + HIV, serum or blood RBC 4.77 M/uL 3.92-5 .10 Not Available [facility] [address] [place] [address], 51539, 03/25/2024 10:38:47 03/24/20 24 03/24/2024 obste tric scree n + HIV, serum or blood HGB 13.9 g/dL 11.8-1 5.3 Not Available [facility] [address] [place] [address], 98069, 03/25/2024 10:38:47 03/24/20 24 03/24/2024 obste tric scree n + HIV, serum or blood HCT 41.6 % 36.5-4 4.8 Not Available [facility] [address] [place] [address], 57495, 03/25/2024 10:38:47 03/24/20 24 03/24/2024 obste tric scree n + HIV, serum or blood MCV 87.2 fL 80.0-9 9.0 Not Available [facility] [address] [place] [address], 47226, 03/25/2024 10:38:47 03/24/20 24 03/24/2024 obste tric scree n + HIV, serum or blood MCH 29.1 pg 25.5-3 3.6 Not Available [facility] [address] [place] [address], 38010, 03/25/2024 10:38:47 03/24/20 24 03/24/2024 obste tric scree n + HIV, serum or blood MCHC 33.4 g/dL 32.0-3 6.0 Not Available [facility] [address] [place] [address], 73034, 03/25/2024 10:38:47 03/24/20 24 03/24/2024 obste tric scree n + HIV, serum or blood RDW-SD 45.3 fL 35.1 - 46.3 Not Available [facility] [address] [place] [address], 10633, 03/25/2024 10:38:47 03/24/20 24 03/24/2024 obste tric scree n + HIV, serum or blood plt 231 K/uL 130-40 0 Not Available [facility] [address] [place] [address], 63838, 03/25/2024 10:38:47 03/24/20 24 03/24/2024 obste tric scree n + HIV, serum or blood MPV 9.8 fL 9.3-12 .8 Not Available [facility] [address] [place] [address], 84480, 03/25/2024 10:38:47 03/24/20 24 03/24/2024 obste tric scree n + HIV, serum or blood HIV Ag/Ab 1-2 combo NONREA CTIVE nonrea ctive Not Available [facility] [address] [place] [address], 32090, 03/25/2024 10:38:47 03/24/20 24 03/25/2024 obste tric scree n + HIV, serum or blood OB panel plus HIV 1-2 cmb Not Available [facility] [address] [place] [address], 01949, 03/25/2024 10:38:47 03/24/20 24 03/25/2024 obste tric scree n + HIV, serum or blood ABO group A Not Available [facility] [address] [place] [address], 42712, 03/25/2024 10:38:47 03/24/20 24 03/25/2024 obste tric scree n + HIV, serum or blood Rh factor POSITI VE Pleas e note: Prior recor ds for this patie nt's ABO / Rh type are not avail able for addit ional verif icati on. Not Available [facility] [facility] [address] [place] [address], 55276, 03/25/2024 10:38:47 03/24/20 24 03/25/2024 obste tric scree n + HIV, serum or blood Ab screen NEGATI VE negati ve Not Available [facility] [address] [place] [address], 28870, 03/25/2024 10:38:47 03/24/20 24 03/25/2024 obste tric scree n + HIV, serum or blood RPR with reflex NONREA CTIVE nonrea ctive Not Available [facility] [facility] [address] [place] [address], 38067, 03/25/2024 10:38:47 03/24/20 24 03/24/2024 obste tric scree n + HIV, serum or blood rubella virus IgG Ab 82.1 IU/mL <5 IU/mL = Absen ce of immun ity 5 - <10 IU/mL = Equiv ocal >10 IU/mL = Presu med immun e Not Available [place] [facility] [address] [place] [address], 35334, 03/25/2024 07:41:57 03/24/20 24 03/24/2024 obste tric scree n + HIV, serum or blood hepatitis B surface Ag Nonrea ctive nonrea ctive Not Available [facility] [address] [place] [address], 72521, 03/25/2024 07:41:57 03/24/20 24 03/24/2024 obste tric scree n + HIV, serum or blood WBC 9.2 K/uL 3.8-11 .2 Not Available [facility] [address] [place] [address], 81596, 03/25/2024 07:41:57 03/24/20 24 03/24/2024 obste tric scree n + HIV, serum or blood RBC 4.77 M/uL 3.92-5 .10 Not Available [facility] [address] [place] [address], 69707, 03/25/2024 07:41:57 03/24/20 24 03/24/2024 obste tric scree n + HIV, serum or blood HGB 13.9 g/dL 11.8-1 5.3 Not Available [facility] [address] [place] [address], 39670, 03/25/2024 07:41:57 03/24/20 24 03/24/2024 obste tric scree n + HIV, serum or blood HCT 41.6 % 36.5-4 4.8 Not Available [facility] [address] [place] [address], 85198, 03/25/2024 07:41:57 03/24/20 24 03/24/2024 obste tric scree n + HIV, serum or blood MCV 87.2 fL 80.0-9 9.0 Not Available [facility] [address] [place] [address], 17025, 03/25/2024 07:41:57 03/24/20 24 03/24/2024 obste tric scree n + HIV, serum or blood MCH 29.1 pg 25.5-3 3.6 Not Available [facility] [address] [place] [address], 34292, 03/25/2024 07:41:57 03/24/20 24 03/24/2024 obste tric scree n + HIV, serum or blood MCHC 33.4 g/dL 32.0-3 6.0 Not Available [facility] [address] [place] [address], 31674, 03/25/2024 07:41:57 03/24/20 24 03/24/2024 obste tric scree n + HIV, serum or blood RDW-SD 45.3 fL 35.1 - 46.3 Not Available [facility] [address] [place] [address], 71333, 03/25/2024 07:41:57 03/24/20 24 03/24/2024 obste tric scree n + HIV, serum or blood plt 231 K/uL 130-40 0 Not Available [facility] [address] [place] [address], 97932, 03/25/2024 07:41:57 03/24/20 24 03/24/2024 obste tric scree n + HIV, serum or blood MPV 9.8 fL 9.3-12 .8 Not Available [facility] [address] [place] [address], 99601, 03/25/2024 07:41:57 03/24/20 24 03/24/2024 obste tric scree n + HIV, serum or blood HIV Ag/Ab 1-2 combo Nonrea ctive nonrea ctive Not Available [facility] [address] [place] [address], 71088, 03/25/2024 07:41:57 03/24/20 24 03/25/2024 obste tric scree n + HIV, serum or blood OB panel plus HIV 1-2 cmb Not Available [facility] [address] [place] [address], 53978, 03/25/2024 07:41:57 03/24/20 24 03/25/2024 obste tric scree n + HIV, serum or blood ABO group PENDIN G Not Available [place] Only - [facility] [address] [place] [address], 97138, 03/25/2024 07:41:57 03/24/20 24 03/25/2024 obste tric scree n + HIV, serum or blood Rh factor PENDIN G Not Available [facility] - [facility] [address] [place] [address], 97653, 03/25/2024 07:41:57 03/24/20 24 03/25/2024 obste tric scree n + HIV, serum or blood Ab screen PENDIN G Not Available [facility] [address] [place] [address], 33290, 03/25/2024 07:41:57 03/24/20 24 03/25/2024 obste tric scree n + HIV, serum or blood RPR with reflex Nonrea ctive nonrea ctive Not Available [facility] [address] [place] [address], 35443, 03/25/2024 07:41:57 03/24/20 24 03/24/2024 obste tric scree n + HIV, serum or blood OB panel plus HIV 1-2 cmb Not Available [facility] [address] [place] [address], 15465, 03/24/2024 15:36:46 03/24/20 24 03/24/2024 obste tric scree n + HIV, serum or blood ABO group PENDIN G Not Available [facility] [address] [place] [address], 82233, 03/24/2024 15:36:46 03/24/20 24 03/24/2024 obste tric scree n + HIV, serum or blood Rh factor PENDIN G Not Available [facility] [address] [place] [address], 44014, 03/24/2024 15:36:46 03/24/20 24 03/24/2024 obste tric scree n + HIV, serum or blood Ab screen PENDIN G Not Available [facility] [address] [place] [address], 95308, 03/24/2024 15:36:46 03/24/20 24 03/24/2024 obste tric scree n + HIV, serum or blood rubella virus IgG Ab 82.1 IU/mL <5 IU/mL = Absen ce of immun ity 5 - <10 IU/mL = Equiv ocal >10 IU/mL = Presu med immun e Not Available [facility] [address] [place] [address], 51110, 03/24/2024 15:36:46 03/24/20 24 03/24/2024 obste tric scree n + HIV, serum or blood hepatitis B surface Ag Nonrea ctive nonrea ctive Not Available [facility] [address] [place] [address], 89471, 03/24/2024 15:36:46 03/24/20 24 03/24/2024 obste tric scree n + HIV, serum or blood RPR with reflex PENDIN G Not Available [facility] [address] [place] [address], 11457, 03/24/2024 15:36:46 03/24/20 24 03/24/2024 obste tric scree n + HIV, serum or blood WBC 9.2 K/uL 3.8-11 .2 Not Available [facility] [address] [place] [address], 53817, 03/24/2024 15:36:46 03/24/20 24 03/24/2024 obste tric scree n + HIV, serum or blood RBC 4.77 M/uL 3.92-5 .10 Not Available [facility] [address] [place] [address], 82256, 03/24/2024 15:36:46 03/24/20 24 03/24/2024 obste tric scree n + HIV, serum or blood HGB 13.9 g/dL 11.8-1 5.3 Not Available [facility] [address] [place] [address], 60070, 03/24/2024 15:36:46 03/24/20 24 03/24/2024 obste tric scree n + HIV, serum or blood HCT 41.6 % 36.5-4 4.8 Not Available [facility] [address] [place] [address], 56273, 03/24/2024 15:36:46 03/24/20 24 03/24/2024 obste tric scree n + HIV, serum or blood MCV 87.2 fL 80.0-9 9.0 Not Available [facility] [address] [place] [address], 38114, 03/24/2024 15:36:46 03/24/20 24 03/24/2024 obste tric scree n + HIV, serum or blood MCH 29.1 pg 25.5-3 3.6 Not Available [facility] [address] [place] [address], 90306, 03/24/2024 15:36:46 03/24/20 24 03/24/2024 obste tric scree n + HIV, serum or blood MCHC 33.4 g/dL 32.0-3 6.0 Not Available [facility] [address] [place] [address], 27946, 03/24/2024 15:36:46 03/24/20 24 03/24/2024 obste tric scree n + HIV, serum or blood RDW-SD 45.3 fL 35.1 - 46.3 Not Available [facility] [address] [place] [address], 19456, 03/24/2024 15:36:46 03/24/20 24 03/24/2024 obste tric scree n + HIV, serum or blood plt 231 K/uL 130-40 0 Not Available [facility] [address] [place] [address], 26478, 03/24/2024 15:36:46 03/24/20 24 03/24/2024 obste tric scree n + HIV, serum or blood MPV 9.8 fL 9.3-12 .8 Not Available [facility] [address] [place] [address], 94112, 03/24/2024 15:36:46 03/24/20 24 03/24/2024 obste tric scree n + HIV, serum or blood HIV Ag/Ab 1-2 combo Nonrea ctive nonrea ctive Not Available [facility] [address] [place] [address], 11359, 03/24/2024 15:36:46 03/24/20 24 03/24/2024 obste tric scree n + HIV, serum or blood OB panel plus HIV 1-2 cmb Not Available [facility] [address] [place] [address], 69964, 03/24/2024 15:24:26 03/24/20 24 03/24/2024 obste tric scree n + HIV, serum or blood ABO group PENDIN G Not Available [facility] [address] [place] [address], 76916, 03/24/2024 15:24:26 03/24/20 24 03/24/2024 obste tric scree n + HIV, serum or blood Rh factor PENDIN G Not Available [facility] [address] [place] [address], 63023, 03/24/2024 15:24:26 03/24/20 24 03/24/2024 obste tric scree n + HIV, serum or blood Ab screen PENDIN G Not Available [facility] [address] [place] [address], 37378, 03/24/2024 15:24:26 03/24/20 24 03/24/2024 obste tric scree n + HIV, serum or blood rubella virus IgG Ab 82.1 IU/mL <5 IU/mL = Absen ce of immun ity 5 - <10 IU/mL = Equiv ocal >10 IU/mL = Presu med immun e Not Available [facility] [address] [place] [address], 08497, 03/24/2024 15:24:26 03/24/20 24 03/24/2024 obste tric scree n + HIV, serum or blood hepatitis B surface Ag Nonrea ctive nonrea ctive Not Available [facility] [address] [place] [address], 74636, 03/24/2024 15:24:26 03/24/20 24 03/24/2024 obste tric scree n + HIV, serum or blood RPR with reflex PENDIN G Not Available [facility] [address] [place] [address], 76424, 03/24/2024 15:24:26 03/24/20 24 03/24/2024 obste tric scree n + HIV, serum or blood WBC 9.2 K/uL 3.8-11 .2 Not Available [facility] [address] [place] [address], 00687, 03/24/2024 15:24:26 03/24/20 24 03/24/2024 obste tric scree n + HIV, serum or blood RBC 4.77 M/uL 3.92-5 .10 Not Available [facility] [address] [place] [address], 22365, 03/24/2024 15:24:26 03/24/20 24 03/24/2024 obste tric scree n + HIV, serum or blood HGB 13.9 g/dL 11.8-1 5.3 Not Available [facility] [address] [place] [address], 23866, 03/24/2024 15:24:26 03/24/20 24 03/24/2024 obste tric scree n + HIV, serum or blood HCT 41.6 % 36.5-4 4.8 Not Available [facility] [address] [place] [address], 99051, 03/24/2024 15:24:26 03/24/20 24 03/24/2024 obste tric scree n + HIV, serum or blood MCV 87.2 fL 80.0-9 9.0 Not Available [facility] [address] [place] [address], 83860, 03/24/2024 15:24:26 03/24/20 24 03/24/2024 obste tric scree n + HIV, serum or blood MCH 29.1 pg 25.5-3 3.6 Not Available [facility] [address] [place] [address], 13411, 03/24/2024 15:24:26 03/24/20 24 03/24/2024 obste tric scree n + HIV, serum or blood MCHC 33.4 g/dL 32.0-3 6.0 Not Available [facility] [address] [place] [address], 29613, 03/24/2024 15:24:26 03/24/20 24 03/24/2024 obste tric scree n + HIV, serum or blood RDW-SD 45.3 fL 35.1 - 46.3 Not Available [facility] [address] [place] [address], 70751, 03/24/2024 15:24:26 03/24/20 24 03/24/2024 obste tric scree n + HIV, serum or blood plt 231 K/uL 130-40 0 Not Available [facility] [address] [place] [address], 90314, 03/24/2024 15:24:26 03/24/20 24 03/24/2024 obste tric scree n + HIV, serum or blood MPV 9.8 fL 9.3-12 .8 Not Available [facility] [address] [place] [address], 25580, 03/24/2024 15:24:26 03/24/20 24 03/24/2024 obste tric scree n + HIV, serum or blood HIV Ag/Ab 1-2 combo PENDIN G Not Available [facility] [address] [place] [address], 90141, 03/24/2024 15:24:26 03/24/20 24 03/24/2024 obste tric scree n + HIV, serum or blood OB panel plus HIV 1-2 cmb Not Available [facility] [address] [place] [address], 03156, 03/24/2024 15:18:01 03/24/20 24 03/24/2024 obste tric scree n + HIV, serum or blood ABO group PENDIN G Not Available [facility] [address] [place] [address], 73219, 03/24/2024 15:18:01 03/24/20 24 03/24/2024 obste tric scree n + HIV, serum or blood Rh factor PENDIN G Not Available [facility] [address] [place] [address], 86888, 03/24/2024 15:18:01 03/24/20 24 03/24/2024 obste tric scree n + HIV, serum or blood Ab screen PENDIN G Not Available [facility] [address] [place] [address], 99731, 03/24/2024 15:18:01 03/24/20 24 03/24/2024 obste tric scree n + HIV, serum or blood rubella virus IgG Ab 82.1 IU/mL <5 IU/mL = Absen ce of immun ity 5 - <10 IU/mL = Equiv ocal >10 IU/mL = Presu med immun e Not Available [facility] [address] [place] [address], 87905, 03/24/2024 15:18:01 03/24/20 24 03/24/2024 obste tric scree n + HIV, serum or blood hepatitis B surface Ag PENDIN G Not Available [facility] - [facility] [address] [place] [address], 60168, 03/24/2024 15:18:01 03/24/20 24 03/24/2024 obste tric scree n + HIV, serum or blood RPR with reflex PENDIN G Not Available [facility] - [facility] [address] [place] [address], 11850, 03/24/2024 15:18:01 03/24/20 24 03/24/2024 obste tric scree n + HIV, serum or blood WBC 9.2 K/uL 3.8-11 .2 Not Available [facility] [address] [place] [address], 64439, 03/24/2024 15:18:01 03/24/20 24 03/24/2024 obste tric scree n + HIV, serum or blood RBC 4.77 M/uL 3.92-5 .10 Not Available [facility] [address] [place] [address], 72982, 03/24/2024 15:18:01 03/24/20 24 03/24/2024 obste tric scree n + HIV, serum or blood HGB 13.9 g/dL 11.8-1 5.3 Not Available [facility] [address] [place] [address], 66911, 03/24/2024 15:18:01 03/24/20 24 03/24/2024 obste tric scree n + HIV, serum or blood HCT 41.6 % 36.5-4 4.8 Not Available [facility] [address] [place] [address], 91284, 03/24/2024 15:18:01 03/24/20 24 03/24/2024 obste tric scree n + HIV, serum or blood MCV 87.2 fL 80.0-9 9.0 Not Available [facility] [address] [place] [address], 63552, 03/24/2024 15:18:01 03/24/20 24 03/24/2024 obste tric scree n + HIV, serum or blood MCH 29.1 pg 25.5-3 3.6 Not Available [facility] [address] [place] [address], 16095, 03/24/2024 15:18:01 03/24/20 24 03/24/2024 obste tric scree n + HIV, serum or blood MCHC 33.4 g/dL 32.0-3 6.0 Not Available [facility] [address] [place] [address], 24559, 03/24/2024 15:18:01 03/24/20 24 03/24/2024 obste tric scree n + HIV, serum or blood RDW-SD 45.3 fL 35.1 - 46.3 Not Available [facility] [address] [place] [address], 90453, 03/24/2024 15:18:01 03/24/20 24 03/24/2024 obste tric scree n + HIV, serum or blood plt 231 K/uL 130-40 0 Not Available [facility] [address] [place] [address], [id number], 03/24/2024 15:18:01 03/24/20 24 03/24/2024 obste tric scree n + HIV, serum or blood MPV 9.8 fL 9.3-12 .8 Not Available [facility] [address] [place] [address], [id number], 03/24/2024 15:18:01 03/24/20 24 03/24/2024 obste tric scree n + HIV, serum or blood HIV Ag/Ab 1-2 combo PENDIN G Not Available [facility] [address] [place] [address], [id number], 03/24/2024 15:18:01 03/24/20 24 03/24/2024 obste tric scree n + HIV, serum or blood OB panel plus HIV 1-2 cmb Not Available [facility] [address] [place] [address], [id number], 03/24/2024 15:00:03 03/24/20 24 03/24/2024 obste tric scree n + HIV, serum or blood ABO group PENDIN G Not Available [facility] [address] [place] [address], [id number], 03/24/2024 15:00:03 03/24/20 24 03/24/2024 obste tric scree n + HIV, serum or blood Rh factor PENDIN G Not Available [facility] [address] [place] [address], [id number], 03/24/2024 15:00:03 03/24/20 24 03/24/2024 obste tric scree n + HIV, serum or blood Ab screen PENDIN G Not Available [facility] [address] [place] [address], [id number], 03/24/2024 15:00:03 03/24/20 24 03/24/2024 obste tric scree n + HIV, serum or blood rubella virus IgG Ab PENDIN G Not Available [facility] [address] [place] [address], [id number], 03/24/2024 15:00:03 03/24/20 24 03/24/2024 obste tric scree n + HIV, serum or blood hepatitis B surface Ag PENDIN G Not Available [facility] [address] [place] [address], [id number], 03/24/2024 15:00:03 03/24/20 24 03/24/2024 obste tric scree n + HIV, serum or blood RPR with reflex PENDIN G Not Available [facility] [address] [place] [address], [id number], 03/24/2024 15:00:03 03/24/20 24 03/24/2024 obste tric scree n + HIV, serum or blood WBC 9.2 K/uL 3.8-11 .2 Not Available [facility] [address] [place] [address], [id number], 03/24/2024 15:00:03 03/24/20 24 03/24/2024 obste tric scree n + HIV, serum or blood RBC 4.77 M/uL 3.92-5 .10 Not Available [facility] [address] [place] [address], [id number], 03/24/2024 15:00:03 03/24/20 24 03/24/2024 obste tric scree n + HIV, serum or blood HGB 13.9 g/dL 11.8-1 5.3 Not Available [facility] [address] [place] [address], [id number], 03/24/2024 15:00:03 03/24/20 24 03/24/2024 obste tric scree n + HIV, serum or blood HCT 41.6 % 36.5-4 4.8 Not Available [facility] [address] [place] [address], [id number], 03/24/2024 15:00:03 03/24/20 24 03/24/2024 obste tric scree n + HIV, serum or blood MCV 87.2 fL 80.0-9 9.0 Not Available [facility] [address] [place] [address], [id number], 03/24/2024 15:00:03 03/24/20 24 03/24/2024 obste tric scree n + HIV, serum or blood MCH 29.1 pg 25.5-3 3.6 Not Available [facility] [address] [place] [address], [id number], 03/24/2024 15:00:03 03/24/20 24 03/24/2024 obste tric scree n + HIV, serum or blood MCHC 33.4 g/dL 32.0-3 6.0 Not Available [facility] [address] [place] [address], [id number], 03/24/2024 15:00:03 03/24/20 24 03/24/2024 obste tric scree n + HIV, serum or blood RDW-SD 45.3 fL 35.1 - 46.3 Not Available [facility] [address] [place] [address], [id number], 03/24/2024 15:00:03 03/24/20 24 03/24/2024 obste tric scree n + HIV, serum or blood plt 231 K/uL 130-40 0 Not Available [facility] [address] [place] [address], [id number], 03/24/2024 15:00:03 03/24/20 24 03/24/2024 obste tric scree n + HIV, serum or blood MPV 9.8 fL 9.3-12 .8 Not Available [facility] [address] [place] [address], 21630, 03/24/2024 15:00:03 03/24/20 24 03/24/2024 obste tric scree n + HIV, serum or blood HIV Ag/Ab 1-2 combo PENDIN G Not Available [facility] [address] [place] [address], [id number], 03/24/2024 15:00:03 04/20/20 24 04/20/2024 urina lysis compl ete, refle x cultu re urinalysis w/reflex cult LOW LEVEL S OF HEMOG LOBIN IN ABSEN CE OF HEMAT URIA MAY NOT BE CLINI ANGELICA GABRIEL Seg[place] Not Available [facility] [address] [place] [address], 53217, 04/20/2024 14:47:12 04/20/20 24 04/20/2024 urina lysis compl ete, refle x cultu re color YELLOW Not Available [facility] [address] [place] [address], [id number], 04/20/2024 14:47:12 04/20/20 24 04/20/2024 urina lysis compl ete, refle x cultu re clarity CLEAR Not Available [facility] [address] [place] [address], [id number], 04/20/2024 14:47:12 04/20/20 24 04/20/2024 urina lysis compl ete, refle x cultu re pH 5.5 5.0-7. 5 Not Available [facility] [address] [place] [address], 58671, 04/20/2024 14:47:12 04/20/20 24 04/20/2024 urina lysis compl ete, refle x cultu re specific gravity 1.027 1.000- 1.030 Not Available [facility] [address] [place] [address], 92842, 04/20/2024 14:47:12 04/20/20 24 04/20/2024 urina lysis compl ete, refle x cultu re blood NEGATI VE negati ve Not Available [facility] [address] [place] [address], 29772, 04/20/2024 14:47:12 04/20/20 24 04/20/2024 urina lysis compl ete, refle x cultu re bilirubin NEGATI VE negati ve Not Available [facility] [address] [place] [address], 49374, 04/20/2024 14:47:12 04/20/20 24 04/20/2024 urina lysis compl ete, refle x cultu re urobilinogen 0.2 0.2-1. 0 Not Available [facility] [address] [place] [address], 63161, 04/20/2024 14:47:12 04/20/20 24 04/20/2024 urina lysis compl ete, refle x cultu re ketone TRACE negati ve abnormal Not Available [facility] [address] [place] [address], 88693, 04/20/2024 14:47:12 04/20/20 24 04/20/2024 urina lysis compl ete, refle x cultu re glucose NEGATI VE negati ve Not Available [facility] [address] [place] [address], 83603, 04/20/2024 14:47:12 04/20/20 24 04/20/2024 urina lysis compl ete, refle x cultu re protein TRACE negati ve abnormal Not Available [facility] [address] [place] [address], 70255, 04/20/2024 14:47:12 04/20/20 24 04/20/2024 urina lysis compl ete, refle x cultu re nitrite NEGATI VE negati ve Not Available [facility] [address] [place] [address], 07555, 04/20/2024 14:47:12 04/20/20 24 04/20/2024 urina lysis compl ete, refle x cultu re leukocytes NEGATI VE negati ve Not Available [facility] [address] [place] [address], 76411, 04/20/2024 14:47:12 04/20/20 24 04/20/2024 urina lysis compl ete, refle x cultu re RBC 0-2 0-2/hp f Not Available [facility] [address] [place] [address], 16683, 04/20/2024 14:47:12 04/20/20 24 04/20/2024 urina lysis compl ete, refle x cultu re WBC 0-5 0-5/hp f Not Available [facility] [address] [place] [address], 93105, 04/20/2024 14:47:12 04/20/20 24 04/20/2024 urina lysis compl ete, refle x cultu re squamous epithelial 3-5 0-10/h pf Not Available [facility] [address] [place] [address], 50287, 04/20/2024 14:47:12 04/20/20 24 04/20/2024 urina lysis compl ete, refle x cultu re bacteria NONE SEEN none Not Available [facility] [address] [place] [address], 36360, 04/20/2024 14:47:12 04/20/20 24 04/20/2024 urina lysis compl ete, refle x cultu re hyaline cast 0-2 0-2/lp f Not Available [facility] [address] [place] [address], 75628, 04/20/2024 14:47:12 04/20/20 24 04/29/2024 nancy ic scree n, unspe cifie d speci men CF/sma panel Not Available [facility] [address] [place] [address], 03221, 04/29/2024 10:48:47 04/20/2004/29/2024 nancy ic scree n, unspe cifie d speci men results * Speci men colle cted and sent out for testi ng by [facility]. Resul ts will flow into the elect ronic recor d and the provi dioni will recei ve a 'Revi ew Docum ent' task at that time. Not Available [facility] [address], [address], 04/29/2024 10:48:47 04/20/20 24 04/20/2024 urina lysis , dipst ick Protein Negati ve Not Available [address] ([place]) [address] [place] [address], [address], 04/20/2024 11:18:28 04/20/20 24 04/20/2024 urina lysis , dipst ick Glucose Negati ve Not Available [address] [place] [address] [place] [address], [address], 04/20/2024 11:18:28 03/24/20 24 03/24/2024 US, obste tric, 1st trime ster, singl e gesta tion [facility] [address] [place] [address] Teleph one Name: Mami Rodriguez 1512 Exam Date: 2023 Age: 28 Physic ernesto: MD Henyr, Marilyn oh : 1994 Examin ation: US [...] ty is confir med at 161 bpm. Singac- rump length measur es 1.61 cm, consis [...] 5:00 PM cc: Page PAGE 1 of [facility] ES 1 INTERFACE [facility] Only - [facility] [address] [place] [address], [address], 03/24/2024 18:02:52 Result Notes None recorded. Problems Name Problem SNOMED Code Status Onset Date Resolution Date Notes Provider Name and Address Organization Details Recorded Time Normal in primigrav larslan 938354669918 103 [facility] 4 10:54:40 03158376 Active 2023 [facility] 4 10:53:49 Normal in primigrav osmani 673979525787 103 Active 2023 [facility] 4 10:54:40 Maternal exposure to radiation 177597119 Active 2023 Lives by substatio n and exposed to radiation [facility]FM [facility]me nt [facility] 4 10:59:18 Maternal exposure to radiation 009358425 Active 2023 Lives by substatio n and exposed to radiation [facility] appointme nt pending [facility] 4 10:59:18 Bacterial vaginosis 411708094 Active 2023 [facility] 4 15:04:55 Gestation period, 12 weeks 41681242 Active 2023 [facility] 4 14:20:44 Scalding pain on urination 94790809 Active [address] [facility] 4 11:24:54 Burning mouth syndrome 835064456 Active 2023 AUTUMN MORA PA-C [address] , [place], [address], [facility] 4 17:01:22 Temporoma ndibular joint disorder 14093764 Active 2023 AUTUMN MORA PA-C [address] , [place], [address], [facility] 4 17:01:44 Gynecolog ic examinati on Active [address] [facility] 4 10:41:31 Pruritus of vagina 73146147 Active [address] [facility] 4 15:36:59 Inflammat ion of vestibule of vulva 23142084 Active 2023 Sharona Mckeon MD [address] , [place], [address], [facility] 4 16:13:03 Vaginal irritatio n 425250409 Active [address] [facility] 4 16:13:53 Vaginal discharge 291612946 Active 2023 Lauren Sanders [facility], [facility] 4 16:56:25 Pain in pelvis 45314992 Active 2023 Sabrina Gonzales-Mat on, DPT [address] [facility], [place], [address], [facility] 4 16:57:24 Pelvic floor dysfuncti on 602155176 Active 2023 Sabrina Gonzales-Mat on, DPT [address] [place], [address], [facility] 4 16:57:29 Problem Notes Documentation Provider Name and Address Organization Details Recorded Time Lab Support Technician And Gynecologis t Consult Note : [facility] [address] [address] Mami Call 28yo F 1995 #[id number] __RESTYLEDFOOTER__ 03/24/2024 Jonny Mar DO, I would like to thank you for referring Mami Call to our practice on 03/24/2024. I have enclosed a copy of the office evaluation for your records. Once again, thank you for allowing me to participate in the care of this patient. Sincerely,Electronically Signed by: SHARONA MCKEON MD Encounter Reason/Date New OB, ultrasound 03/24/2024 - 10:00AM - [facility] ([place])ProblemsReviewed Problems Maternal exposure to radiation - Onset: 03/24/2024 - [place] and exposed to [place] M appointment pending Vaginal irritation - Onset: 12/10/2023 [...] OnsetDate: 10/21/2006; Medications Reviewed Medications NameDate Source Zotxsobz75/29/24 entered Kim Lacy Family HistoryReviewed Family History [...] DirectiveDo you have a medical power of farm service adviser?: NoAlcohol use, Last Assessed: 09 Jan 2022 3:31PM Type: Chronic Last Edited: 10 Jan 2022 9:17AM ICD9 Code: V49.89 Last Reviewed Date: 20220110 SnomedCode: 682970 ICD10 Code: Z78.9 LastAssessedBy: STACI WOLFF Caffeine use, Last Assessed: 09 Jan 2022 3:31PM Type: Chronic Last Edited: 10 Jan 2022 9:17AM ICD9 Code: V49.89 Last Reviewed Date: 20220110 SnomedCode: 53356677814897 ICD10 Code: Z78.9 LastAssessedBy: STACI WOLFF Currently attends college, Last Assessed: 29 Nov 2019 9:09AM Type: Chronic Identified By: BALJINDER (FAMILY PRACTICE)CHIQUITA Last Edited: 29 Nov 2019 9:10AM Last Reviewed Date: 20191129 SnomedCode: 397294986 LastAssessedBy: BALJINDER (FAMILY PRACTICE)CHIQUITA (Family Medicine) 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)CHIQUITA Last Edited: 29 Nov 2019 9:10AM Last Reviewed Date: 20191129 SnomedCode: 006363505 LastAssessedBy: BALJINDER ([facility])CHIQUITA ([facility]) History of Exercises occasionally: Denied, Last Assessed: 09 Jan 2022 3:31PM Type: Chronic Identified By: BALJINDER ([facility])CHIQUITA Last Edited: 09 Jan 2022 3:31PM ICD9 Code: V49.89 Last Reviewed Date: 20220109 SnomedCode: 497295014 Category: History of ICD10 Code: Z78.9 LastAssessedBy: MARIELLASTACI Never a smoker, Last Assessed: 31 May 2020 9:35AM Type: Chronic Last Edited: 31 May 2020 9:36AM Last Reviewed Date: 20200531 SnomedCode: 712403898 LastAssessedBy: DIMAS SONI Surgical HistoryReviewed Surgical History [...] radiation exposure. She was referred to [facility] for this and genetic counseling. [...] DocumentationNone recordedAssessment/Plan1. Normal in primigravida-Normal IUP at 7jj9cGqdd of care reviewed.Patient will be transferring care. Will continue follow up until she gets established Additional diagnosis detail: Encounter for supervision of normal first in first unakvuvalZ32.01: Encounter for supervision of normal first , first trimester GC/CT/TV DNA PROBE ([place] ONLY) OB PANEL WITH HIV ([place] ONLY) HEPATITIS C AB ([place] ONLY) URINE CULTURE AND SENSI ([place] ONLY) WET PREP ([place] ONLY) Return to Office [facility] for Lab.[place] at [address] Lab ([place]) on 03/24/2024 at 12:01 PM Sabrina Cancino DPT for PT Return Visit 60.EST at [address] [facility] PT ([place]) on 04/12/2024 at 03:30 PM Sharona Mckeon MD for OB Check 15.EST at [address] [facility] ([place]) on 04/21/2024 at 12:45 PM Talita Brooks MD for Established Patient 15.EST at W 4th ENT ([place]) on 06/15/2024 at 11:00 AM Sharona Mckeon MD for Annual Well Woman Visit 15.EST at [address] [facility] ([place]) on 12/15/2024 at 01:[address] [facility] 10/05/2024 16:16:08 [facility] [address] [address]GGAQVJZ, Lydia J (id #[id number], : 1995) Date: 4RE: Mami Call, : 1995, PT ID #[id number] Mar , Mami Call was seen in our office [...] bilaterally to improve pelvic girdle muscle balance Measurement Advisor Goals:To Be Met in 12 Visits:1. Patient [...] girdle muscle balance dn 1. Pain in rkgyjiK20.2: Pelvic and perineal pain 2. Pelvic floor zknvhzfttmoI36.9: Disorder of muscle, unspecified Return to Office AUTUMN MORA PA-C for Established Patient 15.EST at [facility] ([place]) on 06/20/2024 at 01:45 PM Sabrina Cancino DPT for PT Return Visit 60.EST at [address] 2[address] PT ([place]) on 07/14/2024 at 11:00 AM Rigo Mar, DO [address], [address], [facility] 06/15/2024 13:59:51 Procedures Surgical History Date Name Laterality Status Provider Name and Address Organization Details Recorded Time 12/30/2021 Date of Last Pap Smear completed Soha Sanches [facility] 12/10/2023 15:37:17 Imaging Results None recorded. Procedure Notes None recorded. Medical Equipment None Reported. Allergies Allergen ID Allergen Name Allergen Category Reaction Reaction Severity Criticality Documentation Date Start Date Code Code System Note Provider Name and Address Organization Details Recorded Time 2677120 latex gloves medicatio n Not available Not available Not available 08/26/20232019 57385 UNK Not Available [facility] 4 04:22:43 9449423 miconazol e medicatio n Not available Not available Not available 08/26/20232019 6932 RxNorm Not Available [facility] 4 04:22:44 Medications Name Sig Start Date Stop Date [...] Updated DateTime 03/24/2024 167.64 cm 21.3 kg/m2 04022.47 g 120 mm[Hg] 64 mm[Hg] Kim Lacy [facility] 4 11:30:51 Date Recorded Body weight Systolic blood pressure Diastolic blood pressure Provider Name and Address Organization Details Last Updated DateTime 04/20/2024 57572.6884 24 g 120 mm[Hg] 72 mm[Hg] Soha Sanches [facility] 04/20/2024 11:17:25 Date Recorded Body height Body mass index (BMI) Body weight Body temperature Heart rate Systolic blood pressure Diastolic blood pressure Provider Name and Address Organization Details Last Updated DateTime 4 167.64 cm 22.9 kg/m2 23848.1 2 g 97.7 [degF] 90 /min 145 mm[Hg] 69 mm[Hg] Terry Trujillo [facility] 4 16:31:37 Social History Question Answer Notes LastModified by Organizat ion Details LastModified Time Tobacco Smoking Status Never Smoker Not Available Health Note 03/21/2024 10:22:35 Do You Have An Advance Directive? No [email or web address] Information not available 03/21/2024 What Is Your Level Of Caffeine Consumption? Occasional [email or web address] Information not available 03/21/2024 How Many Times Per Week Do You Exercise? Less Than 1 Time Per Week [email or web address] Information not available 03/21/2024 Do You Have A Medical Power Of Floor Mechanic? No [email or web address] Information not available 03/21/2024 What Was The Date Of Your Most Recent Tobacco Screening? 03/24/2024 [email or web address] Information not available 03/21/2024 What Is Your Relationship Status? [email or web address] Information not available 03/21/2024 Are You Sexually Active? Yes [email or web address] Information not available 12/10/2023 Sex: Unknown Functional Status Question Answer Note LastModified by Organizat ion Details LastModified Time Do you use any illicit or recreational drugs? No [email or web address] Information not available 03/21/2024 What is your level of alcohol consumption? None [email or web address] Information not available 03/21/2024 Are you currently employed? 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 Occasional [email or web address] Information not available 03/21/2024 Mental Status None recorded. Family History Relationship Description Onset Age of this Age Resolved Age Notes LastModified by Organization Details LastModified Time Mother Asthma [email or web address] Not availabl e 12/09/2023 10:48:03 Mother Seizure disorder [email or web address] Not available 11/24 10:49:03 Father Asthma [email or web address] Not availabl e 12/09/2023 10:48:03 Father Arthritis [email or web address] Not available 03/21/2024 10:22:34 Unspecified Relation CVA - cerebrovascu lar accident due to cerebral artery occlusion grandm other on unspec ified side [email or web address] Not available 12/09/2023 10:48:32 Unspecified Relation Diabetes mellitus grandf ather unspec ified side [email or web address] Not available 12/09/2023 10:49:32 Maternal Grandfather Myasthenia gravis [email or web address] Not available 15:38:11 Maternal Grandfather Diabetes mellitus [...] MRSA N Blood Transfusion N Emphysema N COPD N Depression N [...] Sclerosis N Colon Polyps N Heart Attack ([place]) N Psychiatric Illness N Hypospadia N Diabetes [...] Recorded Time HPV9 [address] [facility] 03/23/2024 10:54:24 HPV9 [address] [facility] 03/23/2024 10:54:24 COVID-19, mRNA, LNP-S, PF, 30 mcg/0.3 mL dose [address] [facility] 03/23/2024 10:54:24 COVID-19, mRNA, LNP-S, PF, 30 mcg/0.3 mL dose [address] [facility] 03/23/2024 10:54:24 COVID-19, mRNA, LNP-S, PF, 30 mcg/0.3 mL dose [address] [facility] 03/23/2024 10:54:24 Tdap 5 completed Kim Lacy [facility], [facility] 03/23/2024 10:54:24 varicella 8 completed Kim Baronon [facility], [facility] 03/23/2024 10:54:24 HPV, quadrivalent 6 completed Kim Lacy [facility], [facility] 03/23/2024 10:54:24 Hep B, adolescent or pediatric 8 completed Kim Baronon [facility], [facility] 03/23/2024 10:54:24 Hep B, adolescent or pediatric [address] [facility] 03/23/2024 10:54:24 meningococcal MCV4P [address] [facility] 03/23/2024 10:54:24 Past Encounters Encounter ID Performer Location Encounter Start Date Encounter Closed Date Diagnosis/Indication Diagnosis SNOMED-CT Code Diagnosis ICD10 Code Diagnosis Note [id number] Sharona Mckeon MD [address] [facility] ([place]) [address] [facility] 1 [place] [address] 12/10/2023 15:24:43 12/10/2023 16:24:22 Gynecologic examination 52666852 Z01.419 --Annual OIL SPECULATOR exam performed. --Family and personal medical history [...] syndrome screening questionna lian: up to date Inflammati on of vestibule of vulva 64896301 N94.810 Patient has been having some success with pelvic floor therapy. Still having pain with insertion at the vulva. Findings of vestibulit is on exam. Patient requests referral to vulvar specialist in [place]. Will send to Dr. Padilla. Prescripti on for lidocaine ointment also provided to be used prior to intercours e. Reshma ns provided. Vaginal irritation 83563 6004 N89.8 [id number] Bernadette Freire, HAND EMBROIDERER, PRESSER MACHINE [address] [facility] [facility] ([place]) [address] [place] [address] 12/22/2023 16:44:31 12/22/2023 18:53:42 Vaginal discharge 206514300 N89.8 [id number] Sabrina Gonzales-Markie n, DPT [address] PT ([place]) [address] [place] [address] 02/17/2024 15:59:30 02/17/2024 16:58:00 Pain in pelvis 74868201 R10.2 Pelvic jewel or dysfunction 885564975 M62.9 [id number] Sabrinanereyda Gonzales-Markie n, DPT [address] [facility] ([place]) [address] [place] [address] 02/24/2024 14:55:33 02/24/2024 16:02:16 Pain in pelvis 01002415 R10.2 Pelvic jewel or dysfunction 836687698 M62.9 [id number] Sabrina Gonzales-Markie n, DPT [address] [facility] ([place]) [address] [place] [address] 03/02/2024 15:59:13 03/02/2024 16:55:35 Pain in pelvis 29516332 R10.2 Pelvic jewel or dysfunction 431700996 M62.9 [id number] Sabrina Gonzales-Markie n, DPT [address] [facility] ([place]) [address] [place] [address] 03/16/2024 14:56:21 03/16/2024 16:06:24 Pain in pelvis 31876364 R10.2 Pelvic jewel or dysfunction 589310107 M62.9 [id number] Sharona Mckeon MD [address] [facility] ([place]) [address] [place] [address] 03/24/2024 10:20:59 03/24/2024 14:19:25 Normal in primigravida 3935478675 90467 Z34.01 Normal IUP at 4qy6zJngc of care reviewed.Shira saenz will be transferri care. Will continue follow up until she gets establishe d Additional diagnosis detail: Encounter for supervisio n of normal first in first trimester [id number] Sharona Mckeon MD [address] [facility] ([place]) [address] [place] [address] 04/20/2024 10:55:54 04/20/2024 12:35:28 Gestation period, 12 weeks 68670181 Z3A.12 Additional diagnosis detail: 12 weeks gestation of Normal pre gnancy in primigravida 6711327983 87796 Z34.01 Normal IUP at 9tb0kHvqr of care reviewed.P dany will be transferri care. Will continue follow up until she gets establishe d Additional diagnosis detail: Encounter for supervisio n of normal first in first trimester Maternal e xposure to radiation 669088635 Z84.89 screening 2437 68569 Z36.89 Additional diagnosis detail: Encounter for other specified screening Scalding p ain on urination 98628522 R30.0 Additional diagnosis detail: Burning with urination [id number] Sabrina Gonzales-Markie n, DPT [address] PT ([place]) [address] [place] [address] 04/20/2024 11:53:03 04/20/2024 13:08:26 Pain in pelvis 64204175 R10.2 Pelvic jewel or dysfunction 750244247 M62.9 [id number] Sabrina Gonzales-Markie n, DPT [address] PT ([place]) [address] [place] [address] 06/15/2024 11:54:35 06/15/2024 12:56:03 Pain in pelvis 40984803 R10.2 Pelvic jewel or dysfunction 789866937 M62.9 [id number] AUTUMN MORA PA-C [facility] ([place]) [address] [facility],4[address] [place] [address] 06/28/2024 16:16:58 06/28/2024 17:02:43 Burning mouth syndrome 711224701 K14.6 Temporoman dibular joint disorder 75676500 M26.609 Health Concerns Section Related Observation LastModified by Organization Detai ls LastModified Time None Recorded Concern Status LastModified by Organization Details LastModified Time None Recorded Advance Directives Directive N: Payers Insurance Date Sequence Insurance Name Policy Number Policy Anaya Covered Member ID Anaya Member ID Guarantor Name 07/29/2024 1 eVendor Check [employer] [place] [place] [id number] Mami Call [id number] Mami Call Notes Date Note Type Note [...] radiation exposure. She was referred to [facility] for this and genetic counseling. She is concerned about OB care due to her living 2 hours away. She does not want to transfer care and is wanting to discuss options. (Kim Lacy RN) Sharona Mckeon MD [address] [place] [address], [phone], [facility] 03/24/2024 14:17:21 04/20/2024 text/html Visit #2 Patient denies leaking of fluid and bleeding Patient states she is really fatigued and is having nausea. She wants to complete MAT 21 with gender (even though not approved through insurance) and CF/SMA. She is having burning with urination and a UA will be sent to the lab. Sharona Mckeon MD [address] [place] [address], [phone], [facility] 04/20/2024 11:28:41 04/20/2024 text/html Patient reports she [...] and it hurts Saw the doctor in [facility] - she said that sometimes hospitals and [...] should not be having pain. Sabrina Cancino, DPT [address] [place] [address], [phone], [facility] 04/20/2024 13:08:19 06/15/2024 text/html Referred by ANA BREWER to [facility]Sab[facility] Valid 03/02/2024 - 06/30/2024 20 visits approved [...] not letting it consume her every. Sabrina Cancino DPT [address] [place] [address], [phone], [facility] 06/15/2024 12:55:54 06/28/2024 text/html Mami is a [...] recent illness. AUTUMN MORA PA-C [address] [place] [address], [phone], [facility] 06/28/2024 17:12:55 OBGyn Episode Ob Episode Information Episode Created Date Number of Fetuses Patient Bloodtype Patient rh Status Prepregnancy Weight lbs Domestic Partner Domestic Partner Phone Father Name Poker Supervisor Status 03/24/20 24 1 A Positive Maurice Root [id number] Maurice Root OPEN Fetus Data First Name Last Name Admitted to NICU Weight (g) Sex Living Outcome Pediatric Complications Fetus ID Race Codes Race Delivery Type [id number] Problems Problem Notes Problem Name Start Date End Date Resolution Snomed Code Not e Normal in primigravida 03/24/2024 [id number] Maternal exposure to radiation 03/24/2024 [id number] Lives by substa tion and exposed to radiationFM appointment pending Junior Calculation Initial Junior Date [...] Date Ultra Sound Latest Days Gestation 0 [id number] 03/24/2024 10/30/19 25 0 Pre- Flowsheet Flowsheet Date 03/24/2024 Morgan Score Blood Edema Fundus Height Fundus Units Glucose Ketones Leukocytes Nitrite Labor Signs Protein Cervic Dilation Cervic Effacement Cervic Station none Type Weight in lbs Pre/Post Dialysis Refused Weight 131.352488137909 BP Diastolic BP Location Tested BP Systolic [...] radiation exposure. She was referred to [facility] for this and genetic counseling. She is concerned about OB care due to her living 2 hours away. She does not want to transfer care and is wanting to discuss options. (Kim Lacy, LISA)New OB intake and exam performed. Discussed plan of care. She is going to establish with an OB in the [place] area. Unsure about the risks of the substation. Can check with [facility] to see if they have any information. Flowsheet Date 04/20/2024 Morgan Score Blood Edema Fundus Height Fundus Units Glucose Ketones Leukocytes Nitrite Labor Signs Protein Cervic Dilation Cervic Effacement Cervic Station none none neg Type Weight in lbs Pre/Post Dialysis Refused 135.232416292885 BP Diastolic BP Location Tested BP Systolic [...] today.Has not yet established with provider in [place]. Flowsheet Date 04/20/2024 Morgan Score Blood Edema [...] Weight in lbs Pre/Post Dialysis Refused Weight 142.066535341584 BP Diastolic BP Location Tested BP Systolic [...] Estim ated Date of Delivery false Thalassemia (Czech, German, Mediterranean, Or Background): MCV < 80 false Neural Tube Defect (Meningomyelocele, Spina Bifi da, Or Anencephaly) false Congenital Heart Defect false Down Syndrome false Harley-Sachs (eg, Mu-Ism, Cajun, Sami-Escambia) f alse Lenka Disease false Sickle Cell Disease Or Trait () false Hemophilia Or Other Blood Disorders false Muscular Dystrophy false Cystic Fibrosis false Strafford's Chorea false Intellectual Disability/Autism false If Yes, [...] 03/24/2024 Avoidance of saunas or hot tubs [id number] 03/24/2024 Screening for aneuploidy dde euqrjc87 03/24/2024 Intimate partner violence dd duoocln69 03/24/2024 HIV and other routine tests ossscdkwd74 03/24/2024 [facility] Environmental/work hazards d woqzvaxb27 03/24/2024 Illicit/recreational drugs d bmwxeszj60 03/24/2024 Indications for ultrasonography jbwyaynqe08 03/24/2024 Travel nhjvioale99 03/24/2024 Tobacco/smoking cess ation counseling (ask, advise, assess, assist, and arrange) hizhobqal47 03/24/2024 ktejrxdxg19 03/24/2024 Use of any medicatio ns (including supplements, vitamins, herbs, or OTC drugs) hcqtansdd16 03/24/2024 Seat belt use wdjexzpsz73 03/24/2024 Risk factors identif ied by history ewmreisql47 03/24/2024 Anticipated course of care eclklfdbj67 03/24/2024 Sexual activity qmgauofxi40 03/24/2024 Dental care fqveeunxj06 03/24/2024 Nutrition counseling ; special diet; dietary precautions (mercury, listeriosis) wathlgdms65 03/24/2024 Toxoplasmosis precautions (cats/raw meat) gnovcbuiz35 03/24/2024 Exercise 03/24/2024 Teratogens ssntmsvpi61 03/24/2024 Alcohol ltuivwbpx15 03/24/2024 Childbirth classes/hospital facilities jxsbzlryh86 Second Trimester Discussed Date Discussion Item Discussion [...]
[2024-12-30 13:36] LABS: Bacteria Urine Rare /hpf; Non Pathogenic Casts 0-2; Squamous Epithelial Cell Urine None Seen /hpf (Few)
[2024-12-30 13:57] LABS: Appearance Urine Clear (Clear); Color Urine Yellow (Yellow); Specific Grav Ur 1.015 (1.001-1.035); pH Urine 6.5 (5.0-9.0)
[2024-12-30 13:58] LABS: Blood Urine 1+ (Negative); Glucose Urine UA Negative (Negative); Ketones Urine Negative (Negative); Nitrate Urine Negative (Negative); Protein Urine Negative (Negative)
[2024-12-30 13:59] LABS: Add Urine Microscopic? YES; Bilirubin Urine Negative (Negative); Leukocyte Esterase Ur 2+ LEU/UL (Negative); Urobilinogen Urine 0.2 mg/dL (<2.0)
== END 2024-12-30 12:36 | disposition home or self-care (01) ==
LOC: ANHLAB 12:37
PROVIDERS: PCP Obstetrics & Gynecology; Visit Provider Obstetrics & Gynecology
DX: R35.0 Frequency of micturition (principal)
CPT/HCPCS: 81001; 87086

== ENCOUNTER 2025-01-11 12:16 | Outpatient (CLI) | payer OTHER, SELFPAY ==
[2025-01-11 12:47] LABS: Add Urine Microscopic? YES; Appearance Urine Clear (Clear); Bacteria Urine None Seen /hpf; Bilirubin Urine Negative (Negative); Blood Urine Negative (Negative); Color Urine Yellow (Yellow); Glucose Urine UA Negative (Negative); Ketones Urine Negative (Negative); Leukocyte Esterase Ur 1+ LEU/UL (Negative); Nitrate Urine Negative (Negative); Non Pathogenic Casts 0-2; Protein Urine Negative (Negative); RBC Urine 0-2 /hpf (0-2); Specific Grav Ur 1.018 (1.001-1.035); Squamous Epithelial Cell Urine None Seen /hpf (Few); Urobilinogen Urine 0.2 mg/dL (<2.0); pH Urine 6.5 (5.0-9.0)
--- OUTSIDE RECORDS SUMMARY | 2025-01-11 13:48 | XMS_ITS | Clinical Summary ---
Author Organization [facility] Address [address] [place] [address] Care Team Providers Care Bag Repairer Name Role Phone Rigo Mar MD Primary Care Provider [phone] Source Comments [facility],non-owned Affiliates and Associated Physician Practices is amultiple site organization consisting of ambulatory clinics and hospital sitesin [place], [place], [place] and [place]. This disclosure is being madepursuant to the Care Everywhere program and may not contain all information available regarding this patient. 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 GRADER Temperature 37.5 C (99.5 F) 03/29/2024 9:10 AM CDT Respiratory Rate - - Oxygen Saturation - - Inhaled Oxygen Concentration - - Weight 63 kg (138 lb 12.8 oz) 06/06/2024 8:08 AM NEEDLE GRADER Height 167.6 cm (5' 6) 03/29/2024 9:10 AM CDT Body Mass Index 22.4 03/29/2024 9:10 AM CDT Plan of Treatment Health Maintenance Due Date Last Done Comments HIV SCREENING 2012 HEPATITIS C SCREENING 05/09/2015 DTAP/TDAP/TD VACCINES (1 - Tdap) 2016 HEPATITIS B VACCINE (1 of 3 - 19+ 3-dose series) 2016 PAP SMEAR 2018 COVID-19 VACCINE (4 - 2023-2 5 season) [...] over 60 yrs (No Doses Required) Completed Insurance [employer] Care Teams Bag Repairer Relationship Specialty Start Date End Date Rigo Mar MD [address] [phone] PCP - General Family Medicine 03/24/24
== END 2025-01-11 12:17 | disposition home or self-care (01) ==
LOC: ANHLAB 12:17
PROVIDERS: Visit Provider Obstetrics & Gynecology
DX: R30.9 Painful micturition, unspecified (principal)
CPT/HCPCS: 81001; 87086

== ENCOUNTER 2025-01-24 17:00 | Outpatient (CLI) | payer OTHER, SELFPAY ==
--- OUTSIDE RECORDS SUMMARY | 2025-01-24 17:07 | XMS_ITS | Data Portability ---
Author Organization [facility], [address] [facility] ([place]) Address [address] [place] [address] Care Team Providers Care Senior Research Associate Name Role Phone RIGO MAR Primary Care Provider [phone] SHARONA MCKEON Deputy Director Of Nursing Assessment Encounter Date Assessment Date Assessment LastModified by Organization Details LastModified Time 04/20/2024 04/20/2024 Patient continues to struggle with severe vulvar pain. Trying to determine if pain is dermatological, vestibular Nuha that is congenital, or vestibular delay other that is caused by pelvic floor muscle tension. It is appearing that pelvic floor muscle tension is not the main jeep driver for patient's symptoms at this time. [...] bowel control during functional movements. Not met Alf Goals: To Be Met in 12 Visits: [...] sexual activity without discomfort or pain. 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 [...] None recorded. Lab urinalysis, dipstick 2023 024 [facility] [address] [place] [address], [place], [address], 11:40:39 urinalysis complete, reflex culture 2023 024 [facility] Only - [facility] Laboratory, [facility] [address], [id number], 4 14:47:12 genetic screen, unspecified specimen 2023 024 [facility] Only - [facility] Laboratory, [address] [place] [address], [id number], 4 10:22:13 CT + NG DNA, PCR, unspecified specimen 2023 024 [facility] Only - [facility] Laboratory, [address] [place] [address], [id number], 4 09:14:28 obstetric screen + HIV, serum or blood 2023 024 [facility] Only - [facility] Laboratory, [address] [place] [address], 77153, 4 15:00:03 hepatitis C Ab, serum 2023 024 [facility] Only - [facility] Laboratory, [address] [place] [address], 09643, 4 15:46:09 culture + sensitivity , urine 2023 024 [email or web address] Only - [facility] Laboratory, [address] [place] [address], [id number], 4 09:32:45 wet mount, vaginal 2023 024 [facility] Only - [facility] Laboratory, [address] [place] [address], [id number], 4 14:17:30 Referral None recorded. Procedures None recorded. Surgeries None recorded. Imaging None recorded. Medication Orders None recorded. Patient TargetsNo targets recorded. Patient InstructionsNo instructions recorded. Reason for Referral None Reported. Results Created Date Observation Date Name Description Value Unit Range Abnormal Flag Note LastModifiedBy Organization Detail LastModifiedTime 03/24/20 24 03/24/2024 wet mount elaine wet prep Not Available [facility] Only - [facility] [address] [place] [address], [id number], 03/24/2024 13:04:04 03/24/20 24 03/24/2024 wet mount , vagin al yeast NONE SEEN none seen Not Available [facility] Only - [facility] Laboratory [address] [place] [address], [id number], 03/24/2024 13:04:04 03/24/20 24 03/24/2024 wet mount , vagin al WBC FEW none seen abnormal Not Available [facility] Only - [facility] [address] [place] [address], [id number], 03/24/2024 13:04:04 03/24/20 24 03/24/2024 wet mount , vagin al clue cells POSITI VE negati ve abnormal Clue Cell Inter preta tion: Posit ryan Resul t = >20% Clue Cells Seen Negat ryan Resul t = <20% Clue Cells Seen Not Available [facility] Only - [facility] [address] [place] [address], 05304, 03/24/2024 13:04:04 03/24/20 24 03/24/2024 wet mount , vagin al trichomonas NONE SEEN none seen Not Available [facility] Only - [facility] [address] [place] [address], [id number], 03/24/2024 13:04:04 03/24/20 24 03/24/2024 wet mount , vagin al source VAG Not Available [facility] Only - [facility] [address] [place] [address], [id number], 03/24/2024 13:04:04 03/24/20 24 03/24/2024 hepat itis C Ab, serum hepatitis C Ab NONREA CTIVE nonrea ctive Not Available [facility] Only - [facility] [address] [place] [address], [id number], 03/24/2024 15:46:09 03/24/20 24 03/25/2024 CT + NG DNA, PCR, unspe cifie d speci men GC/CT/TV DNA probe Not Available [facility] [address] [place] [address], [id number], 03/25/2024 09:14:28 03/24/20 24 03/25/2024 CT + NG DNA, PCR, unspe cifie d speci men GC-DNA probe NEGATI VE negati ve Not Available [facility] - [facility] Laboratory [address] [place] [address], [id number], 03/25/2024 09:14:28 03/24/20 24 03/25/2024 CT + [...] o-leg al indic ation s. Not Available [facility] Only - [facility] [address] [place] [address], [id number], 03/25/2024 09:14:28 03/24/20 24 03/25/2024 CT + NG DNA, PCR, unspe cifie d speci men trichomonas NEGATI VE negati ve Not Available [facility] Only - [facility] [address] [place] [address], [id number], 03/25/2024 09:14:28 03/24/20 24 03/24/2024 obste tric scree n + HIV, serum or blood rubella virus IgG Ab 82.1 IU/mL <5 IU/mL = Absen ce of immun ity 5 - <10 IU/mL = Equiv ocal >10 IU/mL = Presu med immun e Not Available [facility] Only - [facility] [address] [place] [address], 22475, 03/25/2024 10:38:47 03/24/20 24 03/24/2024 obste tric scree n + HIV, serum or blood hepatitis B surface Ag NONREA CTIVE nonrea ctive Not Available [facility] Only - [facility] [address] [place] [address], 74384, 03/25/2024 10:38:47 03/24/20 24 03/24/2024 obste tric scree n + HIV, serum or blood WBC 9.2 K/uL 3.8-11 .2 Not Available [facility] Only - [facility] [address] [place] [address], 70157, 03/25/2024 10:38:47 03/24/20 24 03/24/2024 obste tric scree n + HIV, serum or blood RBC 4.77 M/uL 3.92-5 .10 Not Available [facility] Only - [facility] [address] [place] [address], 91233, 03/25/2024 10:38:47 03/24/20 24 03/24/2024 obste tric scree n + HIV, serum or blood HGB 13.9 g/dL 11.8-1 5.3 Not Available [facility] Only - [facility] [address] [place] [address], [id number], 03/25/2024 10:38:47 03/24/20 24 03/24/2024 obste tric scree n + HIV, serum or blood HCT 41.6 % 36.5-4 4.8 Not Available [facility] Only - [facility] [address] [place] [address], 32281, 03/25/2024 10:38:47 03/24/20 24 03/24/2024 obste tric scree n + HIV, serum or blood MCV 87.2 fL 80.0-9 9.0 Not Available [facility] Only - [facility] [address] [place] [address], 16803, 03/25/2024 10:38:47 03/24/20 24 03/24/2024 obste tric scree n + HIV, serum or blood MCH 29.1 pg 25.5-3 3.6 Not Available [facility] Only - [facility] [address] [place] [address], [id number], 03/25/2024 10:38:47 03/24/20 24 03/24/2024 obste tric scree n + HIV, serum or blood MCHC 33.4 g/dL 32.0-3 6.0 Not Available [facility] Only - [facility] [address] [place] [address], 42236, 03/25/2024 10:38:47 03/24/20 24 03/24/2024 obste tric scree n + HIV, serum or blood RDW-SD 45.3 fL 35.1 - 46.3 Not Available [facility] Only - [facility] [address] [place] [address], [id number], 03/25/2024 10:38:47 03/24/20 24 03/24/2024 obste tric scree n + HIV, serum or blood plt 231 K/uL 130-40 0 Not Available [facility] Only - [facility] [address] [place] [address], 93335, 03/25/2024 10:38:47 03/24/20 24 03/24/2024 obste tric scree n + HIV, serum or blood MPV 9.8 fL 9.3-12 .8 Not Available [facility] Only - [facility] [address] [place] [address], 82774, 03/25/2024 10:38:47 03/24/20 24 03/24/2024 obste tric scree n + HIV, serum or blood HIV Ag/Ab 1-2 combo NONREA CTIVE nonrea ctive Not Available [facility] Only - [facility] [address] [place] [address], 26952, 03/25/2024 10:38:47 03/24/20 24 03/25/2024 obste tric scree n + HIV, serum or blood OB panel plus HIV 1-2 cmb Not Available [facility] - [facility] [address] [place] [address], 60569, 03/25/2024 10:38:47 03/24/20 24 03/25/2024 obste tric scree n + HIV, serum or blood ABO group A Not Available [facility] Only - [facility] [address] [place] [address], [id number], 03/25/2024 10:38:47 03/24/20 24 03/25/2024 obste tric scree n + HIV, serum or blood Rh factor POSITI VE Pleas e note: Prior recor ds for this patie nt's ABO / Rh type are not avail able for addit ional verif icati on. Not Available [facility] Only - [facility] [address] [place] [address], 20017, 03/25/2024 10:38:47 03/24/20 24 03/25/2024 obste tric scree n + HIV, serum or blood Ab screen NEGATI VE negati ve Not Available [facility] Only - [facility] [address] [place] [address], 10502, 03/25/2024 10:38:47 03/24/20 24 03/25/2024 obste tric scree n + HIV, serum or blood RPR with reflex NONREA CTIVE nonrea ctive Not Available [facility] Only - [facility] [address] [place] [address], [id number], 03/25/2024 10:38:47 03/24/20 24 03/24/2024 obste tric scree n + HIV, serum or blood rubella virus IgG Ab 82.1 IU/mL <5 IU/mL = Absen ce of immun ity 5 - <10 IU/mL = Equiv ocal >10 IU/mL = Presu med immun e Not Available [facility] Only - [facility] [address] [place] [address], [id number], 03/25/2024 07:41:57 03/24/20 24 03/24/2024 obste tric scree n + HIV, serum or blood hepatitis B surface Ag Nonrea ctive nonrea ctive Not Available [facility] Only - [facility] [address] [place] [address], 93112, 03/25/2024 07:41:57 03/24/20 24 03/24/2024 obste tric scree n + HIV, serum or blood WBC 9.2 K/uL 3.8-11 .2 Not Available [facility] Only - [facility] [address] [place] [address], 37243, 03/25/2024 07:41:57 03/24/20 24 03/24/2024 obste tric scree n + HIV, serum or blood RBC 4.77 M/uL 3.92-5 .10 Not Available [facility] Only - [facility] [address] [place] [address], 32789, 03/25/2024 07:41:57 03/24/20 24 03/24/2024 obste tric scree n + HIV, serum or blood HGB 13.9 g/dL 11.8-1 5.3 Not Available [facility] Only - [facility] [address] [place] [address], 49218, 03/25/2024 07:41:57 03/24/20 24 03/24/2024 obste tric scree n + HIV, serum or blood HCT 41.6 % 36.5-4 4.8 Not Available [facility] Only - [facility] [address] [place] [address], [id number], 03/25/2024 07:41:57 03/24/20 24 03/24/2024 obste tric scree n + HIV, serum or blood MCV 87.2 fL 80.0-9 9.0 Not Available [facility] Only - [facility] [address] [place] [address], 43648, 03/25/2024 07:41:57 03/24/20 24 03/24/2024 obste tric scree n + HIV, serum or blood MCH 29.1 pg 25.5-3 3.6 Not Available [facility] Only - [facility] [address] [place] [address], 99923, 03/25/2024 07:41:57 03/24/20 24 03/24/2024 obste tric scree n + HIV, serum or blood MCHC 33.4 g/dL 32.0-3 6.0 Not Available [facility] Only - [facility] [address] [place] [address], 77922, 03/25/2024 07:41:57 03/24/20 24 03/24/2024 obste tric scree n + HIV, serum or blood RDW-SD 45.3 fL 35.1 - 46.3 Not Available [facility] Only - [facility] [address] [place] [address], 08708, 03/25/2024 07:41:57 03/24/20 24 03/24/2024 obste tric scree n + HIV, serum or blood plt 231 K/uL 130-40 0 Not Available [facility] Only - [facility] [address] [place] [address], 97636, 03/25/2024 07:41:57 03/24/20 24 03/24/2024 obste tric scree n + HIV, serum or blood MPV 9.8 fL 9.3-12 .8 Not Available [facility] Only - [facility] [address] [place] [address], [id number], 03/25/2024 07:41:57 03/24/20 24 03/24/2024 obste tric scree n + HIV, serum or blood HIV Ag/Ab 1-2 combo Nonrea ctive nonrea ctive Not Available [facility] Only - [facility] [address] [place] [address], 87444, 03/25/2024 07:41:57 03/24/20 24 03/25/2024 obste tric scree n + HIV, serum or blood OB panel plus HIV 1-2 cmb Not Available [facility] - [facility] [address] [place] [address], 79691, 03/25/2024 07:41:57 03/24/20 24 03/25/2024 obste tric scree n + HIV, serum or blood ABO group PENDIN G Not Available [facility] Only - [facility] [address] [place] [address], 54614, 03/25/2024 07:41:57 03/24/20 24 03/25/2024 obste tric scree n + HIV, serum or blood Rh factor PENDIN G Not Available [facility] Only - [facility] [address] [place] [address], 62499, 03/25/2024 07:41:57 03/24/20 24 03/25/2024 obste tric scree n + HIV, serum or blood Ab screen PENDIN G Not Available [facility] Only - [facility] [address] [place] [address], 49146, 03/25/2024 07:41:57 03/24/20 24 03/25/2024 obste tric scree n + HIV, serum or blood RPR with reflex Nonrea ctive nonrea ctive Not Available [facility] Only - [facility] [address] [place] [address], 19140, 03/25/2024 07:41:57 03/24/20 24 03/24/2024 obste tric scree n + HIV, serum or blood OB panel plus HIV 1-2 cmb Not Available [facility] [address] [place] [address], 27543, 03/24/2024 15:36:46 03/24/20 24 03/24/2024 obste tric scree n + HIV, serum or blood ABO group PENDIN G Not Available [facility] Only - [facility] [address] [place] [address], 14700, 03/24/2024 15:36:46 03/24/20 24 03/24/2024 obste tric scree n + HIV, serum or blood Rh factor PENDIN G Not Available [facility] Only - [facility] [address] [place] [address], 87055, 03/24/2024 15:36:46 03/24/20 24 03/24/2024 obste tric scree n + HIV, serum or blood Ab screen PENDIN G Not Available [facility] Only - [facility] [address] [place] [address], 56241, 03/24/2024 15:36:46 03/24/20 24 03/24/2024 obste tric scree n + HIV, serum or blood rubella virus IgG Ab 82.1 IU/mL <5 IU/mL = Absen ce of immun ity 5 - <10 IU/mL = Equiv ocal >10 IU/mL = Presu med immun e Not Available [facility] Only - [facility] [address] [place] [address], 12245, 03/24/2024 15:36:46 03/24/20 24 03/24/2024 obste tric scree n + HIV, serum or blood hepatitis B surface Ag Nonrea ctive nonrea ctive Not Available [facility] Only - [facility] [address] [place] [address], 86774, 03/24/2024 15:36:46 03/24/20 24 03/24/2024 obste tric scree n + HIV, serum or blood RPR with reflex PENDIN G Not Available [facility] Only - [facility] [address] [place] [address], 91365, 03/24/2024 15:36:46 03/24/20 24 03/24/2024 obste tric scree n + HIV, serum or blood WBC 9.2 K/uL 3.8-11 .2 Not Available [facility] Only - [facility] [address] [place] [address], 78010, 03/24/2024 15:36:46 03/24/20 24 03/24/2024 obste tric scree n + HIV, serum or blood RBC 4.77 M/uL 3.92-5 .10 Not Available [facility] Only - [facility] [address] [place] [address], 25557, 03/24/2024 15:36:46 03/24/20 24 03/24/2024 obste tric scree n + HIV, serum or blood HGB 13.9 g/dL 11.8-1 5.3 Not Available [facility] Only - [facility] [address] [place] [address], 23359, 03/24/2024 15:36:46 03/24/20 24 03/24/2024 obste tric scree n + HIV, serum or blood HCT 41.6 % 36.5-4 4.8 Not Available [facility] Only - [facility] [address] [place] [address], 57414, 03/24/2024 15:36:46 03/24/20 24 03/24/2024 obste tric scree n + HIV, serum or blood MCV 87.2 fL 80.0-9 9.0 Not Available [facility] Only - [facility] [address] [place] [address], 80437, 03/24/2024 15:36:46 03/24/20 24 03/24/2024 obste tric scree n + HIV, serum or blood MCH 29.1 pg 25.5-3 3.6 Not Available [facility] Only - [facility] [address] [place] [address], 16907, 03/24/2024 15:36:46 03/24/20 24 03/24/2024 obste tric scree n + HIV, serum or blood MCHC 33.4 g/dL 32.0-3 6.0 Not Available [facility] - [facility] [address] [place] [address], 75228, 03/24/2024 15:36:46 03/24/20 24 03/24/2024 obste tric scree n + HIV, serum or blood RDW-SD 45.3 fL 35.1 - 46.3 Not Available [facility] - [facility] [address] [place] [address], 90018, 03/24/2024 15:36:46 03/24/20 24 03/24/2024 obste tric scree n + HIV, serum or blood plt 231 K/uL 130-40 0 Not Available [facility] [address] [place] [address], [id number], 03/24/2024 15:36:46 03/24/20 24 03/24/2024 obste tric scree n + HIV, serum or blood MPV 9.8 fL 9.3-12 .8 Not Available [facility] Only - [facility] [address] [place] [address], 77995, 03/24/2024 15:36:46 03/24/20 24 03/24/2024 obste tric scree n + HIV, serum or blood HIV Ag/Ab 1-2 combo Nonrea ctive nonrea ctive Not Available [facility] [address] [place] [address], 66325, 03/24/2024 15:36:46 03/24/20 24 03/24/2024 obste tric scree n + HIV, serum or blood OB panel plus HIV 1-2 cmb Not Available [facility] [address] [place] [address], 24010, 03/24/2024 15:24:26 03/24/20 24 03/24/2024 obste tric scree n + HIV, serum or blood ABO group PENDIN G Not Available [facility] Only [facility] [address] [place] [address], 24406, 03/24/2024 15:24:26 03/24/20 24 03/24/2024 obste tric scree n + HIV, serum or blood Rh factor PENDIN G Not Available [facility] Only - [facility] [address] [place] [address], 61984, 03/24/2024 15:24:26 03/24/20 24 03/24/2024 obste tric scree n + HIV, serum or blood Ab screen PENDIN G Not Available [facility] Only - [facility] [address] [place] [address], 25981, 03/24/2024 15:24:26 03/24/20 24 03/24/2024 obste tric scree n + HIV, serum or blood rubella virus IgG Ab 82.1 IU/mL <5 IU/mL = Absen ce of immun ity 5 - <10 IU/mL = Equiv ocal >10 IU/mL = Presu med immun e Not Available [facility] Only - [facility] [address] [place] [address], [id number], 03/24/2024 15:24:26 03/24/20 24 03/24/2024 obste tric scree n + HIV, serum or blood hepatitis B surface Ag Nonrea ctive nonrea ctive Not Available [facility] Only - [facility] [address] [place] [address], 44994, 03/24/2024 15:24:26 03/24/20 24 03/24/2024 obste tric scree n + HIV, serum or blood RPR with reflex PENDIN G Not Available [facility] Only - [facility] [address] [place] [address], 44606, 03/24/2024 15:24:26 03/24/20 24 03/24/2024 obste tric scree n + HIV, serum or blood WBC 9.2 K/uL 3.8-11 .2 Not Available [facility] Only [facility] [address] [place] [address], 15965, 03/24/2024 15:24:26 03/24/20 24 03/24/2024 obste tric scree n + HIV, serum or blood RBC 4.77 M/uL 3.92-5 .10 Not Available [facility] Only [facility] [address] [place] [address], 32876, 03/24/2024 15:24:26 03/24/20 24 03/24/2024 obste tric scree n + HIV, serum or blood HGB 13.9 g/dL 11.8-1 5.3 Not Available [facility] Only - [facility] [address] [place] [address], 93264, 03/24/2024 15:24:26 03/24/20 24 03/24/2024 obste tric scree n + HIV, serum or blood HCT 41.6 % 36.5-4 4.8 Not Available [facility] [address] [place] [address], 53532, 03/24/2024 15:24:26 03/24/20 24 03/24/2024 obste tric scree n + HIV, serum or blood MCV 87.2 fL 80.0-9 9.0 Not Available [facility] [address] [place] [address], 42686, 03/24/2024 15:24:26 03/24/20 24 03/24/2024 obste tric scree n + HIV, serum or blood MCH 29.1 pg 25.5-3 3.6 Not Available [facility] [address] [place] [address], 66109, 03/24/2024 15:24:26 03/24/20 24 03/24/2024 obste tric scree n + HIV, serum or blood MCHC 33.4 g/dL 32.0-3 6.0 Not Available [facility] [address] [place] [address], 64422, 03/24/2024 15:24:26 03/24/20 24 03/24/2024 obste tric scree n + HIV, serum or blood RDW-SD 45.3 fL 35.1 - 46.3 Not Available [facility] Only [facility] [address] [place] [address], 75262, 03/24/2024 15:24:26 03/24/20 24 03/24/2024 obste tric scree n + HIV, serum or blood plt 231 K/uL 130-40 0 Not Available [facility] Only [facility] [address] [place] [address], 86630, 03/24/2024 15:24:26 03/24/20 24 03/24/2024 obste tric scree n + HIV, serum or blood MPV 9.8 fL 9.3-12 .8 Not Available [facility] [address] [place] [address], 44072, 03/24/2024 15:24:26 03/24/20 24 03/24/2024 obste tric scree n + HIV, serum or blood HIV Ag/Ab 1-2 combo PENDIN G Not Available [facility] [address] [place] [address], 46574, 03/24/2024 15:24:26 03/24/20 24 03/24/2024 obste tric scree n + HIV, serum or blood OB panel plus HIV 1-2 cmb Not Available [facility] [address] [place] [address], 95997, 03/24/2024 15:18:01 03/24/20 24 03/24/2024 obste tric scree n + HIV, serum or blood ABO group PENDIN G Not Available [facility] [address] [place] [address], 41844, 03/24/2024 15:18:01 03/24/20 24 03/24/2024 obste tric scree n + HIV, serum or blood Rh factor PENDIN G Not Available [facility] [address] [place] [address], 25349, 03/24/2024 15:18:01 03/24/20 24 03/24/2024 obste tric scree n + HIV, serum or blood Ab screen PENDIN G Not Available [facility] [address] [place] [address], 53060, 03/24/2024 15:18:01 03/24/20 24 03/24/2024 obste tric scree n + HIV, serum or blood rubella virus IgG Ab 82.1 IU/mL <5 IU/mL = Absen ce of immun ity 5 - <10 IU/mL = Equiv ocal >10 IU/mL = Presu med immun e Not Available [facility] [address] [place] [address], 17699, 03/24/2024 15:18:01 03/24/20 24 03/24/2024 obste tric scree n + HIV, serum or blood hepatitis B surface Ag PENDIN G Not Available [facility] Only - [facility] [address] [place] [address], 26600, 03/24/2024 15:18:01 03/24/20 24 03/24/2024 obste tric scree n + HIV, serum or blood RPR with reflex PENDIN G Not Available [facility] Only - [facility] [address] [place] [address], 80592, 03/24/2024 15:18:01 03/24/20 24 03/24/2024 obste tric scree n + HIV, serum or blood WBC 9.2 K/uL 3.8-11 .2 Not Available [facility] [address] [place] [address], 28116, 03/24/2024 15:18:01 03/24/20 24 03/24/2024 obste tric scree n + HIV, serum or blood RBC 4.77 M/uL 3.92-5 .10 Not Available [facility] [address] [place] [address], 56977, 03/24/2024 15:18:01 03/24/20 24 03/24/2024 obste tric scree n + HIV, serum or blood HGB 13.9 g/dL 11.8-1 5.3 Not Available [facility] [address] [place] [address], 59433, 03/24/2024 15:18:01 03/24/20 24 03/24/2024 obste tric scree n + HIV, serum or blood HCT 41.6 % 36.5-4 4.8 Not Available [facility] [address] [place] [address], 04145, 03/24/2024 15:18:01 03/24/20 24 03/24/2024 obste tric scree n + HIV, serum or blood MCV 87.2 fL 80.0-9 9.0 Not Available [facility] [address] [place] [address], 16141, 03/24/2024 15:18:01 03/24/20 24 03/24/2024 obste tric scree n + HIV, serum or blood MCH 29.1 pg 25.5-3 3.6 Not Available [facility] [address] [place] [address], 05662, 03/24/2024 15:18:01 03/24/20 24 03/24/2024 obste tric scree n + HIV, serum or blood MCHC 33.4 g/dL 32.0-3 6.0 Not Available [facility] [address] [place] [address], 52485, 03/24/2024 15:18:01 03/24/20 24 03/24/2024 obste tric scree n + HIV, serum or blood RDW-SD 45.3 fL 35.1 - 46.3 Not Available [facility] [address] [place] [address], 62981, 03/24/2024 15:18:01 03/24/20 24 03/24/2024 obste tric scree n + HIV, serum or blood plt 231 K/uL 130-40 0 Not Available [facility] [address] [place] [address], 53460, 03/24/2024 15:18:01 03/24/20 24 03/24/2024 obste tric scree n + HIV, serum or blood MPV 9.8 fL 9.3-12 .8 Not Available [facility] [address] [place] [address], [id number], 03/24/2024 15:18:01 03/24/20 24 03/24/2024 obste tric scree n + HIV, serum or blood HIV Ag/Ab 1-2 combo PENDIN G Not Available [facility] [address] [place] [address], 65813, 03/24/2024 15:18:01 03/24/20 24 03/24/2024 obste tric scree n + HIV, serum or blood OB panel plus HIV 1-2 cmb Not Available [facility] [address] [place] [address], [id number], 03/24/2024 15:00:03 03/24/20 24 03/24/2024 obste tric scree n + HIV, serum or blood ABO group PENDIN G Not Available [facility] [address] [place] [address], 55002, 03/24/2024 15:00:03 03/24/20 24 03/24/2024 obste tric scree n + HIV, serum or blood Rh factor PENDIN G Not Available [facility] [address] [place] [address], 64142, 03/24/2024 15:00:03 03/24/20 24 03/24/2024 obste tric scree n + HIV, serum or blood Ab screen PENDIN G Not Available [facility] [address] [place] [address], 27402, 03/24/2024 15:00:03 03/24/20 24 03/24/2024 obste tric scree n + HIV, serum or blood rubella virus IgG Ab PENDIN G Not Available [facility] [address] [place] [address], [id number], 03/24/2024 15:00:03 03/24/20 24 03/24/2024 obste tric scree n + HIV, serum or blood hepatitis B surface Ag PENDIN G Not Available [facility] Only [facility] [address] [place] [address], [id number], 03/24/2024 15:00:03 03/24/20 24 03/24/2024 obste tric scree n + HIV, serum or blood RPR with reflex PENDIN G Not Available [facility] Only [facility] [address] [place] [address], [id number], 03/24/2024 15:00:03 03/24/20 24 03/24/2024 obste tric scree n + HIV, serum or blood WBC 9.2 K/uL 3.8-11 .2 Not Available [facility] Only [facility] [address] [place] [address], [id number], 03/24/2024 15:00:03 03/24/20 24 03/24/2024 obste tric scree n + HIV, serum or blood RBC 4.77 M/uL 3.92-5 .10 Not Available [facility] [address] [place] [address], [id number], 03/24/2024 15:00:03 03/24/20 24 03/24/2024 obste tric scree n + HIV, serum or blood HGB 13.9 g/dL 11.8-1 5.3 Not Available [facility] [address] [place] [address], [id number], 03/24/2024 15:00:03 03/24/20 24 03/24/2024 obste tric scree n + HIV, serum or blood HCT 41.6 % 36.5-4 4.8 Not Available [facility] [address] [place] [address], [id number], 03/24/2024 15:00:03 03/24/20 24 03/24/2024 obste tric scree n + HIV, serum or blood MCV 87.2 fL 80.0-9 9.0 Not Available [facility] [address] [place] [address], [id number], 03/24/2024 15:00:03 03/24/20 24 03/24/2024 obste tric scree n + HIV, serum or blood MCH 29.1 pg 25.5-3 3.6 Not Available [facility] [address] [place] [address], [id number], 03/24/2024 15:00:03 03/24/20 24 03/24/2024 obste tric scree n + HIV, serum or blood MCHC 33.4 g/dL 32.0-3 6.0 Not Available [facility] [address] [place] [address], [id number], 03/24/2024 15:00:03 03/24/20 24 03/24/2024 obste tric scree n + HIV, serum or blood RDW-SD 45.3 fL 35.1 - 46.3 Not Available [facility] [address] [place] [address], [id number], 03/24/2024 15:00:03 03/24/20 24 03/24/2024 obste tric scree n + HIV, serum or blood plt 231 K/uL 130-40 0 Not Available [facility] - [facility] [address] [place] [address], [id number], 03/24/2024 15:00:03 03/24/20 24 03/24/2024 obste tric scree n + HIV, serum or blood MPV 9.8 fL 9.3-12 .8 Not Available [facility] [address] [place] [address], [id number], 03/24/2024 15:00:03 03/24/20 24 03/24/2024 obste tric scree n + HIV, serum or blood HIV Ag/Ab 1-2 combo PENDIN G Not Available Co Only - [facility] Laboratory [address] [place] [address], [id number], 03/24/2024 15:00:03 04/20/20 24 04/20/2024 urina lysis compl ete, refle x cultu re urinalysis w/reflex cult LOW LEVEL S OF HEMOG LOBIN IN ABSEN CE OF HEMAT URIA MAY NOT BE CLINI ANGELICA GABRIEL Segov[place] Not Available [facility] Only - [facility] [address] [place] [address], [id number], 04/20/2024 14:47:12 04/20/20 24 04/20/2024 urina lysis compl ete, refle x cultu re color YELLOW Not Available [facility] - [facility] [address] [place] [address], [id number], 04/20/2024 14:47:12 04/20/20 24 04/20/2024 urina lysis compl ete, refle x cultu re clarity CLEAR Not Available [facility] - [facility] [address] [place] [address], [id number], 04/20/2024 14:47:12 04/20/20 24 04/20/2024 urina lysis compl ete, refle x cultu re pH 5.5 5.0-7. 5 Not Available [facility] Only - [facility] [address] [place] [address], [id number], 04/20/2024 14:47:12 04/20/20 24 04/20/2024 urina lysis compl ete, refle x cultu re specific gravity 1.027 1.000- 1.030 Not Available [facility] Only - [facility] [address] [place] [address], 04134, 04/20/2024 14:47:12 04/20/20 24 04/20/2024 urina lysis compl ete, refle x cultu re blood NEGATI VE negati ve Not Available [facility] - [facility] [address] [place] [address], [id number], 04/20/2024 14:47:12 04/20/20 24 04/20/2024 urina lysis compl ete, refle x cultu re bilirubin NEGATI VE negati ve Not Available [facility] - [facility] [address] [place] [address], [id number], 04/20/2024 14:47:12 04/20/20 24 04/20/2024 urina lysis compl ete, refle x cultu re urobilinogen 0.2 0.2-1. 0 Not Available [facility] - [facility] [address] [place] [address], 43053, 04/20/2024 14:47:12 04/20/20 24 04/20/2024 urina lysis compl ete, refle x cultu re ketone TRACE negati ve abnormal Not Available [facility] - [facility] [address] [place] [address], 13694, 04/20/2024 14:47:12 04/20/20 24 04/20/2024 urina lysis compl ete, refle x cultu re glucose NEGATI VE negati ve Not Available [facility] - [facility] [address] [place] [address], [id number], 04/20/2024 14:47:12 04/20/20 24 04/20/2024 urina lysis compl ete, refle x cultu re protein TRACE negati ve abnormal Not Available [facility] [address] [place] [address], [id number], 04/20/2024 14:47:12 04/20/20 24 04/20/2024 urina lysis compl ete, refle x cultu re nitrite NEGATI VE negati ve Not Available [facility] - [facility] [address] [place] [address], [id number], 04/20/2024 14:47:12 04/20/20 24 04/20/2024 urina lysis compl ete, refle x cultu re leukocytes NEGATI VE negati ve Not Available [facility] - [facility] [address] [place] [address], [id number], 04/20/2024 14:47:12 04/20/20 24 04/20/2024 urina lysis compl ete, refle x cultu re RBC 0-2 0-2/hp f Not Available [facility] - [facility] [address] [place] [address], 85631, 04/20/2024 14:47:12 04/20/20 24 04/20/2024 urina lysis compl ete, refle x cultu re WBC 0-5 0-5/hp f Not Available [facility] - [facility] [address] [place] [address], 99729, 04/20/2024 14:47:12 04/20/20 24 04/20/2024 urina lysis compl ete, refle x cultu re squamous epithelial 3-5 0-10/h pf Not Available [facility] - [facility] [address] [place] [address], 78601, 04/20/2024 14:47:12 04/20/20 24 04/20/2024 urina lysis compl ete, refle x cultu re bacteria NONE SEEN none Not Available Co Only - S c Laboratory [address] [place] [address], [id number], 04/20/2024 14:47:12 04/20/20 24 04/20/2024 urina lysis compl ete, refle x cultu re hyaline cast 0-2 0-2/lp f Not Available [facility] Only - [facility] [address] [place] [address], 37380, 04/20/2024 14:47:12 04/20/2004/29/2024 nancy ic scree n, unspe cifie d speci men CF/sma panel Not Available Co On ly - Co Laboratory [address] [place] [address], 90066, 04/29/2024 10:48:47 04/20/20 24 04/29/2024 nancy ic scree n, unspe cifie d speci men results * Speci men colle cted and sent out for testi ng by [facility]. Resul ts will flow into the elect lul fuchsr danelle and the provi dioni will recei ve a 'Revi ew Docum ent' task at that time. Not Available Co Only - Co Laboratory [address], [address], 04/29/2024 10:48:47 04/20/20 24 04/20/2024 urina lysis , dipst ick Protein Negati ve Not Available [address] [facility] ([place]) [address] [place] [address], [address], 04/20/2024 11:18:28 04/20/20 24 04/20/2024 urina lysis , dipst ick Glucose Negati ve Not Available [address] [facility] ([place]) [address] [place] [address], [address], 04/20/2024 11:18:28 03/24/20 24 03/24/2024 US, obste tric, 1st trime ster, singl e gesta tion [facility] [address] [place] [address] Teleph one [phone] Name: Mami Rodriguez [id number] Exam Date: 2023 Age: 28 Physic ernesto: [...] ty is confir med at 161 bpm. [place]- rump length measur es 1.61 cm, consis [...] 5:00 PM cc: Page PAGE 1 of [facility] ES 1 INTERFACE Sc Only - Sc Radiology [address] [place] [address], [address], 03/24/2024 18:02:52 Result Notes None recorded. Problems Name Problem SNOMED Code Status Onset Date Resolution Date Notes Provider Name and Address Organization Details Recorded Time Normal in primigrav osmani 644712839574 103 [facility]23 [facility] 10:54:40 27507379 Active 2023 [facility] 4 10:53:49 Normal in primigrav osmani 369413226359 103 Active 2023 [facility] 4 10:54:40 Maternal exposure to radiation 461598177 Active 2023 Lives by substatio n and exposed to radiation M appointme nt pending [facility] 4 10:59:18 Maternal exposure to radiation 485857303 Active 2023 Lives by substatio n and exposed to radiation [facility] appointme nt pending [facility] 4 10:59:18 Bacterial vaginosis 930342203 Active 2023 [facility] 4 15:04:55 Gestation period, 12 weeks 44509324 Active 2023 [facility] 4 14:20:44 Scalding pain on urination 45059773 Active 2023 Sohacatracho Sanches [facility] 4 11:24:54 Burning mouth syndrome 660075252 Active 2023 AUTUMN MORA PA-C [address] [facility], [place], [address], [facility] 4 17:01:22 Temporoma ndibular joint disorder 92142680 Active 2023 AUTUMN MORA PA-C [address] , [place], [address], [facility] 4 17:01:44 Gynecolog ic examinati on Active 2023 Kim Lacy [facility] 4 10:41:31 Pruritus of vagina 55195981 Active 2023 Soha Myron [facility] 4 15:36:59 Inflammat ion of vestibule of vulva 21183578 Active 2023 Sharona Mckeon MD [address] , [place], [address], [facility] 4 16:13:03 Vaginal irritatio n 175100323 Active 2023 Soha Sanches [facility] 4 16:13:53 Vaginal discharge 289732540 Active 2023 Lauren Sanders [facility], [facility] 4 16:56:25 Pain in pelvis 23343067 Active 2023 Sabrina Gonzales-Mat on, DPT [address] [facility], [place], [address], [facility] 4 16:57:24 Pelvic floor dysfuncti on 424404786 Active 2023 Sabrina Gonzales-Mat on, DPT [address] [facility], [place], [address], [facility] 4 16:57:29 Problem Notes Documentation Provider Name and Address Organization Details Recorded Time Disposal Operator And Gynecologis t Consult Note : [facility] [address] [address] Mami Call 28yo F 1995 #[id number] __RESTYLEDFOOTER__ 03/24/2024 Jonny Mar DO, I would like to thank you for referring Mami Call to our practice on 03/24/2024. I have enclosed a copy of the office evaluation for your records. Once again, thank you for allowing me to participate in the care of this patient. Sincerely,Electronically Signed by: SHARONA MCKEON MD Encounter Reason/Date New OB, ultrasound 03/24/2024 - 10:00AM - 900 [facility]BG[facility] ([place])ProblemsReviewed Problems Maternal exposure to radiation - Onset: [...] OnsetDate: 10/21/2006; Medications Reviewed Medications NameDate Source Ifunctdx93/29/24 entered Kim Bambi Family HistoryReviewed Family History Mother - Asthma [...] DirectiveDo you have a medical power of assistant county attorney?: NoAlcohol use, Last Assessed: 09 Jan 2022 3:31PM Type: Chronic Last Edited: 10 Jan 2022 9:17AM ICD9 Code: V49.89 Last Reviewed Date: 20220110 SnomedCode: 429662 ICD10 Code: Z78.9 LastAssessedBy: STACI WOLFF Caffeine use, Last Assessed: 09 Jan 2022 3:31PM Type: Chronic Last Edited: 10 Jan 2022 9:17AM ICD9 Code: V49.89 Last Reviewed Date: 20220110 SnomedCode: 14729302706166 ICD10 Code: Z78.9 LastAssessedBy: STACI WOLFF Currently attends college, Last Assessed: 29 Nov 2019 9:09AM Type: Chronic Identified By: BALJINDER (FAMILY PRACTICE)CHIQUITA Last Edited: 29 Nov 2019 9:10AM Last Reviewed Date: 20191129 SnomedCode: 180848984 LastAssessedBy: BALJINDER (FAMILY PRACTICE)CHIQUITA (Family Medicine) 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, Last Assessed: 29 Nov 2019 9:10AM Type: Chronic Identified By: BALJINDER ([facility])CHIQUITA Last Edited: 29 Nov 2019 9:10AM Last Reviewed Date: 20191129 SnomedCode: 994897317 LastAssessedBy: BALJINDER ([facility])CHIQUITA ([facility] Medicine) History of Exercises occasionally: Denied, Last Assessed: 09 Jan 2022 3:31PM Type: Chronic Identified By: BALJINDER ([facility])CHIQUITA Last Edited: 09 Jan 2022 3:31PM ICD9 Code: V49.89 Last Reviewed Date: 20220109 SnomedCode: 683305635 Category: History of ICD10 Code: Z78.9 LastAssessedBy: STACI WOLFF Never a smoker, Last Assessed: 31 May 2020 9:35AM Type: Chronic Last Edited: 31 May 2020 9:36AM Last Reviewed Date: 20200531 SnomedCode: 138351986 LastAssessedBy: DIMAS SONI Surgical HistoryReviewed Surgical History [...] with radiation exposure. She was referred to [facility] for this and genetic counseling. She [...] DocumentationNone recordedAssessment/Plan1. Normal in primigravida-Normal IUP at 8am4oRnqt of care reviewed.Patient will be transferring care. Will continue follow up until she gets established Additional diagnosis detail: Encounter for supervision of normal first in first emasfkpwyT18.01: Encounter for supervision of normal first , first trimester GC/CT/TV DNA PROBE ([place] ONLY) OB PANEL WITH HIV ([place] ONLY) HEPATITIS C AB ([place] ONLY) URINE CULTURE AND SENSI ([place] ONLY) WET PREP ([place] ONLY) Return to Office [facility] for Lab.[place] at [facility] 1[facility] Lab ([place]) on 03/24/2024 at 12:01 PM Sabrina Cancino DPT for PT Return Visit 60.EST at [address] [facility] ([place]) on 04/12/2024 at 03:30 PM Sharona Mckeon MD for OB Check 15.EST at [address] [facility] ([place]) on 04/21/2024 at 12:45 PM Talita Brooks MD for Established Patient 15.EST at [facility] 4[facility] E[facility] ([place] on 06/15/2024 at 11:00 AM Sharona Mckeon MD for Annual Well Woman Visit 15.EST at [address] [facility] ([place] on 12/15/2024 at 01:15 PM Rosalina Moffett [facility] 10/05/2024 16:16:08 [facility] [address] [address]XRDMQYM, Lydia J (id #[id number], : 1995) Date: 4RE: Mami Call, : 1995, PT ID #[id number] Mar DO, Mami Call was seen in our office today 06/15/2024, and a copy of that evaluation is enclosed. Thank you for allowing us to participate in the care of your patient. Please contact us with any questions. Sincerely, Electronically Signed by: SABRINA CANCINO DPT Encounter Reason/DateNone recorded 06/15/2024 - 11:00AM - 800 2nd PT ([place]) Assessment/PlanUpon reassessment this date, patient exhibits deficits [...] bilaterally to improve pelvic girdle muscle balance Alf Goals:To Be Met in 12 Visits:1. Patient [...] girdle muscle balance dn 1. Pain in kfxyhlG69.2: Pelvic and perineal pain 2. Pelvic floor ovflkvuekziN12.9: Disorder of muscle, unspecified Return to Office AUTUMN MORA PA-C for Established Patient 15.EST at [facility] 4th ENT ([place]) on 06/20/2024 at 01:45 PM Sabrina Cancino DPT for PT Return Visit 60.EST at [address] 2[facility] PT ([place]) on 07/14/2024 at 11:00 AM Rigo Mar DO [address], [address], [facility] 06/15/2024 13:59:51 Procedures Surgical History Date Name Laterality Status Provider Name and Address Organization Details Recorded Time 12/30/2021 Date of Last Pap Smear completed Soha Sanches [facility] 12/10/2023 15:37:17 Imaging Results None recorded. Procedure Notes None recorded. Medical Equipment None Reported. Allergies Allergen ID Allergen Name Allergen Category Reaction Reaction Severity Criticality Documentation Date Start Date Code Code System Note Provider Name and Address Organization Details Recorded Time 4918757 latex gloves medicatio n Not available Not available Not available 08/26/20232019 26311 UNK Not Available [facility] 4 04:22:43 8656481 miconazol e medicatio n Not available Not available Not available 08/26/20232019 6932 RxNorm Not Available [facility] 4 04:22:44 Medications Name Sig Start Date [...] Updated DateTime 03/24/2024 167.64 cm 21.3 kg/m2 15686.47 g 120 mm[Hg] 64 mm[Hg] Kim Lacy [facility] 4 11:30:51 Date Recorded Body weight Systolic blood pressure Diastolic blood pressure Provider Name and Address Organization Details Last Updated DateTime 04/20/2024 97950.6884 24 g 120 mm[Hg] 72 mm[Hg] Soha Sanches [facility] 04/20/2024 11:17:25 Date Recorded Body height Body mass index (BMI) Body weight Body temperature Heart rate Systolic blood pressure Diastolic blood pressure Provider Name and Address Organization Details Last Updated DateTime 4 167.64 cm 22.9 kg/m2 82903.1 2 g 97.7 [degF] 90 /min 145 mm[Hg] 69 mm[Hg] Terry Trujillo [facility] 4 16:31:37 Social History Question Answer Notes [...] Do You Have A Medical Power Of Data Center Manager? No [email or web address] Information not available 03/21/2024 What Was The Date Of Your Most Recent Tobacco Screening? 03/24/2024 [email or web address] Information not available 03/21/2024 What Is Your Relationship Status? [email or web address] Information not available 03/21/2024 Are You Sexually Active? Yes [email or web address] Information not available 12/10/2023 Sex: Unknown Functional Status Question Answer Note LastModified by Organizat ion Details LastModified Time Do you use any illicit or recreational drugs? No [email or web address] Information not available 03/21/2024 What is your level of alcohol consumption? None [email or web address] Information not available 03/21/2024 Are you currently employed? 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 Occasional [email or web address] Information not available 03/21/2024 Mental Status None recorded. Family History Relationship Description Onset Age of this Age Resolved Age Notes LastModified by Organization Details LastModified Time Mother Asthma [email or web address] Not availabl e 12/09/2023 10:48:03 Mother Seizure disorder [email or web address] Not available 11/24 10:49:03 Father Asthma [email or web address] Not availabl e 12/09/2023 10:48:03 Father Arthritis [email or web address] Not available 03/21/2024 10:22:34 Unspecified Relation CVA - cerebrovascu lar accident due to cerebral artery occlusion grandm other on unspec ified side [email or web address] Not available 12/09/2023 10:48:32 Unspecified Relation Diabetes mellitus grandf ather unspec ified side [email or web address] Not available 12/09/2023 10:49:32 Maternal Grandfather Myasthenia gravis [email or web address] Not available 15:38:11 Maternal Grandfather Diabetes mellitus [...] Sclerosis N Colon Polyps N Heart Attack ([place]) N Psychiatric Illness N Hypospadia N Diabetes [...] Recorded Time HPV9 9 completed Kim Lacy [facility] 03/23/2024 10:54:24 HPV9 9 completed Kim Lacy [facility] 03/23/2024 10:54:24 COVID-19, mRNA, LNP-S, PF, 30 mcg/0.3 mL dose 2 completed Kim Lacy [facility] 03/23/2024 10:54:24 COVID-19, mRNA, LNP-S, PF, 30 mcg/0.3 mL dose 1 completed Kim Lacy [facility] 03/23/2024 10:54:24 COVID-19, mRNA, LNP-S, PF, 30 mcg/0.3 mL dose 1 completed Kim Lacy [facility] 03/23/2024 10:54:24 Tdap 5 completed Kim Lacy [facility] 03/23/2024 10:54:24 varicella 8 completed Kim Bambi [facility] 03/23/2024 10:54:24 HPV, quadrivalent 6 completed Kim Lacy [facility] 03/23/2024 10:54:24 Hep B, adolescent or pediatric 8 completed Kim Lacy [facility] 03/23/2024 10:54:24 Hep B, adolescent or pediatric 8 completed Kim Bambi [facility] 03/23/2024 10:54:24 meningococcal MCV4P 5 completed Kim Lacy [facility] 03/23/2024 10:54:24 Past Encounters Encounter ID Performer Location Encounter Start Date Encounter Closed Date Diagnosis/Indication Diagnosis SNOMED-CT Code Diagnosis ICD10 Code Diagnosis Note [id number] Sharona Mckeon MD [address] [facility] ([place]) [address] [facility] [place] [address] 12/10/2023 15:24:43 12/10/2023 16:24:22 Gynecologic examination 02562320 Z01.419 --Annual PHOTOGRAPHIC SPOTTER exam performed. --Family and personal medical history [...] date Inflammati on of vestibule of vulva 71660601 N94.810 Patient has been having some success with pelvic floor therapy. Still having pain with insertion at the vulva. Findings of vestibulit is on exam. Patient requests referral to vulvar specialist in [place]. Will send to Dr. Padilla. Prescripti on for lidocaine ointment also provided to be used prior to intercours elver herrera provided. Vaginal irritation 25790 6004 N89.8 [id number] Bernadette Freire, PAINT SPRAY INSPECTOR, LOCKSTITCH POCKET SETTER [address] [facility] ([place]) [address] [place] [address] 12/22/2023 16:44:31 12/22/2023 18:53:42 Vaginal discharge 973112548 N89.8 [id number] Sabrina Marcela Gonzales-Markie n, DPT [address] 2[address] PT ([place]) [address] [place] [address] 02/17/2024 15:59:30 02/17/2024 16:58:00 Pain in pelvis 19230913 R10.2 Pelvic jewel or dysfunction 655588206 M62.9 [id number] Sabrina Medrano Gonzales-Markie n, DPT [address] [facility] PT ([place]) [address] [place] [address] 02/24/2024 14:55:33 02/24/2024 16:02:16 Pain in pelvis 81592454 R10.2 Pelvic jewel or dysfunction 593562376 M62.9 [id number] Sabrina Marcela Gonzales-Markie n, DPT [address] [facility] PT ([place]) [address] [place] [address] 03/02/2024 15:59:13 03/02/2024 16:55:35 Pain in pelvis 08425007 R10.2 Pelvic jewel or dysfunction 344488677 M62.9 [id number] Sabrina Marcela Gonzales-Markie n, DPT [address] PT ([place]) [address] [place] [address] 03/16/2024 14:56:21 03/16/2024 16:06:24 Pain in pelvis 13648434 R10.2 Pelvic jewel or dysfunction 628078709 M62.9 [id number] Sharona Mckeon MD [address] [facility] ([place]) [address] [place] [address] 03/24/2024 10:20:59 03/24/2024 14:19:25 Normal in primigravida 4853157803 58625 Z34.01 Normal IUP at 1lg0uCukz of care reviewed.P dany will be transferri care. Will continue follow up until she gets establishe d Additional diagnosis detail: Encounter for supervisio n of normal first in first trimester [id number] Sharona Mckeon MD [address] ([place]) [address] [place] [address] 04/20/2024 10:55:54 04/20/2024 12:35:28 Gestation period, 12 weeks 58171888 Z3A.12 Additional diagnosis detail: 12 weeks gestation of Normal pre gnancy in primigravida 6468571806 95594 Z34.01 Normal IUP at 0qn2mHcak of care reviewed.P dany will be transferri care. Will continue follow up until she gets establishe d Additional diagnosis detail: Encounter for supervisio n of normal first in first trimester Maternal e xposure to radiation 581154860 Z84.89 screening 2437 48215 Z36.89 Additional diagnosis detail: Encounter for other specified screening Scalding p ain on urination 12538283 R30.0 Additional diagnosis detail: Burning with urination [id number] Sabrina dawn, DPT [address] [facility] [facility] ([place]) [address] [place] [address] 04/20/2024 11:53:03 04/20/2024 13:08:26 Pain in pelvis 93294289 R10.2 Pelvic jewel or dysfunction 383334967 M62.9 [id number] Sabrina Isbello nereyda, DPT [address] PT ([place]) [address] [place] [address] 06/15/2024 11:54:35 06/15/2024 12:56:03 Pain in pelvis 61286991 R10.2 Pelvic jewel or dysfunction 890709735 M62.9 [id number] AUTUMN MORA PA-C [facility] ([place]) [address] [facility],4[address] [place] [address] 06/28/2024 16:16:58 06/28/2024 17:02:43 Burning mouth syndrome 664744391 K14.6 Temporoman dibular joint disorder 76397477 M26.609 Health Concerns Section Related Observation LastModified by Organization Detai ls LastModified Time None Recorded Concern Status LastModified by Organization Details LastModified Time None Recorded Advance Directives Directive N: Payers Insurance Date Sequence Insurance Name Policy Number Policy Anaya Covered Member ID Anaya Member ID Guarantor Name 01/19/2025 1 [email or web address] (O) [id number] Mami Call [id number] Mami Call Notes Date Note Type Note [...] with radiation exposure. She was referred to [facility] for this and genetic counseling. She is concerned about OB care due to her living 2 hours away. She does not want to transfer care and is wanting to discuss options. (Kim Lacy RN) Sharona Mckeon MD [address] [place] [address], [address], [facility] 03/24/2024 14:17:21 04/20/2024 text/html Visit #2 Patient denies leaking of fluid and bleeding Patient states she is really fatigued and is having nausea. She wants to complete MAT 21 with gender (even though not approved through insurance) and CF/SMA. She is having burning with urination and a UA will be sent to the lab. Sharona Mckeon MD [address] [place] [address], [address], [facility] 04/20/2024 11:28:41 04/20/2024 text/html Patient reports she [...] be having pain. Sabrina Cancino, DPT [address], [address], [facility] 04/20/2024 13:08:19 06/15/2024 text/html Referred by ANA [...] her every. Sabrina Cancino DPT [address] [place] [address], [address], [facility] 06/15/2024 12:55:54 06/28/2024 text/html Mami is a [...] recent illness. AUTUMN MORA PA-C [address] [place] [address], [address], [facility] 06/28/2024 17:12:55 OBGyn Episode Ob Episode Information Episode Created Date Number of Fetuses Patient Bloodtype Patient rh Status Prepregnancy Weight lbs Domestic Partner Domestic Partner Phone Father Name Color Matcher Status 03/24/20 24 1 A Positive Maurice Root [id number] Maurice Root OPEN Fetus Data First Name Last Name Admitted to NICU Weight (g) Sex Living Outcome Pediatric Complications Fetus ID Race Codes Race Delivery Type [id number] Problems Problem Notes Problem Name Start Date End Date Resolution Snomed Code Not e Normal in primigravida 03/24/2024 [id number] Maternal exposure to radiation 03/24/2024 [id number] Lives by substa tion and exposed to [...] Date Ultra Sound Latest Days Gestation 0 [id number] 03/24/2024 10/30/19 25 0 Pre- Flowsheet Flowsheet Date 03/24/2024 Morgan Score Blood Edema Fundus Height Fundus Units Glucose Ketones Leukocytes Nitrite Labor Signs Protein Cervic Dilation Cervic Effacement Cervic Station none Type Weight in lbs Pre/Post Dialysis Refused Weight 131.951893408571 BP Diastolic BP Location Tested BP Systolic [...] with radiation exposure. She was referred to [facility] for this and genetic counseling. She is concerned about OB care due to her living 2 hours away. She does not want to transfer care and is wanting to discuss options. (Kim Lacy, LISA)New OB intake and exam performed. Discussed plan of care. [place] Unsure about the risks of the substation. Can check with [facility] to see if they have any information. Flowsheet Date 04/20/2024 Morgan Score Blood Edema Fundus Height Fundus Units Glucose Ketones Leukocytes Nitrite Labor Signs Protein Cervic Dilation Cervic Effacement Cervic Station none none neg Type Weight in lbs Pre/Post Dialysis Refused 135.525415685218 BP Diastolic BP Location Tested BP Systolic [...] today.Has not yet established with provider in [place]. Flowsheet Date 04/20/2024 Morgan Score Blood Edema [...] Weight in lbs Pre/Post Dialysis Refused Weight 142.838286338276 BP Diastolic BP Location Tested BP Systolic [...] Estim ated Date of Delivery false Thalassemia (Kinyarwanda, English, Mediterranean, Or Background): MCV < 80 false Neural Tube Defect (Meningomyelocele, Spina Bifi da, Or Anencephaly) false Congenital Heart Defect false Down Syndrome false Harley-Sachs (eg, Orthodoxy, Cajun, Lithuanian-Morton) f alse Lenka Disease false Sickle Cell Disease Or Trait () false Hemophilia Or Other Blood Disorders false Muscular Dystrophy false Cystic Fibrosis false Geneva's Chorea false Intellectual Disability/Autism false If Yes, [...] 03/24/2024 Avoidance of saunas or hot tubs [id number] 03/24/2024 Screening for aneuploidy dde zwlarj52 03/24/2024 Intimate partner violence dd qzfuolf64 03/24/2024 HIV and other routine tests pmpjjuamz52 03/24/2024 [facility]/24/2024 Environmental/work hazards d ohuokuie20 03/24/2024 Illicit/recreational drugs d apofgblt67 03/24/2024 Indications for ultrasonography nmclwlynk19 03/24/2024 Travel fswcsagkd31 03/24/2024 Tobacco/smoking cess ation counseling (ask, advise, assess, assist, and arrange) vllennvls52 03/24/2024 opjooqbzj74 03/24/2024 Use of any medicatio ns (including supplements, vitamins, herbs, or OTC drugs) cuobpfbde13 03/24/2024 Seat belt use ounzaurct14 03/24/2024 Risk factors identif ied by history xximsfext21 03/24/2024 Anticipated course of care udtezasxw01 03/24/2024 Sexual activity uupwwxsju21 03/24/2024 Dental care speurpclu27 03/24/2024 Nutrition counseling ; special diet; dietary precautions (mercury, listeriosis) gvhamgtig23 03/24/2024 Toxoplasmosis precautions (cats/raw meat) iopnpoqyt08 03/24/2024 Exercise svyciylnw91 03/24/2024 Teratogens qubghdiqy25 03/24/2024 Alcohol wygbdsqfg27 03/24/2024 Childbirth classes/hospital facilities clctigaks25 Second Trimester Discussed Date Discussion Item Discussion [...]
--- OUTSIDE RECORDS SUMMARY | 2025-01-24 17:07 | XMS_ITS | Clinical Summary ---
Author Organization [facility] Address [address] [place] [address] Care Team Providers Care Ccna Name Role Phone Rigo Mar MD Primary Care Provider [phone] Source Comments [facility],non-owned Affiliates and Associated Physician Practices is amultiple site organization consisting of ambulatory clinics and hospital sitesin [place], [place], [place] and [place]. This disclosure is being madepursuant to the Care Everywhere program and may not contain all information available regarding this patient. 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 Family History Medical History Relation Name Comments [...] drink = 0.6 oz pur e alcohol) Comments No Sex and Gender Information Value Date Recorded Sex Assigned at Not on file Legal Sex Female 1:13 PM CDT Gender Identity Not on file Sexual Orientation Not on file Last Filed Vital Signs Vital Sign Reading Time Taken Comments Blood Pressure 116/57 06/06/2024 8:08 AM [employer] DEVEL[employer] Pulse 86 06/06/2024 8:08 AM [employer] DEVELOPER Temperature 37.5 C (99.5 F) 03/29/2024 9:10 AM CDT Respiratory Rate - - Oxygen Saturation - - Inhaled Oxygen Concentration - - Weight 63 kg (138 lb 12.8 oz) 06/06/2024 8:08 AM [employer] DEVELOPER Height 167.6 cm (5' 6) 03/29/2024 9:10 [...] Required) Completed Insurance [employer] Care Teams Ccna Relationship Specialty Start Date End Date Rigo Mar MD [address] [phone] PCP - General Family Medicine 03/24/24
[2025-01-24 17:22] LABS: Add Urine Microscopic? YES; Appearance Urine Clear (Clear); Glucose Urine UA Negative (Negative); Leukocyte Esterase Ur 1+ LEU/UL (Negative); Nitrate Urine Negative (Negative); Non Pathogenic Casts 0-2; Specific Grav Ur 1.018 (1.001-1.035)
== END 2025-01-24 17:01 | disposition home or self-care (01) ==
PROVIDERS: Visit Provider Obstetrics & Gynecology
DX: N39.0 Urinary tract infection, site not specified (principal)
CPT/HCPCS: 81001; 87086